=== PATIENT | male | born 1945 | race Caucasian/White ===

== ENCOUNTER 2017-09-09 11:43 | Inpatient (IN) | payer MEDICARE ==
[2017-09-09] VITALS (9 sets, daily range): BP systolic 73–123; BP diastolic 53–88; PULSE 76–152; RESP 19–20; TEMP 97.6–97.9; O2SAT 93–98
[~2017-09-09] VITALS: Ht 185.4 cm; Wt 94.7 kg
[2017-09-09] MEDS ORDERED: WARF-20 PO (12:59)
[2017-09-09] MEDS ORDERED: DULO1CAP PO (12:59)
[2017-09-09] MEDS ORDERED: WARF4TAB51 PO (12:59)
[2017-09-09] MEDS ORDERED: ACETAMINOPHEN/HYDROcodone 325 MG/5 MG TAB PO ONE (13:15)
--- NOTE | 2017-09-09 13:25 | PD ---
HPI Chief Complaint: Pain: Acute or Chronic Time Seen by Provider: 12:53 Travel History International Travel<30 days: Yes Contact w/Intl Traveler<30days: Yes Name of Country Traveled to: [place] Traveled to known affect area: Yes History of Present Illness HPI 72-year-old male presents to the emergency room for evaluation of right knee pain for the past several days. It started about 4-5 days ago when he "tweaked " his knee while changing his tire. He had mild pain since then but but yesterday the pain became so severe, he could no longer ambulate. Pain is also worse with hyperextension. Patient has minimal pain at rest. He has been taking Tylenol, his friend's muscle relaxer, and previously prescribed oxycodone with moderate relief in symptoms. He cannot localize pain. Denies worsening paresthesias, fever. No history of knee problems. History of A. fib for which he takes warfarin. Patient stopped taking warfarin 2 days ago because he noted a small bruise to his buttocks. Denies any trauma or injury to buttocks. He has an appointment with his orthopedic physician in 3 days. Patient states he may have been diagnosed with gout a long time ago. PFSH Past Medical History Hx Anticoagulant Therapy: Yes (COUMADIN) Atrial Fibrillation: Yes Cardiovascular Problems: Yes (AFIB) COPD: Yes Musculoskeletal: Yes (SPINAL STENOSIS) Respiratory: Yes (COPD) Influenza Vaccination: No Past Surgical History Surgical History: No Previous Surgery Social History Alcohol Use: No Tobacco Use: No Substance Use: No Allergies-Medications (Allergen,Severity, Reaction): Coded Allergies: No Known Allergies (Unverified , 09/09/17) Reported Meds & Prescriptions Reported Meds & Active Scripts Active Walker/Adult/Folding (Device) 1 Mis Mis Ea .XX DIRECTED Prednisone 20 Mg Tab 40 Mg PO DAILY Take 40 mg (2 tablets) daily for 5 days Oxycodone (Oxycodone HCl) 5 Mg Cap 5 Mg PO Q6H PRN Reported Warfarin 4 Mg Tab 4 Mg PO EVERY OTHER DAY Warfarin 2 Mg Tab 4.5 Mg PO EVERY OTHER DAY Duloxetine DR (Duloxetine HCl) 20 Mg Capdr 20 Mg PO DAILY Review of Systems Except as stated in HPI: all other systems reviewed are Neg Physical Exam Narrative GENERAL: Well-nourished, well-developed male in no acute distress. Afebrile. SKIN: Focused skin assessment warm/dry. No erythema or ecchymosis of the knee. There is a 2 cm in diameter area of ecchymosis around the coccyx. HEAD: Normocephalic. EYES: No scleral icterus. No injection or drainage. NECK: Supple, trachea midline. No JVD or lymphadenopathy. CARDIOVASCULAR: Regular rate and rhythm without murmurs, gallops, or rubs. RESPIRATORY: Breath sounds equal bilaterally. No accessory muscle use. MSK: Mild edema of the right knee. Negative Homans test. 2+ dorsalis pedis pulses are equal bilaterally. Full range of motion of the right knee but with pain. Tenderness to palpation of lateral and medial aspect of right knee. No obvious effusion. Data Data Last Documented VS Vital Signs Date Time Temp Pulse Resp B/P (MAP) Pulse Ox O2 Delivery O2 Flow Rate FiO2 09/09/17 17:29 108 20 83/53 (63) 95 Room Air 09/09/17 12:22 97.9 Orders Orders Knee, Complete (4vws) (09/09/17 ) Acetamin-Hydrocod 325-5 Mg ([place] 5-325 (09/09/17 13:15) ^ Knee Immobilizer (09/09/17 15:01) Radiology Film Requests (09/09/17 ) Morphine Inj (Morphine Inj) (09/09/17 15:30) Sodium Chlor 0.9% 1000 Ml Inj (Ns 1000 M (09/09/17 16:00) Complete Blood Count With Diff (09/09/17 16:36) Comprehensive Metabolic Panel (09/09/17 16:36) Prothrombin Time / Inr (Pt) (09/09/17 16:36) Act Partial Throm Time (Ptt) (09/09/17 16:36) Sodium Chlor 0.9% 1000 Ml Inj (Ns 1000 M (09/09/17 16:45) Urinalysis - C+S If Indicated (09/09/17 16:39) Hip, Uni(Ap&Lat) W Ap Pelvis (09/09/17 ) Sodium Chlor 0.9% 1000 Ml Inj (Ns 1000 M (09/09/17 17:30) Electrocardiogram (09/09/17 17:30) Blood Culture (09/09/17 17:30) C-Reactive Protein (Crp) (09/09/17 17:30) Hepatic Functional Panel (09/09/17 17:30) Westergren Sedimentation Rate (09/09/17 17:30) Magnesium (Mg) (09/09/17 17:30) Thyroid Stimulating Hormone (09/09/17 17:30) Phosphorus (Po4) (09/09/17 17:30) Chest, Single Ap (09/09/17 17:30) Ecg Monitoring (09/09/17 17:30) Oximetry (09/09/17 17:30) Lactic Acid (09/09/17 17:35) Labs Laboratory Tests Test 09/09/17 16:45 White Blood Count 8.2 TH/MM3 Red Blood Count 4.58 MIL/MM3 Hemoglobin 14.5 GM/DL Hematocrit 42.5 % Mean Corpuscular Volume 92.8 FL Mean Corpuscular Hemoglobin 31.6 PG Mean Corpuscular Hemoglobin Concent 34.1 % Red Cell Distribution Width 14.4 % Platelet Count 179 TH/MM3 Mean Platelet Volume 9.4 FL Neutrophils (%) (Auto) 94.4 % Lymphocytes (%) (Auto) 2.3 % Monocytes (%) (Auto) 3.1 % Eosinophils (%) (Auto) 0.0 % Basophils (%) (Auto) 0.2 % Neutrophils # (Auto) 7.7 TH/MM3 Lymphocytes # (Auto) 0.2 TH/MM3 Monocytes # (Auto) 0.3 TH/MM3 Eosinophils # (Auto) 0.0 TH/MM3 Basophils # (Auto) 0.0 TH/MM3 CBC Comment AUTO DIFF Prothrombin Time 13.4 SEC Prothromb Time International Ratio 1.3 RATIO Activated Partial Thromboplast Time 34.6 SEC Blood Urea Nitrogen 43 MG/DL Creatinine 2.01 MG/DL Random Glucose 89 MG/DL Total Protein 5.7 GM/DL Albumin 2.2 GM/DL Calcium Level 8.8 MG/DL Alkaline Phosphatase 93 U/L Aspartate Amino Transf (AST/SGOT) 12 U/L Alanine Aminotransferase (ALT/SGPT) 15 U/L Total Bilirubin 1.9 MG/DL Sodium Level 134 MEQ/L Potassium Level 4.1 MEQ/L Chloride Level 100 MEQ/L Carbon Dioxide Level 25.0 MEQ/L Anion Gap 9 MEQ/L Estimat Glomerular Filtration Rate 33 ML/MIN MDM Medical Decision Making Medical Screen Exam Complete: Yes Emergency Medical Condition: Yes Medical Record Reviewed: Yes Differential Diagnosis Sprain, strain, contusion, effusion, inflammatory arthritis, blood clot unlikely Narrative Course 72-year-old male presents to the emergency room for evaluation of right knee pain for the past 4 days that worsened yesterday morning. Patient states he may have tweaked his knee while changing a tire several days ago but denies any obvious or specific trauma or injury. Denies any falls. States yesterday morning he can no longer walk because his knee pain was so severe. Minimal pain at rest. Physical exam reveals mild edema of the right knee. No erythema or ecchymosis. Mildly increased warmth. Negative Homans test. 2+ dorsalis pedis pulses are equal bilaterally. Full range of motion of the right knee but with pain. Tenderness to palpation of lateral and medial aspect of right knee. No obvious effusion. No evidence of septic arthritis. Patient also complained of acute on chronic back pain with history of spinal stenosis. He is being worked up as an outpatient by his physicians in [facility]. Patient was given Lortab for pain which moderately improved symptoms. X-ray of the right knee shows multiple acute and chronic findings. X-ray results discussed with patient and he was given copy of report. He has an appointment with his orthopedic physician in 3 days. Upon discharge, he mentioned left hip pain and dark urine for the past few days but initially declined to stay for x- rays and UA. His blood pressure was rechecked and found to be decreasing. Patient was clammy but denied chest pain, shortness of breath, or significant abdominal pain. He is alert and oriented. Answering questions appropriately. IV access established and basic labs obtained. Patient given a liter of fluids. After 1 L of fluids, he was persistently hypotensive. A second liter was ordered and patient remained hypotensive. At this point he was signed out to my attending physician. Please see his note for disposition. Condition: Stable Bridgett Ramirez Sep 09, 2017 13:25
--- NOTE | 2017-09-09 14:41 | RADRPT ---
EXAM DATE/TIME: 09/09/2017 13:49 [facility] COMPARISON: No previous studies available for comparison. INDICATIONS : Right knee pain. MEDICAL HISTORY : None. SURGICAL HISTORY : None. ENCOUNTER: Initial ACUITY: 1 day PAIN SCORE: 9/10 LOCATION: Right knee. FINDINGS: 4 views of the right knee demonstrate no fracture or dislocation. There are tricompartmental osteophy virgilio with medial joint space narrowing. A moderate to large joint effusion is present. There is coarse ossification at the medial supracondylar ridge. No soft tissue abnormality or radiopaque foreign bod y is seen. There is severe calcification of the popliteal artery. There is mineralization within the lateral meniscus. CONCLUSION: 1. Moderate to large joint effusion. No acute osseous abnormality is identified. 2. 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 3. Bridger-Stieda lesion indicating old medial collateral ligament injury. 4. Severe calcification of the popliteal artery. Constantin Lopez MD on September 09, 2017 at 14:37 Board Certified Radiologist. This report was verified electronically.
[2017-09-09] MEDS ORDERED: PRED20 PO (15:02)
[2017-09-09] MEDS ORDERED: OXYC1CAP PO (15:02)
[2017-09-09] MEDS ORDERED: WALKER/ADULT/FO1 MIS (15:03)
[2017-09-09] MEDS ORDERED: MORPHINE SULFATE 2 MG/ML INJ IM ONE (15:30)
[2017-09-09] MEDS ORDERED: SODIUM CHLOR 0.9% 1000 ML INJ 1,000 ML IV ONE ×3 (16:00→17:30)
[2017-09-09 17:03] LABS: AUTOMATED NEUTROPHIL # 7.7 TH/MM3 (1.8-7.7); BASOPHIL % 0.2 % (0.0-2.0); HEMATOCRIT 42.5 % (39.0-51.0); HEMOGLOBIN 14.5 GM/DL (13.0-17.0); LYMPH % 2.3 % (9.0-44.0); LYMPHOCYTE # 0.2 TH/MM3 (1.0-4.8); MEAN CELL VOLUME 92.8 FL (80.0-100.0); MEAN CORPUSCULAR HEMOGLOBIN 31.6 PG (27.0-34.0); MEAN CORPUSCULAR HGB CONC 34.1 % (32.0-36.0); MEAN PLATELET VOLUME 9.4 FL (7.0-11.0); MONO % 3.1 % (0.0-8.0); MONOCYTE # 0.3 TH/MM3 (0-0.9); NEUT % 94.4 % (16.0-70.0); PLATELET COUNT 179 TH/MM3 (150-450); RED BLOOD COUNT 4.58 MIL/MM3 (4.50-5.90); RED CELL DISTRIBUTION WIDTH 14.4 % (11.6-17.2); WHITE BLOOD COUNT 8.2 TH/MM3 (4.0-11.0)
[2017-09-09 17:19] LABS: ALBUMIN 2.2 GM/DL (3.4-5.0); ALT (GPT) 15 U/L (12-78); AST (GOT) 12 U/L (15-37); BLOOD UREA NITROGEN 43 MG/DL (7-18); CALCIUM 8.8 MG/DL (8.5-10.1); CHLORIDE 100 MEQ/L (98-107); CREATININE 2.01 MG/DL (0.60-1.30); GLOMERULAR FILTRATION RATE 33 ML/MIN (>89); GLUCOSE,RANDOM 89 MG/DL (74-106); SODIUM (NA) 134 MEQ/L (136-145)
[2017-09-09 17:20] LABS: INTERNATIONAL NORMALIZED RATIO 1.3 RATIO; PROTHROMBIN TIME - PATIENT 13.4 SEC (9.8-11.6)
[2017-09-09 17:22] LABS: ALKALINE PHOSPHATASE 93 U/L (45-117); TOTAL BILIRUBIN ADULT 1.9 MG/DL (0.2-1.0); TOTAL PROTEIN 5.7 GM/DL (6.4-8.2)
[2017-09-09 17:36] LABS: BANDS 53 % (0-6); LYMPHOCYTES 1 % (9-44); METAMYELOCYTES 1 % (0-1); MONOCYTES 2 % (0-8); POLYS (SEG NEUTROPHILS) 42 % (16-70); PROMYELOCYTES 1 % (0-0)
[2017-09-09 17:39] LABS: DOHLE BODIES PRESENT (NONE SEEN); TOXIC GRANULATION 2+ (NORMAL); TOXIC VACUOLATION PRESENT (NONE SEEN)
--- NOTE | 2017-09-09 17:47 | PD ---
Physical Exam Narrative Patient was seen by my mechanic assistant and signed out to me. Patient complains shaking chills since yesterday. Patient denies any fever. Patient denies any coughing congestion. Patient denies any dysuria or frequency. GENERAL: Well-nourished, well-developed patient. SKIN: Focused skin assessment warm/dry. HEAD: Normocephalic. EYES: No scleral icterus. No injection or drainage. NECK: Supple, trachea midline. No JVD or lymphadenopathy. CARDIOVASCULAR: Irregular irregular rate and rhythm without murmurs, gallops, or rubs. RESPIRATORY: Breath sounds equal bilaterally. No accessory muscle use. GASTROINTESTINAL: Abdomen soft, nondistended. Patient has mild soft tissue swelling tenderness diffuse over the right knee joint. No redness no heat noted. Limited range of motion of the right knee secondary to pain. BACK: Nontender without obvious deformity. No CVA tenderness. Neurologic exam normal. Data Data Last Documented VS Vital Signs Date Time Temp Pulse Resp B/P (MAP) Pulse Ox O2 Delivery O2 Flow Rate FiO2 09/09/17 17:29 108 20 83/53 (63) 95 Room Air 09/09/17 12:22 97.9 Orders Orders Knee, Complete (4vws) (09/09/17 ) Acetamin-Hydrocod 325-5 Mg ([place] 5-325 (09/09/17 13:15) ^ Knee Immobilizer (09/09/17 15:01) Radiology Film Requests (09/09/17 ) Morphine Inj (Morphine Inj) (09/09/17 15:30) Sodium Chlor 0.9% 1000 Ml Inj (Ns 1000 M (09/09/17 16:00) Complete Blood Count With Diff (09/09/17 16:36) Comprehensive Metabolic Panel (09/09/17 16:36) Prothrombin Time / Inr (Pt) (09/09/17 16:36) Act Partial Throm Time (Ptt) (09/09/17 16:36) Sodium Chlor 0.9% 1000 Ml Inj (Ns 1000 M (09/09/17 16:45) Urinalysis - C+S If Indicated (09/09/17 16:39) Hip, Uni(Ap&Lat) W Ap Pelvis (09/09/17 ) Sodium Chlor 0.9% 1000 Ml Inj (Ns 1000 M (09/09/17 17:30) Electrocardiogram (09/09/17 17:30) Blood Culture (09/09/17 17:30) C-Reactive Protein (Crp) (09/09/17 17:30) Hepatic Functional Panel (09/09/17 17:30) Westergren Sedimentation Rate (09/09/17 17:30) Magnesium (Mg) (09/09/17 17:30) Thyroid Stimulating Hormone (09/09/17 17:30) Phosphorus (Po4) (09/09/17 17:30) Chest, Single Ap (09/09/17 17:30) Ecg Monitoring (09/09/17 17:30) Oximetry (09/09/17 17:30) Lactic Acid (09/09/17 17:35) Lactic Acid (09/09/17 17:36) Ct Abd/Pel W/O Iv Contrast (09/09/17 17:38) Vancomycin Inj (Vancomycin Inj) (09/09/17 18:00) Piperacil-Tazo 2.25 Gm Premix (Zosyn 2.2 (09/09/17 18:00) Sodium Chlor 0.9% 1000 Ml Inj (Ns 1000 M (09/09/17 18:15) Marlo Otero (Chhaya Otero) (09/10/17 09:00) Admit Order (Ed Use Only) (09/09/17 18:09) Admit To Inpatient (09/09/17 ) Code Status (09/09/17 18:07) Vital Signs (Adult) LUIZ.Q1H (09/09/17 18:07) Elevate Head Of Bed (09/09/17 18:07) Activity Oob With Assistance (09/09/17 18:07) Intake + Output Q1H (09/09/17 18:07) Diet Regular Basic (09/09/17 Dinner) Sodium Chlor 0.9% 1000 Ml Inj (Ns 1000 M (09/09/17 18:07) Sodium Chloride 0.9% Flush (Ns Flush) (09/09/17 18:15) Sodium Chloride 0.9% Flush (Ns Flush) (09/09/17 21:00) Acetaminophen (Tylenol) (09/09/17 18:15) Famotidine Inj (Pepcid Inj) (09/09/17 21:00) Temazepam (Restoril) (09/09/17 18:15) Albuterol-Ipratropium Neb (Duoneb Neb) (09/09/17 18:15) Complete Blood Count With Diff (09/10/17 04:00) Comprehensive Metabolic Panel (09/10/17 04:00) Act Partial Throm Time (Ptt) (09/10/17 04:00) Prothrombin Time / Inr (Pt) (09/10/17 04:00) Magnesium (Mg) (09/10/17 04:00) Phosphorus (Po4) (09/10/17 04:00) Lactic Acid (09/10/17 04:00) Pt Request For Service (09/09/17 18:07) Rn Women Services / Telemetry LUIZ.Q8H (09/09/17 18:07) Heparin Inj (Heparin Inj) (09/09/17 18:15) Scd Bilateral/Knee High LUIZ.BID (09/09/17 18:07) Jefe Bilateral/Knee High LUIZ.QSHIFT (09/09/17 18:07) ^ Initiate Protocol (09/09/17 18:07) Instruction (09/09/17 18:07) [facility] Nursing Information (09/09/17 18:15) Chlorhexidine 2% Cloth (Chlorhexidine 2% (09/10/17 04:00) Chlorhexidine 2% Cloth (Chlorhexidine 2% (09/09/17 18:15) Mrsa Pcr Surveillance (09/09/17 18:07) Docusate Sodium-Senna (Mar-Colace) (09/09/17 21:00) Magnesium Hydroxide Liq (Milk Of Magnesi (09/09/17 18:15) Sennosides (Senokot) (09/09/17 18:15) Bisacodyl Supp (Dulcolax Supp) (09/09/17 18:15) Lactulose Liq (Lactulose Liq) (09/09/17 18:15) Inpatient Certification (09/09/17 ) Vancomycin Consult Pharmacy (Vancomycin (09/09/17 18:15) Piperacil-Tazo 4.5 Gm Premix (Zosyn 4.5 (09/09/17 18:15) Labs Laboratory Tests Test 09/09/17 16:45 White Blood Count 8.2 TH/MM3 Red Blood Count 4.58 MIL/MM3 Hemoglobin 14.5 GM/DL Hematocrit 42.5 % Mean Corpuscular Volume 92.8 FL Mean Corpuscular Hemoglobin 31.6 PG Mean Corpuscular Hemoglobin Concent 34.1 % Red Cell Distribution Width 14.4 % Platelet Count 179 TH/MM3 Mean Platelet Volume 9.4 FL Neutrophils (%) (Auto) 94.4 % Lymphocytes (%) (Auto) 2.3 % Monocytes (%) (Auto) 3.1 % Eosinophils (%) (Auto) 0.0 % Basophils (%) (Auto) 0.2 % Neutrophils # (Auto) 7.7 TH/MM3 Lymphocytes # (Auto) 0.2 TH/MM3 Monocytes # (Auto) 0.3 TH/MM3 Eosinophils # (Auto) 0.0 TH/MM3 Basophils # (Auto) 0.0 TH/MM3 CBC Comment AUTO DIFF Differential Total Cells Counted 100 Neutrophils % (Manual) 42 % Band Neutrophils % 53 % Lymphocytes % 1 % Monocytes % 2 % Neutrophils # (Manual) 8.0 TH/MM3 Metamyelocytes 1 % Promyelocytes 1 % Differential Comment FINAL DIFF MANUAL Toxic Granulation 2+ Toxic Vacuolation PRESENT Dohle Bodies PRESENT Platelet Estimate NORMAL Platelet Morphology Comment CLUMPED Prothrombin Time 13.4 SEC Prothromb Time International Ratio 1.3 RATIO Activated Partial Thromboplast Time 34.6 SEC Blood Urea Nitrogen 43 MG/DL Creatinine 2.01 MG/DL Random Glucose 89 MG/DL Total Protein 5.7 GM/DL Albumin 2.2 GM/DL Calcium Level 8.8 MG/DL Alkaline Phosphatase 93 U/L Aspartate Amino Transf (AST/SGOT) 12 U/L Alanine Aminotransferase (ALT/SGPT) 15 U/L Total Bilirubin 1.9 MG/DL Sodium Level 134 MEQ/L Potassium Level 4.1 MEQ/L Chloride Level 100 MEQ/L Carbon Dioxide Level 25.0 MEQ/L Anion Gap 9 MEQ/L Estimat Glomerular Filtration Rate 33 ML/MIN [facility] Supervised Visit with ANDREW: Yes Interpretation(s) 1742 PM. X-ray of the right knee shows moderate to large joint effusion. No acute osseous abnormality identified. CBC WBC 8.2. Hemoglobin 14.5 hematocrit 42.5. 42 neutrophil. 53 bands. Sodium 134. BUN 43. Creatinine 2.01. GFR 33. Total bili 1.9. AST 12. INR 1.3. Differential Diagnosis Differential diagnosis including dehydration, sepsis, septic arthritis right knee joint. Narrative Course 72-year-old male with right knee pain and hypotension. Patient is on Coumadin for atrial fibrillation. INR 1.3. CBC with bandemia. BUN and creatinine elevated. No obvious source except possible knee joint infection. Patient stopped taking Coumadin 2 days ago and INR is elevated. I would hold off for knee joint aspiration at this point. Vancomycin 1 g IV. Zosyn 2.25 g IV. Normal saline solution 3 L IV bolus. Normal saline solution 1 25 cc an hour. Levophed drip started to keep MAP above 65. Critical Care Narrative Aggregate critical care time was 90 minutes. Time to perform other separately billable procedures was not included in the critical care time. My time did not include minutes spent treating any other patients simultaneously or on activities that did not directly contribute to the patient's treatment. The services I provided to this patient were to treat and/or prevent clinically significant deterioration that could result in: I provided critical care services requiring my management, as noted below: Chart data review, documentation time, medication orders and management, vital sign assessments/reviewing monitor data, ordering and reviewing lab tests, ordering and interpreting/reviewing x-rays and diagnostic studies, care of the patient and discussion of the patient with the admitting physicians. Procedures Procedure Narrative CENTRAL VENOUS LINE: The site was prepped with Betadine and sterilely draped. It was infiltrated with 1% lidocaine plain. The deep vein was cannulated using normal Seldinger technique. A triple lumen central line was placed in the right femoral vein site and secured with simple interrupted suture. The site was sterilely dressed. The patient tolerated the procedure well. Diagnosis Primary Impression: Severe sepsis with septic shock Additional Impression: Effusion, right knee Admitting Information Admitting Physician Requests: Admit Referrals: Primary Care Physician Jonathan Underwood MD Sep 09, 2017 17:47
[2017-09-09] MEDS ORDERED: VANCOMYCIN INJ 1,000 MG in SODIUM CHLOR 0.9% 250 ML INJ 250 ML IV ONE (18:00)
[2017-09-09] MEDS ORDERED: PIPERACIL-TAZO 2.25 GM PREMIX 50 ML IV ONE (18:00)
[2017-09-09] MEDS ORDERED: SODIUM CHLOR 0.9% 1000 ML INJ 1,000 ML IV SCH ×2 (18:07→18:15)
--- NOTE | 2017-09-09 18:11 | HHI.HP ---
HPI Service Critical Care Medicine Primary Care Physician No Primary Care Physician Admission Diagnosis Hypotension. Right knee effusion. Diagnosis: Travel History International Travel<30 Days: Yes Contact w/Intl Traveler <30 Da: Yes Name of Country Traveled to: [place] Traveled to Known Affected Are: Yes History of Present Illness 72-year-old male presents for evaluation of right knee pain for the past several days. It started about 4-5 days ago when he "tweaked" his knee while changing his tire. He had mild pain since then but but yesterday the pain became so severe, he could no longer ambulate. Pain is also worse with hyperextension. Patient has minimal pain at rest. He has been taking Tylenol, his friend's muscle relaxant, and previously prescribed oxycodone with moderate relief in symptoms. He cannot localize pain. Denies paresthesias, or fever. No history of knee problems. History of A. fib for which he takes warfarin. Patient stopped taking warfarin 2 days ago because he noted a small bruise to his buttocks. Denies any trauma or injury to buttocks. In the emergency department he was found to have bandemia and was hypotensive despite 3 L of normal saline boluses. Review of Systems Constitutional: DENIES: Diaphoretic episodes, Fatigue, Fever, Weight gain, Weight loss, Chills, Dizziness, Change in appetite, Night Sweats Endocrine: DENIES: Heat/cold intolerance, Polydipsia, Polyuria, Polyphagia Eyes: DENIES: Blurred vision, Diplopia, Eye inflammation, Eye pain, Vision loss , Photosensitivity, Double Vision Ears, nose, mouth, throat: DENIES: Tinnitus, Hearing loss, Vertigo, Nasal discharge, Oral lesions, Throat pain, Hoarseness, Ear Pain, Running Nose, Epistaxis, Sinus Pain, Toothache, Odynophagia Respiratory: DENIES: Apneas, Cough, Snoring, Wheezing, Hemoptysis, Sputum production, Shortness of breath Cardiovascular: DENIES: Chest pain, Palpitations, Syncope, Dyspnea on Exertion , PND, Lower Extremity Edema, Orthopnea, Claudication Gastrointestinal: DENIES: Abdominal pain, Black stools, Bloody stools, Constipation, Diarrhea, Nausea, Vomiting, Difficulty Swallowing, Anorexia Genitourinary: DENIES: Sexual dysfunction, Urinary frequency, Urinary incontinence, Urgency, Hematuria, Dysuria, Nocturia, Penile Discharge, Testicular Pain, Testicular Swelling Musculoskeletal: COMPLAINS OF: Joint pain, Stiffness, Joint Swelling, DENIES: Muscle aches, Back pain, Neck pain Integumentary: DENIES: Abnormal pigmentation, Nail changes, Pruritus, Rash Hematologic/lymphatic: DENIES: Bruising, Lymphadenopathy Immunologic/allergic: DENIES: Eczema, Urticaria Neurologic: DENIES: Abnormal gait, Headache, Localized weakness, Paresthesias, Seizures, Speech Problems, Tremor, Poor Balance Psychiatric: DENIES: Anxiety, Confusion, Mood changes, Depression, Hallucinations, Agitation, Suicidal Ideation, Homicidal Ideation, Delusions Past Family Social History Allergies: Coded Allergies: No Known Allergies (Unverified , 09/09/17) Past Medical History Hx Anticoagulant Therapy: Yes (COUMADIN) Atrial Fibrillation: Yes Cardiovascular Problems: Yes (AFIB) COPD: Yes Musculoskeletal: Yes (SPINAL STENOSIS) Respiratory: Yes (COPD) Influenza Vaccination: No Past Surgical History No Previous Surgery Reported Medications Reported Meds & Active Scripts Active Reported Warfarin 4 Mg Tab 4 Mg PO EVERY OTHER DAY Warfarin 2 Mg Tab 4.5 Mg PO EVERY OTHER DAY Duloxetine DR (Duloxetine HCl) 20 Mg Capdr 20 Mg PO DAILY Active Ordered Medications Current Medications Medications (Trade) Dose Ordered Sig/Jet Route PRN Reason Start Time Stop Time Status Last Admin Dose Admin Sodium Chloride 1,000 ml @ 125 mls/hr Q8H IV 09/09/17 18:15 09/09/17 18:26 Duloxetine HCl (Cymbalta Dr) 20 mg DAILY PO 09/10/17 09:00 Sodium Chloride 1,000 ml @ 184 mls/hr Q5H27M IV 09/09/17 18:07 Sodium Chloride (NS Flush) 2 ml UNSCH PRN IV FLUSH FLUSH AFTER USING IV ACCESS 09/09/17 18:15 Sodium Chloride (NS Flush) 2 ml BID IV FLUSH 09/09/17 21:00 Acetaminophen (Tylenol) 650 mg Q6H PRN PO PAIN 1-5 AND/OR FEVER >101F 09/09/17 18:15 Hydromorphone HCl (Dilaudid Pf Inj) 1 mg Q4H PRN IV PUSH PAIN SCALE 6 TO 10 09/09/17 18:15 Famotidine (Pepcid Inj) 20 mg DAILY IV PUSH 09/09/17 21:00 Temazepam (Restoril) 15 mg HS PRN PO INSOMNIA 09/09/17 18:15 Albuterol/ Ipratropium (Duoneb Neb) 1 ampule Q2HR NEB PRN INH WHEEZING 09/09/17 18:15 Heparin Sodium (Porcine) (Heparin Inj) 5,000 units Q8HR SQ 09/09/17 18:15 Miscellaneous Information 1 Q361D XX 09/09/17 18:15 Chlorhexidine Gluconate (Chlorhexidine 2% Cloth) 3 pack Taper DAILY@04 TOP 09/10/17 04:00 09/06/18 03:59 Chlorhexidine Gluconate (Chlorhexidine 2% Cloth) 3 pack UNSCH PRN TOP HYGIENIC CARE 09/09/17 18:15 Senna/Docusate Sodium (Mar-Colace) 1 tab BID PO 09/09/17 21:00 Magnesium Hydroxide (Milk Of Magnesia Liq) 30 ml Q12H PRN PO Mild constipation 09/09/17 18:15 Sennosides (Senokot) 17.2 mg Q12H PRN PO Moderate constipation 09/09/17 18:15 Bisacodyl (Dulcolax Supp) 10 mg DAILY PRN RECTAL SEVERE CONSITIPATION 09/09/17 18:15 Lactulose (Lactulose Liq) 30 ml DAILY PRN PO SEVERE CONSITIPATION 09/09/17 18:15 Pharmacy Profile Note 0 ml @ 0 mls/hr UNSCH OTHER 09/09/17 18:15 Norepinephrine Bitartrate 250 ml @ 7.5 mls/hr TITRATE PRN IV Blood pressure management 09/09/17 19:00 Terbutaline Sulfate (Brethine Inj) 1 mg UNSCH PRN SQ For Extravasation 09/09/17 19:00 Miscellaneous Information SPECIFIC LAB TO BE [facility]... ONCE ONCE .XX 09/10/17 05:00 09/10/17 05:01 Piperacillin Sod/ Tazobactam Sod 50 ml @ 100 mls/hr Q6H IV 09/09/17 08:00 Family History No family history significant for coronary artery disease or malignancy Social History Alcohol Use: No Tobacco Use: No Substance Use: No Physical Exam Vital Signs Vital Signs Date Time Temp Pulse Resp B/P (MAP) Pulse Ox O2 Delivery O2 Flow Rate FiO2 09/09/17 17:29 108 20 83/53 (63) 95 Room Air 09/09/17 16:40 112 19 73/55 (61) 95 09/09/17 15:45 100 19 90/63 (72) 96 09/09/17 12:22 97.9 76 20 123/88 (100) 93 Physical Exam GENERAL: Well-nourished, well-developed patient. SKIN: Warm and dry. HEAD: Normocephalic. EYES: No scleral icterus. No injection or drainage. NECK: Supple, trachea midline. No JVD or lymphadenopathy. CARDIOVASCULAR: Regular rate and rhythm without murmurs, gallops, or rubs. RESPIRATORY: Breath sounds equal bilaterally. No accessory muscle use. GASTROINTESTINAL: Abdomen soft, non-tender, nondistended. MUSCULOSKELETAL: Mild edema of the right knee. Negative Homans test. 2+ dorsalis pedis pulses are equal bilaterally. Full range of motion of the right knee but with pain. Tenderness to palpation of lateral and medial aspect of right knee. No obvious effusion. BACK: Nontender without obvious deformity. NEURO EXAM: GCS: 15 Mental Status: The patient is alert and oriented to person, place, and time with normal speech. Laboratory Laboratory Tests Test 09/09/17 16:45 White Blood Count 8.2 Red Blood Count 4.58 Hemoglobin 14.5 Hematocrit 42.5 Mean Corpuscular Volume 92.8 Mean Corpuscular Hemoglobin 31.6 Mean Corpuscular Hemoglobin Concent 34.1 Red Cell Distribution Width 14.4 Platelet Count 179 Mean Platelet Volume 9.4 Neutrophils (%) (Auto) 94.4 Lymphocytes (%) (Auto) 2.3 Monocytes (%) (Auto) 3.1 Eosinophils (%) (Auto) 0.0 Basophils (%) (Auto) 0.2 Neutrophils # (Auto) 7.7 Lymphocytes # (Auto) 0.2 Monocytes # (Auto) 0.3 Eosinophils # (Auto) 0.0 Basophils # (Auto) 0.0 CBC Comment AUTO DIFF Differential Total Cells Counted 100 Neutrophils % (Manual) 42 Band Neutrophils % 53 Lymphocytes % 1 Monocytes % 2 Neutrophils # (Manual) 8.0 Metamyelocytes 1 Promyelocytes 1 Differential Comment FINAL DIFF MANUAL Toxic Granulation 2+ Toxic Vacuolation PRESENT Dohle Bodies PRESENT Platelet Estimate NORMAL Platelet Morphology Comment CLUMPED Prothrombin Time 13.4 Prothromb Time International Ratio 1.3 Activated Partial Thromboplast Time 34.6 Blood Urea Nitrogen 43 Creatinine 2.01 Random Glucose 89 Total Protein 5.7 Albumin 2.2 Calcium Level 8.8 Alkaline Phosphatase 93 Aspartate Amino Transf (AST/SGOT) 12 Alanine Aminotransferase (ALT/SGPT) 15 Total Bilirubin 1.9 Sodium Level 134 Potassium Level 4.1 Chloride Level 100 Carbon Dioxide Level 25.0 Anion Gap 9 Estimat Glomerular Filtration Rate 33 Result Diagram: 09/09/17 1645 09/09/17 1645 Imaging Last 24 hours Impressions Abdomen/Pelvis CT 09/09/17 1738 Signed Impressions: Service Date/Time: Saturday, September 09, 2017 20:30 - CONCLUSION: 1. Small bilateral pleural effusions, left greater than right with basilar dependent airspace disease in the lungs. Mild anasarca. No bowel obstruction. No free air. Mild constipation. Bruce catheter in bladder. Sal Terrazas MD Chest X-Ray [id number]/09/[id number] Signed Impressions: Service Date/Time: Saturday, September 09, 2017 18:01 - CONCLUSION: 1. Cardiomegaly with possible mild interstitial edema. Mild subsegmental left perihilar airspace disease. Sal Terrazas MD Septic Shock Reassessment Septic shock perfusion: reassessment completed Caprini VTE Risk Assessment Caprini VTE Risk Assessment: Mod/High Risk (score >= 2) Caprini Risk Assessment Model Point Value = 1 Point Value = 2 Point Value = 3 Point Value = 5 Age 41-60 Minor surgery BMI > 25 kg/m2 Swollen legs Varicose veins or History of unexplained or recurrent spontaneous Oral contraceptives or hormone replacement Sepsis (< 1 month) Serious lung disease, including pneumonia (< 1 month) Abnormal pulmonary function Acute myocardial infarction Congestive heart failure (< 1 month) History of inflammatory bowel disease Medical patient at bed rest Age 61-74 Arthroscopic surgery Major open surgery (> 45 min) Laparoscopic surgery (> 45 min) Malignancy Confined to bed (> 72 hours) Immobilizing plaster cast Central venous access Age >= 75 History of VTE Family history of VTE Factor V Leiden Prothrombin [id number] Lupus anticoagulant Anticardiolipin antibodies Elevated serum homocysteine Heparin-induced thrombocytopenia Other congenital or acquired thrombophilia Stroke (< 1 month) Elective arthroplasty Hip, pelvis, or leg fracture Acute spinal cord injury (< 1 month) Prophylaxis Regimen Total Risk Factor Score Risk Level Prophylaxis Regimen 0-1 Low Early ambulation 2 Moderate Order ONE of the following: *Sequential Compression Device (SCD) *Heparin 5000 units SQ BID 3-4 Higher Order ONE of the following medications: *Heparin 5000 units SQ TID *Enoxaparin/Lovenox 40 mg SQ daily (WT < 150 kg, CrCl > 30 mL/min) *Enoxaparin/Lovenox 30 mg SQ daily (WT < 150 kg, CrCl > 10-29 mL/min) *Enoxaparin/Lovenox 30 mg SQ BID (WT < 150 kg, CrCl > 30 mL/min) AND/OR *Sequential Compression Device (SCD) 5 or more Highest Order ONE of the following medications: *Heparin 5000 units SQ TID (Preferred with Epidurals) *Enoxaparin/Lovenox 40 mg SQ daily (WT < 150 kg, CrCl > 30 mL/min) *Enoxaparin/Lovenox 30 mg SQ daily (WT < 150 kg, CrCl > 10-29 mL/min) *Enoxaparin/Lovenox 30 mg SQ BID (WT < 150 kg, CrCl > 30 mL/min) AND *Sequential Compression Device (SCD) Assessment and Plan Assessment and Plan SIRS/sepsis - Likely septic arthritis - Broad-spectrum antibiotic - Orthopedic consultation for arthrocentesis - Follow-up cultures and sensitivity Hypertension - Due to above - Aggressive IV fluid hydration - Raudel-Synephrine when necessary to keep map over 65 Atrial fibrillation - Hold Coumadin for procedure - Amiodarone for rate control - Unable to use beta skylar or calcium channel skylar due to hypotension COPD - No exacerbation - No steroids indicated - DuoNeb's when necessary DVT GI prophylaxis - Teds SCDs - Subcutaneous heparin for now, stop on the Coumadin resumed - Pepcid Critical Care: The total critical care time was 35 minutes. Time to perform other separately billable procedures was not included in the critical care time. Shawn Jacobo MD Sep 09, 2017 6:11 pm
[2017-09-09] MEDS ORDERED: PIPERACIL-TAZO 4.5 GM PREMIX 100 ML IV SCH (18:15)
[2017-09-09] MEDS ORDERED: CHLORHEXIDINE GLUCONATE 2 % 1 PACK (2 CLOTHS) TOP PRN (18:15)
[2017-09-09] MEDS ORDERED: HYDROmorphone HCL PF 2 MG/ML VIAL IV PUSH PRN (18:15)
[2017-09-09] MEDS ORDERED: MISCELLANEOUS NURSING INFORMATION XX SCH (18:15)
[2017-09-09] MEDS ORDERED: SENNOSIDES 8.6 MG TAB PO PRN (18:15)
[2017-09-09] MEDS ORDERED: RESP: ALBUTEROL 2.5 MG/IPRATROPIUM 0.5 MG NEB (PRN) INH (18:15)
[2017-09-09] MEDS ORDERED: Vancomycin Consult Pharmacy 1 EA OTHER SCH (18:15)
--- NOTE | 2017-09-09 18:30 | RADRPT ---
EXAM DATE/TIME: 09/09/2017 18:01 [facility] COMPARISON: No previous studies available for comparison. INDICATIONS : Short of breath. MEDICAL HISTORY : Chronic obstructive pulmonary disease. Afib. SURGICAL HISTORY : None. ENCOUNTER: Initial ACUITY: >1 year PAIN SCORE: 0/10 LOCATION: Bilateral chest FINDINGS: Heart size is enlarged. There is some interstitial prominence, possibly interstitial edema with subse gmental airspace disease in left perihilar region. No significant effusion. No pneumothorax. CONCLUSION: 1. Cardiomegaly with possible mild interstitial edema. Mild subsegmental left perihilar airspace dise ase. Sal Terrazas MD on September 09, 2017 at 18:27 Board Certified Radiologist. This report was verified electronically.
[2017-09-09] MEDS ORDERED: NOREPINEPHRINE 4 MG/4 ML AMP ONE (18:31)
[2017-09-09] MEDS ORDERED: TERBUTALINE INJ 1 MG/ML AMP SQ PRN (19:00)
[2017-09-09] MEDS ORDERED: NOREPINEPHRINE-DEXTROSE DRIP 250 ML IV PRN (19:00)
[2017-09-09 19:26] LABS: TOTAL BILIRUBIN ADULT 1.8 MG/DL (0.2-1.0); TOTAL PROTEIN 5.2 GM/DL (6.4-8.2)
[2017-09-09 19:31] LABS: DIRECT BILIRUBIN ADULT 1.1 MG/DL (0.0-0.2); INDIRECT BILIRUBIN 0.7 MG/DL (0.0-0.8); MAGNESIUM 1.9 MG/DL (1.5-2.5); PHOSPHORUS 3.8 MG/DL (2.5-4.9)
[2017-09-09 19:32] LABS: BACTERIA, URINE OCC /hpf; BILIRUBIN, URINE NEG (NEG); BLOOD, URINE SMALL (NEG); GLUCOSE,URINE NEG (NEG); KETONE, URINE NEG (NEG); NITRITE,URINE NEG (NEG); PH, URINE 5.5 (5.0-8.5); SQUAMOUS EPITHELIAL CELL URINE <1 /hpf (0-5); URINE LEUKOCYTE ESTERASE NEG (NEG)
[2017-09-09 19:33] LABS: URINE COLOR ORANGE (YELLW/STRAW)
[2017-09-09] MEDS ORDERED: VANCOMYCIN INJ 1,250 MG in SODIUM CHLOR 0.9% 250 ML INJ 250 ML IV ONE (20:00)
[2017-09-09] MEDS ORDERED: PIPERACILLIN/TAZ 3.375 GM VIAL 3.375 GM in SODIUM CHLORIDE 0.9% INJ 50 ML IV SCH (20:00)
--- NOTE | 2017-09-09 20:49 | RADRPT ---
EXAM DATE/TIME: 09/09/2017 20:30 [facility] COMPARISON: No previous studies available for comparison. INDICATIONS : Patient complains of abdominal pain. ORAL CONTRAST: No oral contrast ingested. RADIATION DOSE: 15.34 CTDIvol (mGy) MEDICAL HISTORY : Chronic obstructive pulmonary disease. A-fib SURGICAL HISTORY : None. ENCOUNTER: Initial ACUITY: 1 day PAIN SCALE: 4/10 LOCATION: Left lower quadrant TECHNIQUE: Volumetric scanning of the abdomen and pelvis was performed. Using automated exposure control and ad justment of the mA and/or kV according to patient size, radiation dose was kept as low as reasonably achievable to obtain optimal diagnostic quality images. DICOM format image data is available electro nically for review and comparison. FINDINGS: There are small bilateral pleural effusions and basilar and dependent airspace disease in the lungs. Trace pericardial fluid. No acute findings in the liver, spleen, adrenals, kidneys or pancreas. Right renal cyst present measu ring about 3 cm. No calcified gallstones or biliary ductal dilatation. There is mild constipation. Bruce catheter in b ladder. Mild anasarca. CONCLUSION: 1. Small bilateral pleural effusions, left greater than right with basilar dependent airspace disease in the lungs. Mild anasarca. No bowel obstruction. No free air. Mild constipation. Bruce catheter in bladder. Sal Terrazas MD on September 09, 2017 at 20:44 Board Certified Radiologist. This report was verified electronically.
[2017-09-09] MEDS: DOCUSATE SODIUM 50 MG/SENNA 8.6 MG TAB PO SCH (21:00)
[2017-09-09] MEDS ORDERED: FAMOTIDINE 20 MG/2 ML VIAL IV PUSH SCH (21:00)
[2017-09-09] MEDS: SODIUM CHLORIDE 0.9% FLUSH 10 ML FLUSH IV FLUSH SCH (21:00)
[2017-09-10] VITALS (14 sets, daily range): BP systolic 96–112; BP diastolic 54–81; PULSE 87–146; RESP 19–27; TEMP 97.3–97.9; O2SAT 90–97
[2017-09-10] MEDS ORDERED: SODIUM CHLOR 0.9% 1000 ML INJ 1,000 ML IV ONE ×3 (01:00)
[2017-09-10] MEDS ORDERED: PHENYLEPHRINE INJ 40 MG in DEXTROSE 5% IN WATE 500 ML INJ 496 ML IV PRN ×2 (01:00)
[2017-09-10] MEDS ORDERED: TERBUTALINE INJ 1 MG/ML AMP SQ PRN (01:00)
[2017-09-10] MEDS ORDERED: AMIODARONE 150 MG/D5W 97 ML BOLUS 10 MINUTES IV ONE ×2 (01:45)
[2017-09-10] MEDS ORDERED: AMIODARONE INJ 450 MG in D5W (EXCEL BAG) INJ 241 ML IV PRN (01:45)
[2017-09-10] MEDS ORDERED: AMIODARONE INJ 450 MG in SODIUM CHLOR 0.9% (EXCEL) INJ 241 ML IV PRN (02:00)
[2017-09-10] MEDS ORDERED: AMIODARONE HCL 150 MG/3 ML VIAL ONE (02:13)
[2017-09-10] MEDS: CHLORHEXIDINE GLUCONATE 2 % 1 PACK (2 CLOTHS) TOP SCH (04:00)
[2017-09-10] MEDS ORDERED: ONDANSETRON HCL 4 MG/2 ML VIAL IV PUSH PRN (04:15)
[2017-09-10 04:17] LABS: HEMATOCRIT 43.4 % (39.0-51.0); HEMOGLOBIN 14.5 GM/DL (13.0-17.0); MEAN CELL VOLUME 93.4 FL (80.0-100.0); MEAN CORPUSCULAR HEMOGLOBIN 31.2 PG (27.0-34.0); MEAN CORPUSCULAR HGB CONC 33.4 % (32.0-36.0); MEAN PLATELET VOLUME 9.8 FL (7.0-11.0); PLATELET COUNT 181 TH/MM3 (150-450); RED BLOOD COUNT 4.64 MIL/MM3 (4.50-5.90); RED CELL DISTRIBUTION WIDTH 14.3 % (11.6-17.2); WHITE BLOOD COUNT 6.9 TH/MM3 (4.0-11.0)
[2017-09-10 04:22] LABS: INTERNATIONAL NORMALIZED RATIO 1.5 RATIO; PROTHROMBIN TIME - PATIENT 15.4 SEC (9.8-11.6)
[2017-09-10] MEDS ORDERED: LORazepam 2 MG/ML VIAL IV PUSH ONE (04:30)
[2017-09-10] MEDS ORDERED: PHARMACY ORDERED LAB ONE (05:00)
[2017-09-10 05:01] LABS: ALKALINE PHOSPHATASE 80 U/L (45-117); ALT (GPT) 16 U/L (12-78); AST (GOT) 18 U/L (15-37); BICARBONATE 19.6 MEQ/L (21.0-32.0); BLOOD UREA NITROGEN 45 MG/DL (7-18); CHLORIDE 106 MEQ/L (98-107); CREATININE 2.05 MG/DL (0.60-1.30); GLOMERULAR FILTRATION RATE 32 ML/MIN (>89); GLUCOSE,RANDOM 88 MG/DL (74-106); MAGNESIUM 2.1 MG/DL (1.5-2.5); PHOSPHORUS 3.9 MG/DL (2.5-4.9); SODIUM (NA) 137 MEQ/L (136-145); TOTAL PROTEIN 5.5 GM/DL (6.4-8.2); TROPONIN I 0.37 NG/ML (0.02-0.05)
[2017-09-10] MEDS ORDERED: SODIUM BICARBONATE 8.4% INJ 150 MEQ in DEXTROSE 5% IN WATE 1000ML INJ 1,000 ML IV SCH ×2 (05:15)
[2017-09-10] MEDS ORDERED: SODIUM BICARBONATE 8.4% INJ 50 MEQ/50 ML SYR IV PUSH ONE (05:15)
--- NOTE | 2017-09-10 05:19 | RADRPT ---
EXAM DATE/TIME: 09/10/2017 04:22 [facility] COMPARISON: CHEST SINGLE AP, September 09, 2017, 18:01. INDICATIONS : Short of breath. MEDICAL HISTORY : Chronic obstructive pulmonary disease. Afib. SURGICAL HISTORY : None. ENCOUNTER: Subsequent ACUITY: 2 days PAIN SCORE: 0/10 LOCATION: Bilateral chest FINDINGS: Improved airspace disease in the left perihilar lower lung zone. Cardiac silhouette remains enlarged with mild diffuse interstitial prominence. Remainder of the exam is unchanged. CONCLUSION: 1. Improved airspace disease in the left perihilar lower lung zone. 2. Cardiomegaly with mild positive fluid balance. Wellington Sumner MD on September 10, 2017 at 5:16 Board Certified Radiologist. This report was verified electronically.
[2017-09-10] MEDS: HEPARIN SODIUM - SQ 10,000 UNITS/ML VIAL SQ SCH ×2 (06:48→15:17)
[2017-09-10 07:00] LABS: BANDS 40 % (0-6); DOHLE BODIES PRESENT (NONE SEEN); LYMPHOCYTES 2 % (9-44); METAMYELOCYTES 16 % (0-1); MONOCYTES 7 % (0-8); NEUTROPHIL # MANUAL DIFF 6.3 TH/MM3 (1.8-7.7); POLYS (SEG NEUTROPHILS) 35 % (16-70); TOXIC VACUOLATION PRESENT (NONE SEEN)
[2017-09-10] MEDS ORDERED: RESP: ALBUTEROL 2.5 MG/3 ML NEB (PRN) NEB (07:00)
--- NOTE | 2017-09-10 07:51 | HHI.CCPN ---
Subjective Remarks/Hospital Course 72-year-old male presents for evaluation of right knee pain for the past several days. It started about 4-5 days ago when he "tweaked" his knee while changing his tire. He had mild pain since then but but yesterday the pain became so severe, he could no longer ambulate. Pain is also worse with hyperextension. Patient has minimal pain at rest. He has been taking Tylenol, his friend's muscle relaxant, and previously prescribed oxycodone with moderate relief in symptoms. He cannot localize pain. Denies paresthesias, or fever. No history of knee problems. History of A. fib for which he takes warfarin. Patient stopped taking warfarin 2 days ago because he noted a small bruise to his buttocks. Denies any trauma or injury to buttocks. In the emergency department he was found to have bandemia and was hypotensive despite 3 L of normal saline boluses. Subjective 09/10: Remains in A. fib with RVR with heart rates between 120 and 150. Currently on 6 L nasal cannula. Received 6 L normal saline bolus since admission. On low-dose norepinephrine. Lactic acid increased to 3.3. Decreased urine output noted. Patient has chronic prednisone use due to rheumatoid arthritis. Hydrocortisone 100 mg has been ordered for this a.m. now. Denies pain in right knee currently. Objective Vital Signs Date Time Temp Pulse Resp B/P (MAP) Pulse Ox O2 Delivery O2 Flow Rate FiO2 09/10/17 04:00 97.6 143 21 104/70 (81) 94 09/09/17 19:20 Nasal Cannula 2.00 Intake and Output 09/10/17 09/10/17 09/11/17 08:00 16:00 00:00 Intake Total 4664 ml Output Total 200 ml Balance 4464 ml Result Diagram: 09/10/17 0350 09/10/17 0350 Other Results Microbiology Date/Time Source Procedure Growth Status 09/09/17 18:50 Blood Peripheral Aerobic Blood Culture Pending Received 09/09/17 18:50 Blood Peripheral Anaerobic Blood Culture Pending Received Imaging Last Impressions Chest X-Ray 09/10/17 0000 Signed Impressions: Service Date/Time: Sunday, September 10, 2017 04:22 - CONCLUSION: 1. Improved airspace disease in the left perihilar lower lung zone. 2. Cardiomegaly with mild positive fluid balance. Wellington Bozorgmanesh, MD Abdomen/Pelvis CT 09/09/17 1738 Signed Impressions: Service Date/Time: Saturday, September 09, 2017 20:30 - CONCLUSION: 1. Small bilateral pleural effusions, left greater than right with basilar dependent airspace disease in the lungs. Mild anasarca. No bowel obstruction. No free air. Mild constipation. Bruce catheter in bladder. Sal Terrazas MD Knee X-Ray 09/09/17 0000 Signed Impressions: Service Date/Time: Saturday, September 09, 2017 13:49 - CONCLUSION: 1. Moderate to large joint effusion. No acute osseous abnormality is identified. 2. 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 3. Bridger-Stieda lesion indicating old medial collateral ligament injury. 4. Severe calcification of the popliteal artery. Constantin Lopez MD Objective Remarks GENERAL: 72-year-old male currently resting in bed in mild respiratory distress SKIN: Pale and dry. No rash HEAD: Normocephalic. Atraumatic EYES: Peoples around 3 mm bilaterally and reactive. No scleral icterus or injection. NECK: Supple, trachea midline. No JVD or lymphadenopathy. CARDIOVASCULAR: Tachycardic, IR. S1, S2 predose repair without murmur RESPIRATORY: Breath sounds equal bilaterally. No accessory muscle use. GASTROINTESTINAL: Abdomen soft, non-tender, nondistended. MUSCULOSKELETAL: Mild edema of the right knee. Warm to touch. Negative Homans test. 2+ dorsalis pedis pulses are equal bilaterally. Full range of motion of the right knee but with pain. Tenderness to palpation of lateral and medial aspect of right knee. NEURO EXAM: Cranial nerves II through XII grossly intact. Strength appears to be equal and symmetric bilaterally. Normal sensation Urinary Catheter: Yes Assessment to: Continue Bruce insert reason: Prolonged Immobilization Vascular Central Line Catheter: Yes Assessment to: Continue Date of Insertion: Sep 09, 2017 Line: Central Venous Catheter Side: Right Location: Femoral A/P Assessment and Plan Neuro/Psych: Depression Duloxetine 20 mg p.o. daily/home medication will be continued Acetaminophen 650 mg by mouth every 6 hours as needed for fever Hydrocodone/acetaminophen 5/325 one tablet every 4 hours as needed for pain 1 through 5 Hydromorphone 1 mg IV every 4 hours as needed pain 6 through 10 CV: Atrial fibrillation with rapid ventricular response History of chronic atrial fibrillation Elevated troponin Lactic acidosis Switch to diltiazem drip with Raudel-Synephrine for rate control heart rate around 100 with mean atrial pressure greater than 65 goals Cardiology consultation 2D echocardiogram ordered Cycle troponins every 6 hours 2 Serial lactates every 6 hours until cleared Patient is on no medications for blood pressure at home Resp: Acute respiratory insufficiency History of COPD Bilateral small pleural effusions Nasal cannula to maintain saturations greater than or equal to 92%. Currently at 6 L Incentive spirometry while awake Albuterol/ipratropium aerosols every 6 hours with albuterol aerosols every 2 hours as needed Chest x-ray in a.m. 09/11 CT abdomen/pelvis revealed small bilateral pleural effusions GI: Hypoalbuminemia Mild anasarca Patient is currently in a regular diet Famotidine for GI prophylaxis Docusate sodium/senna 1 tablet twice daily for bowel regimen : Bruce catheter has been placed for accurate I's and O's in a critically ill patient Endo: Chronic prednisone use -history of rheumatoid arthritis Sliding scale insulin Novulin R medium regimen with Accu-Cheks maintain euglycemia TSH 2.57 Start on hydrocortisone 100 mg IV every 8 hours Patient does not know his home prednisone dose. Renal: Right renal cyst -3 cm Creatinine currently within normal limits Monitor urine output Accurate I's and O's Currently on D5 water with 3 ampules of sodium bicarbonate 75 cc an hour Heme: Chronic warfarin use Holding warfarin 2 mg as 4 mg alternating days in light of possible arthrocentesis today INR currently 1.5 Received 1 unit FFP currently. CBC within normal limits. Recheck in a.m. ID: Severe sepsis -knee effusion question kalpana Currently in vancomycin and piperacillin/tazobactam daily #2 Infectious disease consultation Microbiology Blood cultures -09/09 -pending UA negative FEN: Hypocalcemia Replace electrolytes as clinically indicated per ICU electrolyte protocol MSK: Right knee effusion X-ray right knee reveal tricompartment osteophytes with medial space joint narrowing. Coarse ossifications of the supracondylar ridge. Popliteal artery calcification. Bridger Stieda lesion revealing possible old MCL injury Large right knee effusion Orthopedics consultation for possible arthrocentesis PT evaluate and treat Access -Right femoral CVL day #2 placed in ED Prophylaxis -GI -famotidine -DVT -SCD/holding pharmacological prophylaxis in light of possible arthrocentesis today Level 2 follow-up Jaspal Kennedy MD Sep 10, 2017 07:51
[2017-09-10] MEDS ORDERED: GLUCAGON 1 MG/ML VIAL OTHER PRN (08:30)
[2017-09-10] MEDS ORDERED: DEXTROSE 50% IN WATER 50 ML VIAL(D50) IV PUSH PRN (08:30)
[2017-09-10] MEDS ORDERED: DILTIAZEM HCL 25 MG/5 ML VIAL IV PUSH ONE (09:00)
--- NOTE | 2017-09-10 09:07 | RADRPT ---
EXAM DATE/TIME: 09/09/2017 17:02 [facility] COMPARISON: No previous studies available for comparison. INDICATIONS : Left hip pain with no known injury. MEDICAL HISTORY : None. SURGICAL HISTORY : None. ENCOUNTER: Initial ACUITY: 2 days PAIN SCORE: 3/10 LOCATION: Left hip. FINDINGS: AP view of the pelvis with 2 views of the left hip joint demonstrate no fracture or dislocation. Mine ralization appears mildly decreased. There is joint space narrowing at the hip joints bilaterally wit h small femoral head and acetabular osteophytes on the left and likely subchondral cystic change in t he femoral head. A pelvic bones demonstrate no acute finding. No acute soft tissue abnormality is see n. CONCLUSION: No acute left hip abnormality is identified. 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 Constantin Lopez MD on September 09, 2017 at 17:28 Board Certified Radiologist. This report was verified electronically.
--- NOTE | 2017-09-10 09:53 | PD.CONS ---
History of Present Illness Service Infectious Disease Consult Requested By Dr Kennedy Reason for Consult Evaluate patient with sepsis, ?septic knee Primary Care Physician No Primary Care Physician Diagnoses: History of Present Illness Patient seen and examined. Records reviewed. Patient is a 72-year-old male, presented to the hospital for evaluation of severe knee pain, and inability to ambulate. He started having some problems about a week ago when he was still in [place]. He was just feeling some malaise and generalized weakness. He had a scheduled medication to come to [place], and arrived [place] 4 days ago. He started noticing some knee pain, and it's usually worse when he puts weight on it and he walked on it. He does not really recall any significant trauma or injury, denies any fall. He started using a cane. He got progressively worse as far as his generalized weakness, and the pain started getting worse so he presented to the hospital for further evaluation and treatment. He denies any significant respiratory complaint. He denies any urinary complaint. There's been no nausea or vomiting. He's had constipation which is unusual for him. Denies any chest pain or any palpitations. On presentation to the emergency room, patient was found to be hypotensive and has required fluid resuscitation. He was in A. fib with RVR. His WBC is normal but he has bandemia. His creatinine is elevated. Lactic is elevated. CT of the abdomen and pelvis did not show any intra- abdominal process, but he has some bilateral pleural effusions. X-ray of the knee showed evidence of moderate effusion. Orthopedics saw the patient, and got very little fluid in the knee because he was very viscous. Patient currently has borderline blood pressure. He is not on pressors. He remains in A. fib with RVR. He has been afebrile since admission. Patient continues to have pain in his right knee, and also complains of pain in the right hip. He also has low back pain. Infectious disease consultation has been requested to evaluate the patient with sepsis. Review of Systems Constitutional: COMPLAINS OF: Fatigue, Change in appetite, DENIES: Fever, Chills, Night Sweats Eyes: DENIES: Eye pain Ears, nose, mouth, throat: DENIES: Nasal discharge, Oral lesions, Throat pain, Hoarseness, Sinus Pain Respiratory: DENIES: Cough, Sputum production, Shortness of breath Cardiovascular: DENIES: Chest pain, Palpitations, Syncope Gastrointestinal: COMPLAINS OF: Abdominal pain, Constipation, DENIES: Diarrhea , Nausea, Vomiting, Difficulty Swallowing Genitourinary: DENIES: Urgency, Hematuria, Dysuria Musculoskeletal: COMPLAINS OF: Joint pain, Joint Swelling, Back pain Integumentary: DENIES: Pruritus, Rash Hematologic/lymphatic: DENIES: Lymphadenopathy Immunologic/allergic: DENIES: Urticaria Neurologic: DENIES: Localized weakness Psychiatric: DENIES: Depression Past Family Social History Allergies: Coded Allergies: No Known Allergies (Unverified , 09/09/17) Past Medical History Atrial fibrillation COPD Spinal stenosis Past Surgical History None Active Ordered Medications Current Medications Medications (Trade) Dose Ordered Sig/Jet Route Start Time Stop Time Status Last Admin (Cymbalta Dr) 20 mg DAILY PO 09/10/17 09:00 (NS Flush) 2 ml UNSCH PRN IV FLUSH 09/09/17 18:15 (NS Flush) 2 ml BID IV FLUSH 09/09/17 21:00 09/09/17 21:00 (Tylenol) 650 mg Q6H PRN PO 09/09/17 18:15 (Dilaudid Pf Inj) 1 mg Q4H PRN IV PUSH 09/09/17 18:15 (Restoril) 15 mg HS PRN PO 09/09/17 18:15 (Heparin Inj) 5,000 units Q8HR SQ 09/09/17 18:15 09/10/17 06:48 Miscellaneous Information 1 [id number] XX 09/09/17 18:15 (Chlorhexidine 2% Cloth) 3 pack Taper DAILY@04 TOP 09/10/17 04:00 09/06/18 03:59 (Chlorhexidine 2% Cloth) 3 pack UNSCH PRN TOP 09/09/17 18:15 (Mar-Colace) 1 tab BID PO 09/09/17 21:00 (Milk Of Magnesia Liq) 30 ml Q12H PRN PO 09/09/17 18:15 (Senokot) 17.2 mg Q12H PRN PO 09/09/17 18:15 (Dulcolax Supp) 10 mg DAILY PRN RECTAL 09/09/17 18:15 (Lactulose Liq) 30 ml DAILY PRN PO 09/09/17 18:15 Pharmacy Profile Note 0 ml @ 0 mls/hr UNSCH OTHER 09/09/17 18:15 Piperacillin Sod/ Tazobactam Sod 50 ml @ 100 mls/hr Q6H IV 09/09/17 08:00 Phenylephrine HCl 40 mg/Dextrose 500 ml @ 30 mls/hr TITRATE PRN IV 09/10/17 01:00 (Brethine Inj) 1 mg UNSCH PRN SQ 09/10/17 01:00 (Zofran Inj) 4 mg Q6H PRN IV PUSH 09/10/17 04:15 Sodium Bicarbonate 150 meq/Dextrose 1,150 ml @ 75 mls/hr [id number] IV 09/10/17 05:15 09/10/17 06:48 (Albuterol Neb) 2.5 mg Q2HR NEB PRN NEB 09/10/17 07:00 (SoluCORTEF INJ) 100 mg Q8HR IV PUSH 09/10/17 08:00 ([place] 5-325 Mg) 1 tab Q4H PRN PO 09/10/17 08:00 Diltiazem HCl 125 mg/Sodium Chloride 125 ml @ 5 mls/hr TITRATE PRN IV 09/10/17 09:00 (Pepcid) 20 mg BID PO 09/10/17 09:00 (Duoneb Neb) 1 ampule Q6HR NEB NEB 09/10/17 10:00 (D50w (Vial) Inj) 50 ml UNSCH PRN IV PUSH 09/10/17 08:30 (Glucagon Inj) 1 mg UNSCH PRN OTHER 09/10/17 08:30 (NovoLIN R SUPPLEMENTAL SCALE) 1 ACHS SLIDING SCALE SQ 09/10/17 12:00 Family History Noncontributory Social History No smoking No alcohol abuse No illicit drugs Physical Exam Vital Signs Vital Signs Date Time Temp Pulse Resp B/P (MAP) Pulse Ox O2 Delivery O2 Flow Rate FiO2 09/10/17 06:00 136 09/10/17 04:00 97.6 143 21 104/70 (81) 94 09/10/17 04:00 136 09/10/17 02:52 147 89/68 09/10/17 02:00 146 09/10/17 02:00 135 102/69 09/10/17 01:45 154 108/69 09/10/17 00:00 146 09/10/17 00:00 97.6 139 27 96/54 (68) 97 09/09/17 22:00 152 09/09/17 22:00 152 09/09/17 20:57 97.6 129 20 111/74 (86) 97 09/09/17 19:20 98 Nasal Cannula 2.00 09/09/17 19:06 112 71/53 09/09/17 19:03 112 19 100/73 (82) 98 Nasal Cannula 2.00 09/09/17 18:56 112 19 100/73 (82) 98 Nasal Cannula 2.00 09/09/17 17:29 108 20 83/53 (63) 95 Room Air 09/09/17 16:40 112 19 73/55 (61) 95 09/09/17 15:45 100 19 90/63 (72) 96 09/09/17 12:22 97.9 76 20 123/88 (100) 93 Physical Exam GENERAL: Patient is a well-nourished, well-developed male, awake and alert, not in respiratory distress. SKIN: Warm and dry. No generalized rash, no ecchymoses and no evidence of embolic lesions. HEAD: Atraumatic. Normocephalic. No temporal wasting, or tenderness. EYES: [place] conjunctiva. No petechia or hemorrhage. Pupils equal, round and reactive to light. Extraocular movements full and intact. No scleral icterus. No injection or drainage. EARS, NOSE AND THROAT: Nose without bleeding or purulent nasal discharge. No sinus tenderness. Dry oral mucosa. NECK: Trachea midline. Supple and not tender, no meningeal signs CARDIOVASCULAR: Tachycardic, irregular rate and rhythm. No murmurs, rubs or gallops heard RESPIRATORY: Clear to auscultation. Breath sounds equal bilaterally. No rales , wheezing or rhonchi ABDOMEN: Soft, nondistended, bowel sounds present and normoactive. He has diffuse abdominal tenderness. No guarding. No rebound. No organomegaly. EXTREMITIES: No clubbing, cyanosis, or edema R knee joint has effusion, has good ROM. No calf tenderness. Feet are cool. In his R hand, all distal aspect of his fingers has bullous like lesions present, thick skinned (present for years) and also present in his L hand on distal thumb and LIF NEUROLOGICAL: Awake and alert. Cranial nerves grossly intact. Motor grossly within normal limits. PSYCHIATRIC: Normal affect, calm and cooperative. LINE: No evidence of infection Laboratory Laboratory Tests Test 09/09/17 16:45 09/09/17 18:50 09/09/17 19:00 09/09/17 20:15 White Blood Count 8.2 Red Blood Count 4.58 Hemoglobin 14.5 Hematocrit 42.5 Mean Corpuscular Volume 92.8 Mean Corpuscular Hemoglobin 31.6 Mean Corpuscular Hemoglobin Concent 34.1 Red Cell Distribution Width 14.4 Platelet Count 179 Mean Platelet Volume 9.4 Neutrophils (%) (Auto) 94.4 Lymphocytes (%) (Auto) 2.3 Monocytes (%) (Auto) 3.1 Eosinophils (%) (Auto) 0.0 Basophils (%) (Auto) 0.2 Neutrophils # (Auto) 7.7 Lymphocytes # (Auto) 0.2 Monocytes # (Auto) 0.3 Eosinophils # (Auto) 0.0 Basophils # (Auto) 0.0 CBC Comment AUTO DIFF Differential Total Cells Counted 100 Neutrophils % (Manual) 42 Band Neutrophils % 53 Lymphocytes % 1 Monocytes % 2 Neutrophils # (Manual) 8.0 Metamyelocytes 1 Promyelocytes 1 Differential Comment FINAL DIFF MANUAL Toxic Granulation 2+ Toxic Vacuolation PRESENT Dohle Bodies PRESENT Platelet Estimate NORMAL Platelet Morphology Comment CLUMPED Erythrocyte Sedimentation Rate 60 Prothrombin Time 13.4 Prothromb Time International Ratio 1.3 Activated Partial Thromboplast Time 34.6 Blood Urea Nitrogen 43 Creatinine 2.01 Random Glucose 89 Total Protein 5.7 5.2 Albumin 2.2 2.0 Calcium Level 8.8 Alkaline Phosphatase 93 85 Aspartate Amino Transf (AST/SGOT) 12 16 Alanine Aminotransferase (ALT/SGPT) 15 14 Total Bilirubin 1.9 1.8 Sodium Level 134 Potassium Level 4.1 Chloride Level 100 Carbon Dioxide Level 25.0 Anion Gap 9 Estimat Glomerular Filtration Rate 33 Phosphorus Level 3.8 Magnesium Level 1.9 Direct Bilirubin 1.1 Indirect Bilirubin 0.7 C-Reactive Protein 33.00 Thyroid Stimulating Hormone 3rd Gen 2.570 Urine Color ORANGE Urine Turbidity HAZY Urine pH 5.5 Urine Specific [place] 1.023 Urine Protein 30 Urine Glucose (UA) NEG Urine Ketones NEG Urine Occult Blood SMALL Urine Nitrite NEG Urine Bilirubin NEG Urine Urobilinogen 2.0 Urine Leukocyte Esterase NEG Urine RBC LESS THAN 1 Urine WBC LESS THAN 1 Urine Squamous Epithelial Cells <1 Urine Bacteria OCC Microscopic Urinalysis Comment CULT NOT INDICATED Lactic Acid Level 3.1 Test 09/09/17 21:15 09/10/17 03:50 09/10/17 04:33 Nasal Screen MRSA (PCR) MRSA NOT DETECTED White Blood Count 6.9 Red Blood Count 4.64 Hemoglobin 14.5 Hematocrit 43.4 Mean Corpuscular Volume 93.4 Mean Corpuscular Hemoglobin 31.2 Mean Corpuscular Hemoglobin Concent 33.4 Red Cell Distribution Width 14.3 Platelet Count 181 Mean Platelet Volume 9.8 CBC Comment AUTO DIFF Differential Total Cells Counted 100 Neutrophils % (Manual) 35 Band Neutrophils % 40 Lymphocytes % 2 Monocytes % 7 Neutrophils # (Manual) 6.3 Metamyelocytes 16 Differential Comment FINAL DIFF MANUAL Toxic Vacuolation PRESENT Dohle Bodies PRESENT Platelet Estimate NORMAL Platelet Morphology Comment NORMAL Prothrombin Time 15.4 Prothromb Time International Ratio 1.5 Activated Partial Thromboplast Time 37.0 Blood Urea Nitrogen 45 Creatinine 2.05 Random Glucose 88 Total Protein 5.5 Albumin 2.0 Calcium Level 8.0 Phosphorus Level 3.9 Magnesium Level 2.1 Alkaline Phosphatase 80 Aspartate Amino Transf (AST/SGOT) 18 Alanine Aminotransferase (ALT/SGPT) 16 Total Bilirubin 2.0 Sodium Level 137 Potassium Level 4.4 Chloride Level 106 Carbon Dioxide Level 19.6 Anion Gap 11 Estimat Glomerular Filtration Rate 32 Lactic Acid Level 3.3 Troponin I 0.37 Vancomycin Level Trough 20.2 Blood Gas Puncture Site RT RADIAL Blood Gas Patient Temperature 98.6 Blood Gas HCO3 15 Blood Gas Base Excess -9.5 Blood Gas Oxygen Saturation 93 Arterial Blood pH 7.33 Arterial Blood Partial Pressure CO2 30 Arterial Blood Partial Pressure O2 87 Arterial Blood Oxygen Content 20.7 Arterial Blood Carboxyhemoglobin 0.7 Arterial Blood Methemoglobin 1.2 Blood Gas Hemoglobin 15.7 Oxygen Delivery Device NASAL CANNULA Blood Gas Liter Flow 5 Date/Time Source Procedure Growth Status 09/09/17 18:50 Blood Peripheral Aerobic Blood Culture Pending Received 09/09/17 18:50 Blood Peripheral Anaerobic Blood Culture Pending Received Result Diagram: 09/10/17 0350 09/10/17 0350 Imaging RADIOLOGY STUDIES/FILMS REVIEWED Chest X-Ray 09/10/17 0000 Signed Impressions: Service Date/Time: Sunday, September 10, 2017 04:22 - CONCLUSION: 1. Improved airspace disease in the left perihilar lower lung zone. 2. Cardiomegaly with mild positive fluid balance. Wellington Sumner MD Abdomen/Pelvis CT 09/09/17 1738 Signed Impressions: Service Date/Time: Saturday, September 09, 2017 20:30 - CONCLUSION: 1. Small bilateral pleural effusions, left greater than right with basilar dependent airspace disease in the lungs. Mild anasarca. No bowel obstruction. No free air. Mild constipation. Bruce catheter in bladder. Sal Terrazas MD Knee X-Ray 09/09/17 0000 Signed Impressions: Service Date/Time: Saturday, September 09, 2017 13:49 - CONCLUSION: 1. Moderate to large joint effusion. No acute osseous abnormality is identified. 2. 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 3. Bridger-Stieda lesion indicating old medial collateral ligament injury. 4. Severe calcification of the popliteal artery. Consatntin Lopez MD Hip and Pelvis X-Ray 09/09/17 0000 Signed Impressions: Service Date/Time: Saturday, September 09, 2017 17:02 - CONCLUSION: No acute left hip abnormality is identified. 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 Constantin Lopez MD Assessment and Plan Assessment and Plan IMPRESSION Shock, etiology? Sepsis source? - has abdominal pain, tender diffusely on exam, CT A/P ok, except for mild constipation - C/O R knee pain, clinically does not look septic joint - has some infiltrates but no PNA symptoms, ?more of effusion and atelectasis - UA ok Renal insufficiency, ?baseline, or due to sepsis, or hypotension RECOMMENDATION Continue Zosyn Got dose of Vanco - check level today and redose Follow C/S Ortho aspirated some fluid in R knee, will follow results Monitor progress I will make further recommendation depending on his course and results of workup I will follow along with you Thank you for this consultation Discussed Condition With D/W RN Spoke with Shiloh Faria MD Sep 10, 2017 09:53
[2017-09-10] MEDS: SODIUM CHLORIDE 0.9% FLUSH 10 ML FLUSH IV FLUSH SCH (09:55)
[2017-09-10] MEDS: DULoxetine HCl DR 20 MG CAP PO SCH (09:55)
[2017-09-10] MEDS: PIPERACIL-TAZO 3.375 GM PREMIX 50 ML IV SCH ×2 (09:55→15:17)
[2017-09-10] MEDS: FAMOTIDINE 20 MG TAB PO SCH (09:56)
[2017-09-10] MEDS: DOCUSATE SODIUM 50 MG/SENNA 8.6 MG TAB PO SCH ×2 (09:56→21:00)
[2017-09-10] MEDS: DILTIAZEM INJ 125 MG in SODIUM CHLORIDE 0.9% INJ 100 ML IV PRN ×2 (09:58→18:12)
--- NOTE | 2017-09-10 10:09 | PD.CONS ---
HPI Service Orthopedic Surgeons Consult Requested By Reason for Consult Right knee pain and swelling Primary Care Physician No Primary Care Physician Admission Diagnosis Hypotension. Right knee effusion. Diagnoses: Chief Complaint: Right knee pain and swelling History of Present Illness Patient is a 72-year-old gentleman who presented to the emergency department yesterday with generalized fatigue and malaise with increasing right knee pain and swelling. Patient states approximate 4-5 days prior to presentation he felt like he "tweaked" his knee when [place] the [place]. He does have baseline arthritis and states occasionally he can have flares. He thought his knee would improve with time, however, his knee has slowly increased in terms of pain and swelling. On the day of presentation patient states he was unable to ambulate due to pain. He denies any pain with range of motion and states his pain is increased with ambulation and weightbearing. He denies any specific fevers but reports occasional chills over the last several days. He denies any other signs of infection. He denies any wounds or injuries to the knee. Review of Systems Constitutional: DENIES: Fever Endocrine: DENIES: Polyuria Eyes: DENIES: Blurred vision Ears, nose, mouth, throat: DENIES: Throat pain Respiratory: DENIES: Cough Cardiovascular: DENIES: Chest pain Gastrointestinal: COMPLAINS OF: Abdominal pain Genitourinary: DENIES: Urinary incontinence Musculoskeletal: COMPLAINS OF: Joint pain, Joint Swelling Integumentary: DENIES: Rash Hematologic/lymphatic: DENIES: Bruising Immunologic/allergic: DENIES: Eczema Neurologic: DENIES: Abnormal gait Psychiatric: DENIES: Anxiety Past Family Social History Past Medical History A. fib with RVR, COPD Past Surgical History Denies Reported Medications On warfarin. See full chart for details Allergies: Coded Allergies: No Known Allergies (Unverified , 09/09/17) Active Ordered Medications Current Medications Medications (Trade) Dose Ordered Sig/Jet Route Start Time Stop Time Status Last Admin (Cymbalta Dr) 20 mg DAILY PO 09/10/17 09:00 09/10/17 09:55 (NS Flush) 2 ml UNSCH PRN IV FLUSH 09/09/17 18:15 (NS Flush) 2 ml BID IV FLUSH 09/09/17 21:00 09/10/17 09:55 (Tylenol) 650 mg Q6H PRN PO 09/09/17 18:15 (Dilaudid Pf Inj) 1 mg Q4H PRN IV PUSH 09/09/17 18:15 (Restoril) 15 mg HS PRN PO 09/09/17 18:15 (Heparin Inj) 5,000 units Q8HR SQ 09/09/17 18:15 09/10/17 06:48 Miscellaneous Information 1 Q361D XX 09/09/17 18:15 (Chlorhexidine 2% Cloth) 3 pack Taper DAILY@04 TOP 09/10/17 04:00 09/06/18 03:59 (Chlorhexidine 2% Cloth) 3 pack UNSCH PRN TOP 09/09/17 18:15 (Mar-Colace) 1 tab BID PO 09/09/17 21:00 09/10/17 09:56 (Milk Of Magnesia Liq) 30 ml Q12H PRN PO 09/09/17 18:15 (Senokot) 17.2 mg Q12H PRN PO 09/09/17 18:15 (Dulcolax Supp) 10 mg DAILY PRN RECTAL 09/09/17 18:15 (Lactulose Liq) 30 ml DAILY PRN PO 09/09/17 18:15 Pharmacy Profile Note 0 ml @ 0 mls/hr UNSCH OTHER 09/09/17 18:15 Piperacillin Sod/ Tazobactam Sod 50 ml @ 100 mls/hr Q6H IV 09/09/17 08:00 09/10/17 09:55 Phenylephrine HCl 40 mg/Dextrose 500 ml @ 30 mls/hr TITRATE PRN IV 09/10/17 01:00 (Brethine Inj) 1 mg UNSCH PRN SQ 09/10/17 01:00 (Zofran Inj) 4 mg Q6H PRN IV PUSH 09/10/17 04:15 Sodium Bicarbonate 150 meq/Dextrose 1,150 ml @ 75 mls/hr [id number] IV 09/10/17 05:15 09/10/17 06:48 (Albuterol Neb) 2.5 mg Q2HR NEB PRN NEB 09/10/17 07:00 (SoluCORTEF INJ) 100 mg Q8HR IV PUSH 09/10/17 08:00 (Nickerson 5-325 Mg) 1 tab Q4H PRN PO 09/10/17 08:00 Diltiazem HCl 125 mg/Sodium Chloride 125 ml @ 5 mls/hr TITRATE PRN IV 09/10/17 09:00 09/10/17 09:58 (Pepcid) 20 mg BID PO 09/10/17 09:00 09/10/17 09:56 (Duoneb Neb) 1 ampule Q6HR NEB NEB 09/10/17 10:00 (D50w (Vial) Inj) 50 ml UNSCH PRN IV PUSH 09/10/17 08:30 (Glucagon Inj) 1 mg UNSCH PRN OTHER 09/10/17 08:30 (NovoLIN R SUPPLEMENTAL SCALE) 1 ACHS SLIDING SCALE SQ 09/10/17 12:00 Reported Meds & Active Scripts Active Reported Warfarin 4 Mg Tab 4 Mg PO EVERY OTHER DAY Warfarin 2 Mg Tab 4.5 Mg PO EVERY OTHER DAY Duloxetine DR (Duloxetine HCl) 20 Mg Capdr 20 Mg PO DAILY Family History Denies significant heart or lung disease Social History Denies tobacco use. Physical Exam Vital Signs Vital Signs Date Time Temp Pulse Resp B/P (MAP) Pulse Ox O2 Delivery O2 Flow Rate FiO2 09/10/17 09:58 138 111/72 09/10/17 06:00 136 09/10/17 04:00 97.6 143 21 104/70 (81) 94 09/10/17 04:00 136 09/10/17 02:52 147 89/68 09/10/17 02:00 146 09/10/17 02:00 135 102/69 09/10/17 01:45 154 108/69 09/10/17 00:00 146 09/10/17 00:00 97.6 139 27 96/54 (68) 97 09/09/17 22:00 152 09/09/17 22:00 152 09/09/17 20:57 97.6 129 20 111/74 (86) 97 09/09/17 19:20 98 Nasal Cannula 2.00 09/09/17 19:06 112 71/53 09/09/17 19:03 112 19 100/73 (82) 98 Nasal Cannula 2.00 09/09/17 18:56 112 19 100/73 (82) 98 Nasal Cannula 2.00 09/09/17 17:29 108 20 83/53 (63) 95 Room Air 09/09/17 16:40 112 19 73/55 (61) 95 09/09/17 15:45 100 19 90/63 (72) 96 09/09/17 12:22 97.9 76 20 123/88 (100) 93 Physical Exam Awake, alert, no acute distress Normocephalic Pupils equal No JVD Moist mucous membranes Nonlabored respirations Regular rate Soft nontender abdomen BUE: No tenderness palpation, no visible deformities. Full active range of motion and strength throughout. Sensation intact. Radial pulses are palpable. RLE: Mild to moderate knee effusion appreciable. Full active range of motion of the knee from 0-130 without significant discomfort. No appreciable erythema. Mild warmth about the knee. No significant tenderness palpation. Positive EHL, FHL, dorsiflexion, plantarflexion. Sensation intact. Brisk cap refill. Left lower extremity: No tenderness palpation, visible deformities or appreciable signs of infection. Full active range of motion and strength throughout. Sensation intact. Brisk cap refill. No rash Normal affect Laboratory Laboratory Tests Test 09/09/17 16:45 09/09/17 18:50 09/09/17 19:00 09/09/17 20:15 White Blood Count 8.2 Red Blood Count 4.58 Hemoglobin 14.5 Hematocrit 42.5 Mean Corpuscular Volume 92.8 Mean Corpuscular Hemoglobin 31.6 Mean Corpuscular Hemoglobin Concent 34.1 Red Cell Distribution Width 14.4 Platelet Count 179 Mean Platelet Volume 9.4 Neutrophils (%) (Auto) 94.4 Lymphocytes (%) (Auto) 2.3 Monocytes (%) (Auto) 3.1 Eosinophils (%) (Auto) 0.0 Basophils (%) (Auto) 0.2 Neutrophils # (Auto) 7.7 Lymphocytes # (Auto) 0.2 Monocytes # (Auto) 0.3 Eosinophils # (Auto) 0.0 Basophils # (Auto) 0.0 CBC Comment AUTO DIFF Differential Total Cells Counted 100 Neutrophils % (Manual) 42 Band Neutrophils % 53 Lymphocytes % 1 Monocytes % 2 Neutrophils # (Manual) 8.0 Metamyelocytes 1 Promyelocytes 1 Differential Comment FINAL DIFF MANUAL Toxic Granulation 2+ Toxic Vacuolation PRESENT Dohle Bodies PRESENT Platelet Estimate NORMAL Platelet Morphology Comment CLUMPED Erythrocyte Sedimentation Rate 60 Prothrombin Time 13.4 Prothromb Time International Ratio 1.3 Activated Partial Thromboplast Time 34.6 Blood Urea Nitrogen 43 Creatinine 2.01 Random Glucose 89 Total Protein 5.7 5.2 Albumin 2.2 2.0 Calcium Level 8.8 Alkaline Phosphatase 93 85 Aspartate Amino Transf (AST/SGOT) 12 16 Alanine Aminotransferase (ALT/SGPT) 15 14 Total Bilirubin 1.9 1.8 Sodium Level 134 Potassium Level 4.1 Chloride Level 100 Carbon Dioxide Level 25.0 Anion Gap 9 Estimat Glomerular Filtration Rate 33 Phosphorus Level 3.8 Magnesium Level 1.9 Direct Bilirubin 1.1 Indirect Bilirubin 0.7 C-Reactive Protein 33.00 Thyroid Stimulating Hormone 3rd Gen 2.570 Urine Color ORANGE Urine Turbidity HAZY Urine pH 5.5 Urine Specific [place] 1.023 Urine Protein 30 Urine Glucose (UA) NEG Urine Ketones NEG Urine Occult Blood SMALL Urine Nitrite NEG Urine Bilirubin NEG Urine Urobilinogen 2.0 Urine Leukocyte Esterase NEG Urine RBC LESS THAN 1 Urine WBC LESS THAN 1 Urine Squamous Epithelial Cells <1 Urine Bacteria OCC Microscopic Urinalysis Comment CULT NOT INDICATED Lactic Acid Level 3.1 Test 09/09/17 21:15 09/10/17 03:50 09/10/17 04:33 Nasal Screen MRSA (PCR) MRSA NOT DETECTED White Blood Count 6.9 Red Blood Count 4.64 Hemoglobin 14.5 Hematocrit 43.4 Mean Corpuscular Volume 93.4 Mean Corpuscular Hemoglobin 31.2 Mean Corpuscular Hemoglobin Concent 33.4 Red Cell Distribution Width 14.3 Platelet Count 181 Mean Platelet Volume 9.8 CBC Comment AUTO DIFF Differential Total Cells Counted 100 Neutrophils % (Manual) 35 Band Neutrophils % 40 Lymphocytes % 2 Monocytes % 7 Neutrophils # (Manual) 6.3 Metamyelocytes 16 Differential Comment FINAL DIFF MANUAL Toxic Vacuolation PRESENT Dohle Bodies PRESENT Platelet Estimate NORMAL Platelet Morphology Comment NORMAL Prothrombin Time 15.4 Prothromb Time International Ratio 1.5 Activated Partial Thromboplast Time 37.0 Blood Urea Nitrogen 45 Creatinine 2.05 Random Glucose 88 Total Protein 5.5 Albumin 2.0 Calcium Level 8.0 Phosphorus Level 3.9 Magnesium Level 2.1 Alkaline Phosphatase 80 Aspartate Amino Transf (AST/SGOT) 18 Alanine Aminotransferase (ALT/SGPT) 16 Total Bilirubin 2.0 Sodium Level 137 Potassium Level 4.4 Chloride Level 106 Carbon Dioxide Level 19.6 Anion Gap 11 Estimat Glomerular Filtration Rate 32 Lactic Acid Level 3.3 Troponin I 0.37 Vancomycin Level Trough 20.2 Blood Gas Puncture Site RT RADIAL Blood Gas Patient Temperature 98.6 Blood Gas HCO3 15 Blood Gas Base Excess -9.5 Blood Gas Oxygen Saturation 93 Arterial Blood pH 7.33 Arterial Blood Partial Pressure CO2 30 Arterial Blood Partial Pressure O2 87 Arterial Blood Oxygen Content 20.7 Arterial Blood Carboxyhemoglobin 0.7 Arterial Blood Methemoglobin 1.2 Blood Gas Hemoglobin 15.7 Oxygen Delivery Device NASAL CANNULA Blood Gas Liter Flow 5 Date/Time Source Procedure Growth Status 09/09/17 18:50 Blood Peripheral Aerobic Blood Culture Pending Received 09/09/17 18:50 Blood Peripheral Anaerobic Blood Culture Pending Received Result Diagram: 09/10/17 0350 09/10/17 0350 Imaging Last 24 hours Impressions Chest X-Ray 09/10/17 0000 Signed Impressions: Service Date/Time: Sunday, September 10, 2017 04:22 - CONCLUSION: 1. Improved airspace disease in the left perihilar lower lung zone. 2. Cardiomegaly with mild positive fluid balance. Wellington Sumner MD Abdomen/Pelvis CT 09/09/178 Signed Impressions: Service Date/Time: Saturday, September 09, 2017 20:30 - CONCLUSION: 1. Small bilateral pleural effusions, left greater than right with basilar dependent airspace disease in the lungs. Mild anasarca. No bowel obstruction. No free air. Mild constipation. Bruce catheter in bladder. Sal Terrazas MD Chest X-Ray [id number]/09/[id number] Signed Impressions: Service Date/Time: Saturday, September 09, 2017 18:01 - CONCLUSION: 1. Cardiomegaly with possible mild interstitial edema. Mild subsegmental left perihilar airspace disease. Sal Terrazas MD Assessment & Plan Assessment and Plan 72-year-old gentleman who presents with increasing right knee pain and swelling with concern for sepsis Options of management were discussed with the patient. His blood pressure remains borderline although he is no longer on pressors. His CRP and ESR are elevated although his white blood cell count is normal. Clinically, his knee is not erythematous and he allows full range of motion which makes my clinical suspicion for septic arthritis much lower. However given his generalized medical issues, I discussed with the patient that I do think an attempt at a right knee aspiration is reasonable to try to rule out his right knee as a source of infection. Risks, benefits, alternatives were discussed with the patient. Risks including but not limited to: Persistent swelling, seeding of infection, neurovascular injury, and other unforeseen complications. Patient did verbally consent to procedure. Under sterile technique, the patient's right knee was aspirated. The fluid that was removed, only approximately 1-2 cc , were highly viscous without any clear evidence of purulence. At this time I discussed with the patient that I would keep him nothing by mouth to allow for a cell count and hopefully Gram stain to return. Should these be concerning or positive, he would likely benefit from an irrigation and debridement of his right knee. Infectious disease has seen and evaluated patient and has placed the patient on empiric antibiotics. Further recommendations based upon synovial results. Coral Quinn MD Sep 10, 2017 10:09
[2017-09-10] MEDS ORDERED: DIGOXIN 0.5 MG/2 ML VIAL IV PUSH ONE (11:00)
[2017-09-10 11:41] LABS: TROPONIN I 0.36 NG/ML (0.02-0.05)
[2017-09-10] MEDS: HYDROCORTISONE SOD SUCCINATE 100 MG VIAL IV PUSH SCH ×2 (11:48→15:16)
[2017-09-10] MEDS ORDERED: LACTATED RINGER'S 1000 ML INJ 1,000 ML IV ONE (12:00)
[2017-09-10] MEDS ORDERED: PHENYLEPH/NS 1000 MCG/10 ML SYR IV ONE (12:00)
[2017-09-10] MEDS ORDERED: LIDOCAINE HCL 1% PF 5 ML SYRINGE OTHER ONE (12:00)
[2017-09-10] MEDS ORDERED: PROPOFOL 200 MG/20 ML AMP IV ONE (12:00)
[2017-09-10] MEDS: INSULIN NovoLIN REGULAR SUPPLEMENTAL SCALE SQ SCH ×3 (12:00→21:00)
--- NOTE | 2017-09-10 12:25 | MB ---
cc: Libra Hanna MD DATE OF CONSULT: HISTORY OF PRESENT ILLNESS: Mr. Burnett is a 72-year-old white male with 10 year history of chronic atrial fibrillation. He presented with right knee pain and was found to have right knee effusion. He stopped taking his warfarin two days prior to admission since he noted skin bruising. He was found to be hypotensive and was given IV fluids. He was transferred to the ICU. He was initially on pressors which are now weaned off. He is in atrial fibrillation with rapid ventricular response in 130s. He denies any chest pain or shortness of breath. He complains of generalized weakness. He has not had any dizziness or peripheral edema. PAST MEDICAL HISTORY: Positive for atrial fibrillation, COPD. No history of hypertension, dyslipidemia, coronary artery disease or CVA. PAST SURGICAL HISTORY: No major surgeries. MEDICATIONS: Warfarin and duloxetine DR. ALLERGIES: NONE. SOCIAL HISTORY: The patient does not smoke. He does not drink alcohol. FAMILY HISTORY: Negative for heart disease. REVIEW OF SYSTEMS: Otherwise negative. PHYSICAL EXAMINATION: VITAL SIGNS: Blood pressure 115/70, pulse 136 and irregular. HEENT: Negative. 2+ carotid upstrokes. No bruit. LUNGS: Clear. HEART: Irregularly, irregular with no murmur, gallop or rub. ABDOMEN: Soft. No bruit. EXTREMITIES: Right knee edema. 2+ distal pulses. NEUROLOGIC: Grossly nonfocal. EKG: Reviewed and showed atrial fibrillation with rapid ventricular response, normal axis, anteroseptal T-waves and nonspecific T-wave changes. LABORATORY DATA: Hemoglobin 14.5, potassium 4.4, creatinine 2.0, AST/ALT normal, troponin 0.37, TSH 2.6. DIAGNOSIS: 1. Atrial fibrillation with rapid ventricular response. 2. Acute respiratory insufficiency. 3. Chronic obstructive pulmonary disease. 4. Right knee effusion. 5. Sepsis. 6. Depression. 7. History of rheumatoid arthritis, on prednisone. DISPOSITION: Mr. Burnett was found to be in atrial fibrillation with rapid ventricular response. He was initially hypotensive but his blood pressure is now normalized. He is treated for sepsis with antibiotics. He will undergo right knee tap today. He will be started on IV digoxin for rate control. We will also start IV diltiazem and titrate for rate control. His troponin is slightly elevated which is likely related to his renal insufficiency. He will be monitored in the ICU. We will obtain as echocardiogram. I will follow him for cardiology during his hospitalization. He is visiting from [place] and will follow up with his physicians in [place] after discharge. MD JOSE Cleveland/TL/margarita , 09:27 AM , 11:17 AM MEME
[2017-09-10] MEDS ORDERED: GENTAMICIN SULFATE 80 MG/2 ML VIAL ONE (13:54)
[2017-09-10] MEDS ORDERED: VANCOMYCIN 1,500 MG/NS 500 ML IV ONE ×2 (14:00)
--- NOTE | 2017-09-10 14:39 | RADRPT ---
EXAM DATE/TIME: 09/10/2017 11:30 [facility] COMPARISON: CT ABDOMEN & PELVIS W/O CONTRAST, September 09, 2017, 20:30. INDICATIONS : Abdominal pain. Abnormal labs. MEDICAL HISTORY : Chronic obstructive pulmonary disease. Atrial fibrillation. Anticoagulant therapy, Coumadin. Spin al stenosis. SURGICAL HISTORY : Eye cyst removed. ENCOUNTER: Initial ACUITY: 1 day PAIN SCORE: 4/10 LOCATION: Right upper quadrant MEASUREMENTS: LIVER: 20.9 cm length COMMON DUCT: 5 mm RIGHT KIDNEY: 12.8 x 5.8 x 6.2 cm FINDINGS: LIVER: Normal echotexture without focal lesion or ductal dilatation. COMMON DUCT: No intraluminal mass or stone visualized. GALLBLADDER: There are multiple mobile shadowing stones within the gallbladder. No wall thickening or pericholecys tic fluid is present. Sonographic Wadsworth sign is negative. PANCREAS: Likely visualized secondary to bowel gas. However, the pancreas demonstrated no abnormality on yester day's noncontrast CT. RIGHT KIDNEY: No evidence of hydronephrosis, stone, or mass. There is a simple cyst at the lower pole measuring 2. 6 cm. The inferior right hemithorax demonstrates a small pleural effusion. CONCLUSION: 1. Cholelithiasis. However, there are no findings to indicate acute cholecystitis. 2. Small right pleural effusion. Constantin Lopez MD on September 10, 2017 at 14:33 Board Certified Radiologist. This report was verified electronically.
[2017-09-10] MEDS ORDERED: KETAMINE HCL 500 MG/5 ML VIAL ONE (15:51)
[2017-09-10] MEDS ORDERED: BUPIVACAINE/EPINEPHRINE 0.25% 50 ML VIAL ONE (16:08)
--- NOTE | 2017-09-10 16:38 | PD.OP ---
cc: Coral Quinn MD Operative Report Right septic knee arthritis Postoperative Diagnosis: Same Procedure: Irrigation and debridement right knee Anesthesia: [facility] [place] Surgeon: Coral Quinn [place] Man(s): Danny Uriostegui Operation and Findings: EBL: 25 cc Complications: None Specimens: Culture sent to microbiology Indications for procedure: Patient is a 72-year-old gentleman who presented to the hospital with increasing right knee pain and swelling along with concern for sepsis. Aspiration of the right knee was performed which demonstrated gram- negative rods on Gram stain. Options of management were discussed with the patient. Given there was bacterial within the knee joint itself, it was recommended to undergo an irrigation and debridement of his right knee. Risks, benefits, alternatives were discussed. Risks of surgery including but not limited to: Persistent infection, neurovascular injury, knee pain and swelling, possible need for further surgery, and other unforeseen complications. At this time the patient consented to procedure. Description of procedure: Patient was brought back to the operating room and placed supine on operating room table with all bony prominences well-padded. MAC anesthesia then ensued. Patient was prepped and draped in standard sterile fashion. Preoperative antibiotics were held as patient is on standing antibiotics and plan for cultures intraoperatively. A small medial incision was made on the medial edge of the patella. Sharp dissection was made through the skin and subcutaneous tissue. A small medial parapatellar arthrotomy was then made and immediately purulence was encountered. This was cultured. The knee was thoroughly irrigated with over 6 L of normal saline laden with gentamicin. Hemostasis was then achieved. A small BASIM drain was then placed. Local anesthetic with quarter percent Marcaine with epinephrine was then used to anesthetize the medial parapatellar arthrotomy and the subcutaneous tissue. The medial parapatellar arthrotomy was then closed with #1 PDS suture. The subcutaneous tissue was then closed with PDS suture and the skin closed with nylon. Sterile dressings were then applied. Patient was awoken from general anesthesia without complications. Disposition: Patient can be weightbearing as tolerated and range of motion of the right knee as tolerated. Plan will be to remove the BASIM drain on postop day 2. Patient will require IV antibiotics given his sepsis and septic knee. Coral Quinn MD Sep 10, 2017 16:38
[2017-09-10] MEDS ORDERED: DO NOT ADM ANY ANTICOAGULANT DRUGS PRN (16:43)
[2017-09-10] MEDS ORDERED: Post-op Orders (for Pharmacy) XX ONE (16:45)
[2017-09-10] MEDS ORDERED: MIDAZOLAM HCL 2 MG/2 ML VIAL ONE (16:53)
[2017-09-10] MEDS: RESP: ALBUTEROL 2.5 MG/IPRATROPIUM 0.5 MG NEB (SCH) NEB (19:45)
--- NOTE | 2017-09-10 22:10 | RADRPT ---
EXAM DATE/TIME: 09/10/2017 21:13 [facility] COMPARISON: CHEST SINGLE AP, September 10, 2017, 4:22. INDICATIONS : Shortness of breath. RADIATION DOSE: 9.59 CTDIvol (mGy) MEDICAL HISTORY : Chronic obstructive pulmonary disease. A-Fib. SURGICAL HISTORY : None. ENCOUNTER: Initial ACUITY: 1 day PAIN SCALE: 0/10 LOCATION: chest TECHNIQUE: Volumetric scanning of the chest was performed. Using automated exposure control and adjustment of t he mA and/or kV according to patient size, radiation dose was kept as low as reasonably achievable to obtain optimal diagnostic quality images. DICOM format image data is available electronically for r eview and comparison. Follow-up recommendations for detected pulmonary nodules are based at a minimum on nodule size and pa tient risk factors according to Fleischner Society Guidelines. FINDINGS: Small to Moderate size bilateral pleural effusions are identified. There is subsegmental atelectasis in the both bases. No pulmonary nodules are identified. Examination of the mediastinum demonstrates no abnormally enlarged lymph nodes by CT criteria. No axi llary or hilar abnormalities are identified. Coronary artery calcifications are not present. The visu alized upper abdomen demonstrates no abnormality. CONCLUSION: 1. Small to moderate bilateral effusions and bibasilar atelectasis. Silverio Stout MD on September 10, 2017 at 22:06 Board Certified Radiologist. This report was verified electronically.
--- NOTE | 2017-09-10 22:33 | EKG ---
Date Performed: 09/09/2017 Time Performed: 20:11:52 PTAGE: 72 years EKG: ATRIAL FIBRILLATION WITH RAPID VENTRICULAR RESPONSE LOW QRS VOLTAGE IN PRECORDIAL LEADS SEP MYRA MYOCARDIAL INFARCTION ABNORMAL ECG NO PREVIOUS TRACING DOCTOR: Libra Hanna Interpretating Date/Time 09/10/2017 22:33:05
[2017-09-11] VITALS (17 sets, daily range): BP systolic 111–138; BP diastolic 62–80; PULSE 68–110; RESP 15–35; TEMP 97.5–98; O2SAT 80–96
[2017-09-11] MEDS: PIPERACIL-TAZO 3.375 GM PREMIX 50 ML IV SCH ×3 (00:54→08:57)
[2017-09-11] MEDS: FAMOTIDINE 20 MG TAB PO SCH ×3 (00:55→20:42)
[2017-09-11] MEDS: SODIUM CHLORIDE 0.9% FLUSH 10 ML FLUSH IV FLUSH SCH ×3 (00:55→20:43)
[2017-09-11] MEDS: HEPARIN SODIUM - SQ 10,000 UNITS/ML VIAL SQ SCH ×3 (00:55→20:42)
[2017-09-11] MEDS: HYDROCORTISONE SOD SUCCINATE 100 MG VIAL IV PUSH SCH ×4 (00:55→20:42)
[2017-09-11] MEDS: RESP: ALBUTEROL 2.5 MG/IPRATROPIUM 0.5 MG NEB (SCH) NEB ×4 (03:32→20:25)
[2017-09-11] MEDS: CHLORHEXIDINE GLUCONATE 2 % 1 PACK (2 CLOTHS) TOP SCH (04:00)
--- NOTE | 2017-09-11 05:39 | RADRPT ---
EXAM DATE/TIME: 09/11/2017 03:50 [facility] COMPARISON: CHEST SINGLE AP, September 10, 2017, 4:22. INDICATIONS : Short of breath. MEDICAL HISTORY : Chronic obstructive pulmonary disease. Afib. SURGICAL HISTORY : None. ENCOUNTER: Subsequent ACUITY: 1 week PAIN SCORE: 0/10 LOCATION: Bilateral chest FINDINGS: Cardiac silhouette is enlarged with indistinct central pulmonary vascularity. Bilateral patchy airspa ce disease in the lower lung zones with hazy opacity consistent with pleural effusions. Remainder of the exam is unchanged. CONCLUSION: 1. Cardiomegaly with mild positive fluid balance. 2. Bilateral pleural effusions with associated mild airspace disease at the lung bases. Wellington Sumner MD on September 11, 2017 at 5:36 Board Certified Radiologist. This report was verified electronically.
[2017-09-11 06:27] LABS: AUTOMATED NEUTROPHIL # 9.5 TH/MM3 (1.8-7.7); BASOPHIL % 0.1 % (0.0-2.0); EOSINOPHIL # 0.2 TH/MM3 (0-0.4); EOSINOPHIL % 1.7 % (0.0-4.0); HEMATOCRIT 39.1 % (39.0-51.0); HEMOGLOBIN 13.2 GM/DL (13.0-17.0); LYMPHOCYTE # 0.3 TH/MM3 (1.0-4.8); MEAN CELL VOLUME 92.9 FL (80.0-100.0); MEAN CORPUSCULAR HEMOGLOBIN 31.4 PG (27.0-34.0); MEAN CORPUSCULAR HGB CONC 33.8 % (32.0-36.0); MEAN PLATELET VOLUME 10.1 FL (7.0-11.0); MONO % 6.1 % (0.0-8.0); MONOCYTE # 0.7 TH/MM3 (0-0.9); NEUT % 89.1 % (16.0-70.0); PLATELET COUNT 191 TH/MM3 (150-450); RED CELL DISTRIBUTION WIDTH 14.6 % (11.6-17.2); WHITE BLOOD COUNT 10.7 TH/MM3 (4.0-11.0)
[2017-09-11] MEDS: DILTIAZEM INJ 125 MG in SODIUM CHLORIDE 0.9% INJ 100 ML IV PRN (06:32)
[2017-09-11 06:47] LABS: ALBUMIN 1.9 GM/DL (3.4-5.0); ALKALINE PHOSPHATASE 62 U/L (45-117); ALT (GPT) 16 U/L (12-78); AST (GOT) 15 U/L (15-37); BICARBONATE 23.2 MEQ/L (21.0-32.0); BLOOD UREA NITROGEN 66 MG/DL (7-18); CALCIUM 8.3 MG/DL (8.5-10.1); CHLORIDE 104 MEQ/L (98-107); CHOLESTEROL 164 MG/DL (120-200); CHOLESTEROL/ HDL RATIO 10.93 RATIO; GLOMERULAR FILTRATION RATE 27 ML/MIN (>89); GLUCOSE,RANDOM 135 MG/DL (74-106); LDL CHOLESTEROL 103 MG/DL (0-99); MAGNESIUM 2.3 MG/DL (1.5-2.5); PHOSPHORUS 3.9 MG/DL (2.5-4.9); RANDOM VANCOMYCIN 23.6 COMMENT; SODIUM (NA) 138 MEQ/L (136-145); TOTAL BILIRUBIN ADULT 1.6 MG/DL (0.2-1.0); TOTAL PROTEIN 5.7 GM/DL (6.4-8.2); TRIGLYCERIDES 232 MG/DL (42-150); TROPONIN I 0.25 NG/ML (0.02-0.05)
[2017-09-11 06:49] LABS: FIBRINOGEN GREATER THAN 860 mg/dL (227-377)
[2017-09-11] MEDS: INSULIN NovoLIN REGULAR SUPPLEMENTAL SCALE SQ SCH ×4 (08:00→21:00)
[2017-09-11 08:28] LABS: BANDS 34 % (0-6); LYMPHOCYTES 4 % (9-44); METAMYELOCYTES 3 % (0-1); MONOCYTES 4 % (0-8); NEUTROPHIL # MANUAL DIFF 9.8 TH/MM3 (1.8-7.7); POLYS (SEG NEUTROPHILS) 55 % (16-70)
[2017-09-11 08:29] LABS: BURR CELLS 1+ (NORMAL)
[2017-09-11] MEDS: DULoxetine HCl DR 20 MG CAP PO SCH (08:55)
--- NOTE | 2017-09-11 08:56 | HHI.IDPN ---
Subjective Subjective Remarks Patient is a 72-year-old male, presented to the hospital for evaluation of severe knee pain, and inability to ambulate. He started having some problems about a week ago when he was still in [place]. He was just feeling some malaise and generalized weakness. He had a scheduled medication to come to [place], and arrived [place] 4 days ago. He started noticing some knee pain, and it's usually worse when he puts weight on it and he walked on it. He does not really recall any significant trauma or injury, denies any fall. He started using a cane. He got progressively worse as far as his generalized weakness, and the pain started getting worse so he presented to the hospital for further evaluation and treatment. He denies any significant respiratory complaint. He denies any urinary complaint. There's been no nausea or vomiting. He's had constipation which is unusual for him. Denies any chest pain or any palpitations. On presentation to the emergency room, patient was found to be hypotensive and has required fluid resuscitation. He was in A. fib with RVR. His WBC is normal but he has bandemia. His creatinine is elevated. Lactic is elevated. CT of the abdomen and pelvis did not show any intra- abdominal process, but he has some bilateral pleural effusions. X-ray of the knee showed evidence of moderate effusion. Orthopedics saw the patient, and got very little fluid in the knee because he was very viscous. Patient currently has borderline blood pressure. He is not on pressors. He remains in A. fib with RVR. He has been afebrile since admission. Patient continues to have pain in his right knee, and also complains of pain in the right hip. He also has low back pain. Infectious disease consultation has been requested to evaluate the patient with sepsis. Notes reviewed Temps ok BP ok In atrial fib C/O SOB C/S constipation G/S of synovial fluid with GNR Went to OR yesterday - debridement of R knee R knee pain is better BC with E coli Creatinine rising WBC normal ESR 60 CRP 33 Antibiotics Current Medications Zosyn Vanco Medications (Trade) Dose Ordered Sig/Jet Route Start Time Stop Time Status Last Admin (Cymbalta Dr) 20 mg DAILY PO 09/10/17 09:00 09/10/17 09:55 (NS Flush) 2 ml UNSCH PRN IV FLUSH 09/09/17 18:15 (NS Flush) 2 ml BID IV FLUSH 09/09/17 21:00 09/11/17 00:55 (Tylenol) 650 mg Q6H PRN PO 09/09/17 18:15 (Dilaudid Pf Inj) 1 mg Q4H PRN IV PUSH 09/09/17 18:15 (Restoril) 15 mg HS PRN PO 09/09/17 18:15 (Heparin Inj) 5,000 units Q8HR SQ 09/09/17 18:15 09/11/17 00:55 Miscellaneous Information 1 Q361D XX 09/09/17 18:15 (Chlorhexidine 2% Cloth) 3 pack Taper DAILY@04 TOP 09/10/17 04:00 09/06/18 03:59 (Chlorhexidine 2% Cloth) 3 pack UNSCH PRN TOP 09/09/17 18:15 (Mar-Colace) 1 tab BID PO 09/09/17 21:00 09/10/17 09:56 (Milk Of Magnesia Liq) 30 ml Q12H PRN PO 09/09/17 18:15 (Senokot) 17.2 mg Q12H PRN PO 09/09/17 18:15 (Dulcolax Supp) 10 mg DAILY PRN RECTAL 09/09/17 18:15 (Lactulose Liq) 30 ml DAILY PRN PO 09/09/17 18:15 Pharmacy Profile Note 0 ml @ 0 mls/hr UNSCH OTHER 09/09/17 18:15 Piperacillin Sod/ Tazobactam Sod 50 ml @ 100 mls/hr Q6H IV 09/09/17 08:00 09/11/17 06:30 Phenylephrine HCl 40 mg/Dextrose 500 ml @ 30 mls/hr TITRATE PRN IV 09/10/17 01:00 (Brethine Inj) 1 mg UNSCH PRN SQ 09/10/17 01:00 (Zofran Inj) 4 mg Q6H PRN IV PUSH 09/10/17 04:15 Sodium Bicarbonate 150 meq/Dextrose 1,150 ml @ 75 mls/hr [id number] IV 09/10/17 05:15 09/10/17 06:48 (Albuterol Neb) 2.5 mg Q2HR NEB PRN NEB 09/10/17 07:00 (SoluCORTEF INJ) 100 mg Q8HR IV PUSH 09/10/17 08:00 09/11/17 00:55 ([place] 5-325 Mg) 1 tab Q4H PRN PO 09/10/17 08:00 Diltiazem HCl 125 mg/Sodium Chloride 125 ml @ 5 mls/hr TITRATE PRN IV 09/10/17 09:00 09/11/17 06:32 (Pepcid) 20 mg BID PO 09/10/17 09:00 09/11/17 00:55 (Duoneb Neb) 1 ampule Q6HR NEB NEB 09/10/17 10:00 09/11/17 03:32 (D50w (Vial) Inj) 50 ml UNSCH PRN IV PUSH 09/10/17 08:30 (Glucagon Inj) 1 mg UNSCH PRN OTHER 09/10/17 08:30 (NovoLIN R SUPPLEMENTAL SCALE) 1 ACHS SLIDING SCALE SQ 09/10/17 12:00 Miscellaneous Information ALL NURSING DEPARTME... UNSCH PRN .XX 09/10/17 16:43 09/11/17 16:42 Lines PIV Past Medical History Atrial fibrillation COPD Spinal stenosis Allergies: Coded Allergies: No Known Allergies (Unverified , 09/09/17) Objective . Vital Signs Date Time Temp Pulse Resp B/P (MAP) Pulse Ox O2 Delivery O2 Flow Rate FiO2 09/11/17 06:32 98 111/72 09/11/17 06:00 93 09/11/17 04:00 97.8 101 22 130/74 (92) 93 09/11/17 04:00 88 09/11/17 04:00 95 09/11/17 02:00 89 09/11/17 00:00 96 09/11/17 00:00 97.8 110 18 138/69 (92) 96 09/11/17 00:00 90 09/10/17 22:00 100 09/10/17 20:00 87 09/10/17 20:00 97.3 98 26 110/64 (79) 90 09/10/17 19:45 96 Nasal Cannula 4.00 09/10/17 18:12 109 107/69 09/10/17 18:00 87 09/10/17 18:00 97.9 87 107/69 (82) 09/10/17 17:20 85 16 95/58 (70) 95 Nasal Cannula 3 09/10/17 17:15 97.8 88 16 93/63 (73) 95 Nasal Cannula 3 09/10/17 17:00 90 16 89/60 (70) 94 Nasal Cannula 3 09/10/17 16:45 93 16 88/59 (69) 98 Nasal Cannula 4 09/10/17 16:40 98.4 96 21 91/57 (68) 95 Nasal Cannula 4 09/10/17 15:00 108 09/10/17 14:00 98 09/10/17 12:00 130 09/10/17 12:00 97.6 130 19 102/72 (82) 94 09/10/17 10:00 140 09/10/17 09:58 138 111/72 09/11/17 09/11/17 09/12/17 14:59 22:59 06:59 Intake Total 707 ml Balance 707 ml FFP 342 ml Blood Product IV Normal Saline Flush 365 ml . Laboratory Tests Test 09/09/17 16:45 09/10/17 03:50 09/11/17 05:50 White Blood Count 8.2 TH/MM3 6.9 TH/MM3 10.7 TH/MM3 Red Blood Count 4.58 MIL/MM3 4.64 MIL/MM3 4.20 MIL/MM3 Hemoglobin 14.5 GM/DL 14.5 GM/DL 13.2 GM/DL Hematocrit 42.5 % 43.4 % 39.1 % Mean Corpuscular Volume 92.8 FL 93.4 FL 92.9 FL Mean Corpuscular Hemoglobin 31.6 PG 31.2 PG 31.4 PG Mean Corpuscular Hemoglobin Concent 34.1 % 33.4 % 33.8 % Red Cell Distribution Width 14.4 % 14.3 % 14.6 % Platelet Count 179 TH/MM3 181 TH/MM3 191 TH/MM3 Mean Platelet Volume 9.4 FL 9.8 FL 10.1 FL Neutrophils (%) (Auto) 94.4 % 89.1 % Lymphocytes (%) (Auto) 2.3 % 3.0 % Monocytes (%) (Auto) 3.1 % 6.1 % Eosinophils (%) (Auto) 0.0 % 1.7 % Basophils (%) (Auto) 0.2 % 0.1 % Neutrophils # (Auto) 7.7 TH/MM3 9.5 TH/MM3 Lymphocytes # (Auto) 0.2 TH/MM3 0.3 TH/MM3 Monocytes # (Auto) 0.3 TH/MM3 0.7 TH/MM3 Eosinophils # (Auto) 0.0 TH/MM3 0.2 TH/MM3 Basophils # (Auto) 0.0 TH/MM3 0.0 TH/MM3 CBC Comment AUTO DIFF AUTO DIFF AUTO DIFF Differential Total Cells Counted 100 100 100 Neutrophils % (Manual) 42 % 35 % 55 % Band Neutrophils % 53 % 40 % 34 % Lymphocytes % 1 % 2 % 4 % Monocytes % 2 % 7 % 4 % Neutrophils # (Manual) 8.0 TH/MM3 6.3 TH/MM3 9.8 TH/MM3 Metamyelocytes 1 % 16 % 3 % Promyelocytes 1 % Differential Comment FINAL DIFF MANUAL FINAL DIFF MANUAL FINAL DIFF MANUAL Toxic Granulation 2+ Toxic Vacuolation PRESENT PRESENT Dohle Bodies PRESENT PRESENT Platelet Estimate NORMAL NORMAL NORMAL Platelet Morphology Comment CLUMPED NORMAL NORMAL Erythrocyte Sedimentation Rate 60 mm/hr [place] Cells 1+ Laboratory Tests Test 09/09/17 16:45 09/09/17 18:50 09/09/17 20:15 09/10/17 03:50 Blood Urea Nitrogen 43 MG/DL 45 MG/DL Creatinine 2.01 MG/DL 2.05 MG/DL Random Glucose 89 MG/DL 88 MG/DL Total Protein 5.7 GM/DL 5.2 GM/DL 5.5 GM/DL Albumin 2.2 GM/DL 2.0 GM/DL 2.0 GM/DL Calcium Level 8.8 MG/DL 8.0 MG/DL Alkaline Phosphatase 93 U/L 85 U/L 80 U/L Aspartate Amino Transf (AST/SGOT) 12 U/L 16 U/L 18 U/L Alanine Aminotransferase (ALT/SGPT) 15 U/L 14 U/L 16 U/L Total Bilirubin 1.9 MG/DL 1.8 MG/DL 2.0 MG/DL Sodium Level 134 MEQ/L 137 MEQ/L Potassium Level 4.1 MEQ/L 4.4 MEQ/L Chloride Level 100 MEQ/L 106 MEQ/L Carbon Dioxide Level 25.0 MEQ/L 19.6 MEQ/L Anion Gap 9 MEQ/L 11 MEQ/L Estimat Glomerular Filtration Rate 33 ML/MIN 32 ML/MIN Phosphorus Level 3.8 MG/DL 3.9 MG/DL Magnesium Level 1.9 MG/DL 2.1 MG/DL Direct Bilirubin 1.1 MG/DL Indirect Bilirubin 0.7 MG/DL C-Reactive Protein 33.00 MG/DL Thyroid Stimulating Hormone 3rd Gen 2.570 uIU/ML Lactic Acid Level 3.1 mmol/L 3.3 mmol/L Troponin I 0.37 NG/ML Test 09/10/17 10:40 09/11/17 05:50 Lactic Acid Level 3.4 mmol/L 2.3 mmol/L Total Creatine Kinase 34 U/L Troponin I 0.36 NG/ML 0.25 NG/ML Blood Urea Nitrogen 66 MG/DL Creatinine 2.40 MG/DL Random Glucose 135 MG/DL Total Protein 5.7 GM/DL Albumin 1.9 GM/DL Calcium Level 8.3 MG/DL Phosphorus Level 3.9 MG/DL Magnesium Level 2.3 MG/DL Alkaline Phosphatase 62 U/L Aspartate Amino Transf (AST/SGOT) 15 U/L Alanine Aminotransferase (ALT/SGPT) 16 U/L Total Bilirubin 1.6 MG/DL Sodium Level 138 MEQ/L Potassium Level 4.1 MEQ/L Chloride Level 104 MEQ/L Carbon Dioxide Level 23.2 MEQ/L Anion Gap 11 MEQ/L Estimat Glomerular Filtration Rate 27 ML/MIN Triglycerides Level 232 MG/DL Cholesterol Level 164 MG/DL LDL Cholesterol 103 MG/DL HDL Cholesterol 15.0 MG/DL Cholesterol/HDL Ratio 10.93 RATIO Lipase 52 U/L Microbiology Date/Time Source Procedure Growth Status 09/11/17 05:38 Blood Peripheral Aerobic Blood Culture Pending Received 09/11/17 05:38 Blood Peripheral Anaerobic Blood Culture Pending Received 09/11/17 01:15 Blood Peripheral Aerobic Blood Culture Pending Received 09/11/17 01:15 Blood Peripheral Anaerobic Blood Culture Pending Received 09/11/17 01:10 Blood Peripheral Aerobic Blood Culture Pending Received 09/11/17 01:10 Blood Peripheral Anaerobic Blood Culture Pending Received 09/09/17 18:50 Blood Peripheral Aerobic Blood Culture - Preliminary Gram Negative Juvencio Resulted 09/09/17 18:50 Anaerobic Blood Culture - Preliminary Gram Negative Juvencio Resulted 09/09/17 18:50 Blood Peripheral Aerobic Blood Culture - Preliminary Escherichia Coli Resulted 09/09/17 18:50 Anaerobic Blood Culture - Preliminary Gram Negative Juvencio Resulted 09/10/17 09:15 Fluid Synovial Fluid Gram Stain - Final Resulted 09/10/17 09:15 Fluid Synovial Fluid Body Fluid Culture Pending Resulted 09/10/17 16:12 Wound Knee Fungal Smear Pending Received 09/10/17 16:12 Wound Knee Fungal Culture Pending Received 09/10/17 16:12 Wound Knee Acid Fast Stain Pending Received 09/10/17 16:12 Wound Knee Mycobacterial Culture Pending Received 09/10/17 16:12 Wound Knee Gram Stain Pending Received 09/10/17 16:12 Wound Knee Wound Culture Pending Received Imaging Last Impressions Chest X-Ray 09/11/17 0600 Signed Impressions: Service Date/Time: Monday, September 11, 2017 03:50 - CONCLUSION: 1. Cardiomegaly with mild positive fluid balance. 2. Bilateral pleural effusions with associated mild airspace disease at the lung bases. Wellington Sumner MD Gall Bladder Ultrasound 09/10/17 0000 Signed Impressions: Service Date/Time: Sunday, September 10, 2017 11:30 - CONCLUSION: 1. Cholelithiasis. However, there are no findings to indicate acute cholecystitis. 2. Small right pleural effusion. Constantin Lopez MD Chest CT 09/10/17 0000 Draft Impressions: Service Date/Time: Sunday, September 10, 2017 21:13 - CONCLUSION: 1. Small to moderate bilateral effusions and bibasilar atelectasis. Silverio Stout MD Abdomen/Pelvis CT 09/09/17 1738 Signed Impressions: Service Date/Time: Saturday, September 09, 2017 20:30 - CONCLUSION: 1. Small bilateral pleural effusions, left greater than right with basilar dependent airspace disease in the lungs. Mild anasarca. No bowel obstruction. No free air. Mild constipation. Bruce catheter in bladder. Sal Terrazas MD Knee X-Ray 09/09/17 0000 Signed Impressions: Service Date/Time: Saturday, September 09, 2017 13:49 - CONCLUSION: 1. Moderate to large joint effusion. No acute osseous abnormality is identified. 2. 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 3. Bridger-Stieda lesion indicating old medial collateral ligament injury. 4. Severe calcification of the popliteal artery. Constantin Lopez MD Hip and Pelvis X-Ray 09/09/17 0000 Signed Impressions: Service Date/Time: Saturday, September 09, 2017 17:02 - CONCLUSION: No acute left hip abnormality is identified. 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 Constantin Lopez MD Physical Exam GENERAL: awake and alert, tachypneic. SKIN: Warm and dry. No generalized rash, no ecchymoses and no evidence of embolic lesions. HEAD: Atraumatic. Normocephalic. No temporal wasting, or tenderness. EYES: Morrison conjunctiva. No petechia or hemorrhage. Pupils equal, round and reactive to light. Extraocular movements full and intact. No scleral icterus. No injection or drainage. EARS, NOSE AND THROAT: Nose without bleeding or purulent nasal discharge. No sinus tenderness. Dry oral mucosa. NECK: Trachea midline. Supple and not tender, no meningeal signs CARDIOVASCULAR: Tachycardic, irregular rate and rhythm. No murmurs, rubs or gallops heard RESPIRATORY: Decreased BS at bases ABDOMEN: Mildly distended, bowel sounds present and normoactive. Has mild diffuse abdominal tenderness. No guarding. No rebound. No organomegaly. EXTREMITIES: No clubbing, cyanosis, or edema. R knee joint has intact dry dressing in place. No calf tenderness. Feet are cool. In his R hand, all distal aspect of his fingers has bullous like lesions present, thick skinned ( present for years) and also present in his L hand on distal thumb and LIF NEUROLOGICAL: Awake and alert. Cranial nerves grossly intact. Motor grossly within normal limits. PSYCHIATRIC: Normal affect, calm and cooperative. LINE: No evidence of infection Assessment & Plan Remarks IMPRESSION Shock, etiology? resolved E coli Sepsis source? likely due to R septic knee Septic R knee S/P debridement Renal insufficiency, ?baseline, or due to sepsis, or hypotension SOB, known COPD, but likely due to fluid Atrial fib RECOMMENDATION Continue Zosyn Will not give any further Vanco Follow C/S and adjust Abx He will need course of IV Abx Monitor progress I will make further recommendation depending on his course and results of workup I will be off 09/12-09/15 Other ID MD covering in my absence Shiloh Adams MD Sep 11, 2017 08:56
[2017-09-11] MEDS: DOCUSATE SODIUM 50 MG/SENNA 8.6 MG TAB PO SCH ×2 (09:00→20:42)
--- NOTE | 2017-09-11 09:23 | PD.ORT.PN ---
Subjective Subjective Remarks Patient resting comfortably this morning. States his right knee pain is somewhat improved. He is concerned about when he will be able to go home as he has a trip out of the country planned soon. Objective Vitals Vital Signs Date Time Temp Pulse Resp B/P (MAP) Pulse Ox O2 Delivery O2 Flow Rate FiO2 09/11/17 09:02 92 Nasal Cannula 5.00 09/11/17 06:32 98 111/72 09/11/17 06:00 93 09/11/17 04:00 97.8 101 22 130/74 (92) 93 09/11/17 04:00 88 09/11/17 04:00 95 09/11/17 02:00 89 09/11/17 00:00 96 09/11/17 00:00 97.8 110 18 138/69 (92) 96 09/11/17 00:00 90 09/10/17 22:00 100 09/10/17 20:00 87 09/10/17 20:00 97.3 98 26 110/64 (79) 90 09/10/17 19:45 96 Nasal Cannula 4.00 09/10/17 18:12 109 107/69 09/10/17 18:00 87 09/10/17 18:00 97.9 87 107/69 (82) 09/10/17 17:20 85 16 95/58 (70) 95 Nasal Cannula 3 09/10/17 17:15 97.8 88 16 93/63 (73) 95 Nasal Cannula 3 09/10/17 17:00 90 16 89/60 (70) 94 Nasal Cannula 3 09/10/17 16:45 93 16 88/59 (69) 98 Nasal Cannula 4 09/10/17 16:40 98.4 96 21 91/57 (68) 95 Nasal Cannula 4 09/10/17 15:00 108 09/10/17 14:00 98 09/10/17 12:00 130 09/10/17 12:00 97.6 130 19 102/72 (82) 94 09/10/17 10:00 140 09/10/17 09:58 138 111/72 I/O 09/10/17 09/10/17 09/10/17 09/11/17 09/11/17 09/11/17 07:00 15:00 23:00 07:00 15:00 23:00 Intake Total 7264 ml 1330 ml 960 ml 707 ml Output Total 200 ml 375 ml 350 ml Balance 7064 ml 955 ml 610 ml 707 ml Intake Oral 200 ml 500 ml 300 ml IV Total 7064 ml 660 ml FFP 342 ml Blood Product IV Normal Saline Flush 30 ml 365 ml Other 800 ml Output Urine Total 200 ml 350 ml 350 ml Estimated Blood Loss 25 ml Result Diagram: 09/11/17 0550 09/11/17 0550 Imaging Last 24 hours Impressions Chest X-Ray 09/11/17 0600 Signed Impressions: Service Date/Time: Monday, September 11, 2017 03:50 - CONCLUSION: 1. Cardiomegaly with mild positive fluid balance. 2. Bilateral pleural effusions with associated mild airspace disease at the lung bases. Wellington Sumner MD Objective Remarks Awake, alert, no acute distress. Nonlabored respirations Right lower extremity: dressings in place along with BASIM drain. No drainage on dressing. Neurovascularly intact distally. Full active range of motion of knee without significant discomfort. Negative Homans Assessment & Plan Assessment and Plan 72-year-old gentleman, POD#1 s/p I&D R knee 1. Weightbearing as tolerated and range of motion as tolerated to right lower extremity 2. Dressing changes to start on postop day 2 and BASIM to be removed on postop day 2. 3. Intraoperative cultures pending. Gram stain from aspiration demonstrated gram-negative rods and appear to be purulent Intra-Op. My suspicion is that this is likely a secondary seated area as a result of his bacteremia and the source may be from somewhere other than his knee. Continue antibiotics per ID and ICU. 4. No plan for further orthopedic surgery at this time. Coral uQinn MD Sep 11, 2017 09:23
--- NOTE | 2017-09-11 09:55 | PD.CARD.PN ---
Subjective Subjective Remarks Mildly confused, no CP or SOB Objective Medications Current Medications Medications (Trade) Dose Ordered Sig/Jet Route Start Time Stop Time Status Last Admin (Cymbalta Dr) 20 mg DAILY PO 09/10/17 09:00 09/11/17 08:55 (NS Flush) 2 ml UNSCH PRN IV FLUSH 09/09/17 18:15 (NS Flush) 2 ml BID IV FLUSH 09/09/17 21:00 09/11/17 00:55 (Tylenol) 650 mg Q6H PRN PO 09/09/17 18:15 (Dilaudid Pf Inj) 1 mg Q4H PRN IV PUSH 09/09/17 18:15 (Restoril) 15 mg HS PRN PO 09/09/17 18:15 (Heparin Inj) 5,000 units Q8HR SQ 09/09/17 18:15 09/11/17 00:55 Miscellaneous Information 1 Q361D XX 09/09/17 18:15 (Chlorhexidine 2% Cloth) 3 pack Taper DAILY@04 TOP 09/10/17 04:00 09/06/18 03:59 (Chlorhexidine 2% Cloth) 3 pack UNSCH PRN TOP 09/09/17 18:15 (Mar-Colace) 1 tab BID PO 09/09/17 21:00 09/10/17 09:56 (Milk Of Magnesia Liq) 30 ml Q12H PRN PO 09/09/17 18:15 (Senokot) 17.2 mg Q12H PRN PO 09/09/17 18:15 (Dulcolax Supp) 10 mg DAILY PRN RECTAL 09/09/17 18:15 (Lactulose Liq) 30 ml DAILY PRN PO 09/09/17 18:15 Piperacillin Sod/ Tazobactam Sod 50 ml @ 100 mls/hr Q6H IV 09/09/17 08:00 09/11/17 08:57 Phenylephrine HCl 40 mg/Dextrose 500 ml @ 30 mls/hr TITRATE PRN IV 09/10/17 01:00 (Brethine Inj) 1 mg UNSCH PRN SQ 09/10/17 01:00 (Zofran Inj) 4 mg Q6H PRN IV PUSH 09/10/17 04:15 Sodium Bicarbonate 150 meq/Dextrose 1,150 ml @ 75 mls/hr [id number] IV 09/10/17 05:15 09/10/17 06:48 (Albuterol Neb) 2.5 mg Q2HR NEB PRN NEB 09/10/17 07:00 (SoluCORTEF INJ) 100 mg Q8HR IV PUSH 09/10/17 08:00 09/11/17 00:55 ([place] 5-325 Mg) 1 tab Q4H PRN PO 09/10/17 08:00 Diltiazem HCl 125 mg/Sodium Chloride 125 ml @ 5 mls/hr TITRATE PRN IV 09/10/17 09:00 09/11/17 06:32 (Pepcid) 20 mg BID PO 09/10/17 09:00 09/11/17 08:56 (Duoneb Neb) 1 ampule Q6HR NEB NEB 09/10/17 10:00 09/11/17 08:59 (D50w (Vial) Inj) 50 ml UNSCH PRN IV PUSH 09/10/17 08:30 (Glucagon Inj) 1 mg UNSCH PRN OTHER 09/10/17 08:30 (NovoLIN R SUPPLEMENTAL SCALE) 1 ACHS SLIDING SCALE SQ 09/10/17 12:00 Miscellaneous Information ALL NURSING DEPARTME... UNSCH PRN .XX 09/10/17 16:43 09/11/17 16:42 Vital Signs / I&O Vital Signs Date Time Temp Pulse Resp B/P (MAP) Pulse Ox O2 Delivery O2 Flow Rate FiO2 09/11/17 09:02 92 Nasal Cannula 5.00 09/11/17 06:32 98 111/72 09/11/17 06:00 93 09/11/17 04:00 97.8 101 22 130/74 (92) 93 09/11/17 04:00 88 09/11/17 04:00 95 09/11/17 02:00 89 09/11/17 00:00 96 09/11/17 00:00 97.8 110 18 138/69 (92) 96 09/11/17 00:00 90 09/10/17 22:00 100 09/10/17 20:00 87 09/10/17 20:00 97.3 98 26 110/64 (79) 90 09/10/17 19:45 96 Nasal Cannula 4.00 09/10/17 18:12 109 107/69 09/10/17 18:00 87 09/10/17 18:00 97.9 87 107/69 (82) 09/10/17 17:20 85 16 95/58 (70) 95 Nasal Cannula 3 09/10/17 17:15 97.8 88 16 93/63 (73) 95 Nasal Cannula 3 09/10/17 17:00 90 16 89/60 (70) 94 Nasal Cannula 3 09/10/17 16:45 93 16 88/59 (69) 98 Nasal Cannula 4 09/10/17 16:40 98.4 96 21 91/57 (68) 95 Nasal Cannula 4 09/10/17 15:00 108 09/10/17 14:00 98 09/10/17 12:00 130 09/10/17 12:00 97.6 130 19 102/72 (82) 94 09/10/17 10:00 140 09/10/17 09:58 138 111/72 I/O 09/10/17 09/10/17 09/10/17 09/11/17 09/11/17 09/11/17 07:00 15:00 23:00 07:00 15:00 23:00 Intake Total 7264 ml 1330 ml 960 ml 707 ml Output Total 200 ml 375 ml 350 ml Balance 7064 ml 955 ml 610 ml 707 ml Intake Oral 200 ml 500 ml 300 ml IV Total 7064 ml 660 ml FFP 342 ml Blood Product IV Normal Saline Flush 30 ml 365 ml Other 800 ml Output Urine Total 200 ml 350 ml 350 ml Estimated Blood Loss 25 ml Physical Exam GENERAL: In mild distress. SKIN: Warm and dry. HEAD: Normocephalic. EYES: No scleral icterus. No injection or drainage. NECK: Supple, trachea midline. No JVD or lymphadenopathy. CARDIOVASCULAR: Irregular rate and rhythm without murmurs, gallops, or rubs. RESPIRATORY: Breath sounds equal bilaterally. No accessory muscle use. GASTROINTESTINAL: Abdomen soft, non-tender, nondistended. MUSCULOSKELETAL: No cyanosis, or edema. R knee dressed, drain in place. Laboratory Laboratory Tests Test 09/10/17 10:40 09/11/17 05:50 Lactic Acid Level 3.4 mmol/L 2.3 mmol/L Total Creatine Kinase 34 U/L Troponin I 0.36 NG/ML 0.25 NG/ML Random Vancomycin Level 16.0 COMMENT 23.6 COMMENT White Blood Count 10.7 TH/MM3 Red Blood Count 4.20 MIL/MM3 Hemoglobin 13.2 GM/DL Hematocrit 39.1 % Mean Corpuscular Volume 92.9 FL Mean Corpuscular Hemoglobin 31.4 PG Mean Corpuscular Hemoglobin Concent 33.8 % Red Cell Distribution Width 14.6 % Platelet Count 191 TH/MM3 Mean Platelet Volume 10.1 FL Neutrophils (%) (Auto) 89.1 % Lymphocytes (%) (Auto) 3.0 % Monocytes (%) (Auto) 6.1 % Eosinophils (%) (Auto) 1.7 % Basophils (%) (Auto) 0.1 % Neutrophils # (Auto) 9.5 TH/MM3 Lymphocytes # (Auto) 0.3 TH/MM3 Monocytes # (Auto) 0.7 TH/MM3 Eosinophils # (Auto) 0.2 TH/MM3 Basophils # (Auto) 0.0 TH/MM3 CBC Comment AUTO DIFF Differential Total Cells Counted 100 Neutrophils % (Manual) 55 % Band Neutrophils % 34 % Lymphocytes % 4 % Monocytes % 4 % Neutrophils # (Manual) 9.8 TH/MM3 Metamyelocytes 3 % Differential Comment FINAL DIFF MANUAL Platelet Estimate NORMAL Platelet Morphology Comment NORMAL Lexie Cells 1+ Activated Partial Thromboplast Time 40.7 SEC Fibrinogen GREATER THAN 860 mg/dL Blood Urea Nitrogen 66 MG/DL Creatinine 2.40 MG/DL Random Glucose 135 MG/DL Total Protein 5.7 GM/DL Albumin 1.9 GM/DL Calcium Level 8.3 MG/DL Phosphorus Level 3.9 MG/DL Magnesium Level 2.3 MG/DL Alkaline Phosphatase 62 U/L Aspartate Amino Transf (AST/SGOT) 15 U/L Alanine Aminotransferase (ALT/SGPT) 16 U/L Total Bilirubin 1.6 MG/DL Sodium Level 138 MEQ/L Potassium Level 4.1 MEQ/L Chloride Level 104 MEQ/L Carbon Dioxide Level 23.2 MEQ/L Anion Gap 11 MEQ/L Estimat Glomerular Filtration Rate 27 ML/MIN Triglycerides Level 232 MG/DL Cholesterol Level 164 MG/DL LDL Cholesterol 103 MG/DL HDL Cholesterol 15.0 MG/DL Cholesterol/HDL Ratio 10.93 RATIO Lipase 52 U/L Imaging Last 24 hours Impressions Chest X-Ray 09/11/17 0600 Signed Impressions: Service Date/Time: Monday, September 11, 2017 03:50 - CONCLUSION: 1. Cardiomegaly with mild positive fluid balance. 2. Bilateral pleural effusions with associated mild airspace disease at the lung bases. Wellington Sumner MD Assessment and Plan Problem List: (1) Atrial fibrillation ICD Codes: I48.91 - Unspecified atrial fibrillation (2) Severe sepsis with septic shock ICD Codes: A41.9 - Sepsis, unspecified organism; R65.21 - Severe sepsis with septic shock Status: Acute (3) Septic arthritis of knee ICD Codes: M00.9 - Pyogenic arthritis, unspecified (4) COPD (chronic obstructive pulmonary disease) ICD Codes: J44.9 - Chronic obstructive pulmonary disease, unspecified (5) Renal insufficiency ICD Codes: N28.9 - Disorder of kidney and ureter, unspecified Assessment and Plan Rate better controlled. Switch diltiazem to PO, continue PO digoxin (BP low nl) . Continue IV abxs for sepsis/septic R knee. He has a safari trip planned on September 25; this is unlikely to happen due to the need of prolonged abx tx. This was discussed with the patient in detail. Libra Hanna MD Sep 11, 2017 09:55
[2017-09-11] MEDS ORDERED: ALTEPLASE RECOMBINANT 2 MG VIAL INTRACATH ONE (10:30)
[2017-09-11] MEDS ORDERED: ALBUMIN 5% INJ 500 ML IV ONE (10:30)
[2017-09-11] MEDS ORDERED: FUROSEMIDE 40 MG/4 ML VIAL IV PUSH ONE (10:30)
--- NOTE | 2017-09-11 10:30 | HHI.CCPN ---
Subjective Remarks/Hospital Course 72-year-old male presents for evaluation of right knee pain for the past several days. It started about 4-5 days ago when he "tweaked" his knee while changing his tire. He had mild pain since then but but yesterday the pain became so severe, he could no longer ambulate. Pain is also worse with hyperextension. Patient has minimal pain at rest. He has been taking Tylenol, his friend's muscle relaxant, and previously prescribed oxycodone with moderate relief in symptoms. He cannot localize pain. Denies paresthesias, or fever. No history of knee problems. History of A. fib for which he takes warfarin. Patient stopped taking warfarin 2 days ago because he noted a small bruise to his buttocks. Denies any trauma or injury to buttocks. In the emergency department he was found to have bandemia and was hypotensive despite 3 L of normal saline boluses. 09/10: Remains in A. fib with RVR with heart rates between 120 and 150. Currently on 6 L nasal cannula. Received 6 L normal saline bolus since admission. On low-dose norepinephrine. Lactic acid increased to 3.3. Decreased urine output noted. Patient has chronic prednisone use due to rheumatoid arthritis. Hydrocortisone 100 mg has been ordered for this a.m. now. Denies pain in right knee currently. Subjective 09/11: Status post I&D right knee yesterday. BASIM with serosanguineous drainage. Currently afebrile. Decreased urine output noted. Creatinine bumped to 2.4. Lactate slowly decreasing. Volume status positive between 8-10 L since admission. Objective Vital Signs Date Time Temp Pulse Resp B/P (MAP) Pulse Ox O2 Delivery O2 Flow Rate FiO2 09/11/17 10:00 106 09/11/17 09:02 92 Nasal Cannula 5.00 09/11/17 08:00 97.9 35 111/80 (90) Intake and Output 09/11/17 09/11/17 09/12/17 08:00 16:00 00:00 Intake Total 1667 ml Output Total 350 ml Balance 1317 ml Result Diagram: 09/11/17 0550 09/11/17 0550 Other Results Microbiology Date/Time Source Procedure Growth Status 09/11/17 05:38 Blood Peripheral Aerobic Blood Culture Pending Received 09/11/17 05:38 Blood Peripheral Anaerobic Blood Culture Pending Received 09/10/17 09:15 Fluid Synovial Fluid Gram Stain - Final Resulted 09/10/17 09:15 Fluid Synovial Fluid Body Fluid Culture Pending Resulted 09/10/17 16:12 Wound Knee Fungal Smear - Final NO FUNGAL ELEMENTS SEEN. Resulted 09/10/17 16:12 Wound Knee Fungal Culture Pending Resulted Imaging Last Impressions Chest X-Ray 09/11/17 0600 Signed Impressions: Service Date/Time: Monday, September 11, 2017 03:50 - CONCLUSION: 1. Cardiomegaly with mild positive fluid balance. 2. Bilateral pleural effusions with associated mild airspace disease at the lung bases. Wellington Sumner MD Gall Bladder Ultrasound 09/10/17 0000 Signed Impressions: Service Date/Time: Sunday, September 10, 2017 11:30 - CONCLUSION: 1. Cholelithiasis. However, there are no findings to indicate acute cholecystitis. 2. Small right pleural effusion. Constantin Lopez MD Chest CT 09/10/17 0000 Signed Impressions: Service Date/Time: Sunday, September 10, 2017 21:13 - CONCLUSION: 1. Small to moderate bilateral effusions and bibasilar atelectasis. Silverio Stout MD Abdomen/Pelvis CT 09/09/17 1738 Signed Impressions: Service Date/Time: Saturday, September 09, 2017 20:30 - CONCLUSION: 1. Small bilateral pleural effusions, left greater than right with basilar dependent airspace disease in the lungs. Mild anasarca. No bowel obstruction. No free air. Mild constipation. Bruce catheter in bladder. Sal Terrazas MD Knee X-Ray 09/09/17 0000 Signed Impressions: Service Date/Time: Saturday, September 09, 2017 13:49 - CONCLUSION: 1. Moderate to large joint effusion. No acute osseous abnormality is identified. 2. 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 3. Bridger-Stieda lesion indicating old medial collateral ligament injury. 4. Severe calcification of the popliteal artery. Constantin Lopez MD Hip and Pelvis X-Ray 09/09/17 0000 Signed Impressions: Service Date/Time: Saturday, September 09, 2017 17:02 - CONCLUSION: No acute left hip abnormality is identified. 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 Constantin Lopez MD Objective Remarks GENERAL: 72-year-old male currently resting in bed in mild respiratory distress SKIN: Pale and dry. No rash HEAD: Normocephalic. Atraumatic EYES: Peoples around 3 mm bilaterally and reactive. No scleral icterus or injection. NECK: Supple, trachea midline. No JVD or lymphadenopathy. CARDIOVASCULAR: Tachycardic, IR. S1, S2 predose repair without murmur RESPIRATORY: Breath sounds equal bilaterally. No accessory muscle use. GASTROINTESTINAL: Abdomen soft, non-tender, nondistended. MUSCULOSKELETAL: Right knee status post I&D currently wrapped with Fredi bandage with laterally placed BASIM with serosanguineous output. Positive edema lower extremity NEURO EXAM: Cranial nerves II through XII grossly intact. Strength appears to be equal and symmetric bilaterally. Normal sensation Urinary Catheter: Yes Assessment to: Continue Bruce insert reason: Prolonged Immobilization Vascular Central Line Catheter: Yes Date of Insertion: Sep 09, 2017 Line: Central Venous Catheter Side: Right Location: Femoral A/P Assessment and Plan Neuro/Psych: Depression Duloxetine 20 mg p.o. daily/home medication will be continued Acetaminophen 650 mg by mouth every 6 hours as needed for fever Hydrocodone/acetaminophen 5/325 one tablet every 4 hours as needed for pain 1 through 5 Hydromorphone 1 mg IV every 4 hours as needed pain 6 through 10 CV: Atrial fibrillation with rapid ventricular response History of chronic atrial fibrillation Elevated troponin Lactic acidosis Switch to diltiazem drip for rate control heart rate around 100 with mean atrial pressure greater than 65 goals Switch diltiazem to oral 30 mg every [address] Hanna -medical management 2D echocardiogram ordered Cycle troponins every 6 hours 2 declining Serial lactates every 6 hours currently 2.9 on declining Patient is on no medications for blood pressure at home Resp: Acute respiratory insufficiency History of COPD Bilateral small pleural effusions Nasal cannula to maintain saturations greater than or equal to 92%. Currently at 6 L Incentive spirometry while awake Albuterol/ipratropium aerosols every 6 hours with albuterol aerosols every 2 hours as needed Chest x-ray in a.m. 09/11 revealed mild to moderate bilateral pulmonary effusions with vascular congestion CT thorax revealed bilateral pleural effusions GI: Hypoalbuminemia Mild anasarca Cholelithiasis without cholecystitis on ultrasound Patient is currently in a regular diet Famotidine for GI prophylaxis Docusate sodium/senna 1 tablet twice daily for bowel regimen : Bruce catheter has been placed for accurate I's and O's in a critically ill patient Endo: Chronic prednisone use -history of rheumatoid arthritis Sliding scale insulin Novulin R medium regimen with Accu-Cheks maintain euglycemia TSH 2.57 Start on hydrocortisone 50 mg IV every 8 hours Patient does not know his home prednisone dose. Renal: Right renal cyst -3 cm Acute on chronic kidney injury - ATN, AIN? Creatinine currently 2.4 Unknown baseline creatinine Consult nephrology. Urine eosinophils and electrolytes pending No hydronephrosis and CT abdomen/pelvis Monitor urine output Accurate I's and O's Discontinue D5 water with 3 ampules of sodium bicarbonate 75 cc an hour with boluses of albumin with furosemide 1. Recheck urine output this afternoon Heme: Chronic warfarin use Elevated PTT Elevated fibrinogen Holding warfarin 2 mg as 4 mg alternating days in light of possible arthrocentesis today INR currently 1.5 Received 1 unit FFP currently. CBC within normal limits. Recheck in a.m. ID: Severe sepsis -knee effusion question kalpana Currently piperacillin/tazobactam daily #3 Vancomycin discontinued Infectious disease consultation Microbiology Blood cultures 3 -09/11 -pending Synovial fluid -09/10 -gram-negative rods Intra-Op cultures -09/10 -pending Blood cultures 2 -09/09 -gram-negative rods UA negative FEN: Hypocalcemia Replace electrolytes as clinically indicated per ICU electrolyte protocol MSK: Right knee effusion postop day #1 I&D X-ray right knee reveal tricompartment osteophytes with medial space joint narrowing. Coarse ossifications of the supracondylar ridge. Popliteal artery calcification. Bridger Stieda lesion revealing possible old MCL injury Large right knee effusion Orthopedics weightbearing as tolerated. Range of motion Change dressings daily #2 postop. PT evaluate and treat Access -Right femoral CVL day #3 placed in ED Prophylaxis -GI -famotidine -DVT -SCD/holding pharmacological prophylaxis. Resume when clinically indicated when okay with orthopedics Level 2 follow-up Jaspal Kennedy MD Sep 11, 2017 10:30
[2017-09-11 10:34] LABS: HEMOGLOBIN A1C 5.5 % (4.3-6.0)
[2017-09-11] MEDS ORDERED: ALTEPLASE RECOMBINANT 2 MG VIAL INTRACATH PRN (13:00)
--- NOTE | 2017-09-11 13:52 | PD.CONS ---
HPI Service Nephrology Consult Requested By Dr. Kennedy Reason for Consult ARF Primary Care Physician No Primary Care Physician History of Present Illness Patient is a 72-year-old white male with history of atrial fibrillation on anticoagulation, he states that. He had renal problems 2 years ago when he was admitted in the [facility] with sepsis and his kidney shutdown and he remained on hemodialysis for about 2 months and then kidney recovered, he was traveling and trying to change a tire he then felt sharp knee pain and could not bear any weight. He came to the emergency and was diagnosed with sepsis again with blood culture growing Escherichia coli, patient has right knee drained and he has a drain in place as well, he denies any pain, his urine output dropped creatinine is 2.4. Review of Systems Constitutional: COMPLAINS OF: Fatigue Endocrine: DENIES: Heat/cold intolerance, Polydipsia, Polyuria, Polyphagia Ears, nose, mouth, throat: DENIES: Tinnitus, Hearing loss, Vertigo, Nasal discharge, Oral lesions, Throat pain, Hoarseness, Ear Pain, Running Nose, Epistaxis, Sinus Pain, Toothache, Odynophagia Respiratory: DENIES: Apneas, Cough, Snoring, Wheezing, Hemoptysis, Sputum production, Shortness of breath Cardiovascular: DENIES: Chest pain, Palpitations, Syncope, Dyspnea on Exertion , PND, Lower Extremity Edema, Orthopnea, Claudication Musculoskeletal: COMPLAINS OF: Joint pain, Muscle aches Hematologic/lymphatic: COMPLAINS OF: Bruising Neurologic: COMPLAINS OF: Abnormal gait Past Family Social History Allergies: Coded Allergies: No Known Allergies (Unverified , 09/09/17) Past Medical History Atrial fibrillation Arthritis spinal stenosis Reported Medications Reported Meds & Active Scripts Active Reported Warfarin 4 Mg Tab 4 Mg PO EVERY OTHER DAY Warfarin 2 Mg Tab 4.5 Mg PO EVERY OTHER DAY Duloxetine DR (Duloxetine HCl) 20 Mg Capdr 20 Mg PO DAILY Active Ordered Medications Current Medications Medications (Trade) Dose Ordered Sig/Jet Route Start Time Stop Time Status Last Admin (Cymbalta Dr) 20 mg DAILY PO 09/10/17 09:00 09/11/17 08:55 (NS Flush) 2 ml UNSCH PRN IV FLUSH 09/09/17 18:15 (NS Flush) 2 ml BID IV FLUSH 09/09/17 21:00 09/11/17 00:55 (Tylenol) 650 mg Q6H PRN PO 09/09/17 18:15 (Dilaudid Pf Inj) 1 mg Q4H PRN IV PUSH 09/09/17 18:15 (Restoril) 15 mg HS PRN PO 09/09/17 18:15 (Heparin Inj) 5,000 units Q8HR SQ 09/09/17 18:15 09/11/17 00:55 Miscellaneous Information 1 Q361D XX 09/09/17 18:15 (Chlorhexidine 2% Cloth) 3 pack Taper DAILY@04 TOP 09/10/17 04:00 09/06/18 03:59 (Chlorhexidine 2% Cloth) 3 pack UNSCH PRN TOP 09/09/17 18:15 (Mar-Colace) 1 tab BID PO 09/09/17 21:00 09/10/17 09:56 (Milk Of Magnesia Liq) 30 ml Q12H PRN PO 09/09/17 18:15 (Senokot) 17.2 mg Q12H PRN PO 09/09/17 18:15 (Dulcolax Supp) 10 mg DAILY PRN RECTAL 09/09/17 18:15 (Lactulose Liq) 30 ml DAILY PRN PO 09/09/17 18:15 Phenylephrine HCl 40 mg/Dextrose 500 ml @ 30 mls/hr TITRATE PRN IV 09/10/17 01:00 (Brethine Inj) 1 mg UNSCH PRN SQ 09/10/17 01:00 (Zofran Inj) 4 mg Q6H PRN IV PUSH 09/10/17 04:15 (Albuterol Neb) 2.5 mg Q2HR NEB PRN NEB 09/10/17 07:00 (Gentry 5-325 Mg) 1 tab Q4H PRN PO 09/10/17 08:00 Diltiazem HCl 125 mg/Sodium Chloride 125 ml @ 5 mls/hr TITRATE PRN IV 09/10/17 09:00 09/11/17 06:32 (Pepcid) 20 mg BID PO 09/10/17 09:00 09/11/17 08:56 (Duoneb Neb) 1 ampule Q6HR NEB NEB 09/10/17 10:00 09/11/17 08:59 (D50w (Vial) Inj) 50 ml UNSCH PRN IV PUSH 09/10/17 08:30 (Glucagon Inj) 1 mg UNSCH PRN OTHER 09/10/17 08:30 (NovoLIN R SUPPLEMENTAL SCALE) 1 ACHS SLIDING SCALE SQ 09/10/17 12:00 Miscellaneous Information ALL NURSING DEPARTME... UNSCH PRN .XX 09/10/17 16:43 09/11/17 16:42 (SoluCORTEF INJ) 50 mg Q8HR IV PUSH 09/11/17 14:00 (Cardizem) 30 mg Q6HR PO 09/11/17 12:00 (Cathflo Activase Inj) 2 mg Q2H PRN INTRACATH 09/11/17 13:00 Piperacillin Sod/ Tazobactam Sod 2.25 gm/Sodium Chloride 50 ml @ 100 mls/hr Q6H IV 09/11/17 15:00 Family History Noncontributory Social History Used to drink heavily in the past but drinks occasionally and denies smoking Physical Exam Vital Signs Vital Signs Date Time Temp Pulse Resp B/P (MAP) Pulse Ox O2 Delivery O2 Flow Rate FiO2 09/11/17 12:00 98.0 93 33 121/66 (84) 80 09/11/17 12:00 93 09/11/17 10:00 106 09/11/17 09:02 92 Nasal Cannula 5.00 09/11/17 08:00 97.9 105 35 111/80 (90) 89 09/11/17 08:00 105 09/11/17 07:00 91 09/11/17 06:32 98 111/72 09/11/17 06:00 93 09/11/17 04:00 97.8 101 22 130/74 (92) 93 09/11/17 04:00 88 09/11/17 04:00 95 09/11/17 02:00 89 09/11/17 00:00 96 09/11/17 00:00 97.8 110 18 138/69 (92) 96 09/11/17 00:00 90 09/10/17 22:00 100 09/10/17 20:00 87 09/10/17 20:00 97.3 98 26 110/64 (79) 90 09/10/17 19:45 96 Nasal Cannula 4.00 09/10/17 18:12 109 107/69 09/10/17 18:00 87 09/10/17 18:00 97.9 87 107/69 (82) 09/10/17 17:20 85 16 95/58 (70) 95 Nasal Cannula 3 09/10/17 17:15 97.8 88 16 93/63 (73) 95 Nasal Cannula 3 09/10/17 17:00 90 16 89/60 (70) 94 Nasal Cannula 3 09/10/17 16:45 93 16 88/59 (69) 98 Nasal Cannula 4 09/10/17 16:40 98.4 96 21 91/57 (68) 95 Nasal Cannula 4 09/10/17 15:00 108 09/10/17 14:00 98 Physical Exam GENERAL: Well-nourished, well-developed patient. SKIN: Warm and dry. HEAD: Normocephalic. EYES: No scleral icterus. No injection or drainage. NECK: Supple, trachea midline. No JVD or lymphadenopathy. CARDIOVASCULAR: Irregularly irregular RESPIRATORY: Breath sounds equal bilaterally. No accessory muscle use. GASTROINTESTINAL: Abdomen soft, non-tender, nondistended. EXTREMITIES: No cyanosis, or edema. NEUROLOGICAL: Awake, alert, and oriented x 3. Non-focal. Laboratory Laboratory Tests Test 09/11/17 05:50 09/11/17 11:36 White Blood Count 10.7 Red Blood Count 4.20 Hemoglobin 13.2 Hematocrit 39.1 Mean Corpuscular Volume 92.9 Mean Corpuscular Hemoglobin 31.4 Mean Corpuscular Hemoglobin Concent 33.8 Red Cell Distribution Width 14.6 Platelet Count 191 Mean Platelet Volume 10.1 Neutrophils (%) (Auto) 89.1 Lymphocytes (%) (Auto) 3.0 Monocytes (%) (Auto) 6.1 Eosinophils (%) (Auto) 1.7 Basophils (%) (Auto) 0.1 Neutrophils # (Auto) 9.5 Lymphocytes # (Auto) 0.3 Monocytes # (Auto) 0.7 Eosinophils # (Auto) 0.2 Basophils # (Auto) 0.0 CBC Comment AUTO DIFF Differential Total Cells Counted 100 Neutrophils % (Manual) 55 Band Neutrophils % 34 Lymphocytes % 4 Monocytes % 4 Neutrophils # (Manual) 9.8 Metamyelocytes 3 Differential Comment FINAL DIFF MANUAL Platelet Estimate NORMAL Platelet Morphology Comment NORMAL [place] Laager Cells 1+ Activated Partial Thromboplast Time 40.7 Fibrinogen GREATER THAN 860 Blood Urea Nitrogen 66 Creatinine 2.40 Random Glucose 135 Total Protein 5.7 Albumin 1.9 Calcium Level 8.3 Phosphorus Level 3.9 Magnesium Level 2.3 Alkaline Phosphatase 62 Aspartate Amino Transf (AST/SGOT) 15 Alanine Aminotransferase (ALT/SGPT) 16 Total Bilirubin 1.6 Sodium Level 138 Potassium Level 4.1 Chloride Level 104 Carbon Dioxide Level 23.2 Anion Gap 11 Estimat Glomerular Filtration Rate 27 Hemoglobin A1c 5.5 Lactic Acid Level 2.3 2.8 Troponin I 0.25 Triglycerides Level 232 Cholesterol Level 164 LDL Cholesterol 103 HDL Cholesterol 15.0 Cholesterol/HDL Ratio 10.93 Lipase 52 Random Vancomycin Level 23.6 Date/Time Source Procedure Growth Status 09/11/17 05:38 Blood Peripheral Aerobic Blood Culture Pending Received 09/11/17 05:38 Blood Peripheral Anaerobic Blood Culture Pending Received 09/10/17 09:15 Fluid Synovial Fluid Gram Stain - Final Resulted 09/10/17 09:15 Fluid Synovial Fluid Body Fluid Culture Pending Resulted 09/10/17 16:12 Wound Knee Fungal Smear - Final NO FUNGAL ELEMENTS SEEN. Resulted 09/10/17 16:12 Wound Knee Fungal Culture Pending Resulted Result Diagram: 09/11/17 0550 09/11/17 0550 Imaging Last Impressions Chest X-Ray 09/11/17 0600 Signed Impressions: Service Date/Time: Monday, September 11, 2017 03:50 - CONCLUSION: 1. Cardiomegaly with mild positive fluid balance. 2. Bilateral pleural effusions with associated mild airspace disease at the lung bases. Wellington Sumner MD Gall Bladder Ultrasound 09/10/17 0000 Signed Impressions: Service Date/Time: Sunday, September 10, 2017 11:30 - CONCLUSION: 1. Cholelithiasis. However, there are no findings to indicate acute cholecystitis. 2. Small right pleural effusion. Constantin Lopez MD Chest CT 09/10/17 0000 Signed Impressions: Service Date/Time: Sunday, September 10, 2017 21:13 - CONCLUSION: 1. Small to moderate bilateral effusions and bibasilar atelectasis. Silverio Stout MD Abdomen/Pelvis CT 09/09/17 1738 Signed Impressions: Service Date/Time: Saturday, September 09, 2017 20:30 - CONCLUSION: 1. Small bilateral pleural effusions, left greater than right with basilar dependent airspace disease in the lungs. Mild anasarca. No bowel obstruction. No free air. Mild constipation. Bruce catheter in bladder. Sal Terrazas MD Knee X-Ray 09/09/17 0000 Signed Impressions: Service Date/Time: Saturday, September 09, 2017 13:49 - CONCLUSION: 1. Moderate to large joint effusion. No acute osseous abnormality is identified. 2. 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 3. Bridger-Stieda lesion indicating old medial collateral ligament injury. 4. Severe calcification of the popliteal artery. Constantin Lopez MD Hip and Pelvis X-Ray 09/09/17 0000 Signed Impressions: Service Date/Time: Saturday, September 09, 2017 17:02 - CONCLUSION: No acute left hip abnormality is identified. 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 Constantin Lopez MD Assessment and Plan Problem List: (1) Acute renal failure ICD Codes: N17.9 - Acute kidney failure, unspecified Plan: This is likely due to septic shock He is given IV fluids and he is positive by 13 L of fluids, received several boluses and now getting albumin as well I agree with the treatment of sepsis with IV fluid Avoid nephrotoxin CT of the abdomen showed the renal cyst there was no hydronephrosis Continue supportive. Follow BMP (2) Septic arthritis of knee ICD Codes: M00.9 - Pyogenic arthritis, unspecified Plan: Follow cultures (3) Severe sepsis with septic shock ICD Codes: A41.9 - Sepsis, unspecified organism; R65.21 - Severe sepsis with septic shock Status: Acute Plan: On IV fluids and IV antibiotics (4) Hypotension ICD Codes: I95.9 - Hypotension, unspecified Status: Acute Plan: Resolving Problem Qualifiers (1) Hypotension: Qualified Codes: I95.9 - Hypotension, unspecified Magy Bryant MD Sep 11, 2017 13:52
[2017-09-11] MEDS: DILTIAZEM HCL 30 MG TAB PO SCH ×2 (16:40→16:46)
--- NOTE | 2017-09-11 16:47 | ECHRPT ---
Indication: HEART FAILURE CONCLUSIONS Normal left ventricular size. EF=35-40% Mild concentric left ventricular hypertrophy. The left atrial size is sjtiavei-[id number] dilated. The right atrial size is uzrg-bu-yhiwdzycth dilated. No atrial level shunt is demonstrated by color flow Doppler interrogation. Mitral annular calcification is present. Moderate mitral valve regurgitation. Aortic valve sclerosis is present. There is trace tricuspid valve regurgitation.. technically limited study BP: 104 / 70 HR: 143 Rhythm: Sinus MEASUREMENTS (Male / Female) Normal Values Technical Quality:Fair 2D ECHO LV Diastolic Diameter PLAX 4.2 cm 4.2 - 5.9 / 3.9 - 5.3 cm LV Systolic Diameter PLAX 3.0 cm IVS Diastolic Thickness 1.2 cm 0.6 - 1.0 / 0.6 - 0.9 cm LVPW Diastolic Thickness 1.2 cm 0.6 - 1.0 / 0.6 - 0.9 cm LV Relative Wall Thickness 0.6 RV Internal Dim ED PLAX 3.7 cm LVOT Diameter 2.2 cm Aortic Root Diameter 3.8 cm LA Systolic Diameter LX 5.0 cm 3.0 - 4.0 / 2.7 - 3.8 cm M-MODE AV Cusp Separation MM 1.6 cm DOPPLER AV Peak Velocity 87.2 cm/s AV Peak Gradient 3.0 mmHg AV Mean Gradient 2.0 mmHg AV Velocity Time Integral 15.9 cm LVOT Peak Velocity 72.9 cm/s LVOT Peak Gradient 2.1 mmHg LVOT Velocity Time Integral 12.7 cm AV Area Cont Eq vti 3.0 cm AV Area Cont Eq pk 3.2 cm LV E' Lateral Velocity 11.8 cm/s FINDINGS LEFT VENTRICLE Normal left ventricular size. Mild concentric left ventricular hypertrophy. The left ventricular systolic function is normal with an estimated ejection fraction in the range of 60-65%. RIGHT VENTRICLE Normal right ventricular size and systolic function. LEFT ATRIUM The left atrial size is oxubjiey-qo-zdfnejqz dilated. RIGHT ATRIUM The right atrial size is cwlf-ge-ewgyqtaxkj dilated. ATRIAL SEPTUM No atrial level shunt is demonstrated by color flow Doppler interrogation. AORTA The aortic root and proximal ascending aorta are not well visualized. MITRAL VALVE Mitral annular calcification is present. Moderate mitral valve regurgitation. AORTIC VALVE Aortic valve sclerosis is present. TRICUSPID VALVE There is trace tricuspid valve regurgitation. . PULMONARY VALVE The pulmonary valve is not well visualized. VESSELS The inferior vena cava was not well visualized. PERICARDIUM No pericardial effusion. Doc Paige MD, FACC, FSCAI (Electronically Signed) Final Date:11 September 2017 16:47
[2017-09-11] MEDS: PIPERACILLIN/TAZ 2.25 GM VIAL 2.25 GM in SODIUM CHLORIDE 0.9% INJ 50 ML IV SCH ×2 (18:08→20:42)
[2017-09-11 18:21] LABS: AMORPHOUS SEDIMENT, URINE RARE; BILIRUBIN, URINE SMALL (NEG); BLOOD, URINE SMALL (NEG); GLUCOSE,URINE NEG (NEG); KETONE, URINE NEG (NEG); NITRITE,URINE NEG (NEG); PH, URINE 5.5 (5.0-8.5); SQUAMOUS EPITHELIAL CELL URINE <1 /hpf (0-5); URINE COLOR YELLOW (YELLW/STRAW); URINE LEUKOCYTE ESTERASE SMALL (NEG)
[2017-09-11 18:24] LABS: CREATININE, RANDOM URINE 121.8 MG/DL
[2017-09-12] VITALS (13 sets, daily range): BP systolic 114–124; BP diastolic 72–87; PULSE 93–120; RESP 14–17; TEMP 96.7–98.4; O2SAT 93–98
[2017-09-12 01:37] LABS: AUTOMATED NEUTROPHIL # 9.8 TH/MM3 (1.8-7.7); BASOPHIL % 0.2 % (0.0-2.0); EOSINOPHIL % 0.1 % (0.0-4.0); HEMATOCRIT 37.7 % (39.0-51.0); HEMOGLOBIN 12.7 GM/DL (13.0-17.0); LYMPH % 3.6 % (9.0-44.0); LYMPHOCYTE # 0.4 TH/MM3 (1.0-4.8); MEAN CORPUSCULAR HEMOGLOBIN 31.1 PG (27.0-34.0); MEAN CORPUSCULAR HGB CONC 33.8 % (32.0-36.0); MEAN PLATELET VOLUME 10.2 FL (7.0-11.0); MONO % 6.5 % (0.0-8.0); MONOCYTE # 0.7 TH/MM3 (0-0.9); NEUT % 89.6 % (16.0-70.0); PLATELET COUNT 173 TH/MM3 (150-450); RED CELL DISTRIBUTION WIDTH 14.4 % (11.6-17.2)
[2017-09-12 01:47] LABS: PROTHROMBIN TIME - PATIENT 20.1 SEC (9.8-11.6)
[2017-09-12 02:14] LABS: ALBUMIN 2.1 GM/DL (3.4-5.0); ALKALINE PHOSPHATASE 61 U/L (45-117); ALT (GPT) 16 U/L (12-78); AST (GOT) 18 U/L (15-37); BICARBONATE 26.4 MEQ/L (21.0-32.0); BLOOD UREA NITROGEN 78 MG/DL (7-18); CALCIUM 8.4 MG/DL (8.5-10.1); CHLORIDE 103 MEQ/L (98-107); CREATININE 2.33 MG/DL (0.60-1.30); GLOMERULAR FILTRATION RATE 28 ML/MIN (>89); GLUCOSE,RANDOM 136 MG/DL (74-106); MAGNESIUM 2.4 MG/DL (1.5-2.5); PHOSPHORUS 3.8 MG/DL (2.5-4.9); SODIUM (NA) 137 MEQ/L (136-145); TOTAL BILIRUBIN ADULT 1.2 MG/DL (0.2-1.0); TOTAL PROTEIN 5.6 GM/DL (6.4-8.2)
[2017-09-12 02:15] LABS: TROPONIN I 2.47 NG/ML (0.02-0.05)
[2017-09-12] MEDS: PIPERACILLIN/TAZ 2.25 GM VIAL 2.25 GM in SODIUM CHLORIDE 0.9% INJ 50 ML IV SCH ×2 (02:21→08:06)
[2017-09-12] MEDS: DILTIAZEM HCL 30 MG TAB PO SCH ×5 (02:21→23:18)
[2017-09-12] MEDS: RESP: ALBUTEROL 2.5 MG/IPRATROPIUM 0.5 MG NEB (SCH) NEB ×4 (03:15→21:22)
[2017-09-12 04:06] LABS: BANDS 20 % (0-6); LYMPHOCYTES 7 % (9-44); METAMYELOCYTES 2 % (0-1); MONOCYTES 6 % (0-8); MYELOCYTES 1 % (0-0); NEUTROPHIL # MANUAL DIFF 9.6 TH/MM3 (1.8-7.7); POLYS (SEG NEUTROPHILS) 63 % (16-70); PROMYELOCYTES 1 % (0-0)
[2017-09-12 04:07] LABS: DOHLE BODIES PRESENT (NONE SEEN)
[2017-09-12 04:10] LABS: BURR CELLS 1+ (NORMAL)
--- NOTE | 2017-09-12 04:41 | RADRPT ---
EXAM DATE/TIME: 09/12/2017 03:08 [place] COMPARISON: CHEST SINGLE AP, September 11, 2017, 3:50. INDICATIONS : Shortness of breath, possible pulmonary disease. MEDICAL HISTORY : Chronic obstructive pulmonary disease. A-Fib SURGICAL HISTORY : None. ENCOUNTER: Subsequent ACUITY: 1 week PAIN SCORE: 0/10 LOCATION: Bilateral chest FINDINGS: Mild diffuse interstitial prominence with bilateral patchy airspace disease in the lower lung zones a nd hazy opacity consistent with pleural effusions. Cardiac silhouette is enlarged. Remainder of the e xam is unchanged. CONCLUSION: 1. Cardiomegaly with positive fluid balance. 2. Stable bilateral pleural effusions with associated airspace disease at the lung bases. 3. No significant interval change. Wellington Sumner MD on September 12, 2017 at 4:39 Board Certified Radiologist. This report was verified electronically.
[2017-09-12] MEDS: HEPARIN SODIUM - SQ 10,000 UNITS/ML VIAL SQ SCH (06:46)
[2017-09-12] MEDS: HYDROCORTISONE SOD SUCCINATE 100 MG VIAL IV PUSH SCH ×3 (06:47→20:41)
[2017-09-12] MEDS ORDERED: POTASSIUM CHLORIDE 20 MEQ CONTROLLED RELEASE TAB PO ONE (07:15)
[2017-09-12] MEDS: INSULIN NovoLIN REGULAR SUPPLEMENTAL SCALE SQ SCH ×4 (08:00→20:42)
[2017-09-12] MEDS: DULoxetine HCl DR 20 MG CAP PO SCH (08:08)
[2017-09-12] MEDS: FAMOTIDINE 20 MG TAB PO SCH ×2 (08:08→20:42)
[2017-09-12] MEDS: DOCUSATE SODIUM 50 MG/SENNA 8.6 MG TAB PO SCH ×2 (08:08→20:40)
[2017-09-12] MEDS: SODIUM CHLORIDE 0.9% FLUSH 10 ML FLUSH IV FLUSH SCH ×2 (08:09→20:41)
--- NOTE | 2017-09-12 09:23 | PD.CARD.PN ---
Subjective Subjective Remarks Mildly confused, no CP or SOB, troponin elevated Objective Medications Current Medications Medications (Trade) Dose Ordered Sig/Jet Route Start Time Stop Time Status Last Admin (Cymbalta Dr) 20 mg DAILY PO 09/10/17 09:00 09/12/17 08:08 (NS Flush) 2 ml UNSCH PRN IV FLUSH 09/09/17 18:15 (NS Flush) 2 ml BID IV FLUSH 09/09/17 21:00 09/12/17 08:09 (Tylenol) 650 mg Q6H PRN PO 09/09/17 18:15 (Dilaudid Pf Inj) 1 mg Q4H PRN IV PUSH 09/09/17 18:15 (Restoril) 15 mg HS PRN PO 09/09/17 18:15 Miscellaneous Information 1 Q361D XX 09/09/17 18:15 (Chlorhexidine 2% Cloth) 3 pack Taper DAILY@04 TOP 09/10/17 04:00 09/06/18 03:59 (Chlorhexidine 2% Cloth) 3 pack UNSCH PRN TOP 09/09/17 18:15 (Mar-Colace) 1 tab BID PO 09/09/17 21:00 09/12/17 08:08 (Milk Of Magnesia Liq) 30 ml Q12H PRN PO 09/09/17 18:15 (Senokot) 17.2 mg Q12H PRN PO 09/09/17 18:15 (Dulcolax Supp) 10 mg DAILY PRN RECTAL 09/09/17 18:15 (Lactulose Liq) 30 ml DAILY PRN PO 09/09/17 18:15 Phenylephrine HCl 40 mg/Dextrose 500 ml @ 30 mls/hr TITRATE PRN IV 09/10/17 01:00 (Brethine Inj) 1 mg UNSCH PRN SQ 09/10/17 01:00 (Zofran Inj) 4 mg Q6H PRN IV PUSH 09/10/17 04:15 (Albuterol Neb) 2.5 mg Q2HR NEB PRN NEB 09/10/17 07:00 ([place] 5-325 Mg) 1 tab Q4H PRN PO 09/10/17 08:00 Diltiazem HCl 125 mg/Sodium Chloride 125 ml @ 5 mls/hr TITRATE PRN IV 09/10/17 09:00 09/11/17 06:32 (Duoneb Neb) 1 ampule Q6HR NEB NEB 09/10/17 10:00 09/12/17 07:42 (D50w (Vial) Inj) 50 ml UNSCH PRN IV PUSH 09/10/17 08:30 (Glucagon Inj) 1 mg UNSCH PRN OTHER 09/10/17 08:30 (NovoLIN R SUPPLEMENTAL SCALE) 1 ACHS SLIDING SCALE SQ 09/10/17 12:00 (SoluCORTEF INJ) 50 mg Q8HR IV PUSH 09/11/17 14:00 09/12/17 06:47 (Cardizem) 30 mg Q6HR PO 09/11/17 12:00 09/12/17 06:47 (Cathflo Activase Inj) 2 mg Q2H PRN INTRACATH 09/11/17 13:00 Piperacillin Sod/ Tazobactam Sod 2.25 gm/Sodium Chloride 50 ml @ 100 mls/hr Q6H IV 09/11/17 15:00 09/12/17 08:06 (Pepcid) 10 mg BID PO 09/11/17 21:00 09/12/17 08:08 Heparin Sodium/ Dextrose 250 ml @ 0 mls/hr TITRATE PRN IV 09/12/17 09:00 UNV Vital Signs / I&O Vital Signs Date Time Temp Pulse Resp B/P (MAP) Pulse Ox O2 Delivery O2 Flow Rate FiO2 09/12/17 07:43 97 Nasal Cannula 5.00 09/12/17 06:00 94 09/12/17 04:00 105 09/12/17 04:00 97.8 105 14 124/72 (89) 96 09/12/17 02:00 96 09/12/17 00:00 97.5 98 14 114/73 (87) 96 09/11/17 23:00 103 09/11/17 22:00 98 09/11/17 20:26 95 Nasal Cannula 5.00 09/11/17 20:00 97.5 92 15 116/68 (84) 94 09/11/17 20:00 92 09/11/17 18:00 95 09/11/17 16:00 68 09/11/17 16:00 97.8 68 16 118/62 (80) 96 09/11/17 15:00 92 09/11/17 14:00 86 09/11/17 12:00 98.0 93 33 121/66 (84) 80 09/11/17 12:00 93 09/11/17 10:00 106 I/O 09/11/17 09/11/17 09/11/17 09/12/17 09/12/17 09/12/17 07:00 15:00 23:00 07:00 15:00 23:00 Intake Total 960 ml 707 ml 1900 ml 110 ml Output Total 350 ml 685 ml 1400 ml Balance 610 ml 707 ml 1215 ml -1290 ml Intake Oral 300 ml 750 ml 60 ml IV Total 660 ml 1150 ml 50 ml FFP 342 ml Blood Product IV Normal Saline Flush 365 ml Output Urine Total 350 ml 650 ml 1400 ml Drainage Total 35 ml Physical Exam GENERAL: In NAD. SKIN: Warm and dry. HEAD: Normocephalic. EYES: No scleral icterus. No injection or drainage. NECK: Supple, trachea midline. No JVD or lymphadenopathy. CARDIOVASCULAR: Irregular rate and rhythm without murmurs, gallops, or rubs. RESPIRATORY: Breath sounds equal bilaterally. No accessory muscle use. GASTROINTESTINAL: Abdomen soft, non-tender, nondistended. MUSCULOSKELETAL: No cyanosis, or edema. R knee dressed, drain in place. Laboratory Laboratory Tests Test 09/11/17 11:00 09/11/17 11:36 09/12/17 01:20 Urine Color YELLOW Urine Turbidity CLOUDY Urine pH 5.5 Urine Specific [place] 1.023 Urine Protein 30 mg/dL Urine Glucose (UA) NEG mg/dL Urine Ketones NEG mg/dL Urine Occult Blood SMALL Urine Nitrite NEG Urine Bilirubin SMALL Urine Urobilinogen 2.0 MG/DL Urine Leukocyte Esterase SMALL Urine RBC 14 /hpf Urine WBC 5 /hpf Urine Squamous Epithelial Cells <1 /hpf Urine Amorphous Sediment RARE Microscopic Urinalysis Comment CATH-CULT NOT IND Urine Eosinophils NONE SEEN /HPF Urine Random Creatinine 121.8 MG/DL Urine Random Sodium 8 MEQ/L Lactic Acid Level 2.8 mmol/L 1.4 mmol/L White Blood Count 11.0 TH/MM3 Red Blood Count 4.10 MIL/MM3 Hemoglobin 12.7 GM/DL Hematocrit 37.7 % Mean Corpuscular Volume 92.0 FL Mean Corpuscular Hemoglobin 31.1 PG Mean Corpuscular Hemoglobin Concent 33.8 % Red Cell Distribution Width 14.4 % Platelet Count 173 TH/MM3 Mean Platelet Volume 10.2 FL Neutrophils (%) (Auto) 89.6 % Lymphocytes (%) (Auto) 3.6 % Monocytes (%) (Auto) 6.5 % Eosinophils (%) (Auto) 0.1 % Basophils (%) (Auto) 0.2 % Neutrophils # (Auto) 9.8 TH/MM3 Lymphocytes # (Auto) 0.4 TH/MM3 Monocytes # (Auto) 0.7 TH/MM3 Eosinophils # (Auto) 0.0 TH/MM3 Basophils # (Auto) 0.0 TH/MM3 CBC Comment AUTO DIFF Differential Total Cells Counted 100 Neutrophils % (Manual) 63 % Band Neutrophils % 20 % Lymphocytes % 7 % Monocytes % 6 % Neutrophils # (Manual) 9.6 TH/MM3 Metamyelocytes 2 % Myelocytes 1 % Promyelocytes 1 % Differential Comment FINAL DIFF MANUAL [place] Bodies PRESENT Platelet Estimate NORMAL Platelet Morphology Comment NORMAL [place] Cells 1+ Prothrombin Time 20.1 SEC Prothromb Time International Ratio 2.0 RATIO Blood Urea Nitrogen 78 MG/DL Creatinine 2.33 MG/DL Random Glucose 136 MG/DL Total Protein 5.6 GM/DL Albumin 2.1 GM/DL Calcium Level 8.4 MG/DL Phosphorus Level 3.8 MG/DL Magnesium Level 2.4 MG/DL Alkaline Phosphatase 61 U/L Aspartate Amino Transf (AST/SGOT) 18 U/L Alanine Aminotransferase (ALT/SGPT) 16 U/L Total Bilirubin 1.2 MG/DL Sodium Level 137 MEQ/L Potassium Level 3.8 MEQ/L Chloride Level 103 MEQ/L Carbon Dioxide Level 26.4 MEQ/L Anion Gap 8 MEQ/L Estimat Glomerular Filtration Rate 28 ML/MIN Troponin I 2.47 NG/ML Imaging Last 24 hours Impressions Chest X-Ray 09/12/17 0600 Signed Impressions: Service Date/Time: September 03:08 - CONCLUSION: 1. Cardiomegaly with positive fluid balance. 2. Stable bilateral pleural effusions with associated airspace disease at the lung bases. 3. No significant interval change. Wellington Sumner MD Assessment and Plan Problem List: (1) Elevated troponin ICD Codes: R74.8 - Abnormal levels of other serum enzymes (2) Severe sepsis with septic shock ICD Codes: A41.9 - Sepsis, unspecified organism; R65.21 - Severe sepsis with septic shock Status: Acute (3) Atrial fibrillation ICD Codes: I48.91 - Unspecified atrial fibrillation (4) Septic arthritis of knee ICD Codes: M00.9 - Pyogenic arthritis, unspecified (5) COPD (chronic obstructive pulmonary disease) ICD Codes: J44.9 - Chronic obstructive pulmonary disease, unspecified (6) Renal insufficiency ICD Codes: N28.9 - Disorder of kidney and ureter, unspecified Assessment and Plan Rate better controlled. Troponin elevated. Echo with moderate LV systolic dysfunction. Will schedule adenosine nuclear stress test to evaluate. Start beta skylar. Continue IV abxs for sepsis/septic R knee. He has a safari trip planned on September 25; this is unlikely to happen due to the need of prolonged abx tx. This was again discussed with the patient in detail. Libra Hanna MD Sep 12, 2017 09:23
[2017-09-12] MEDS: HEPARIN-D5W 25,000 U/250 ML 250 ML IV PRN (09:35)
--- NOTE | 2017-09-12 10:31 | HHI.CCPN ---
Subjective Remarks/Hospital Course 72-year-old male presents for evaluation of right knee pain for the past several days. It started about 4-5 days ago when he "tweaked" his knee while changing his tire. He had mild pain since then but but yesterday the pain became so severe, he could no longer ambulate. Pain is also worse with hyperextension. Patient has minimal pain at rest. He has been taking Tylenol, his friend's muscle relaxant, and previously prescribed oxycodone with moderate relief in symptoms. He cannot localize pain. Denies paresthesias, or fever. No history of knee problems. History of A. fib for which he takes warfarin. Patient stopped taking warfarin 2 days ago because he noted a small bruise to his buttocks. Denies any trauma or injury to buttocks. In the emergency department he was found to have bandemia and was hypotensive despite 3 L of normal saline boluses. 09/10: Remains in A. fib with RVR with heart rates between 120 and 150. Currently on 6 L nasal cannula. Received 6 L normal saline bolus since admission. On low-dose norepinephrine. Lactic acid increased to 3.3. Decreased urine output noted. Patient has chronic prednisone use due to rheumatoid arthritis. Hydrocortisone 100 mg has been ordered for this a.m. now. Denies pain in right knee currently. 09/11: Status post I&D right knee yesterday. BASIM with serosanguineous drainage. Currently afebrile. Decreased urine output noted. Creatinine bumped to 2.4. Lactate slowly decreasing. Volume status positive between 8-10 L since admission. Subjective 09/12: Episode of chest pain this a.m. Troponin elevated greater than 2. Currently chest pain-free. Heart rate currently rate controlled. Heparin drip initiated after being okayed by orthopedics. Plan for adenosine stress test today. Objective Vital Signs Date Time Temp Pulse Resp B/P (MAP) Pulse Ox O2 Delivery O2 Flow Rate FiO2 09/12/17 07:43 97 Nasal Cannula 5.00 09/12/17 06:00 94 09/12/17 04:00 97.8 14 124/72 (89) Intake and Output 09/12/17 09/12/17 09/13/17 08:00 16:00 00:00 Intake Total 110 ml Output Total 1400 ml Balance -1290 ml Result Diagram: 09/12/17 0120 09/12/17 0120 Other Results Microbiology Date/Time Source Procedure Growth Status 09/11/17 05:38 Blood Peripheral Aerobic Blood Culture Pending Received 09/11/17 05:38 Blood Peripheral Anaerobic Blood Culture Pending Received 09/10/17 09:15 Fluid Synovial Fluid Gram Stain - Final Resulted 09/10/17 09:15 Body Fluid Culture - Preliminary Gram Negative Juvencio Resulted 09/11/17 11:00 Urine Clean Catch Legionella Antigen - Final PRESUMPTIVE NEGATIVE FOR LEGIONELLA P... Complete 09/11/17 11:00 Urine Clean Catch Streptococcus pneumoniae Antigen (M - Final PRESUMPTIVE NEGATIVE FOR STREPTOCOCCU... Complete 09/11/17 16:00 Wound Leg Fungal Smear - Final NO FUNGAL ELEMENTS SEEN. Resulted 09/11/17 16:00 Wound Leg Fungal Culture Pending Resulted Imaging Last Impressions Chest X-Ray 09/12/17 0600 Signed Impressions: Service Date/Time: September 03:08 - CONCLUSION: 1. Cardiomegaly with positive fluid balance. 2. Stable bilateral pleural effusions with associated airspace disease at the lung bases. 3. No significant interval change. Wellington Sumner MD Gall Bladder Ultrasound 09/10/17 0000 Signed Impressions: Service Date/Time: Sunday, September 10, 2017 11:30 - CONCLUSION: 1. Cholelithiasis. However, there are no findings to indicate acute cholecystitis. 2. Small right pleural effusion. Constantin Lopez MD Chest CT 09/10/17 0000 Signed Impressions: Service Date/Time: Sunday, September 10, 2017 21:13 - CONCLUSION: 1. Small to moderate bilateral effusions and bibasilar atelectasis. Silverio Stout MD Abdomen/Pelvis CT 09/09/17 1738 Signed Impressions: Service Date/Time: Saturday, September 09, 2017 20:30 - CONCLUSION: 1. Small bilateral pleural effusions, left greater than right with basilar dependent airspace disease in the lungs. Mild anasarca. No bowel obstruction. No free air. Mild constipation. Bruce catheter in bladder. Sal Terrazas MD Knee X-Ray 09/09/17 0000 Signed Impressions: Service Date/Time: Saturday, September 09, 2017 13:49 - CONCLUSION: 1. Moderate to large joint effusion. No acute osseous abnormality is identified. 2. 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 3. Bridger-Stieda lesion indicating old medial collateral ligament injury. 4. Severe calcification of the popliteal artery. Constantin Lopez MD Hip and Pelvis X-Ray 09/09/17 0000 Signed Impressions: Service Date/Time: Saturday, September 09, 2017 17:02 - CONCLUSION: No acute left hip abnormality is identified. 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 Constantin Lopez MD Objective Remarks GENERAL: 72-year-old male currently resting in bed in no acute respiratory distress on 5 L nasal cannula SKIN: Pale and dry. No rash HEAD: Normocephalic. Atraumatic EYES: Peoples around 3 mm bilaterally and reactive. No scleral icterus or injection. NECK: Supple, trachea midline. No JVD or lymphadenopathy. CARDIOVASCULAR: Tachycardic, IR. S1, S2 predose repair without murmur RESPIRATORY: Breath sounds equal bilaterally. No accessory muscle use. GASTROINTESTINAL: Abdomen soft, non-tender, nondistended. MUSCULOSKELETAL: Right knee status post I&D currently wrapped with Fredi bandage with laterally placed BASIM with serosanguineous output. Positive edema lower extremity NEURO EXAM: Cranial nerves II through XII grossly intact. Strength appears to be equal and symmetric bilaterally. Normal sensation Urinary Catheter: Yes Assessment to: Remove Vascular Central Line Catheter: Yes Assessment to: Continue Date of Insertion: Sep 09, 2017 Line: Central Venous Catheter Side: Right Location: Femoral A/P Assessment and Plan Neuro/Psych: Depression Duloxetine 20 mg p.o. daily/home medication will be continued Acetaminophen 650 mg by mouth every 6 hours as needed for fever Hydrocodone/acetaminophen 5/325 one tablet every 4 hours as needed for pain 1 through 5 Hydromorphone 1 mg IV every 4 hours as needed pain 6 through 10 CV: Systolic heart failure unknown if acute or chronic Atrial fibrillation with rapid ventricular response History of chronic atrial fibrillation Elevated troponin Moderate MR Lactic acidosis -resolved Switch to diltiazem drip for rate control heart rate around 100 with mean atrial pressure greater than 65 goals Switch diltiazem to oral 30 mg every 6 hours. Started on metoprolol tartrate 25 mg p.o. twice daily by cardiology Cardiology consultation Dr. Hanna -medical management initially now scheduled for adenosine Cardiolite today 2D echocardiogram revealed EF 35-40%. Bilateral atrial enlargement. Moderate MR. Cycle troponins every 6 hours 2 Patient is on no medications for blood pressure or rate control at home Resp: Acute respiratory insufficiency History of COPD Bilateral small pleural effusions Nasal cannula to maintain saturations greater than or equal to 92%. Currently at 5 L Incentive spirometry while awake Albuterol/ipratropium aerosols every 6 hours with albuterol aerosols every 2 hours as needed Chest x-ray in a.m. 09/11 revealed mild to moderate bilateral pulmonary effusions with vascular congestion CT thorax revealed bilateral pleural effusions GI: Hypoalbuminemia Mild anasarca Cholelithiasis without cholecystitis on ultrasound Patient is currently in a regular diet currently n.p.o. for Cardiolite Famotidine for GI prophylaxis Docusate sodium/senna 1 tablet twice daily for bowel regimen : Bruce catheter has been placed for accurate I's and O's in a critically ill patient Endo: Chronic prednisone use -history of rheumatoid arthritis Sliding scale insulin Novulin R medium regimen with Accu-Cheks maintain euglycemia TSH 2.57 Start on hydrocortisone 50 mg IV every 8 hours Patient does not know his home prednisone dose. Renal: Right renal cyst -3 cm Acute on chronic kidney injury - ATN, AIN? Creatinine currently 2.3 Unknown baseline creatinine Consult nephrology appreciated. Continue to follow Urine eosinophils and electrolytes pending No hydronephrosis and CT abdomen/pelvis Monitor urine output Accurate I's and O's Discontinue D5 water with 3 ampules of sodium bicarbonate 75 cc an hour with boluses of albumin with furosemide 1. Recheck urine output this afternoon Heme: Chronic warfarin use Elevated PTT Elevated fibrinogen Holding warfarin 2 mg as 4 mg alternating days in light of possible arthrocentesis. Okayed for heparin drip Received 1 unit FFP 09/10. CBC within normal limits. Recheck in a.m. ID: Severe sepsis -knee effusion ? Septic joint E. coli bacteremia Currently piperacillin/tazobactam daily #4 Vancomycin discontinued Infectious disease consultation Microbiology Blood cultures -09/11 -pending Synovial fluid -09/10 -P: Intra-Op cultures -09/10 -pending Blood cultures -09/09 -E. coli UA pending FEN: Hypocalcemia Replace electrolytes as clinically indicated per ICU electrolyte protocol MSK: Right knee effusion postop day #2 I&D X-ray right knee reveal tricompartment osteophytes with medial space joint narrowing. Coarse ossifications of the supracondylar ridge. Popliteal artery calcification. Bridger Stieda lesion revealing possible old MCL injury Large right knee effusion Orthopedics weightbearing as tolerated. Range of motion Change dressings daily #2 postop. PT evaluate and treat Access -Right femoral CVL day #4 placed in ED Prophylaxis -GI -famotidine -DVT -SCD/heparin drip Level 2 follow-up Jaspal Kennedy MD Sep 12, 2017 10:30
[2017-09-12 11:00] LABS: HEMATOCRIT 39.7 % (39.0-51.0); HEMOGLOBIN 13.3 GM/DL (13.0-17.0); MEAN CELL VOLUME 92.2 FL (80.0-100.0); MEAN CORPUSCULAR HGB CONC 33.6 % (32.0-36.0); MEAN PLATELET VOLUME 10.3 FL (7.0-11.0); PLATELET COUNT 153 TH/MM3 (150-450); RED CELL DISTRIBUTION WIDTH 14.8 % (11.6-17.2); WHITE BLOOD COUNT 11.5 TH/MM3 (4.0-11.0)
[2017-09-12 11:07] LABS: INTERNATIONAL NORMALIZED RATIO 2.1 RATIO; PROTHROMBIN TIME - PATIENT 21.1 SEC (9.8-11.6)
--- NOTE | 2017-09-12 11:10 | EKG ---
Date Performed: 09/12/2017 Time Performed: 02:49:46 PTAGE: 72 years EKG: Atrial fibrillation Low QRS voltages in limb leads Abnormal ECG Since the prior tracing, th ere has been no significant change PREVIOUS TRACING : 09/09/2017 20.11 DOCTOR: Damián Sanchez Interpretating Date/Time 09/12/2017 11:07:18
--- NOTE | 2017-09-12 11:10 | EKG ---
Date Performed: 09/12/2017 Time Performed: 06:36:20 PTAGE: 72 years EKG: Atrial fibrillation with rapid ventricular response with frequent multifocal PVCs or aberra nt ventricular conduction Low QRS voltages in limb leads Abnormal ECG Since the prior tracing, there has been no significant change PREVIOUS TRACING : 09/12/2017 02.49 DOCTOR: Damián Sanchez Interpretating Date/Time 09/12/2017 11:07:29
--- NOTE | 2017-09-12 11:12 | HHI.PR ---
Addendum to Inpatient Note Addendum Reason: Additional Documentation Additional Information Xcover for . I was here today to see patient in follow up as Xcover for . Informed patient that I am here to see patient on behalf of for Infectious disease. I asked him he was doing to which he replied ok. When I told him I had information to share with him he listened for brief 1 minute and then kept interrupting me. I informed him that he has Bacteremia and knee infection. Cultures prelim with Gram negative organisms in both final ID on both pending. I informed him we have to do further testing to determine the source of infection and if this is a disseminated infection. He was very angry and mean towards me. He said "Give me all the facts I don't like incomplete information". I replied to him that this is all the information I have today and this can change as more information becomes available from further testing. I informed him that since this is a blood infection we will have to investigate further as it could have disseminated further into vital organs. He was not happy with any of my answers. He asked me to the leave the room. I stepped out and spoke to the nurse for patient Ms.Lorraine Cornelius and informed her of the events. RN informs me he was not nice to others. was here earlier and had a similar experience. I also called to notify of the events and to get see this patient. I discussed the case with and she will come see this patient. I will sign off. Ilene Gross MD Sep 12, 2017 11:12
[2017-09-12 13:25] LABS: AMORPHOUS SEDIMENT, URINE RARE; BACTERIA, URINE OCC /hpf; BILIRUBIN, URINE NEG (NEG); BLOOD, URINE SMALL (NEG); GLUCOSE,URINE NEG (NEG); KETONE, URINE NEG (NEG); MUCUS URINE FEW /lpf (OCC); NITRITE,URINE NEG (NEG); SQUAMOUS EPITHELIAL CELL URINE 1 /hpf (0-5); URIC ACID CRYSTALS, URINE MOD /hpf; URINE COLOR YELLOW (YELLW/STRAW); URINE LEUKOCYTE ESTERASE SMALL (NEG)
[2017-09-12 13:37] LABS: TROPONIN I 2.14 NG/ML (0.02-0.05)
[2017-09-12] MEDS ORDERED: REGADENOSON INJ 0.4 MG/5 ML SYR ONE (14:21)
--- NOTE | 2017-09-12 14:40 | PD.ORT.PN ---
Subjective Subjective Remarks Patient off the floor currently for stress test. Objective Vitals Vital Signs Date Time Temp Pulse Resp B/P (MAP) Pulse Ox O2 Delivery O2 Flow Rate FiO2 09/12/17 08:00 97.8 93 120/78 (92) 09/12/17 07:43 97 Nasal Cannula 5.00 09/12/17 06:00 94 09/12/17 04:00 105 09/12/17 04:00 97.8 105 14 124/72 (89) 96 09/12/17 02:00 96 09/12/17 00:00 97.5 98 14 114/73 (87) 96 09/11/17 23:00 103 09/11/17 22:00 98 09/11/17 20:26 95 Nasal Cannula 5.00 09/11/17 20:00 97.5 92 15 116/68 (84) 94 09/11/17 20:00 92 09/11/17 18:00 95 09/11/17 16:00 68 09/11/17 16:00 97.8 68 16 118/62 (80) 96 09/11/17 15:00 92 I/O 09/11/17 09/11/17 09/11/17 09/12/17 09/12/17 09/12/17 07:00 15:00 23:00 07:00 15:00 23:00 Intake Total 960 ml 707 ml 1900 ml 110 ml Output Total 350 ml 685 ml 1400 ml Balance 610 ml 707 ml 1215 ml -1290 ml Intake Oral 300 ml 750 ml 60 ml IV Total 660 ml 1150 ml 50 ml FFP 342 ml Blood Product IV Normal Saline Flush 365 ml Output Urine Total 350 ml 650 ml 1400 ml Drainage Total 35 ml Result Diagram: 09/12/17 1015 09/12/17 0120 Other Results Laboratory Tests Test 09/12/17 01:20 09/12/17 10:38 Prothromb Time International Ratio 2.0 RATIO 2.1 RATIO Prothrombin Time 20.1 SEC (9.8-11.6) 21.1 SEC (9.8-11.6) Imaging Last 24 hours Impressions Chest X-Ray 09/11/17 0600 Signed Impressions: Service Date/Time: Monday, September 11, 2017 03:50 - CONCLUSION: 1. Cardiomegaly with mild positive fluid balance. 2. Bilateral pleural effusions with associated mild airspace disease at the lung bases. Wellington Sumner MD Objective Remarks Unable to evaluate as patient undergoing stress test. Assessment & Plan Assessment and Plan 72-year-old gentleman, POD#2 s/p I&D R knee 1. Weightbearing as tolerated and range of motion as tolerated to right lower extremity 2. Dressing changes to start on postop day 2 and BASIM to be removed on postop day 2. 3. Intraoperative cultures pending. Gram stain from aspiration demonstrated gram-negative rods and appear to be purulent Intra-Op. My suspicion is that this is likely a secondary seated area as a result of his bacteremia and the source may be from somewhere other than his knee. Continue antibiotics per ID and ICU. 4. No plan for further orthopedic surgery at this time. 5. Ok for full therapeutic anticoagulation from ortho standpoint. Coral Quinn MD Sep 12, 2017 14:40
[2017-09-12] MEDS: PIPERACIL-TAZO 2.25 GM PREMIX 50 ML IV SCH ×2 (15:00→20:41)
--- NOTE | 2017-09-12 15:50 | HHI.NPPN ---
Subjective History of Present Illness 72 year old with Rt knee arthritis, septic arthritis E coli Review of Systems General Constitutional: Fatigue Musculoskeletal MS: Pain/Stiffness Objective Data Data Vital Signs Date Time Temp Pulse Resp B/P (MAP) Pulse Ox O2 Delivery O2 Flow Rate FiO2 09/12/17 08:00 97.8 93 120/78 (92) 09/12/17 07:43 97 Nasal Cannula 5.00 09/12/17 06:00 94 09/12/17 04:00 105 09/12/17 04:00 97.8 105 14 124/72 (89) 96 09/12/17 02:00 96 09/12/17 00:00 97.5 98 14 114/73 (87) 96 09/11/17 23:00 103 09/11/17 22:00 98 09/11/17 20:26 95 Nasal Cannula 5.00 09/11/17 20:00 97.5 92 15 116/68 (84) 94 09/11/17 20:00 92 09/11/17 18:00 95 09/11/17 16:00 68 09/11/17 16:00 97.8 68 16 118/62 (80) 96 -: 09/12/17 1015 09/12/17 0120 Microbiology 09/12/17 Urine Culture, Received Pending 09/11/17 Fungal Smear - Final, Resulted NO FUNGAL ELEMENTS SEEN. 09/11/17 Fungal Culture, Resulted Pending 09/11/17 Acid Fast Stain, Received Pending 09/11/17 Mycobacterial Culture, Received Pending 09/11/17 Gram Stain - Final, Resulted 09/11/17 Wound Culture - Preliminary, Resulted NO GROWTH IN 24 HOURS. 09/11/17 Fungal Smear - Final, Resulted NO FUNGAL ELEMENTS SEEN. 09/11/17 Fungal Culture, Resulted Pending 09/11/17 Acid Fast Stain, Received Pending 09/11/17 Mycobacterial Culture, Received Pending 09/11/17 Gram Stain - Final, Resulted 09/11/17 Wound Culture - Preliminary, Resulted NO GROWTH IN 24 HOURS. 09/11/17 Fungal Smear - Final, Resulted NO FUNGAL ELEMENTS SEEN. 09/11/17 Fungal Culture, Resulted Pending 09/11/17 Acid Fast Stain, Received Pending 09/11/17 Mycobacterial Culture, Received Pending 09/11/17 Gram Stain - Final, Resulted 09/11/17 Wound Culture - Preliminary, Resulted NO GROWTH IN 24 HOURS. Physical Exam General Appearance: Well Developed, Well Nourished Neck Neck Exam: Neck Supple Pulmonary Resp Exam: Clear Bilaterally, Breath Sounds Equal Cardiology CV Exam: Regular, Normal Sinus Rhythm Gastrointestinal/Abdomen GI Exam: Soft, Bowel Sounds Present Musculoskeletal MS Exam: Unable to Ambulate MS Remarks rt knee pain Extremeties Extremities Exam: Trace Edema Assessment/Plan Problem List: (1) Acute renal failure ICD Codes: N17.9 - Acute kidney failure, unspecified Plan: This is likely due to septic shock He was given IV fluids UOP improved post albumin/Lasix cr slightly better Avoid nephrotoxin CT of the abdomen showed the renal cyst there was no hydronephrosis Continue supportive. Follow BMP follow cardiac stress test (2) Septic arthritis of knee ICD Codes: M00.9 - Pyogenic arthritis, unspecified Plan: Follow cultures (3) Severe sepsis with septic shock ICD Codes: A41.9 - Sepsis, unspecified organism; R65.21 - Severe sepsis with septic shock Status: Acute Plan: On IV fluids and IV antibiotics (4) Hypotension ICD Codes: I95.9 - Hypotension, unspecified Status: Acute Plan: Resolving Problem Qualifiers (1) Hypotension: Qualified Codes: I95.9 - Hypotension, unspecified Magy Bryant MD Sep 12, 2017 15:50
--- NOTE | 2017-09-12 15:59 | RADRPT ---
EXAM DATE/TIME: 09/12/2017 13:40 [facility] COMPARISON: No previous studies available for comparison. INDICATIONS : Shortness of breath with elevated troponins for one day. Atrial fibrillation. DOSE: 30.2 mCi Tc99m Myoview at stress. 10.2 mCi Tc99m Myoview at rest. 0.4 mg Lexiscan STRESS SYMPTOMS: Head pressure. EJECTION FRACTION: 49% MEDICAL HISTORY : Chronic obstructive pulmonary disease. SURGICAL HISTORY : None. ENCOUNTER: Initial ACUITY: 1 day PAIN SCALE: 0/10 LOCATION: chest TECHNIQUE: The patient underwent pharmacologic stress with infusion of prescribed dose. Continuous ECG tracing was monitored during stress. Gated SPECT imaging was performed after stress and conventional SPECT i maging was performed at rest. The examination was performed on a SPECT/CT scanner, both attenuation and non-corrected datasets were reviewed. FINDINGS: DISTRIBUTION: The maximum perfused segment at stress is in the <mid anterolateral wall. PERFUSION STUDY: The pattern of perfusion at stress is within normal limits. GATED STUDY: There is intact wall motion and thickening without hypokinetic or dyskinetic segments. CONCLUSION: Normal examination. RISK CATEGORY: Low (<1% Annual Mortality Rate) Reagan Yusuf MD on September 12, 2017 at 15:58 Board Certified Radiologist. This report was verified electronically.
[2017-09-12] MEDS: ACETAMINOPHEN/HYDROcodone 325 MG/5 MG TAB PO PRN (17:40)
--- NOTE | 2017-09-12 17:48 | HHI.IDPN ---
Subjective Subjective Remarks ID X cover Suyapa t was reviewed Patient is a 72-year-old male, from [place] presented with knee pain and fever and chest pain He was diagnosed with E'coli sepsis, with high grade E.coli bacteremia, E.coli R knee septic arthrits s/p I+D by Dr Quinn and Miriam CAMPBELL RN pt is afebrile Non hypotensive, not requiring pressors Antibiotics Current Medications Zosyn Vanco: stopped Lines PIV Past Medical History Atrial fibrillation COPD Spinal stenosis Allergies: Coded Allergies: No Known Allergies (Unverified , 09/09/17) Objective . Vital Signs Date Time Temp Pulse Resp B/P (MAP) Pulse Ox O2 Delivery O2 Flow Rate FiO2 09/12/17 16:00 97.5 09/12/17 12:00 96.7 09/12/17 08:00 97.8 93 120/78 (92) 09/12/17 07:43 97 Nasal Cannula 5.00 09/12/17 06:00 94 09/12/17 04:00 105 09/12/17 04:00 97.8 105 14 124/72 (89) 96 09/12/17 02:00 96 09/12/17 00:00 97.5 98 14 114/73 (87) 96 09/11/17 23:00 103 09/11/17 22:00 98 09/11/17 20:26 95 Nasal Cannula 5.00 09/11/17 20:00 97.5 92 15 116/68 (84) 94 09/11/17 20:00 92 09/11/17 18:00 95 . Laboratory Tests Test 09/11/17 05:50 09/12/17 01:20 09/12/17 10:15 White Blood Count 10.7 TH/MM3 11.0 TH/MM3 11.5 TH/MM3 Red Blood Count 4.20 MIL/MM3 4.10 MIL/MM3 4.30 MIL/MM3 Hemoglobin 13.2 GM/DL 12.7 GM/DL 13.3 GM/DL Hematocrit 39.1 % 37.7 % 39.7 % Mean Corpuscular Volume 92.9 FL 92.0 FL 92.2 FL Mean Corpuscular Hemoglobin 31.4 PG 31.1 PG 31.0 PG Mean Corpuscular Hemoglobin Concent 33.8 % 33.8 % 33.6 % Red Cell Distribution Width 14.6 % 14.4 % 14.8 % Platelet Count 191 TH/MM3 173 TH/MM3 153 TH/MM3 Mean Platelet Volume 10.1 FL 10.2 FL 10.3 FL Neutrophils (%) (Auto) 89.1 % 89.6 % Lymphocytes (%) (Auto) 3.0 % 3.6 % Monocytes (%) (Auto) 6.1 % 6.5 % Eosinophils (%) (Auto) 1.7 % 0.1 % Basophils (%) (Auto) 0.1 % 0.2 % Neutrophils # (Auto) 9.5 TH/MM3 9.8 TH/MM3 Lymphocytes # (Auto) 0.3 TH/MM3 0.4 TH/MM3 Monocytes # (Auto) 0.7 TH/MM3 0.7 TH/MM3 Eosinophils # (Auto) 0.2 TH/MM3 0.0 TH/MM3 Basophils # (Auto) 0.0 TH/MM3 0.0 TH/MM3 CBC Comment AUTO DIFF AUTO DIFF Differential Total Cells Counted 100 100 Neutrophils % (Manual) 55 % 63 % Band Neutrophils % 34 % 20 % Lymphocytes % 4 % 7 % Monocytes % 4 % 6 % Neutrophils # (Manual) 9.8 TH/MM3 9.6 TH/MM3 Metamyelocytes 3 % 2 % Differential Comment FINAL DIFF MANUAL FINAL DIFF MANUAL Platelet Estimate NORMAL NORMAL Platelet Morphology Comment NORMAL NORMAL Lexie Cells 1+ 1+ Myelocytes 1 % Promyelocytes 1 % Dohle Bodies PRESENT Laboratory Tests Test 09/11/17 05:50 09/11/17 11:36 09/12/17 01:20 09/12/17 12:30 Blood Urea Nitrogen 66 MG/DL 78 MG/DL Creatinine 2.40 MG/DL 2.33 MG/DL Random Glucose 135 MG/DL 136 MG/DL Total Protein 5.7 GM/DL 5.6 GM/DL Albumin 1.9 GM/DL 2.1 GM/DL Calcium Level 8.3 MG/DL 8.4 MG/DL Phosphorus Level 3.9 MG/DL 3.8 MG/DL Magnesium Level 2.3 MG/DL 2.4 MG/DL Alkaline Phosphatase 62 U/L 61 U/L Aspartate Amino Transf (AST/SGOT) 15 U/L 18 U/L Alanine Aminotransferase (ALT/SGPT) 16 U/L 16 U/L Total Bilirubin 1.6 MG/DL 1.2 MG/DL Sodium Level 138 MEQ/L 137 MEQ/L Potassium Level 4.1 MEQ/L 3.8 MEQ/L Chloride Level 104 MEQ/L 103 MEQ/L Carbon Dioxide Level 23.2 MEQ/L 26.4 MEQ/L Anion Gap 11 MEQ/L 8 MEQ/L Estimat Glomerular Filtration Rate 27 ML/MIN 28 ML/MIN Hemoglobin A1c 5.5 % Lactic Acid Level 2.3 mmol/L 2.8 mmol/L 1.4 mmol/L Troponin I 0.25 NG/ML 2.47 NG/ML 2.14 NG/ML Triglycerides Level 232 MG/DL Cholesterol Level 164 MG/DL LDL Cholesterol 103 MG/DL HDL Cholesterol 15.0 MG/DL Cholesterol/HDL Ratio 10.93 RATIO Lipase 52 U/L Total Creatine Kinase 45 U/L Microbiology Date/Time Source Procedure Growth Status 09/11/17 05:38 Blood Peripheral Aerobic Blood Culture - Preliminary NO GROWTH IN 1 DAY Resulted 09/11/17 05:38 Blood Peripheral Anaerobic Blood Culture - Preliminary NO GROWTH IN 1 DAY Resulted 09/11/17 01:15 Blood Peripheral Aerobic Blood Culture - Preliminary NO GROWTH IN 1 DAY Resulted 09/11/17 01:15 Blood Peripheral Anaerobic Blood Culture - Preliminary NO GROWTH IN 1 DAY Resulted 09/11/17 01:10 Blood Peripheral Aerobic Blood Culture - Preliminary NO GROWTH IN 1 DAY Resulted 09/11/17 01:10 Blood Peripheral Anaerobic Blood Culture - Preliminary NO GROWTH IN 1 DAY Resulted 09/09/17 18:50 Blood Peripheral Aerobic Blood Culture - Final Escherichia Coli Complete 09/09/17 18:50 Anaerobic Blood Culture - Final Escherichia Coli Complete 09/09/17 18:50 Blood Peripheral Aerobic Blood Culture - Final Escherichia Coli Complete 09/09/17 18:50 Anaerobic Blood Culture - Final Escherichia Coli Complete 09/10/17 09:15 Fluid Synovial Fluid Gram Stain - Final Complete 09/10/17 09:15 Body Fluid Culture - Final Escherichia Coli Complete 09/12/17 11:00 Urine Catheterized Urine Urine Culture Pending Received 09/11/17 11:00 Urine Clean Catch Legionella Antigen - Final PRESUMPTIVE NEGATIVE FOR LEGIONELLA P... Complete 09/11/17 11:00 Urine Clean Catch Streptococcus pneumoniae Antigen (M - Final PRESUMPTIVE NEGATIVE FOR STREPTOCOCCU... Complete 09/11/17 16:00 Wound Leg Fungal Smear - Final NO FUNGAL ELEMENTS SEEN. Resulted 09/11/17 16:00 Wound Leg Fungal Culture Pending Resulted 09/11/17 16:00 Wound Leg Acid Fast Stain Pending Received 09/11/17 16:00 Wound Leg Mycobacterial Culture Pending Received 09/11/17 16:00 Wound Leg Gram Stain - Final Resulted 09/11/17 16:00 Wound Leg Wound Culture - Preliminary NO GROWTH IN 24 HOURS. Resulted 09/11/17 16:00 Wound Leg Fungal Smear - Final NO FUNGAL ELEMENTS SEEN. Resulted 09/11/17 16:00 Wound Leg Fungal Culture Pending Resulted 09/11/17 16:00 Wound Leg Acid Fast Stain Pending Received 09/11/17 16:00 Wound Leg Mycobacterial Culture Pending Received 09/11/17 16:00 Wound Leg Gram Stain - Final Resulted 09/11/17 16:00 Wound Leg Wound Culture - Preliminary NO GROWTH IN 24 HOURS. Resulted 09/11/17 16:00 Wound Leg Fungal Smear - Final NO FUNGAL ELEMENTS SEEN. Resulted 09/11/17 16:00 Wound Leg Fungal Culture Pending Resulted 09/11/17 16:00 Wound Leg Acid Fast Stain Pending Received 09/11/17 16:00 Wound Leg Mycobacterial Culture Pending Received 09/11/17 16:00 Wound Leg Gram Stain - Final Resulted 09/11/17 16:00 Wound Leg Wound Culture - Preliminary NO GROWTH IN 24 HOURS. Resulted 09/10/17 16:12 Wound Knee Fungal Smear - Final NO FUNGAL ELEMENTS SEEN. Resulted 09/10/17 16:12 Wound Knee Fungal Culture Pending Resulted 09/10/17 16:12 Wound Knee Acid Fast Stain - Final NO ACID FAST BACILLI SEEN Resulted 09/10/17 16:12 Wound Knee Mycobacterial Culture Pending Resulted 09/10/17 16:12 Wound Knee Gram Stain - Final Complete 09/10/17 16:12 Wound Culture - Final Escherichia Coli Complete Imaging Last Impressions Chest X-Ray 09/12/17 0600 Signed Impressions: Service Date/Time: September 03:08 - CONCLUSION: 1. Cardiomegaly with positive fluid balance. 2. Stable bilateral pleural effusions with associated airspace disease at the lung bases. 3. No significant interval change. Wellington Sumner MD Myocardial Perfusion Scan Nuc Med 09/12/17 0000 Signed Impressions: Service Date/Time: September 13:40 - CONCLUSION: Normal examination. RISK CATEGORY: Low (<1%% Annual Mortality Rate) Reagan Yusuf MD Gall Bladder Ultrasound 09/10/17 0000 Signed Impressions: Service Date/Time: Sunday, September 10, 2017 11:30 - CONCLUSION: 1. Cholelithiasis. However, there are no findings to indicate acute cholecystitis. 2. Small right pleural effusion. Constantin Lopez MD Chest CT 09/10/17 0000 Signed Impressions: Service Date/Time: Sunday, September 10, 2017 21:13 - CONCLUSION: 1. Small to moderate bilateral effusions and bibasilar atelectasis. Silverio Stout MD Abdomen/Pelvis CT 09/09/17 1738 Signed Impressions: Service Date/Time: Saturday, September 09, 2017 20:30 - CONCLUSION: 1. Small bilateral pleural effusions, left greater than right with basilar dependent airspace disease in the lungs. Mild anasarca. No bowel obstruction. No free air. Mild constipation. Bruce catheter in bladder. Sal Terrazas MD Knee X-Ray 09/09/17 0000 Signed Impressions: Service Date/Time: Saturday, September 09, 2017 13:49 - CONCLUSION: 1. Moderate to large joint effusion. No acute osseous abnormality is identified. 2. 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 3. Bridger-Stieda lesion indicating old medial collateral ligament injury. 4. Severe calcification of the popliteal artery. Constantin Lopez MD Hip and Pelvis X-Ray 09/09/17 0000 Signed Impressions: Service Date/Time: Saturday, September 09, 2017 17:02 - CONCLUSION: No acute left hip abnormality is identified. 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 Constantin Lopez MD Physical Exam GENERAL: awake and alert, tachypneic. SKIN: Warm and dry. No generalized rash, no ecchymoses and no evidence of embolic lesions. + mottling noted HEAD: Atraumatic. Normocephalic. No temporal wasting, or tenderness. EYES: Merkel conjunctiva. No petechia or hemorrhage. Pupils equal, round and reactive to light. Extraocular movements full and intact. No scleral icterus. No injection or drainage. EARS, NOSE AND THROAT: . Dry oral mucosa. dentition in fair condition CARDIOVASCULAR: Tachycardic, irregular rate and rhythm. No murmurs, rubs or gallops heard RESPIRATORY: Decreased BS at bases ABDOMEN: Mildly distended, bowel sounds present and normoactive. Has mild diffuse abdominal tenderness. No guarding. No rebound. No organomegaly. EXTREMITIES: No clubbing, + finger tips cyanosis + RLE edema. R knee joint has intact dry dressing in place; drain in place . No calf tenderness. Feet are cool. In his R hand, all distal aspect of his fingers has bullous like lesions present, NEUROLOGICAL: Awake and alert. Cranial nerves grossly intact. Motor grossly within normal limits. PSYCHIATRIC: Normal affect, calm and cooperative. LINE: No evidence of infection Assessment & Plan Remarks IMPRESSION Shock, E.coli sepis E coli Sepsis source? l R septic knee E.coli S/P debridement Renal insufficiency, ?baseline, or due to sepsis, or hypotension SOB, known COPD, but likely due to fluid Atrial fib NSTEMI RECOMMENDATION Change Zosyn to CFTX fu repeat BC Paula Gibson MD Sep 12, 2017 17:48
[2017-09-12] MEDS: METOPROLOL TARTRATE 25 MG TAB PO SCH (20:41)
[2017-09-13] VITALS (14 sets, daily range): BP systolic 133–174; BP diastolic 78–103; PULSE 79–122; RESP 16–41; TEMP 97.6–98.8; O2SAT 92–96
[2017-09-13] MEDS: RESP: ALBUTEROL 2.5 MG/IPRATROPIUM 0.5 MG NEB (SCH) NEB ×5 (03:07→23:15)
[2017-09-13 06:31] LABS: AUTOMATED NEUTROPHIL # 11.1 TH/MM3 (1.8-7.7); BASOPHIL % 0.1 % (0.0-2.0); HEMATOCRIT 40.4 % (39.0-51.0); HEMOGLOBIN 13.5 GM/DL (13.0-17.0); LYMPHOCYTE # 0.8 TH/MM3 (1.0-4.8); MEAN CELL VOLUME 92.5 FL (80.0-100.0); MEAN CORPUSCULAR HEMOGLOBIN 30.8 PG (27.0-34.0); MEAN CORPUSCULAR HGB CONC 33.3 % (32.0-36.0); MEAN PLATELET VOLUME 10.2 FL (7.0-11.0); MONO % 7.2 % (0.0-8.0); MONOCYTE # 0.9 TH/MM3 (0-0.9); NEUT % 86.7 % (16.0-70.0); PLATELET COUNT 182 TH/MM3 (150-450); RED BLOOD COUNT 4.37 MIL/MM3 (4.50-5.90); RED CELL DISTRIBUTION WIDTH 14.8 % (11.6-17.2); WHITE BLOOD COUNT 12.8 TH/MM3 (4.0-11.0)
[2017-09-13 06:44] LABS: ALBUMIN 2.1 GM/DL (3.4-5.0); AST (GOT) 21 U/L (15-37); BICARBONATE 25.8 MEQ/L (21.0-32.0); BLOOD UREA NITROGEN 71 MG/DL (7-18); CALCIUM 8.9 MG/DL (8.5-10.1); CHLORIDE 102 MEQ/L (98-107); CREATININE 2.01 MG/DL (0.60-1.30); GLOMERULAR FILTRATION RATE 33 ML/MIN (>89); GLUCOSE,RANDOM 100 MG/DL (74-106); MAGNESIUM 2.4 MG/DL (1.5-2.5); SODIUM (NA) 138 MEQ/L (136-145)
[2017-09-13 06:45] LABS: ALT (GPT) 17 U/L (12-78); PHOSPHORUS 3.1 MG/DL (2.5-4.9)
[2017-09-13 06:47] LABS: ALKALINE PHOSPHATASE 103 U/L (45-117); TOTAL BILIRUBIN ADULT 1.1 MG/DL (0.2-1.0); TOTAL PROTEIN 5.6 GM/DL (6.4-8.2)
--- NOTE | 2017-09-13 06:51 | RADRPT ---
EXAM DATE/TIME: 09/13/2017 05:11 [facility] COMPARISON: CHEST SINGLE AP, September 12, 2017, 3:08. INDICATIONS : Shortness of breath. MEDICAL HISTORY : Chronic obstructive pulmonary disease. A-Fib. SURGICAL HISTORY : None. ENCOUNTER: Subsequent ACUITY: 4 - 6 days PAIN SCORE: Non-responsive. LOCATION: chest FINDINGS: Increasing airspace opacities in the central lungs bilaterally and increasing consolidation in the me dial left lower lung, now with loss of delineation of the medial left hemidiaphragm. Stable cardiome yandy. CONCLUSION: Increasing bilateral airspace opacities. Chandan Ortez MD on September 13, 2017 at 6:50 Board Certified Radiologist. This report was verified electronically.
[2017-09-13] MEDS: PIPERACIL-TAZO 2.25 GM PREMIX 50 ML IV SCH ×4 (06:52→20:10)
[2017-09-13] MEDS: DILTIAZEM HCL 30 MG TAB PO SCH ×2 (06:53→17:44)
[2017-09-13] MEDS: HYDROCORTISONE SOD SUCCINATE 100 MG VIAL IV PUSH SCH ×3 (06:53→22:40)
[2017-09-13] MEDS: INSULIN NovoLIN REGULAR SUPPLEMENTAL SCALE SQ SCH ×4 (08:00→20:10)
[2017-09-13 08:45] LABS: BANDS 6 % (0-6); LYMPHOCYTES 8 % (9-44); METAMYELOCYTES 3 % (0-1); MONOCYTES 2 % (0-8); MYELOCYTES 2 % (0-0); NEUTROPHIL # MANUAL DIFF 11.5 TH/MM3 (1.8-7.7); POLYS (SEG NEUTROPHILS) 79 % (16-70)
[2017-09-13] MEDS: FAMOTIDINE 20 MG TAB PO SCH ×2 (09:07→20:09)
[2017-09-13] MEDS: METOPROLOL TARTRATE 25 MG TAB PO SCH (09:07)
[2017-09-13] MEDS: DOCUSATE SODIUM 50 MG/SENNA 8.6 MG TAB PO SCH ×2 (09:07→20:09)
[2017-09-13] MEDS: DULoxetine HCl DR 20 MG CAP PO SCH (09:07)
[2017-09-13] MEDS: SODIUM CHLORIDE 0.9% FLUSH 10 ML FLUSH IV FLUSH SCH ×2 (09:08→20:10)
[2017-09-13] MEDS: HEPARIN-D5W 25,000 U/250 ML 250 ML IV PRN (10:57)
--- NOTE | 2017-09-13 15:01 | PD.CARD.PN ---
Subjective Subjective Remarks No CP or SOB, nuc ST with no perfusion defects Objective Medications Current Medications Medications (Trade) Dose Ordered Sig/Jet Route Start Time Stop Time Status Last Admin (Cymbalta Dr) 20 mg DAILY PO 09/10/17 09:00 09/13/17 09:07 (NS Flush) 2 ml UNSCH PRN IV FLUSH 09/09/17 18:15 (NS Flush) 2 ml BID IV FLUSH 09/09/17 21:00 09/13/17 09:08 (Tylenol) 650 mg Q6H PRN PO 09/09/17 18:15 (Dilaudid Pf Inj) 1 mg Q4H PRN IV PUSH 09/09/17 18:15 (Restoril) 15 mg HS PRN PO 09/09/17 18:15 Miscellaneous Information 1 Q361D XX 09/09/17 18:15 (Chlorhexidine 2% Cloth) 3 pack Taper DAILY@04 TOP 09/10/17 04:00 09/06/18 03:59 09/10/17 04:00 (Chlorhexidine 2% Cloth) 3 pack UNSCH PRN TOP 09/09/17 18:15 (Mar-Colace) 1 tab BID PO 09/09/17 21:00 09/13/17 09:07 (Milk Of Magnesia Liq) 30 ml Q12H PRN PO 09/09/17 18:15 (Senokot) 17.2 mg Q12H PRN PO 09/09/17 18:15 (Dulcolax Supp) 10 mg DAILY PRN RECTAL 09/09/17 18:15 (Lactulose Liq) 30 ml DAILY PRN PO 09/09/17 18:15 Phenylephrine HCl 40 mg/Dextrose 500 ml @ 30 mls/hr TITRATE PRN IV 09/10/17 01:00 (Brethine Inj) 1 mg UNSCH PRN SQ 09/10/17 01:00 (Zofran Inj) 4 mg Q6H PRN IV PUSH 09/10/17 04:15 (Albuterol Neb) 2.5 mg Q2HR NEB PRN NEB 09/10/17 07:00 ([place] 5-325 Mg) 1 tab Q4H PRN PO 09/10/17 08:00 09/12/17 17:40 Diltiazem HCl 125 mg/Sodium Chloride 125 ml @ 5 mls/hr TITRATE PRN IV 09/10/17 09:00 09/11/17 06:32 (Duoneb Neb) 1 ampule Q6HR NEB NEB 09/10/17 10:00 09/12/17 21:22 (D50w (Vial) Inj) 50 ml UNSCH PRN IV PUSH 09/10/17 08:30 (Glucagon Inj) 1 mg UNSCH PRN OTHER 09/10/17 08:30 (NovoLIN R SUPPLEMENTAL SCALE) 1 ACHS SLIDING SCALE SQ 09/10/17 12:00 (SoluCORTEF INJ) 50 mg Q8HR IV PUSH 09/11/17 14:00 09/13/17 06:53 (Cardizem) 30 mg Q6HR PO 09/11/17 12:00 09/13/17 06:53 (Cathflo Activase Inj) 2 mg Q2H PRN INTRACATH 09/11/17 13:00 (Pepcid) 10 mg BID PO 09/11/17 21:00 09/13/17 09:07 Heparin Sodium/ Dextrose 250 ml @ 10 mls/hr TITRATE PRN IV 09/12/17 09:00 09/13/17 10:57 (Lopressor) 25 mg Q12HR PO 09/12/17 21:00 09/13/17 09:07 Piperacillin Sod/ Tazobactam Sod 50 ml @ 100 mls/hr Q6H IV 09/12/17 15:00 09/13/17 09:06 Vital Signs / I&O Vital Signs Date Time Temp Pulse Resp B/P (MAP) Pulse Ox O2 Delivery O2 Flow Rate FiO2 09/13/17 14:00 102 09/13/17 12:00 98.5 108 32 146/103 (117) 92 09/13/17 12:00 108 09/13/17 10:00 99 09/13/17 08:00 98.0 100 24 144/97 (113) 93 09/13/17 08:00 100 09/13/17 07:30 94 Nasal Cannula 3.00 09/13/17 06:00 85 09/13/17 04:00 101 09/13/17 04:00 98.2 101 16 137/90 (106) 96 09/13/17 02:00 105 09/13/17 00:00 98.4 110 16 133/88 (103) 94 09/13/17 00:00 110 09/12/17 22:00 106 09/12/17 21:22 98 Nasal Cannula 5.00 09/12/17 20:00 98.4 108 17 120/87 (98) 93 09/12/17 20:00 108 09/12/17 18:00 105 09/12/17 16:00 120 09/12/17 16:00 97.5 I/O 09/12/17 09/12/17 09/12/17 09/13/17 09/13/17 09/13/17 07:00 15:00 23:00 07:00 15:00 23:00 Intake Total 110 ml 900 ml 120 ml Output Total 1400 ml 900 ml 1400 ml Balance -1290 ml 0 ml -1280 ml Intake Oral 60 ml 700 ml 120 ml IV Total 50 ml 200 ml Output Urine Total 1400 ml 900 ml 1400 ml Physical Exam GENERAL: In NAD. SKIN: Warm and dry. HEAD: Normocephalic. EYES: No scleral icterus. No injection or drainage. NECK: Supple, trachea midline. No JVD or lymphadenopathy. CARDIOVASCULAR: Irregular rate and rhythm without murmurs, gallops, or rubs. RESPIRATORY: Breath sounds equal bilaterally. No accessory muscle use. GASTROINTESTINAL: Abdomen soft, non-tender, nondistended. MUSCULOSKELETAL: No cyanosis, or edema. R knee dressed, drain in place. Laboratory Laboratory Tests Test 09/12/17 19:22 09/12/17 19:23 09/13/17 05:11 Activated Partial Thromboplast Time 43.4 SEC 43.5 SEC Troponin I 2.23 NG/ML White Blood Count 12.8 TH/MM3 Red Blood Count 4.37 MIL/MM3 Hemoglobin 13.5 GM/DL Hematocrit 40.4 % Mean Corpuscular Volume 92.5 FL Mean Corpuscular Hemoglobin 30.8 PG Mean Corpuscular Hemoglobin Concent 33.3 % Red Cell Distribution Width 14.8 % Platelet Count 182 TH/MM3 Mean Platelet Volume 10.2 FL Neutrophils (%) (Auto) 86.7 % Lymphocytes (%) (Auto) 6.0 % Monocytes (%) (Auto) 7.2 % Eosinophils (%) (Auto) 0.0 % Basophils (%) (Auto) 0.1 % Neutrophils # (Auto) 11.1 TH/MM3 Lymphocytes # (Auto) 0.8 TH/MM3 Monocytes # (Auto) 0.9 TH/MM3 Eosinophils # (Auto) 0.0 TH/MM3 Basophils # (Auto) 0.0 TH/MM3 CBC Comment AUTO DIFF Differential Total Cells Counted 100 Neutrophils % (Manual) 79 % Band Neutrophils % 6 % Lymphocytes % 8 % Monocytes % 2 % Neutrophils # (Manual) 11.5 TH/MM3 Metamyelocytes 3 % Myelocytes 2 % Differential Comment FINAL DIFF MANUAL Platelet Estimate NORMAL Platelet Morphology Comment ENLARGED Red Cell Morphology Comment NORMAL Blood Urea Nitrogen 71 MG/DL Creatinine 2.01 MG/DL Random Glucose 100 MG/DL Total Protein 5.6 GM/DL Albumin 2.1 GM/DL Calcium Level 8.9 MG/DL Phosphorus Level 3.1 MG/DL Magnesium Level 2.4 MG/DL Alkaline Phosphatase 103 U/L Aspartate Amino Transf (AST/SGOT) 21 U/L Alanine Aminotransferase (ALT/SGPT) 17 U/L Total Bilirubin 1.1 MG/DL Sodium Level 138 MEQ/L Potassium Level 3.8 MEQ/L Chloride Level 102 MEQ/L Carbon Dioxide Level 25.8 MEQ/L Anion Gap 10 MEQ/L Estimat Glomerular Filtration Rate 33 ML/MIN Imaging Last 24 hours Impressions Chest X-Ray 09/13/17 0600 Signed Impressions: Service Date/Time: Wednesday, September 13, 2017 05:11 - CONCLUSION: Increasing bilateral airspace opacities. Chandan Ortez MD Assessment and Plan Problem List: (1) Elevated troponin ICD Codes: R74.8 - Abnormal levels of other serum enzymes (2) Severe sepsis with septic shock ICD Codes: A41.9 - Sepsis, unspecified organism; R65.21 - Severe sepsis with septic shock Status: Acute (3) Atrial fibrillation ICD Codes: I48.91 - Unspecified atrial fibrillation (4) Septic arthritis of knee ICD Codes: M00.9 - Pyogenic arthritis, unspecified (5) COPD (chronic obstructive pulmonary disease) ICD Codes: J44.9 - Chronic obstructive pulmonary disease, unspecified (6) Renal insufficiency ICD Codes: N28.9 - Disorder of kidney and ureter, unspecified Assessment and Plan Rate better controlled. Troponin elevated, likely secondary to renal insufficiency and AF w RVR. Echo with moderate LV systolic dysfunction. Adenosine nuclear stress test with no evidence of ischemia. Continue and titrate beta skylar for LV dysfunction, AF and BP. Continue IV abxs for sepsis/ septic R knee as per ID. He has a safari trip planned on September 25; this is unlikely to happen due to the need of prolonged abx tx. This was again discussed with the patient in detail. Libra Hanna MD Sep 13, 2017 15:01
[2017-09-13] MEDS ORDERED: PILL SPLITTER OTHER PRN (15:15)
--- NOTE | 2017-09-13 15:35 | HHI.CCPN ---
Subjective Remarks/Hospital Course 72-year-old male presents for evaluation of right knee pain for the past several days. It started about 4-5 days ago when he "tweaked" his knee while changing his tire. He had mild pain since then but but yesterday the pain became so severe, he could no longer ambulate. Pain is also worse with hyperextension. Patient has minimal pain at rest. He has been taking Tylenol, his friend's muscle relaxant, and previously prescribed oxycodone with moderate relief in symptoms. He cannot localize pain. Denies paresthesias, or fever. No history of knee problems. History of A. fib for which he takes warfarin. Patient stopped taking warfarin 2 days ago because he noted a small bruise to his buttocks. Denies any trauma or injury to buttocks. In the emergency department he was found to have bandemia and was hypotensive despite 3 L of normal saline boluses. 09/10: Remains in A. fib with RVR with heart rates between 120 and 150. Currently on 6 L nasal cannula. Received 6 L normal saline bolus since admission. On low-dose norepinephrine. Lactic acid increased to 3.3. Decreased urine output noted. Patient has chronic prednisone use due to rheumatoid arthritis. Hydrocortisone 100 mg has been ordered for this a.m. now. Denies pain in right knee currently. 09/11: Status post I&D right knee yesterday. BASIM with serosanguineous drainage. Currently afebrile. Decreased urine output noted. Creatinine bumped to 2.4. Lactate slowly decreasing. Volume status positive between 8-10 L since admission. 09/12: Episode of chest pain this a.m. Troponin elevated greater than 2. Currently chest pain-free. Heart rate currently rate controlled. Heparin drip initiated after being okayed by orthopedics. Plan for adenosine stress test today. Subjective 09/13: Afebrile. Negative adenosine stress test yesterday. Remains on heparin drip. On 3.5 L nasal cannula. Requesting transfer to general medical floor. Objective Vital Signs Date Time Temp Pulse Resp B/P (MAP) Pulse Ox O2 Delivery O2 Flow Rate FiO2 09/13/17 14:00 102 09/13/17 12:00 98.5 32 146/103 (117) 92 09/13/17 07:30 Nasal Cannula 3.00 Intake and Output 09/13/17 09/13/17 09/14/17 08:00 16:00 00:00 Intake Total 120 ml Output Total 1400 ml Balance -1280 ml Result Diagram: 09/13/17 0511 09/13/17 0511 Other Results Microbiology Date/Time Source Procedure Growth Status 09/11/17 05:38 Blood Peripheral Aerobic Blood Culture - Preliminary NO GROWTH IN 2 DAYS Resulted 09/11/17 05:38 Blood Peripheral Anaerobic Blood Culture - Preliminary NO GROWTH IN 2 DAYS Resulted 09/10/17 09:15 Fluid Synovial Fluid Gram Stain - Final Complete 09/10/17 09:15 Body Fluid Culture - Final Escherichia Coli Complete 09/12/17 11:00 Urine Catheterized Urine Urine Culture - Preliminary NO GROWTH IN 24 HOURS. Resulted 09/11/17 16:00 Wound Leg Fungal Smear - Final NO FUNGAL ELEMENTS SEEN. Resulted 09/11/17 16:00 Wound Leg Fungal Culture Pending Resulted Imaging Last Impressions Chest X-Ray 09/13/17 0600 Signed Impressions: Service Date/Time: Wednesday, September 13, 2017 05:11 - CONCLUSION: Increasing bilateral airspace opacities. Chandan Ortez MD Myocardial Perfusion Scan Nuc Med 09/12/17 0000 Signed Impressions: Service Date/Time: September 13:40 - CONCLUSION: Normal examination. RISK CATEGORY: Low (<1%% Annual Mortality Rate) Reagan Yusuf MD Gall Bladder Ultrasound 09/10/17 0000 Signed Impressions: Service Date/Time: Sunday, September 10, 2017 11:30 - CONCLUSION: 1. Cholelithiasis. However, there are no findings to indicate acute cholecystitis. 2. Small right pleural effusion. Constantin Lopez MD Chest CT 09/10/17 0000 Signed Impressions: Service Date/Time: Sunday, September 10, 2017 21:13 - CONCLUSION: 1. Small to moderate bilateral effusions and bibasilar atelectasis. Silverio Stout MD Abdomen/Pelvis CT 09/09/17 1738 Signed Impressions: Service Date/Time: Saturday, September 09, 2017 20:30 - CONCLUSION: 1. Small bilateral pleural effusions, left greater than right with basilar dependent airspace disease in the lungs. Mild anasarca. No bowel obstruction. No free air. Mild constipation. Bruce catheter in bladder. Sal Terrazas MD Knee X-Ray 09/09/17 0000 Signed Impressions: Service Date/Time: Saturday, September 09, 2017 13:49 - CONCLUSION: 1. Moderate to large joint effusion. No acute osseous abnormality is identified. 2. 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 3. Bridger-Stieda lesion indicating old medial collateral ligament injury. 4. Severe calcification of the popliteal artery. Constantin Lopez MD Hip and Pelvis X-Ray 09/09/17 0000 Signed Impressions: Service Date/Time: Saturday, September 09, 2017 17:02 - CONCLUSION: No acute left hip abnormality is identified. 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 Constantin Lopez MD Objective Remarks GENERAL: 72-year-old male currently resting in bed in no acute respiratory distress on 3.5 L nasal cannula SKIN: Pale and dry. No rash HEAD: Normocephalic. Atraumatic EYES: [place] around 3 mm bilaterally and reactive. No scleral icterus or injection. NECK: Supple, trachea midline. No JVD or lymphadenopathy. CARDIOVASCULAR: Tachycardic, IR. S1, S2. No S4. Without murmur RESPIRATORY: Breath sounds equal bilaterally. No accessory muscle use. GASTROINTESTINAL: Abdomen soft, non-tender, nondistended. MUSCULOSKELETAL: Right knee status post I&D. BASIM removed. Sutures are clean dry and intact covered with Xeroform positive edema lower extremity NEURO EXAM: Cranial nerves II through XII grossly intact. Strength appears to be equal and symmetric bilaterally. Normal sensation Vascular Central Line Catheter: Yes Assessment to: Remove Date of Insertion: Sep 09, 2017 Line: Central Venous Catheter Side: Right Location: Femoral A/P Assessment and Plan Neuro/Psych: Depression Duloxetine 20 mg p.o. daily/home medication will be continued Acetaminophen 650 mg by mouth every 6 hours as needed for fever Hydrocodone/acetaminophen 5/325 one tablet every 4 hours as needed for pain 1 through 5 Hydromorphone 1 mg IV every 4 hours as needed pain 6 through 10 CV: Systolic heart failure unknown if acute or chronic Atrial fibrillation with rapid ventricular response History of chronic atrial fibrillation Elevated troponin Moderate MR Lactic acidosis -resolved Severe sepsis secondary to E. coli bacteremia resolved They will discontinue diltiazem drip for rate control heart rate around 100 with mean atrial pressure greater than 65 goals Switch diltiazem to oral 30 mg every 6 hours. 220 mg daily in a.m. Started on metoprolol tartrate 25 mg p.o. twice daily by cardiology Cardiology consultation Dr. Hanna -medical management initially now scheduled for adenosine Cardiolite negative 2D echocardiogram revealed EF 35-40%. Bilateral atrial enlargement. Moderate MR. Cycle troponins currently 2.31 Patient is on no medications for blood pressure or rate control at home Lactate cleared from severe sepsis. Resp: Acute respiratory insufficiency History of COPD Bilateral small pleural effusions Nasal cannula to maintain saturations greater than or equal to 92%. Currently at 3.5 L Incentive spirometry while awake Albuterol/ipratropium aerosols every 6 hours with albuterol aerosols every 2 hours as needed Chest x-ray in a.m. 09/11 revealed mild to moderate bilateral pulmonary effusions with vascular congestion. Recheck in a.m. 09/14 CT thorax revealed bilateral pleural effusions GI: Hypoalbuminemia Mild anasarca Cholelithiasis without cholecystitis on ultrasound Patient is currently in a regular diet Famotidine for GI prophylaxis Docusate sodium/senna 1 tablet twice daily for bowel regimen : Bruce catheter has been placed for accurate I's and O's in a critically ill patient Endo: Chronic prednisone use -history of rheumatoid arthritis Sliding scale insulin Novulin R medium regimen with Accu-Cheks maintain euglycemia TSH 2.57 Start on hydrocortisone 50 mg IV every 8 hours Patient does not know his home prednisone dose. Renal: Right renal cyst -3 cm Acute on chronic kidney injury - ATN, AIN? Creatinine currently 2. 0 Unknown baseline creatinine Consult nephrology appreciated. Continue to follow No hydronephrosis on CT abdomen/pelvis Monitor urine output Accurate I's and O's Heme: Chronic warfarin use Elevated PTT Elevated fibrinogen Resuming warfarin 4.5 mg as 4 mg today. Okayed for heparin drip by orthopedics Received 1 unit FFP 09/10. CBC within normal limits. Recheck in a.m. ID: Severe sepsis -knee effusion ? Septic joint E. coli bacteremia Currently piperacillin/tazobactam daily #5 Vancomycin discontinued Infectious disease consultation Microbiology Blood cultures -09/11 -no growth Synovial fluid -09/10 -E. coli Intra-Op cultures -09/10 -no growth Blood cultures 2 -09/09 -E. coli UA 09/12 pending FEN: Hypocalcemia Replace electrolytes as clinically indicated per ICU electrolyte protocol MSK: Right knee effusion postop day #4 I&D X-ray right knee reveal tricompartment osteophytes with medial space joint narrowing. Coarse ossifications of the supracondylar ridge. Popliteal artery calcification. Bridger Stieda lesion revealing possible old MCL injury Large right knee effusion Orthopedics weightbearing as tolerated. Range of motion Change dressings daily #2 postop. PT evaluate and treat Access -Right femoral CVL day #5 placed in ED. Remove 3/2 Prophylaxis -GI -famotidine -DVT -SCD/heparin drip Level 2 follow-up Patient is stable from a critical care medicine standpoint. Assign care to hospitalist in a.m. 3/3 a.m. Transfer from ICU. Jaspal Kennedy MD Sep 13, 2017 15:35
[2017-09-13] MEDS: SODIUM CHLORIDE 0.9% FLUSH 10 ML FLUSH IV FLUSH PRN (16:24)
--- NOTE | 2017-09-13 16:53 | RADRPT ---
EXAM DATE/TIME: 09/13/2017 16:03 [facility] COMPARISON: CT THORAX W/O CONTRAST, September 10, 2017, 21:13. CHEST SINGLE AP, September 13, 2017, 5:11. INDICATIONS : Evaluate for pneumoina MEDICAL HISTORY : Chronic obstructive pulmonary disease. A-Fib. SURGICAL HISTORY : None. ENCOUNTER: Subsequent ACUITY: 4 - 6 days PAIN SCORE: 0/10 LOCATION: Bilateral chest FINDINGS: Mildly improved bilateral perihilar opacities with persistent airspace consolidation in the left lowe r lung zone. Cardiac silhouette is enlarged with indistinct central pulmonary vascularity. Remainder of the exam is unchanged. CONCLUSION: 1. Cardiomegaly with improved central pulmonary vascular congestion. 2. Persistent left lower lung zone airspace consolidation which may reflect pneumonia in the upper cl inical setting. Wellington Sumner MD on September 13, 2017 at 16:49 Board Certified Radiologist. This report was verified electronically.
--- NOTE | 2017-09-13 18:41 | HHI.NPPN ---
Subjective History of Present Illness 72 year old with Rt knee arthritis, septic arthritis E coli Review of Systems General Constitutional: Fatigue Musculoskeletal MS: Pain/Stiffness Objective Data Data Vital Signs Date Time Temp Pulse Resp B/P (MAP) Pulse Ox O2 Delivery O2 Flow Rate FiO2 09/13/17 16:00 98.8 102 41 174/101 (125) 92 09/13/17 16:00 102 09/13/17 14:00 102 09/13/17 12:00 98.5 108 32 146/103 (117) 92 09/13/17 12:00 108 09/13/17 10:00 99 09/13/17 08:00 98.0 100 24 144/97 (113) 93 09/13/17 08:00 100 09/13/17 07:30 94 Nasal Cannula 3.00 09/13/17 06:00 85 09/13/17 04:00 101 09/13/17 04:00 98.2 101 16 137/90 (106) 96 09/13/17 02:00 105 09/13/17 00:00 98.4 110 16 133/88 (103) 94 09/13/17 00:00 110 09/12/17 22:00 106 09/12/17 21:22 98 Nasal Cannula 5.00 09/12/17 20:00 98.4 108 17 120/87 (98) 93 09/12/17 20:00 108 -: 09/13/17 0511 09/13/17 0511 Physical Exam General Appearance: Well Developed, Well Nourished Neck Neck Exam: Neck Supple Pulmonary Resp Exam: Clear Bilaterally, Breath Sounds Equal Cardiology CV Exam: Regular, Normal Sinus Rhythm Gastrointestinal/Abdomen GI Exam: Soft, Bowel Sounds Present Musculoskeletal MS Exam: Unable to Ambulate MS Remarks rt knee pain Extremeties Extremities Exam: Trace Edema Assessment/Plan Problem List: (1) Acute renal failure ICD Codes: N17.9 - Acute kidney failure, unspecified Plan: This is likely due to septic shock He was given IV fluids UOP improved 2.3 L cr declined 2.[address] of the abdomen showed the renal cyst there was no hydronephrosis Continue supportive. Follow BMP cardiac stress test negative (2) Septic arthritis of knee ICD Codes: M00.9 - Pyogenic arthritis, unspecified Plan: Follow cultures (3) Severe sepsis with septic shock ICD Codes: A41.9 - Sepsis, unspecified organism; R65.21 - Severe sepsis with septic shock Status: Acute Plan: On IV fluids and IV antibiotics (4) Hypotension ICD Codes: I95.9 - Hypotension, unspecified Status: Acute Plan: Resolving Problem Qualifiers (1) Hypotension: Qualified Codes: I95.9 - Hypotension, unspecified Magy Bryant MD Sep 13, 2017 18:41
[2017-09-13] MEDS: METOPROLOL TARTRATE 50 MG TAB PO SCH (20:09)
--- NOTE | 2017-09-13 20:38 | HHI.IDPN ---
Subjective Subjective Remarks ID X cover Pt seen around 1500 today Tomer RN and Dr Cortes Pt is doing well Afebrile Normal BP Antibiotics Current Medications Zosyn Lines PIV Past Medical History Atrial fibrillation COPD Spinal stenosis Allergies: Coded Allergies: No Known Allergies (Unverified , 09/09/17) Objective . Vital Signs Date Time Temp Pulse Resp B/P (MAP) Pulse Ox O2 Delivery O2 Flow Rate FiO2 09/13/17 18:00 94 09/13/17 16:00 98.8 102 41 174/101 (125) 92 09/13/17 16:00 102 09/13/17 14:00 102 09/13/17 12:00 98.5 108 32 146/103 (117) 92 09/13/17 12:00 108 09/13/17 10:00 99 09/13/17 08:00 98.0 100 24 144/97 (113) 93 09/13/17 08:00 100 09/13/17 07:30 94 Nasal Cannula 3.00 09/13/17 06:00 85 09/13/17 04:00 101 09/13/17 04:00 98.2 101 16 137/90 (106) 96 09/13/17 02:00 105 09/13/17 00:00 98.4 110 16 133/88 (103) 94 09/13/17 00:00 110 09/12/17 22:00 106 09/12/17 21:22 98 Nasal Cannula 5.00 09/13/17 09/13/17 09/14/17 15:00 23:00 07:00 Intake Total 292 ml Output Total 1500 ml Balance -1208 ml IV Total 292 ml Output Urine Total 1500 ml # Bowel Movements 0 . Laboratory Tests Test 09/12/17 01:20 09/12/17 10:15 09/13/17 05:11 White Blood Count 11.0 TH/MM3 11.5 TH/MM3 12.8 TH/MM3 Red Blood Count 4.10 MIL/MM3 4.30 MIL/MM3 4.37 MIL/MM3 Hemoglobin 12.7 GM/DL 13.3 GM/DL 13.5 GM/DL Hematocrit 37.7 % 39.7 % 40.4 % Mean Corpuscular Volume 92.0 FL 92.2 FL 92.5 FL Mean Corpuscular Hemoglobin 31.1 PG 31.0 PG 30.8 PG Mean Corpuscular Hemoglobin Concent 33.8 % 33.6 % 33.3 % Red Cell Distribution Width 14.4 % 14.8 % 14.8 % Platelet Count 173 TH/MM3 153 TH/MM3 182 TH/MM3 Mean Platelet Volume 10.2 FL 10.3 FL 10.2 FL Neutrophils (%) (Auto) 89.6 % 86.7 % Lymphocytes (%) (Auto) 3.6 % 6.0 % Monocytes (%) (Auto) 6.5 % 7.2 % Eosinophils (%) (Auto) 0.1 % 0.0 % Basophils (%) (Auto) 0.2 % 0.1 % Neutrophils # (Auto) 9.8 TH/MM3 11.1 TH/MM3 Lymphocytes # (Auto) 0.4 TH/MM3 0.8 TH/MM3 Monocytes # (Auto) 0.7 TH/MM3 0.9 TH/MM3 Eosinophils # (Auto) 0.0 TH/MM3 0.0 TH/MM3 Basophils # (Auto) 0.0 TH/MM3 0.0 TH/MM3 CBC Comment AUTO DIFF AUTO DIFF Differential Total Cells Counted 100 100 Neutrophils % (Manual) 63 % 79 % Band Neutrophils % 20 % 6 % Lymphocytes % 7 % 8 % Monocytes % 6 % 2 % Neutrophils # (Manual) 9.6 TH/MM3 11.5 TH/MM3 Metamyelocytes 2 % 3 % Myelocytes 1 % 2 % Promyelocytes 1 % Differential Comment FINAL DIFF MANUAL FINAL DIFF MANUAL Dohle Bodies PRESENT Platelet Estimate NORMAL NORMAL Platelet Morphology Comment NORMAL ENLARGED [place] Cells 1+ Red Cell Morphology Comment NORMAL Laboratory Tests Test 09/12/17 01:20 09/12/17 12:30 09/12/17 19:23 09/13/17 05:11 Blood Urea Nitrogen 78 MG/DL 71 MG/DL Creatinine 2.33 MG/DL 2.01 MG/DL Random Glucose 136 MG/DL 100 MG/DL Total Protein 5.6 GM/DL 5.6 GM/DL Albumin 2.1 GM/DL 2.1 GM/DL Calcium Level 8.4 MG/DL 8.9 MG/DL Phosphorus Level 3.8 MG/DL 3.1 MG/DL Magnesium Level 2.4 MG/DL 2.4 MG/DL Alkaline Phosphatase 61 U/L 103 U/L Aspartate Amino Transf (AST/SGOT) 18 U/L 21 U/L Alanine Aminotransferase (ALT/SGPT) 16 U/L 17 U/L Total Bilirubin 1.2 MG/DL 1.1 MG/DL Sodium Level 137 MEQ/L 138 MEQ/L Potassium Level 3.8 MEQ/L 3.8 MEQ/L Chloride Level 103 MEQ/L 102 MEQ/L Carbon Dioxide Level 26.4 MEQ/L 25.8 MEQ/L Anion Gap 8 MEQ/L 10 MEQ/L Estimat Glomerular Filtration Rate 28 ML/MIN 33 ML/MIN Lactic Acid Level 1.4 mmol/L Troponin I 2.47 NG/ML 2.14 NG/ML 2.23 NG/ML Total Creatine Kinase 45 U/L Microbiology Date/Time Source Procedure Growth Status 09/11/17 05:38 Blood Peripheral Aerobic Blood Culture - Preliminary NO GROWTH IN 2 DAYS Resulted 09/11/17 05:38 Blood Peripheral Anaerobic Blood Culture - Preliminary NO GROWTH IN 2 DAYS Resulted 09/11/17 01:15 Blood Peripheral Aerobic Blood Culture - Preliminary NO GROWTH IN 2 DAYS Resulted 09/11/17 01:15 Blood Peripheral Anaerobic Blood Culture - Preliminary NO GROWTH IN 2 DAYS Resulted 09/11/17 01:10 Blood Peripheral Aerobic Blood Culture - Preliminary NO GROWTH IN 2 DAYS Resulted 09/11/17 01:10 Blood Peripheral Anaerobic Blood Culture - Preliminary NO GROWTH IN 2 DAYS Resulted 09/12/17 11:00 Urine Catheterized Urine Urine Culture - Preliminary NO GROWTH IN 24 HOURS. Resulted 09/11/17 11:00 Urine Clean Catch Legionella Antigen - Final PRESUMPTIVE NEGATIVE FOR LEGIONELLA P... Complete 09/11/17 11:00 Urine Clean Catch Streptococcus pneumoniae Antigen (M - Final PRESUMPTIVE NEGATIVE FOR STREPTOCOCCU... Complete 09/11/17 16:00 Wound Leg Fungal Smear - Final NO FUNGAL ELEMENTS SEEN. Resulted 09/11/17 16:00 Wound Leg Fungal Culture Pending Resulted 09/11/17 16:00 Wound Leg Acid Fast Stain - Final NO ACID FAST BACILLI SEEN Resulted 09/11/17 16:00 Wound Leg Mycobacterial Culture Pending Resulted 09/11/17 16:00 Wound Leg Gram Stain - Final Resulted 09/11/17 16:00 Wound Leg Wound Culture - Preliminary NO GROWTH IN 48 HOURS. Resulted 09/11/17 16:00 Wound Leg Fungal Smear - Final NO FUNGAL ELEMENTS SEEN. Resulted 09/11/17 16:00 Wound Leg Fungal Culture Pending Resulted 09/11/17 16:00 Wound Leg Acid Fast Stain - Final NO ACID FAST BACILLI SEEN Resulted 09/11/17 16:00 Wound Leg Mycobacterial Culture Pending Resulted 09/11/17 16:00 Wound Leg Gram Stain - Final Resulted 09/11/17 16:00 Wound Leg Wound Culture - Preliminary NO GROWTH IN 48 HOURS. Resulted 09/11/17 16:00 Wound Leg Fungal Smear - Final NO FUNGAL ELEMENTS SEEN. Resulted 09/11/17 16:00 Wound Leg Fungal Culture Pending Resulted 09/11/17 16:00 Wound Leg Acid Fast Stain - Final NO ACID FAST BACILLI SEEN Resulted 09/11/17 16:00 Wound Leg Mycobacterial Culture Pending Resulted 09/11/17 16:00 Wound Leg Gram Stain - Final Resulted 09/11/17 16:00 Wound Leg Wound Culture - Preliminary NO GROWTH IN 48 HOURS. Resulted Imaging Last Impressions Chest X-Ray 09/13/17 0600 Signed Impressions: Service Date/Time: Wednesday, September 13, 2017 05:11 - CONCLUSION: Increasing bilateral airspace opacities. Chandan Ortez MD Myocardial Perfusion Scan Nuc Med 09/12/17 0000 Signed Impressions: Service Date/Time: September 13:40 - CONCLUSION: Normal examination. RISK CATEGORY: Low (<1%% Annual Mortality Rate) Reagan Yusuf MD Gall Bladder Ultrasound 09/10/17 0000 Signed Impressions: Service Date/Time: Sunday, September 10, 2017 11:30 - CONCLUSION: 1. Cholelithiasis. However, there are no findings to indicate acute cholecystitis. 2. Small right pleural effusion. Constantin Lopez MD Chest CT 09/10/17 0000 Signed Impressions: Service Date/Time: Sunday, September 10, 2017 21:13 - CONCLUSION: 1. Small to moderate bilateral effusions and bibasilar atelectasis. Silverio Stout MD Abdomen/Pelvis CT 09/09/17 1738 Signed Impressions: Service Date/Time: Saturday, September 09, 2017 20:30 - CONCLUSION: 1. Small bilateral pleural effusions, left greater than right with basilar dependent airspace disease in the lungs. Mild anasarca. No bowel obstruction. No free air. Mild constipation. Bruce catheter in bladder. Sal Terrazas MD Knee X-Ray 09/09/17 0000 Signed Impressions: Service Date/Time: Saturday, September 09, 2017 13:49 - CONCLUSION: 1. Moderate to large joint effusion. No acute osseous abnormality is identified. 2. 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 3. Bridger-Stieda lesion indicating old medial collateral ligament injury. 4. Severe calcification of the popliteal artery. Constantin Lopez MD Hip and Pelvis X-Ray 09/09/17 0000 Signed Impressions: Service Date/Time: Saturday, September 09, 2017 17:02 - CONCLUSION: No acute left hip abnormality is identified. 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 Constantin Lopez MD Physical Exam GENERAL: awake and alert, tachypneic. SKIN: Warm and dry. No generalized rash, no ecchymoses and no evidence of embolic lesions. + mottling noted HEAD: Atraumatic. Normocephalic. No temporal wasting, or tenderness. EYES: [place] conjunctiva. No petechia or hemorrhage. Pupils equal, round and reactive to light. Extraocular movements full and intact. No scleral icterus. No injection or drainage. EARS, NOSE AND THROAT: moist oral mucosa. dentition in fair condition CARDIOVASCULAR: Tachycardic, irregular rate and rhythm. No murmurs, rubs or gallops heard RESPIRATORY: Decreased BS at bases ABDOMEN: Mildly distended, bowel sounds present and normoactive. Has mild diffuse abdominal tenderness. No guarding. No rebound. No organomegaly. EXTREMITIES: No clubbing, finger tips cyanosis resolved RLE minimal edema. R knee joint dry clean NEUROLOGICAL: Awake and alert. Cranial nerves grossly intact. Motor grossly within normal limits. PSYCHIATRIC: Normal affect, calm and cooperative. LINE: No evidence of infection Assessment & Plan Remarks IMPRESSION Shock, E.coli sepis E coli Sepsis source? - likely R knee R septic knee E.coli S/P debridement: clinically improving Renal insufficiency, ?baseline, or due to sepsis, or hypotension SOB, known COPD, but likely due to fluid Atrial fib NSTEMI RECOMMENDATION will Zosyn to CFTX fu repeat BC Eventually can be switched to PO levaquine to complete tx for [place] septic joint infection, providing pt repeat clx remain negative Paula Gibson MD Sep 13, 2017 20:38
[2017-09-13] MEDS: cefTRIAXone INJ 2,000 MG in SODIUM CHLORIDE 0.9% INJ 100 ML IV SCH (22:41)
[2017-09-14] VITALS (9 sets, daily range): BP systolic 121–140; BP diastolic 80–94; PULSE 70–105; RESP 20; TEMP 97.3–98.8; O2SAT 94–100
[2017-09-14] MEDS: DILTIAZEM HCL 30 MG TAB PO SCH (01:50)
[2017-09-14] MEDS: RESP: ALBUTEROL 2.5 MG/IPRATROPIUM 0.5 MG NEB (SCH) NEB ×4 (04:00→21:04)
[2017-09-14] MEDS: CHLORHEXIDINE GLUCONATE 2 % 1 PACK (2 CLOTHS) TOP SCH (04:00)
[2017-09-14] MEDS: HYDROCORTISONE SOD SUCCINATE 100 MG VIAL IV PUSH SCH ×3 (06:53→21:21)
[2017-09-14] MEDS: INSULIN NovoLIN REGULAR SUPPLEMENTAL SCALE SQ SCH ×4 (08:00→20:23)
[2017-09-14 08:48] LABS: AUTOMATED NEUTROPHIL # 9.9 TH/MM3 (1.8-7.7); BASOPHIL % 0.1 % (0.0-2.0); EOSINOPHIL % 0.1 % (0.0-4.0); HEMATOCRIT 39.4 % (39.0-51.0); LYMPH % 7.9 % (9.0-44.0); MEAN CORPUSCULAR HEMOGLOBIN 30.3 PG (27.0-34.0); MEAN PLATELET VOLUME 9.5 FL (7.0-11.0); MONO % 11.3 % (0.0-8.0); MONOCYTE # 1.4 TH/MM3 (0-0.9); NEUT % 80.6 % (16.0-70.0); PLATELET COUNT 198 TH/MM3 (150-450); RED BLOOD COUNT 4.29 MIL/MM3 (4.50-5.90); RED CELL DISTRIBUTION WIDTH 14.7 % (11.6-17.2); WHITE BLOOD COUNT 12.3 TH/MM3 (4.0-11.0)
[2017-09-14] MEDS: SODIUM CHLORIDE 0.9% FLUSH 10 ML FLUSH IV FLUSH SCH ×2 (09:00→20:23)
[2017-09-14 09:13] LABS: BICARBONATE 29.1 MEQ/L (21.0-32.0); CALCIUM 8.6 MG/DL (8.5-10.1); CREATININE 1.71 MG/DL (0.60-1.30); MAGNESIUM 2.3 MG/DL (1.5-2.5)
[2017-09-14 09:14] LABS: PHOSPHORUS 3.3 MG/DL (2.5-4.9)
[2017-09-14 09:49] LABS: BANDS 7 % (0-6); LYMPHOCYTES 6 % (9-44); METAMYELOCYTES 5 % (0-1); MONOCYTES 3 % (0-8); MYELOCYTES 7 % (0-0); NEUTROPHIL # MANUAL DIFF 11.2 TH/MM3 (1.8-7.7); POLYS (SEG NEUTROPHILS) 71 % (16-70); PROMYELOCYTES 1 % (0-0)
[2017-09-14] MEDS: FAMOTIDINE 20 MG TAB PO SCH ×2 (09:53→20:22)
[2017-09-14] MEDS: METOPROLOL TARTRATE 50 MG TAB PO SCH ×2 (09:53→20:22)
[2017-09-14] MEDS: DOCUSATE SODIUM 50 MG/SENNA 8.6 MG TAB PO SCH ×2 (09:53→20:22)
[2017-09-14] MEDS: DULoxetine HCl DR 20 MG CAP PO SCH (09:53)
[2017-09-14] MEDS: DILTIAZEM-CD 120 MG CAP ER PO SCH (09:53)
[2017-09-14] MEDS: ACETAMINOPHEN/HYDROcodone 325 MG/5 MG TAB PO PRN (10:07)
[2017-09-14] MEDS: HEPARIN-D5W 25,000 U/250 ML 250 ML IV PRN (14:12)
--- NOTE | 2017-09-14 14:30 | HHI.PR ---
Subjective Remarks Feels very tired. No chest pain or sob. No n/vd/c. Adrian fever or chills. no bleeding. Sattign well on 3L NC Objective Vitals Vital Signs Date Time Temp Pulse Resp B/P (MAP) Pulse Ox O2 Delivery O2 Flow Rate FiO2 09/14/17 12:00 97.6 83 20 140/92 (108) 97 09/14/17 08:00 98.0 84 20 134/85 (101) 96 09/14/17 04:00 97.3 70 20 124/86 (99) 97 09/14/17 03:45 76 09/14/17 02:34 95 Nasal Cannula 3.00 09/14/17 00:00 98.8 82 20 121/82 (95) 94 09/13/17 23:51 79 09/13/17 21:00 Nasal Cannula 4.00 09/13/17 20:52 98.8 107 20 151/78 (102) 92 09/13/17 20:00 97.6 122 25 167/103 (124) 92 09/13/17 20:00 122 09/13/17 18:00 94 09/13/17 16:00 98.8 102 41 174/101 (125) 92 09/13/17 16:00 102 I/O 09/13/17 09/13/17 09/13/17 09/14/17 09/14/17 09/14/17 07:00 15:00 23:00 07:00 15:00 23:00 Intake Total 120 ml 392 ml Output Total 1400 ml 1950 ml 1125 ml Balance -1280 ml -1558 ml -1125 ml Intake Oral 120 ml 100 ml IV Total 292 ml Output Urine Total 1400 ml 1950 ml 1125 ml # Bowel Movements 0 Result Diagram: 09/14/17 0810 09/14/17 0810 Imaging Last Impressions Chest X-Ray 09/13/17 0600 Signed Impressions: Service Date/Time: Wednesday, September 13, 2017 05:11 - CONCLUSION: Increasing bilateral airspace opacities. Chandan Ortez MD Myocardial Perfusion Scan Nuc Med 09/12/17 0000 Signed Impressions: Service Date/Time: September 13:40 - CONCLUSION: Normal examination. RISK CATEGORY: Low (<1%% Annual Mortality Rate) Reagan Yusuf MD Gall Bladder Ultrasound 09/10/17 0000 Signed Impressions: Service Date/Time: Sunday, September 10, 2017 11:30 - CONCLUSION: 1. Cholelithiasis. However, there are no findings to indicate acute cholecystitis. 2. Small right pleural effusion. Constantin Lopez MD Chest CT 09/10/17 0000 Signed Impressions: Service Date/Time: Sunday, September 10, 2017 21:13 - CONCLUSION: 1. Small to moderate bilateral effusions and bibasilar atelectasis. Silverio Stout MD Abdomen/Pelvis CT 09/09/17 1738 Signed Impressions: Service Date/Time: Saturday, September 09, 2017 20:30 - CONCLUSION: 1. Small bilateral pleural effusions, left greater than right with basilar dependent airspace disease in the lungs. Mild anasarca. No bowel obstruction. No free air. Mild constipation. Bruce catheter in bladder. Sal Terrazas MD Knee X-Ray 09/09/17 0000 Signed Impressions: Service Date/Time: Saturday, September 09, 2017 13:49 - CONCLUSION: 1. Moderate to large joint effusion. No acute osseous abnormality is identified. 2. 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 3. Bridger-Stieda lesion indicating old medial collateral ligament injury. 4. Severe calcification of the popliteal artery. Constantin Lopez MD Hip and Pelvis X-Ray 09/09/17 0000 Signed Impressions: Service Date/Time: Saturday, September 09, 2017 17:02 - CONCLUSION: No acute left hip abnormality is identified. 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 Constantin Lopez MD Objective Remarks GENERAL: 72-year-old male currently resting in bed in no acute respiratory distress on 3.5 L nasal cannula SKIN: Pale and dry. No rash HEAD: Normocephalic. Atraumatic EYES: Peoples around 3 mm bilaterally and reactive. No scleral icterus or injection. NECK: Supple, trachea midline. No JVD or lymphadenopathy. CARDIOVASCULAR: Tachycardic, IR. S1, S2. No S4. Without murmur RESPIRATORY: Breath sounds equal bilaterally. No accessory muscle use. GASTROINTESTINAL: Abdomen soft, non-tender, nondistended. MUSCULOSKELETAL: Right knee status post I&D. BASIM removed. Sutures are clean dry and intact covered with Xeroform positive edema lower extremity NEURO EXAM: Cranial nerves II through XII grossly intact. Strength appears to be equal and symmetric bilaterally. Normal sensation Date of Insertion: Sep 09, 2017 Line: Central Venous Catheter Side: Right Location: Femoral A/P Assessment and Plan Neuro/Psych: Depression Duloxetine 20 mg p.o. daily/home medication will be continued Acetaminophen 650 mg by mouth every 6 hours as needed for fever Hydrocodone/acetaminophen 5/325 one tablet every 4 hours as needed for pain 1 through 5 Hydromorphone 1 mg IV every 4 hours as needed pain 6 through 10 CV: Systolic heart failure unknown if acute or chronic Atrial fibrillation with rapid ventricular response History of chronic atrial fibrillation Elevated troponin Moderate MR Lactic acidosis -resolved Severe sepsis secondary to E. coli bacteremia resolved They will discontinue diltiazem drip for rate control heart rate around 100 with mean atrial pressure greater than 65 goals Switch diltiazem to oral 30 mg every 6 hours. 220 mg daily in a.m. Started on metoprolol tartrate 25 mg p.o. twice daily by cardiology Cardiology consultation Dr. Hanna -medical management initially now scheduled for adenosine Cardiolite negative 2D echocardiogram revealed EF 35-40%. Bilateral atrial enlargement. Moderate MR. Cycle troponins currently 2.31 Patient is on no medications for blood pressure or rate control at home Lactate cleared from severe sepsis. Resp: Acute respiratory insufficiency History of COPD Bilateral small pleural effusions Nasal cannula to maintain saturations greater than or equal to 92%. Currently at 3 L Incentive spirometry while awake Albuterol/ipratropium aerosols every 6 hours with albuterol aerosols every 2 hours as needed Chest x-ray in a.m. 09/11 revealed mild to moderate bilateral pulmonary effusions with vascular congestion. CT thorax revealed bilateral pleural effusions GI: Hypoalbuminemia Mild anasarca Cholelithiasis without cholecystitis on ultrasound Patient is currently in a regular diet Famotidine for GI prophylaxis Docusate sodium/senna 1 tablet twice daily for bowel regimen : Bruce catheter has been placed for accurate I's and O's in a critically ill patient Endo: Chronic prednisone use -history of rheumatoid arthritis Sliding scale insulin Novulin R medium regimen with Accu-Cheks maintain euglycemia TSH 2.57 Start on hydrocortisone 50 mg IV every 8 hours Patient does not know his home prednisone dose. Renal: Right renal cyst -3 cm Acute on chronic kidney injury - ATN, AIN? Creatinine currently 2. 0 Unknown baseline creatinine Consult nephrology appreciated. Continue to follow No hydronephrosis on CT abdomen/pelvis Monitor urine output Accurate I's and O's Heme: Chronic warfarin use Elevated PTT Elevated fibrinogen Resuming warfarin 4.5 mg as 4 mg. Okayed for heparin drip by orthopedics Received 1 unit FFP 09/10. CBC within normal limits. Recheck in a.m. Consult pharm for coumadin, monitor INR ID: Severe sepsis -knee effusion ? Septic joint E. coli bacteremia Currently piperacillin/tazobactam daily #5 Vancomycin discontinued Infectious disease consultation Microbiology Blood cultures 3 -09/11 -no growth Synovial fluid -09/10 -E. coli Intra-Op cultures -09/10 -no growth Blood cultures -09/09 -E. coli UA 09/12 pending FEN: Hypocalcemia Replace electrolytes as clinically indicated per ICU electrolyte protocol MSK: Right knee effusion postop day #4 I&D X-ray right knee reveal tricompartment osteophytes with medial space joint narrowing. Coarse ossifications of the supracondylar ridge. Popliteal artery calcification. Bridger Stieda lesion revealing possible old MCL injury Large right knee effusion Orthopedics weightbearing as tolerated. Range of motion Change dressings daily #2 postop. PT evaluate and treat Access -Right femoral CVL day #5 placed in ED. Remove 3/2 Prophylaxis -GI -famotidine -DVT -SCD/heparin drip discussed with the patient, nurse Yeimy John MD Sep 14, 2017 14:30
[2017-09-14 15:42] LABS: INTERNATIONAL NORMALIZED RATIO 1.8 RATIO; PROTHROMBIN TIME - PATIENT 18.2 SEC (9.8-11.6)
[2017-09-14] MEDS ORDERED: WARFARIN SOD 4 MG TAB PO SCH (16:00)
[2017-09-14] MEDS ORDERED: METOCLOPRAMIDE HCL 10 MG TAB PO ONE (19:00)
[2017-09-14] MEDS: TEMAZEPAM 15 MG CAP PO PRN (20:22)
[2017-09-14] MEDS: cefTRIAXone INJ 2,000 MG in SODIUM CHLORIDE 0.9% INJ 100 ML IV SCH (20:22)
[2017-09-14] MEDS: METOCLOPRAMIDE HCL 10 MG TAB PO SCH (20:22)
[2017-09-14] MEDS: BISACODYL 10 MG SUPP RECTAL PRN (23:04)
[2017-09-15] VITALS (7 sets, daily range): BP systolic 94–151; BP diastolic 64–93; PULSE 73–108; RESP 18–20; TEMP 97.3–98.4; O2SAT 94–98
[2017-09-15] MEDS ORDERED: SOD PHOSPHATE/SOD BIPHOSPHATE (ADULT) ENEMA 133ML RECTAL ONE (00:45)
[2017-09-15] MEDS: ACETAMINOPHEN/HYDROcodone 325 MG/5 MG TAB PO PRN ×2 (02:29→17:20)
[2017-09-15 02:34] LABS: AUTOMATED NEUTROPHIL # 15.4 TH/MM3 (1.8-7.7); EOSINOPHIL % 0.1 % (0.0-4.0); HEMATOCRIT 41.8 % (39.0-51.0); HEMOGLOBIN 14.1 GM/DL (13.0-17.0); LYMPH % 4.1 % (9.0-44.0); LYMPHOCYTE # 0.7 TH/MM3 (1.0-4.8); MEAN CELL VOLUME 91.5 FL (80.0-100.0); MEAN CORPUSCULAR HEMOGLOBIN 30.9 PG (27.0-34.0); MEAN CORPUSCULAR HGB CONC 33.7 % (32.0-36.0); MEAN PLATELET VOLUME 9.1 FL (7.0-11.0); MONO % 6.6 % (0.0-8.0); MONOCYTE # 1.1 TH/MM3 (0-0.9); NEUT % 89.2 % (16.0-70.0); PLATELET COUNT 226 TH/MM3 (150-450); RED BLOOD COUNT 4.56 MIL/MM3 (4.50-5.90); RED CELL DISTRIBUTION WIDTH 14.5 % (11.6-17.2); WHITE BLOOD COUNT 17.3 TH/MM3 (4.0-11.0)
[2017-09-15 02:39] LABS: PROTHROMBIN TIME - PATIENT 19.9 SEC (9.8-11.6)
[2017-09-15 02:45] LABS: BICARBONATE 30.4 MEQ/L (21.0-32.0); CALCIUM 8.4 MG/DL (8.5-10.1); CREATININE 1.5 MG/DL (0.60-1.30)
[2017-09-15 03:25] LABS: BANDS 4 % (0-6); LYMPHOCYTES 3 % (9-44); METAMYELOCYTES 3 % (0-1); MONOCYTES 9 % (0-8); MYELOCYTES 8 % (0-0); NEUTROPHIL # MANUAL DIFF 15.2 TH/MM3 (1.8-7.7); POLYS (SEG NEUTROPHILS) 73 % (16-70)
[2017-09-15 03:27] LABS: TOXIC GRANULATION 1+ (NORMAL)
[2017-09-15] MEDS: RESP: ALBUTEROL 2.5 MG/IPRATROPIUM 0.5 MG NEB (SCH) NEB ×4 (03:38→20:31)
[2017-09-15] MEDS: CHLORHEXIDINE GLUCONATE 2 % 1 PACK (2 CLOTHS) TOP SCH (04:00)
[2017-09-15] MEDS: HYDROCORTISONE SOD SUCCINATE 100 MG VIAL IV PUSH SCH ×3 (05:58→20:23)
[2017-09-15] MEDS: INSULIN NovoLIN REGULAR SUPPLEMENTAL SCALE SQ SCH ×4 (08:00→20:23)
--- NOTE | 2017-09-15 09:15 | HHI.PR ---
Subjective Remarks The patient is in bed. Says he feels anxious. With hiccups. No n/v/d/c. Denies cp, sob. Objective Vitals Vital Signs Date Time Temp Pulse Resp B/P (MAP) Pulse Ox O2 Delivery O2 Flow Rate FiO2 09/15/17 04:00 Nasal Cannula 3.00 09/15/17 04:00 108 09/15/17 04:00 97.8 96 19 94/64 (74) 97 09/15/17 00:00 Nasal Cannula 3.00 09/15/17 00:00 94 09/15/17 00:00 97.9 82 20 151/93 (112) 96 09/14/17 20:00 98.0 100 20 139/94 (109) 100 09/14/17 20:00 Nasal Cannula 3.00 09/14/17 20:00 105 09/14/17 17:35 95 Nasal Cannula 4.00 09/14/17 16:00 97.6 83 20 122/80 (94) 95 09/14/17 12:00 97.6 83 20 140/92 (108) 97 I/O 09/14/17 09/14/17 09/14/17 09/15/17 09/15/17 09/15/17 07:00 15:00 23:00 07:00 15:00 23:00 Intake Total 580 ml 480 ml Output Total 1125 ml 1000 ml 1100 ml Balance -1125 ml -420 ml -620 ml Intake Oral 480 ml 480 ml IV Total 100 ml Output Urine Total 1125 ml 1000 ml 1100 ml # Voids 2 # Bowel Movements 1 Result Diagram: 09/15/1721209/15/173 Imaging Last Impressions Chest X-Ray 09/13/17 0600 Signed Impressions: Service Date/Time: Wednesday, September 13, 2017 05:11 - CONCLUSION: Increasing bilateral airspace opacities. Chandan Ortez MD Myocardial Perfusion Scan Nuc Med 09/12/17 0000 Signed Impressions: Service Date/Time: September 13:40 - CONCLUSION: Normal examination. RISK CATEGORY: Low (<1%% Annual Mortality Rate) Reagan Yusuf MD Gall Bladder Ultrasound 09/10/17 0000 Signed Impressions: Service Date/Time: Sunday, September 10, 2017 11:30 - CONCLUSION: 1. Cholelithiasis. However, there are no findings to indicate acute cholecystitis. 2. Small right pleural effusion. Constantin Lopez MD Chest CT 09/10/17 0000 Signed Impressions: Service Date/Time: Sunday, September 10, 2017 21:13 - CONCLUSION: 1. Small to moderate bilateral effusions and bibasilar atelectasis. Silverio Stout MD Abdomen/Pelvis CT 09/09/17 1738 Signed Impressions: Service Date/Time: Saturday, September 09, 2017 20:30 - CONCLUSION: 1. Small bilateral pleural effusions, left greater than right with basilar dependent airspace disease in the lungs. Mild anasarca. No bowel obstruction. No free air. Mild constipation. Bruce catheter in bladder. Sal Terrazas MD Knee X-Ray 09/09/17 0000 Signed Impressions: Service Date/Time: Saturday, September 09, 2017 13:49 - CONCLUSION: 1. Moderate to large joint effusion. No acute osseous abnormality is identified. 2. 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 3. Bridger-Stieda lesion indicating old medial collateral ligament injury. 4. Severe calcification of the popliteal artery. Constantin Lopez MD Hip and Pelvis X-Ray 09/09/17 0000 Signed Impressions: Service Date/Time: Saturday, September 09, 2017 17:02 - CONCLUSION: No acute left hip abnormality is identified. 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 Constantin Lopez MD Objective Remarks GENERAL: 72-year-old male currently resting in bed in no acute respiratory distress on 3.5 L nasal cannula SKIN: Pale and dry. No rash HEAD: Normocephalic. Atraumatic EYES: Peoples around 3 mm bilaterally and reactive. No scleral icterus or injection. NECK: Supple, trachea midline. No JVD or lymphadenopathy. CARDIOVASCULAR: Tachycardic, IR. S1, S2. No S4. Without murmur RESPIRATORY: Breath sounds equal bilaterally. No accessory muscle use. GASTROINTESTINAL: Abdomen soft, non-tender, nondistended. MUSCULOSKELETAL: Right knee status post I&D. BASIM removed. Sutures are clean dry and intact covered with Xeroform positive edema lower extremity NEURO EXAM: Cranial nerves II through XII grossly intact. Strength appears to be equal and symmetric bilaterally. Normal sensation Date of Insertion: Sep 09, 2017 Line: Central Venous Catheter Side: Right Location: Femoral A/P Assessment and Plan Neuro/Psych: Depression Duloxetine 20 mg p.o. daily/home medication will be continued. Add xanax as need as patient is more anxious at this time. Acetaminophen 650 mg by mouth every 6 hours as needed for fever CV: Systolic heart failure unknown if acute or chronic Atrial fibrillation with rapid ventricular response History of chronic atrial fibrillation Elevated troponin Moderate MR Lactic acidosis -resolved Severe sepsis secondary to E. coli bacteremia resolved They will discontinue diltiazem drip for rate control heart rate around 100 with mean atrial pressure greater than 65 goals Switch diltiazem to oral 30 mg every 6 hours. 220 mg daily in a.m. Started on metoprolol tartrate 25 mg p.o. twice daily by cardiology Cardiology consultation Dr. Hanna -medical management initially now scheduled for adenosine Cardiolite negative 2D echocardiogram revealed EF 35-40%. Bilateral atrial enlargement. Moderate MR. trend troponins. Stress test low risk, likely 2/2 demand ischemia/poor renal clearance Patient is on no medications for blood pressure or rate control at home Lactate cleared from severe sepsis S/p stress test low risk Resp: Acute respiratory insufficiency, resolving History of COPD Bilateral small pleural effusions Nasal cannula to maintain saturations greater than or equal to 92%. Currently at 3 L Incentive spirometry while awake Albuterol/ipratropium aerosols every 6 hours with albuterol aerosols every 2 hours as needed Chest x-ray in a.m. 09/11 revealed mild to moderate bilateral pulmonary effusions with vascular congestion. CT thorax revealed bilateral pleural effusions GI: Hypoalbuminemia Mild anasarca Cholelithiasis without cholecystitis on ultrasound Patient is currently in a regular diet Famotidine for GI prophylaxis Docusate sodium/senna 1 tablet twice daily for bowel regimen : Bruce catheter has been placed for accurate I's and O's in a critically ill patient Endo: Chronic prednisone use -history of rheumatoid arthritis Sliding scale insulin Novulin R medium regimen with Accu-Cheks maintain euglycemia TSH 2.57 Start on hydrocortisone 50 mg IV every 8 hours Patient does not know his home prednisone dose. Renal: Right renal cyst -3 cm Acute on chronic kidney injury - ATN, AIN? Unknown baseline creatinine Consult nephrology appreciated. Continue to follow No hydronephrosis on CT abdomen/pelvis Monitor urine output Accurate I's and O's Heme: Chronic warfarin use Elevated PTT Elevated fibrinogen Resuming warfarin 4.5 mg as 4 mg. Okayed for heparin drip by orthopedics Received 1 unit FFP 09/10. CBC within normal limits. Recheck in a.m. Consult pharm for coumadin, monitor INR ID: Severe sepsis resolving -knee effusion ? Septic joint E. coli bacteremia Currently piperacillin/tazobactam daily Vancomycin discontinued Infectious disease consultation appreciate recommendations Microbiology Blood cultures 3 -09/11 -no growth Synovial fluid -09/10 -E. coli Intra-Op cultures -09/10 -no growth Blood cultures -09/09 -E. coli UA 09/12 pending FEN: Hypocalcemia Replace electrolytes as clinically indicated per ICU electrolyte protocol MSK: Right knee effusion s/p Irrigation and debridement right knee on 09/10/[address] Kai del cid X-ray right knee reveal tricompartment osteophytes with medial space joint narrowing. Coarse ossifications of the supracondylar ridge. Popliteal artery calcification. Bridger Stieda lesion revealing possible old MCL injury Large right knee effusion Orthopedics weightbearing as tolerated. Range of motion Change dressings daily #2 postop. PT evaluate and treat Access -Right femoral CVL day #5 placed in ED. Remove 3/2 Prophylaxis -GI -famotidine -DVT -SCD/heparin drip discussed with the patient, nurse PT recommends home with home health. DC home with home health when arrangements done and cleared by ID. Poss DC tomorrow when Dr Adams ID back. Patient did fired Dr Sheriff. Awaiting for ID final recommendations Yeimy John MD Sep 15, 2017 09:15
[2017-09-15] MEDS ORDERED: METO-309 PO (09:23)
[2017-09-15] MEDS ORDERED: DILT120C50 PO (09:23)
--- NOTE | 2017-09-15 09:24 | HHI.DS ---
Discharge Summary Admission Date Sep 09, 2017 at 18:11 Admitting Diagnosis Hypotension. Right knee effusion. Brief History - From Admission 72-year-old male presents for evaluation of right knee pain for the past several days. It started about 4-5 days ago when he "tweaked" his knee while changing his tire. He had mild pain since then but but yesterday the pain became so severe, he could no longer ambulate. Pain is also worse with hyperextension. Patient has minimal pain at rest. He has been taking Tylenol, his friend's muscle relaxant, and previously prescribed oxycodone with moderate relief in symptoms. He cannot localize pain. Denies paresthesias, or fever. No history of knee problems. History of A. fib for which he takes warfarin. Patient stopped taking warfarin 2 days ago because he noted a small bruise to his buttocks. Denies any trauma or injury to buttocks. In the emergency department he was found to have bandemia and was hypotensive despite 3 L of normal saline boluses. CBC/BMP: 09/15/17 0213 09/15/17 0213 Significant Findings Laboratory Tests Test 09/12/17 10:15 09/12/17 10:38 09/12/17 11:00 09/12/17 12:30 White Blood Count 11.5 TH/MM3 (4.0-11.0) Red Blood Count 4.30 MIL/MM3 (4.50-5.90) Prothrombin Time 21.1 SEC (9.8-11.6) Activated Partial Thromboplast Time 43.7 SEC (24.3-30.1) Urine Turbidity CLOUDY (CLEAR) Urine Protein 30 mg/dL (NEG-TRACE) Urine Occult Blood SMALL (NEG) Urine Leukocyte Esterase SMALL (NEG) Urine RBC 14 /hpf (0-3) Urine Uric Acid Crystals MOD /hpf (NONE) Urine Bacteria OCC /hpf (NONE) Urine Mucus FEW /lpf (OCC) Troponin I 2.14 NG/ML (0.02-0.05) Test 09/12/17 19:22 09/12/17 19:23 09/13/17 05:11 09/14/17 08:10 Activated Partial Thromboplast Time 43.4 SEC (24.3-30.1) 43.5 SEC (24.3-30.1) 37.5 SEC (24.3-30.1) Troponin I 2.23 NG/ML (0.02-0.05) White Blood Count 12.8 TH/MM3 (4.0-11.0) 12.3 TH/MM3 (4.0-11.0) Red Blood Count 4.37 MIL/MM3 (4.50-5.90) 4.29 MIL/MM3 (4.50-5.90) Neutrophils (%) (Auto) 86.7 % (16.0-70.0) 80.6 % (16.0-70.0) Lymphocytes (%) (Auto) 6.0 % (9.0-44.0) 7.9 % (9.0-44.0) Neutrophils # (Auto) 11.1 TH/MM3 (1.8-7.7) 9.9 TH/MM3 (1.8-7.7) Lymphocytes # (Auto) 0.8 TH/MM3 (1.0-4.8) Neutrophils % (Manual) 79 % (16-70) 71 % (16-70) Lymphocytes % 8 % (9-44) 6 % (9-44) Neutrophils # (Manual) 11.5 TH/MM3 (1.8-7.7) 11.2 TH/MM3 (1.8-7.7) Metamyelocytes 3 % (0-1) 5 % (0-1) Myelocytes 2 % (0-0) 7 % (0-0) Platelet Morphology Comment ENLARGED (NORMAL) Blood Urea Nitrogen 71 MG/DL (7-18) 67 MG/DL (7-18) Creatinine 2.01 MG/DL (0.60-1.30) 1.71 MG/DL (0.60-1.30) Total Protein 5.6 GM/DL (6.4-8.2) Albumin 2.1 GM/DL (3.4-5.0) Total Bilirubin 1.1 MG/DL (0.2-1.0) Estimat Glomerular Filtration Rate 33 ML/MIN (>89) 39 ML/MIN (>89) Monocytes (%) (Auto) 11.3 % (0.0-8.0) Monocytes # (Auto) 1.4 TH/MM3 (0-0.9) Band Neutrophils % 7 % (0-6) Promyelocytes 1 % (0-0) Test 09/14/17 14:40 09/14/17 19:30 09/15/17 02:13 Prothrombin Time 18.2 SEC (9.8-11.6) 19.9 SEC (9.8-11.6) Activated Partial Thromboplast Time 35.7 SEC (24.3-30.1) 37.7 SEC (24.3-30.1) White Blood Count 17.3 TH/MM3 (4.0-11.0) Neutrophils (%) (Auto) 89.2 % (16.0-70.0) Lymphocytes (%) (Auto) 4.1 % (9.0-44.0) Neutrophils # (Auto) 15.4 TH/MM3 (1.8-7.7) Lymphocytes # (Auto) 0.7 TH/MM3 (1.0-4.8) Monocytes # (Auto) 1.1 TH/MM3 (0-0.9) Neutrophils % (Manual) 73 % (16-70) Lymphocytes % 3 % (9-44) Monocytes % 9 % (0-8) Neutrophils # (Manual) 15.2 TH/MM3 (1.8-7.7) Metamyelocytes 3 % (0-1) Myelocytes 8 % (0-0) Toxic Granulation 1+ (NORMAL) Platelet Morphology Comment ENLARGED (NORMAL) Blood Urea Nitrogen 62 MG/DL (7-18) Creatinine 1.50 MG/DL (0.60-1.30) Random Glucose 112 MG/DL (74-106) Calcium Level 8.4 MG/DL (8.5-10.1) Estimat Glomerular Filtration Rate 46 ML/MIN (>89) PE at Discharge GENERAL: 72-year-old male currently resting in bed in no acute respiratory distress on 3.5 L nasal cannula SKIN: Pale and dry. No rash HEAD: Normocephalic. Atraumatic EYES: Peoples around 3 mm bilaterally and reactive. No scleral icterus or injection. NECK: Supple, trachea midline. No JVD or lymphadenopathy. CARDIOVASCULAR: Tachycardic, IR. S1, S2. No S4. Without murmur RESPIRATORY: Breath sounds equal bilaterally. No accessory muscle use. GASTROINTESTINAL: Abdomen soft, non-tender, nondistended. MUSCULOSKELETAL: Right knee status post I&D. BASIM removed. Sutures are clean dry and intact covered with Xeroform positive edema lower extremity NEURO EXAM: Cranial nerves II through XII grossly intact. Strength appears to be equal and symmetric bilaterally. Normal sensation Yeimy John MD Sep 15, 2017 09:24
[2017-09-15] MEDS: DOCUSATE SODIUM 50 MG/SENNA 8.6 MG TAB PO SCH ×2 (09:35→20:23)
[2017-09-15] MEDS: METOCLOPRAMIDE HCL 10 MG TAB PO SCH ×3 (09:35→22:39)
[2017-09-15] MEDS: METOPROLOL TARTRATE 50 MG TAB PO SCH ×2 (09:35→20:23)
[2017-09-15] MEDS: DILTIAZEM-CD 120 MG CAP ER PO SCH (09:35)
[2017-09-15] MEDS: FAMOTIDINE 20 MG TAB PO SCH ×2 (09:35→20:23)
[2017-09-15] MEDS: DULoxetine HCl DR 20 MG CAP PO SCH (09:35)
[2017-09-15] MEDS: MAGNESIUM HYDROXIDE SUSP 30 ML CUP PO PRN (14:03)
[2017-09-15] MEDS: LACTULOSE SYRUP 20 GM/30 ML CUP PO PRN (14:03)
[2017-09-15] MEDS: ALPRAZolam 0.25 MG TAB PO PRN ×2 (14:19→22:39)
[2017-09-15] MEDS ORDERED: WARFARIN SOD 1 MG TAB PO SCH (16:00)
[2017-09-15] MEDS ORDERED: WARFARIN SOD 2 MG TAB PO SCH (16:00)
[2017-09-15] MEDS: SODIUM CHLORIDE 0.9% FLUSH 10 ML FLUSH IV FLUSH SCH (20:24)
[2017-09-15] MEDS: cefTRIAXone INJ 2,000 MG in SODIUM CHLORIDE 0.9% INJ 100 ML IV SCH (20:24)
[2017-09-16] VITALS (12 sets, daily range): BP systolic 101–162; BP diastolic 58–87; PULSE 85–145; RESP 18–21; TEMP 97–98.3; O2SAT 91–98
[2017-09-16] MEDS: TEMAZEPAM 15 MG CAP PO PRN (00:07)
[2017-09-16] MEDS: CHLORHEXIDINE GLUCONATE 2 % 1 PACK (2 CLOTHS) TOP SCH ×2 (02:34→21:06)
[2017-09-16] MEDS: ACETAMINOPHEN/HYDROcodone 325 MG/5 MG TAB PO PRN ×3 (02:34→21:01)
[2017-09-16] MEDS: RESP: ALBUTEROL 2.5 MG/IPRATROPIUM 0.5 MG NEB (SCH) NEB ×4 (03:47→21:47)
[2017-09-16] MEDS: HYDROCORTISONE SOD SUCCINATE 100 MG VIAL IV PUSH SCH ×3 (04:57→21:02)
[2017-09-16] MEDS: METOCLOPRAMIDE HCL 10 MG TAB PO SCH (04:57)
[2017-09-16 06:09] LABS: AUTOMATED NEUTROPHIL # 21.8 TH/MM3 (1.8-7.7); BASOPHIL % 0.1 % (0.0-2.0); EOSINOPHIL # 0.1 TH/MM3 (0-0.4); EOSINOPHIL % 0.5 % (0.0-4.0); HEMATOCRIT 42.9 % (39.0-51.0); HEMOGLOBIN 14.4 GM/DL (13.0-17.0); LYMPH % 5.8 % (9.0-44.0); LYMPHOCYTE # 1.5 TH/MM3 (1.0-4.8); MEAN CORPUSCULAR HEMOGLOBIN 30.5 PG (27.0-34.0); MEAN CORPUSCULAR HGB CONC 33.5 % (32.0-36.0); MEAN PLATELET VOLUME 9.2 FL (7.0-11.0); MONO % 8.3 % (0.0-8.0); MONOCYTE # 2.1 TH/MM3 (0-0.9); NEUT % 85.3 % (16.0-70.0); PLATELET COUNT 297 TH/MM3 (150-450); RED BLOOD COUNT 4.71 MIL/MM3 (4.50-5.90); RED CELL DISTRIBUTION WIDTH 14.7 % (11.6-17.2); WHITE BLOOD COUNT 25.6 TH/MM3 (4.0-11.0)
[2017-09-16 06:19] LABS: INTERNATIONAL NORMALIZED RATIO 3.3 RATIO; PROTHROMBIN TIME - PATIENT 33.3 SEC (9.8-11.6)
[2017-09-16 06:27] LABS: CALCIUM 8.5 MG/DL (8.5-10.1); CREATININE 1.37 MG/DL (0.60-1.30)
[2017-09-16] MEDS: ALPRAZolam 0.25 MG TAB PO PRN ×2 (06:37→15:23)
[2017-09-16 07:19] LABS: BANDS 5 % (0-6); LYMPHOCYTES 10 % (9-44); METAMYELOCYTES 5 % (0-1); MONOCYTES 4 % (0-8); MYELOCYTES 6 % (0-0); POLYS (SEG NEUTROPHILS) 70 % (16-70)
[2017-09-16 07:21] LABS: TOXIC GRANULATION 1+ (NORMAL)
[2017-09-16] MEDS: INSULIN NovoLIN REGULAR SUPPLEMENTAL SCALE SQ SCH ×4 (07:48→21:00)
[2017-09-16] MEDS: DULoxetine HCl DR 20 MG CAP PO SCH (10:22)
[2017-09-16] MEDS: FAMOTIDINE 20 MG TAB PO SCH ×2 (10:22→21:01)
[2017-09-16] MEDS: METOPROLOL TARTRATE 50 MG TAB PO SCH ×2 (10:22→21:01)
[2017-09-16] MEDS: DOCUSATE SODIUM 50 MG/SENNA 8.6 MG TAB PO SCH ×2 (10:22→19:44)
[2017-09-16] MEDS: DILTIAZEM-CD 120 MG CAP ER PO SCH (10:22)
[2017-09-16] MEDS: SODIUM CHLORIDE 0.9% FLUSH 10 ML FLUSH IV FLUSH SCH ×2 (10:28→21:00)
--- NOTE | 2017-09-16 10:55 | HHI.PR ---
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 He complains of feeling anxious. Says speech is also off. No motor deficit. Is also with hiccups. Since he has seen psychiatry in the past 2 or 3 years ago. Denies nausea or vomiting. No diarrhea or constipation. Objective Vitals Vital Signs Date Time Temp Pulse Resp B/P (MAP) Pulse Ox O2 Delivery O2 Flow Rate FiO2 09/16/17 10:30 97.0 94 101/58 (72) 09/16/17 08:26 98 21 09/16/17 08:00 97.6 104 18 140/84 (102) 94 09/16/17 04:04 97.6 85 18 134/87 (103) 94 09/16/17 04:00 98 09/16/17 04:00 93 Room Air 09/16/17 00:05 98.0 87 18 130/87 (101) 94 09/16/17 00:00 95 Room Air 09/16/17 00:00 107 09/15/17 20:32 96 Nasal Cannula 3.00 09/15/17 20:00 98.4 99 18 138/76 (96) 94 09/15/17 20:00 Nasal Cannula 3.00 09/15/17 20:00 105 09/15/17 16:00 97.7 90 20 139/82 (101) 96 09/15/17 12:00 97.9 95 20 124/85 (98) 96 I/O 09/15/17 09/15/17 09/15/17 09/16/17 09/16/17 09/16/17 07:00 15:00 23:00 07:00 15:00 23:00 Intake Total 480 ml 580 ml Output Total 1100 ml 800 ml 300 ml Balance -620 ml -220 ml -300 ml Intake Oral 480 ml 480 ml IV Total 100 ml Output Urine Total 1100 ml 800 ml 300 ml # Voids 2 4 # Bowel Movements 1 2 2 Result Diagram: 09/16/17 0420 09/16/17 0420 Imaging Last Impressions Chest X-Ray 09/13/17 0600 Signed Impressions: Service Date/Time: Wednesday, September 13, 2017 05:11 - CONCLUSION: Increasing bilateral airspace opacities. Chandan Ortez MD Myocardial Perfusion Scan Nuc Med 09/12/17 0000 Signed Impressions: Service Date/Time: September 13:40 - CONCLUSION: Normal examination. RISK CATEGORY: Low (<1%% Annual Mortality Rate) Reagan Yusuf MD Gall Bladder Ultrasound 09/10/17 Signed Impressions: Service Date/Time: Sunday, September 10, 2017 11:30 - CONCLUSION: 1. Cholelithiasis. However, there are no findings to indicate acute cholecystitis. 2. Small right pleural effusion. Constantin Lopez MD Chest CT 09/10/17 Signed Impressions: Service Date/Time: Sunday, September 10, 2017 21:13 - CONCLUSION: 1. Small to moderate bilateral effusions and bibasilar atelectasis. Silverio Stout MD Abdomen/Pelvis CT 09/09/178 Signed Impressions: Service Date/Time: Saturday, September 09, 2017 20:30 - CONCLUSION: 1. Small bilateral pleural effusions, left greater than right with basilar dependent airspace disease in the lungs. Mild anasarca. No bowel obstruction. No free air. Mild constipation. Bruce catheter in bladder. Sal Terrazas MD Knee X-Ray 09/09/17 Signed Impressions: Service Date/Time: Saturday, September 09, 2017 13:49 - CONCLUSION: 1. Moderate to large joint effusion. No acute osseous abnormality is identified. 2. 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 3. Bridger-Stieda lesion indicating old medial collateral ligament injury. 4. Severe calcification of the popliteal artery. Constantin Lopez MD Hip and Pelvis X-Ray 09/09/17 Signed Impressions: Service Date/Time: Saturday, September 09, 2017 17:02 - CONCLUSION: No acute left hip abnormality is identified. 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 Constantin Lopez MD Objective Remarks GENERAL: 72-year-old male currently resting in bed in no acute respiratory distress on 3.5 L nasal cannula SKIN: Pale and dry. No rash HEAD: Normocephalic. Atraumatic EYES: [place]oples around 3 mm bilaterally and reactive. No scleral icterus or injection. NECK: Supple, trachea midline. No JVD or lymphadenopathy. CARDIOVASCULAR: Tachycardic, IR. S1, S2. No S4. Without murmur RESPIRATORY: Breath sounds equal bilaterally. No accessory muscle use. GASTROINTESTINAL: Abdomen soft, non-tender, nondistended. MUSCULOSKELETAL: Right knee status post I&D. BASIM removed. Sutures are clean dry and intact covered with Xeroform positive edema lower extremity NEURO EXAM: Cranial nerves II through XII grossly intact. Strength appears to be equal and symmetric bilaterally. Normal sensation Date of Insertion: Sep 09, 2017 Line: Central Venous Catheter Side: Right Location: Femoral A/P Assessment and Plan Neuro/Psych: Depression Duloxetine 20 mg p.o. daily/home medication will be continued. Add xanax as need as patient is more anxious at this time. Acetaminophen 650 mg by mouth every 6 hours as needed for fever Consult psychiatry Patient complaints of abnormal speech, will do CT head w/o contrast, consult neurology. NO motor deficit CV: Systolic heart failure unknown if acute or chronic Atrial fibrillation with rapid ventricular response History of chronic atrial fibrillation Elevated troponin Moderate MR Lactic acidosis -resolved Severe sepsis secondary to E. coli bacteremia resolved They will discontinue diltiazem drip for rate control heart rate around 100 with mean atrial pressure greater than 65 goals Switch diltiazem to oral 30 mg every 6 hours. 220 mg daily in a.m. Started on metoprolol tartrate 25 mg p.o. twice daily by cardiology Cardiology consultation Dr. Hanna -medical management initially now scheduled for adenosine Cardiolite negative 2D echocardiogram revealed EF 35-40%. Bilateral atrial enlargement. Moderate MR. trend troponins. Stress test low risk, likely 2/2 demand ischemia/poor renal clearance Patient is on no medications for blood pressure or rate control at home Lactate cleared from severe sepsis S/p stress test low risk Now with tachycardia . Check stat EKG. BMP and [facility] Card[facility] ff Resp: Acute respiratory insufficiency, resolving History of COPD Bilateral small pleural effusions Nasal cannula to maintain saturations greater than or equal to 92%. Currently at 3 L Incentive spirometry while awake Albuterol/ipratropium aerosols every 6 hours with albuterol aerosols every 2 hours as needed Chest x-ray in a.m. 09/11 revealed mild to moderate bilateral pulmonary effusions with vascular congestion. CT thorax revealed bilateral pleural effusions Patient with worsening leukocytosis, discussed with Dr Heard ID ff GI: Hypoalbuminemia Mild anasarca Cholelithiasis without cholecystitis on ultrasound Patient is currently in a regular diet Famotidine for GI prophylaxis Docusate sodium/senna 1 tablet twice daily for bowel regimen : Bruce catheter has been placed for accurate I's and O's in a critically ill patient Endo: Chronic prednisone use -history of rheumatoid arthritis Sliding scale insulin Novulin R medium regimen with Accu-Cheks maintain euglycemia TSH 2.57 Start on hydrocortisone 50 mg IV every 8 hours Patient does not know his home prednisone dose. Renal: Right renal cyst -3 cm Acute on chronic kidney injury - ATN, AIN? Unknown baseline creatinine Consult nephrology appreciated. Continue to follow No hydronephrosis on CT abdomen/pelvis Monitor urine output Accurate I's and O's Heme: Chronic warfarin use Elevated PTT Elevated fibrinogen Resuming warfarin 4.5 mg as 4 mg. Okayed for heparin drip by orthopedics Received 1 unit FFP 09/10. CBC within normal limits. Recheck in a.m. Consult pharm for coumadin, monitor INR ID: Severe sepsis resolving -knee effusion ? Septic joint E. coli bacteremia Currently piperacillin/tazobactam daily Vancomycin discontinued Infectious disease consultation appreciate recommendations Microbiology Blood cultures -09/11 -no growth Synovial fluid -09/10 -E. coli Intra-Op cultures -09/10 -no growth Blood cultures 2 -09/09 -E. coli UA 09/12 pending FEN: Hypocalcemia Replace electrolytes as clinically indicated per ICU electrolyte protocol MSK: Right knee effusion s/p Irrigation and debridement right knee on 09/10/[address] Kai del cid X-ray right knee reveal tricompartment osteophytes with medial space joint narrowing. Coarse ossifications of the supracondylar ridge. Popliteal artery calcification. Bridger Stieda lesion revealing possible old MCL injury Large right knee effusion Orthopedics weightbearing as tolerated. Range of motion Change dressings daily #2 postop. PT evaluate and treat Access -Right femoral CVL day #5 placed in ED. Remove 3/2 Prophylaxis -GI -famotidine -DVT -SCD/heparin drip Discussed with the patient, nurse PT recommends home with home health. DC home with home health when arrangements done and cleared by ID. Awaiting for ID final recommendations. 3/5 However WBC are trending up , not cleared by ID discussed with Dr Heard ID, ff Also spurred speech 3/5 work up pending Also tachy in 140s work up pending Cosma,Yeiym MD Sep 16, 2017 10:55
--- NOTE | 2017-09-16 11:34 | RADRPT ---
EXAM DATE/TIME: 09/16/2017 11:18 [facility] COMPARISON: No previous studies available for comparison. INDICATIONS : Altered mental status RADIATION DOSE: 40.88 CTDIvol (mGy) MEDICAL HISTORY : Chronic obstructive pulmonary disease. A-fib SURGICAL HISTORY : None. ENCOUNTER: Initial ACUITY: 1 day PAIN SCALE: 5/10 LOCATION: cranial TECHNIQUE: Multiple contiguous axial images were obtained of the head. Using automated exposure control and adj ustment of the mA and/or kV according to patient size, radiation dose was kept as low as reasonably a chievable to obtain optimal diagnostic quality images. DICOM format image data is available electro nically for review and comparison. FINDINGS: CEREBRUM: The ventricles are normal for age. No evidence of midline shift, mass lesion, hemorrhage or acute in farction. No extra-axial fluid collections are seen. POSTERIOR FOSSA: The cerebellum and brainstem are intact. The 4th ventricle is midline. The cerebellopontine angle i s unremarkable. EXTRACRANIAL: The visualized portion of the orbits is intact. SKULL: The calvaria is intact. No evidence of skull fracture. CONCLUSION: Negative for acute process. Te Frances MD FACR on September 16, 2017 at 11:31 Board Certified Radiologist. This report was verified electronically.
[2017-09-16] MEDS ORDERED: DILTIAZEM HCL 30 MG TAB PO PRN (12:00)
--- NOTE | 2017-09-16 17:04 | MB ---
cc: Silverio Lynch MD DATE OF CONSULT: 09/16/2017 A 72-year-old right-handed man with atrial fibrillation. He does take Coumadin. [place] He usually lives in [facility], but was just down here for a week to vacation. He has a remote history of sarcoid, pulmonary, which he has not been treated for in years. He passed out 3 years ago when he was drinking too heavily, evidently he collapsed he says. I am asked to see him for slurred speech, which he says started yesterday. He has been hiccuping for several days very frequently. He was admitted to the hospital on the 09/09. He has seen cardiology. He was having some right knee pain and found to have a right knee effusion. Evidently he had some sepsis. Generally weak. History of COPD. He was initially hypotensive, some renal insufficiency. At one time, he had acute renal failure years ago, but not recently. He has had some anxiety. He sees psychiatry the last several years. 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 REVIEW OF SYSTEMS: He denies any hypertension, diabetes, hypercholesterolemia, [place], CABG, hepatic disease, thyroid disease, lupus, ulcer, cancer, seizure, strokes. SOCIAL HISTORY: Not a smoker or drinker. Lives by himself. FAMILY HISTORY: Negative for cancer, seizure, stroke. ALLERGIES: NO KNOWN DRUG ALLERGIES. MEDICATIONS ON ADMISSION: 1. He was on prednisone 40 mg a day for 5 days. 2. He was on Coumadin 4 mg every other day and 2 mg every other day. 3. Cymbalta 20 mg. CURRENT MEDICATIONS: 1. He is on Diltiazem. 2. Reglan. 3. Coumadin. 4. Xanax 0.125 p.o. p.r.n. 5. Ceftriaxone. 6. Dilaudid, but he has not had any of that. 7. Restoril he gets at night. PHYSICAL EXAMINATION: VITAL SIGNS: Afebrile, 162/76, 18, 102. He has never had a high fever in the hospital and really has been afebrile. Initially his blood pressure was low 73/55. He initially had some positive blood cultures of E. coli, recent cultures have been negative. NECK: There were no carotid bruits. HEART: Regular rhythm. I did not detect a murmur. HEENT: Pupils were equal. Visual oliva were full. Extraocular movements intact without nystagmus. His face is symmetric with normal sensation. Tongue was midline. There was no drift. NEUROLOGIC: He had normal strength in upper and lower extremities bilaterally. DTRs trace. Toes downgoing bilaterally. Pin prick was intact. He is awake, alert. He knows the month, the year. He knows where he is and where he usually lives. His speech is not aphasic. He shows me his left thumb. He names and repeats normally. He does have frequent hiccups, which effect his speech output and I asked him if that is what he complains about when not being able to talk and he says that very well could be. LABORATORY: White count is 25,000, initially it was 8.2. CBC is otherwise negative. Sed rate was 60 when he came in. AB.33, 30 with a pAO2 of 87 when he first was admitted. Basic metabolic profile: Creatinine has come down to 1.37, BUN is 55, otherwise normal. Calcium is normal. LFTs normal. Troponin was elevated all the way up to 2.4 on 09/12. His CRP was 33 on 09/09. LDL cholesterol 103. TSH was normal. He had an abdominal CT that showed some small effusions. He had a perfusion scan of the heart that was normal. He had a CAT scan of his brain done today that was negative. IMPRESSION: I think his speech problems are probably just the hiccups and he is trying to talk through them and it is very hard to do because they are very frequent. I did review his CAT scan that showed some mild bifrontal atrophy, otherwise negative. It is unclear to me how much he has been drinking recently before he was admitted. Will check an MRI of the brain and a carotid ultrasound. I note his echocardiogram done on the showed an ejection fraction of 35% to 40%, left atrial size moderate to severely dilated measuring 5 cm; and we should, if possible, get him back on anticoagulation as soon as possible. It looks like he was on some IV heparin at one point and his Coumadin had been restarted. INR today 3.3 so the med team is managing that. Overall, I thought he looked well neurologically here. MD JAZLYN Pina/SHANEL , 04:20 PM , 05:03 PM
--- NOTE | 2017-09-16 19:22 | HHI.IDPN ---
Subjective Subjective Remarks ID X cover delayed entry - pt was seen around 1100 he has multiple c/o including hiccups, generalysed weakness, nausea WBC up to 25 K NO diarrhea today, but had 4 BMs yday mild abd pain Antibiotics Current Medications CFTX Lines PIV Past Medical History Atrial fibrillation COPD Spinal stenosis Allergies: Coded Allergies: No Known Allergies (Unverified , 09/09/17) Objective . Vital Signs Date Time Temp Pulse Resp B/P (MAP) Pulse Ox O2 Delivery O2 Flow Rate FiO2 09/16/17 18:29 97.6 99 21 138/87 (104) 96 09/16/17 16:07 98.3 102 18 162/76 (104) 91 09/16/17 12:00 97.7 94 18 119/84 (96) 95 09/16/17 10:30 97.0 94 101/58 (72) 09/16/17 08:26 98 21 09/16/17 08:00 97.6 104 18 140/84 (102) 94 09/16/17 04:04 97.6 85 18 134/87 (103) 94 09/16/17 04:00 98 09/16/17 04:00 93 Room Air 09/16/17 00:05 98.0 87 18 130/87 (101) 94 09/16/17 00:00 95 Room Air 09/16/17 00:00 107 09/15/17 20:32 96 Nasal Cannula 3.00 09/15/17 20:00 98.4 99 18 138/76 (96) 94 09/15/17 20:00 Nasal Cannula 3.00 09/15/17 20:00 105 09/16/17 09/16/17 09/17/17 15:00 23:00 07:00 Intake Total 480 ml Output Total 800 ml Balance -320 ml Intake Oral 480 ml Output Urine Total 800 ml # Voids 2 # Bowel Movements 1 . Laboratory Tests Test 09/15/17 02:13 09/16/17 04:20 White Blood Count 17.3 TH/MM3 25.6 TH/MM3 Red Blood Count 4.56 MIL/MM3 4.71 MIL/MM3 Hemoglobin 14.1 GM/DL 14.4 GM/DL Hematocrit 41.8 % 42.9 % Mean Corpuscular Volume 91.5 FL 91.0 FL Mean Corpuscular Hemoglobin 30.9 PG 30.5 PG Mean Corpuscular Hemoglobin Concent 33.7 % 33.5 % Red Cell Distribution Width 14.5 % 14.7 % Platelet Count 226 TH/MM3 297 TH/MM3 Mean Platelet Volume 9.1 FL 9.2 FL Neutrophils (%) (Auto) 89.2 % 85.3 % Lymphocytes (%) (Auto) 4.1 % 5.8 % Monocytes (%) (Auto) 6.6 % 8.3 % Eosinophils (%) (Auto) 0.1 % 0.5 % Basophils (%) (Auto) 0.0 % 0.1 % Neutrophils # (Auto) 15.4 TH/MM3 21.8 TH/MM3 Lymphocytes # (Auto) 0.7 TH/MM3 1.5 TH/MM3 Monocytes # (Auto) 1.1 TH/MM3 2.1 TH/MM3 Eosinophils # (Auto) 0.0 TH/MM3 0.1 TH/MM3 Basophils # (Auto) 0.0 TH/MM3 0.0 TH/MM3 CBC Comment AUTO DIFF AUTO DIFF Differential Total Cells Counted 100 100 Neutrophils % (Manual) 73 % 70 % Band Neutrophils % 4 % 5 % Lymphocytes % 3 % 10 % Monocytes % 9 % 4 % Neutrophils # (Manual) 15.2 TH/MM3 22.0 TH/MM3 Metamyelocytes 3 % 5 % Myelocytes 8 % 6 % Differential Comment FINAL DIFF MANUAL FINAL DIFF MANUAL Toxic Granulation 1+ 1+ Platelet Estimate NORMAL NORMAL Platelet Morphology Comment ENLARGED NORMAL Laboratory Tests Test 09/15/17 02:13 09/16/17 04:20 Blood Urea Nitrogen 62 MG/DL 55 MG/DL Creatinine 1.50 MG/DL 1.37 MG/DL Random Glucose 112 MG/DL 106 MG/DL Calcium Level 8.4 MG/DL 8.5 MG/DL Sodium Level 137 MEQ/L 137 MEQ/L Potassium Level 4.0 MEQ/L 3.8 MEQ/L Chloride Level 102 MEQ/L 101 MEQ/L Carbon Dioxide Level 30.4 MEQ/L 26.0 MEQ/L Anion Gap 5 MEQ/L 10 MEQ/L Estimat Glomerular Filtration Rate 46 ML/MIN 51 ML/MIN Magnesium Level 2.2 MG/DL Imaging Last Impressions Head CT 09/16/17 1025 Signed Impressions: Service Date/Time: Saturday, September 16, 2017 11:18 - CONCLUSION: Negative for acute process. Te Frances MD FACR Chest X-Ray 09/13/17 0600 Signed Impressions: Service Date/Time: Wednesday, September 13, 2017 05:11 - CONCLUSION: Increasing bilateral airspace opacities. Chandan Ortez MD Myocardial Perfusion Scan [facility] 09/12/17 0000 Signed Impressions: Service Date/Time: September 13:40 - CONCLUSION: Normal examination. RISK CATEGORY: Low (<1%% Annual Mortality Rate) Reagan Yusuf MD Gall Bladder Ultrasound 09/10/17 0000 Signed Impressions: Service Date/Time: Sunday, September 10, 2017 11:30 - CONCLUSION: 1. Cholelithiasis. However, there are no findings to indicate acute cholecystitis. 2. Small right pleural effusion. Constantin Lopez MD Chest CT 09/10/17 0000 Signed Impressions: Service Date/Time: Sunday, September 10, 2017 21:13 - CONCLUSION: 1. Small to moderate bilateral effusions and bibasilar atelectasis. Silverio Stout MD Abdomen/Pelvis CT 09/09/178 Signed Impressions: Service Date/Time: Saturday, September 09, 2017 20:30 - CONCLUSION: 1. Small bilateral pleural effusions, left greater than right with basilar dependent airspace disease in the lungs. Mild anasarca. No bowel obstruction. No free air. Mild constipation. Bruce catheter in bladder. Sal Terrazas MD Knee X-Ray 09/09/17 0000 Signed Impressions: Service Date/Time: Saturday, September 09, 2017 13:49 - CONCLUSION: 1. Moderate to large joint effusion. No acute osseous abnormality is identified. 2. 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 3. Bridger-Stieda lesion indicating old medial collateral ligament injury. 4. Severe calcification of the popliteal artery. Constantin Lopez MD Hip and Pelvis X-Ray 09/09/17 0000 Signed Impressions: Service Date/Time: Saturday, September 09, 2017 17:02 - CONCLUSION: No acute left hip abnormality is identified. 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 Constantin Lopez MD Physical Exam GENERAL: awake and alert, Looks uncomfortable Hiccuping SKIN: Warm and dry. No generalized rash, no ecchymoses and no evidence of embolic lesions. + mottling noted HEAD: Atraumatic. Normocephalic. No temporal wasting, or tenderness. EYES: [place] conjunctiva. No petechia or hemorrhage. Pupils equal, round and reactive to light. Extraocular movements full and intact. No scleral icterus. No injection or drainage. EARS, NOSE AND THROAT: moist oral mucosa. dentition in fair condition CARDIOVASCULAR: Tachycardic, irregular rate and rhythm. No murmurs, rubs or gallops heard RESPIRATORY: Decreased BS at bases ABDOMEN: Mildly distended, bowel sounds present and normoactive. Has mild diffuse abdominal tenderness. No guarding. No rebound. No organomegaly. EXTREMITIES: No clubbing, finger tips cyanosis resolved RLE minimal edema. R knee incision is dry clean no edema or erythema NEUROLOGICAL: Awake and alert. Cranial nerves grossly intact. Motor grossly within normal limits. PSYCHIATRIC: Normal affect, calm and cooperative. LINE: No evidence of infection Assessment & Plan Remarks IMPRESSION Shock, E.coli sepis E coli Sepsis source? - likely R knee R septic knee E.coli S/P debridement: clinically improving Renal insufficiency, ?baseline, or due to sepsis, or hypotension SOB, known COPD, but likely due to fluid Atrial fib NSTEMI Worsneing leukocytosis ? source Suspected stroke - neuro ff CT neg MRI P RECOMMENDATION cont CFTX fu repeat BC Eventually can be switched to PO levaquine to complete tx for barrow septic joint infection, providing pt repeat clx remain negative Paula Gibson MD Sep 16, 2017 19:22
[2017-09-16] MEDS: cefTRIAXone INJ 2,000 MG in SODIUM CHLORIDE 0.9% INJ 100 ML IV SCH (21:01)
[2017-09-17] MEDS: RESP: ALBUTEROL 2.5 MG/IPRATROPIUM 0.5 MG NEB (SCH) NEB ×3 (03:36→15:54)
[2017-09-17 04:26] VITALS: BP 142/81; PULSE 94; RESP 20; TEMP 97.8; O2SAT 96
[2017-09-17] MEDS: ACETAMINOPHEN/HYDROcodone 325 MG/5 MG TAB PO PRN (06:02)
[2017-09-17] MEDS: HYDROCORTISONE SOD SUCCINATE 100 MG VIAL IV PUSH SCH ×3 (06:02→21:42)
--- NOTE | 2017-09-17 07:48 | HHI.PR ---
Objective Vital Signs Date Time Temp Pulse Resp B/P (MAP) Pulse Ox O2 Delivery O2 Flow Rate FiO2 09/17/17 04:26 97.8 94 20 142/81 (101) 96 09/16/17 21:47 21 09/16/17 19:00 Room Air 09/16/17 18:29 97.6 99 21 138/87 (104) 96 09/16/17 16:07 98.3 102 18 162/76 (104) 91 09/16/17 16:00 Room Air 09/16/17 12:00 Room Air 09/16/17 12:00 97.7 94 18 119/84 (96) 95 09/16/17 10:30 97.0 94 101/58 (72) 09/16/17 10:13 142 09/16/17 09:34 145 09/16/17 08:26 98 21 09/16/17 08:00 133 09/16/17 08:00 97.6 104 18 140/84 (102) 94 09/16/17 08:00 Room Air I/O 09/16/17 09/16/17 09/16/17 09/17/17 09/17/17 09/17/17 07:00 15:00 23:00 07:00 15:00 23:00 Intake Total 480 ml Output Total 300 ml 800 ml Balance -300 ml -320 ml Intake Oral 480 ml Output Urine Total 300 ml 800 ml # Voids 4 2 # Bowel Movements 2 1 Result Diagram: 09/16/17 0420 09/16/17 0420 Objective Remarks speech clear still with hiccups awake alert Assessment and Plan Assessment and Plan imp await mri and us overall i think speech changes from hiccups Silverio Lynch MD Sep 17, 2017 07:48
[2017-09-17 08:00] VITALS: BP 137/89; PULSE 89; RESP 20; TEMP 97.8; O2SAT 100
[2017-09-17] MEDS: INSULIN NovoLIN REGULAR SUPPLEMENTAL SCALE SQ SCH ×4 (08:00→21:00)
[2017-09-17] MEDS: FAMOTIDINE 20 MG TAB PO SCH ×2 (09:00→21:41)
[2017-09-17] MEDS: DOCUSATE SODIUM 50 MG/SENNA 8.6 MG TAB PO SCH ×2 (09:00→21:41)
[2017-09-17] MEDS: DILTIAZEM-CD 120 MG CAP ER PO SCH (09:00)
[2017-09-17] MEDS: DULoxetine HCl DR 20 MG CAP PO SCH (09:00)
[2017-09-17] MEDS: METOPROLOL TARTRATE 50 MG TAB PO SCH ×2 (09:00→21:41)
[2017-09-17] MEDS: SODIUM CHLORIDE 0.9% FLUSH 10 ML FLUSH IV FLUSH SCH ×2 (09:00→21:42)
--- NOTE | 2017-09-17 09:50 | RADRPT ---
EXAM DATE/TIME: 09/17/2017 08:53 [facility] COMPARISON: No previous studies available for comparison. INDICATIONS : Cerebrovascular accident. MEDICAL HISTORY : Chronic obstructive pulmonary disease. Atrial fibrillation. Anticoagulant therapy. SURGICAL HISTORY : Eye cyst removed. ENCOUNTER: Initial ACUITY: 2 days PAIN SCORE: 0/10 LOCATION: Bilateral neck PEAK SYSTOLIC VELOCITIES (cm/sec): ICA/CCA RATIO: Right: 0.9 Left: 0.8 ICA: Right: 45 Left: 49 CCA: Right: 51 Left: 60 ECA: Right: 92 Left: 71 VERTEBRAL: Right: 35 antegrade Left: 25 antegrade Elevated flow velocities and ICA/CCA ratios have been found to correlate with increased degrees of vessel stenosis, calculated as percentage of diameter relative to a normal segment of distal ICA/CCA FINDINGS: RIGHT CAROTID: Mild atherosclerotic plaquing at the bifurcation. No significant stenosis is visualized. The wavefor ms are within normal limits. LEFT CAROTID: Mild atherosclerotic plaquing at the bifurcation. No significant stenosis is visualized. The wavefor ms are within normal limits. VERTEBRAL ARTERIES: Antegrade flow is seen in both vertebral arteries. MISCELLANEOUS: None. CONCLUSION: Mild atherosclerotic plaquing at the bifurcation. No focal high grade or hemodynamically significant stenosis. Camden Quintero MD on September 17, 2017 at 9:48 Board Certified Radiologist. This report was verified electronically.
--- NOTE | 2017-09-17 11:48 | PD.PN.STU ---
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 He has a PPHx of CORY, no psychiatric hospitalizations, suicide attempts, or suicidal ideations, a medical history of CHF, A fib, COPD, septic arthritis, rheumatoid arthritis, acute kidney injury, and sarcoidosis. He reports that he has been taking Cymbalta 20mg daily since 2014. He is oriented x 3 and reports that he has felt very anxious since he has been in the hospital with the septic arthritis. He says that he is irritable, restless, fatigued, has a poor appetite, is getting 3-4 hours of sleep, and can' t concentrate. He states that he often worries about the things that are going on in his life. He is very worried about missing an upcoming vacation due to this new infection. He reports that the most stressful thing in his life at this time is his hospitalization. The patient also reports that he has intractable hiccups all day and nothing has helped. He drinks about 1-2 alcoholic drinks a day, has never used tobacco, and denies recreational drug use. He denies any suicidal or homicidal ideations and denies audio or visual hallucinations. He denies any family psychiatric history. During the evaluation no gross cognitive impairment is observed. Objective Vitals Vital Signs Date Time Temp Pulse Resp B/P (MAP) Pulse Ox O2 Delivery O2 Flow Rate FiO2 09/17/17 08:00 97.8 89 20 137/89 (105) 100 09/17/17 04:26 97.8 94 20 142/81 (101) 96 09/16/17 21:47 21 09/16/17 19:00 Room Air 09/16/17 18:29 97.6 99 21 138/87 (104) 96 09/16/17 16:07 98.3 102 18 162/76 (104) 91 09/16/17 16:00 Room Air 09/16/17 12:00 Room Air 09/16/17 12:00 97.7 94 18 119/84 (96) 95 I/O 09/16/17 09/16/17 09/16/17 09/17/17 09/17/17 09/17/17 07:00 15:00 23:00 07:00 15:00 23:00 Intake Total 480 ml Output Total 300 ml 800 ml Balance -300 ml -320 ml Intake Oral 480 ml Output Urine Total 300 ml 800 ml # Voids 4 2 # Bowel Movements 2 1 Result Diagram: 09/16/1741909/16/17419 Objective Remarks Mental Status Exam: Appearance: uncomfortable, poorly groomed, distracted Behavior: Poor eye contact, restless, hiccuping throughout the interview Speech: normal tone, not rapid, interrupted by hiccups Memory: remote and recent recall was intact Thought Process: linear and organized Thought Content: preoccupied by his medical conditions Mood: "good" Affect: irritable, with limited range, not congruent with mood Insight: Poor Judgement: Poor Impulse Control: Poor SI/HI: denies Delusions: denies Medications and IVs Current Medications Medications (Trade) Dose Ordered Sig/Jet Route PRN Reason Start Time Stop Time Status Last Admin Dose Admin Duloxetine HCl (Cymbalta Dr) 20 mg DAILY PO 09/10/17 09:00 09/16/17 10:22 Sodium Chloride (NS Flush) 2 ml UNSCH PRN IV FLUSH FLUSH AFTER USING IV ACCESS 09/09/17 18:15 09/13/17 16:24 Sodium Chloride (NS Flush) 2 ml BID IV FLUSH 09/09/17 21:00 09/16/17 21:00 Acetaminophen (Tylenol) 650 mg Q6H PRN PO fever 09/09/17 18:15 Hydromorphone HCl (Dilaudid Pf Inj) 1 mg Q4H PRN IV PUSH PAIN SCALE 6 TO 10 09/09/17 18:15 Temazepam (Restoril) 15 mg HS PRN PO INSOMNIA 09/09/17 18:15 09/16/17 00:07 Miscellaneous Information 1 Q361D XX 09/09/17 18:15 Chlorhexidine Gluconate (Chlorhexidine 2% Cloth) Taper DAILY@04 TOP 09/10/17 04:00 09/06/18 03:59 09/10/17 04:00 Chlorhexidine Gluconate (Chlorhexidine 2% Cloth) 3 pack UNSCH PRN TOP HYGIENIC CARE 09/09/17 18:15 Senna/Docusate Sodium (Mar-Colace) 1 tab BID PO 09/09/17 21:00 09/16/17 10:22 Magnesium Hydroxide (Milk Of Magnesia Liq) 30 ml Q12H PRN PO Mild constipation 09/09/17 18:15 09/15/17 14:03 Sennosides (Senokot) 17.2 mg Q12H PRN PO Moderate constipation 09/09/17 18:15 Bisacodyl (Dulcolax Supp) 10 mg DAILY PRN RECTAL SEVERE CONSITIPATION 09/09/17 18:15 09/14/17 23:04 Lactulose (Lactulose Liq) 30 ml DAILY PRN PO SEVERE CONSITIPATION 09/09/17 18:15 09/15/17 14:03 Ondansetron HCl (Zofran Inj) 4 mg Q6H PRN IV PUSH nausea 09/10/17 04:15 Albuterol Sulfate (Albuterol Neb) 2.5 mg Q2HR NEB PRN NEB dyspnea 09/10/17 07:00 Acetaminophen/ Hydrocodone Bitart ([place] 5-325 Mg) 1 tab Q4H PRN PO pain 1-5 09/10/17 08:00 09/17/17 06:02 Dextrose (D50w (Vial) Inj) 50 ml UNSCH PRN IV PUSH HYPOGLYCEMIA-SEE COMMENTS 09/10/17 08:30 Glucagon (Glucagon Inj) 1 mg UNSCH PRN OTHER HYPOGLYCEMIA-SEE COMMENTS 09/10/17 08:30 Insulin Human Regular (NovoLIN R SUPPLEMENTAL SCALE) 1 ACHS SLIDING SCALE SQ 09/10/17 12:00 Hydrocortisone Sodium Succinate (SoluCORTEF INJ) 50 mg Q8HR IV PUSH 09/11/17 14:00 09/17/17 06:02 Famotidine (Pepcid) 10 mg BID PO 09/11/17 21:00 09/16/17 21:01 Metoprolol Tartrate (Lopressor) 50 mg Q12HR PO 09/13/17 21:00 09/16/17 21:01 Warfarin Sodium (Coumadin) 4 mg Q48H PO 09/15/17 16:00 Future Hold 09/15/17 16:00 Warfarin Sodium (Coumadin) 4 mg Q48H PO 09/14/17 16:00 Future Hold 09/14/17 17:45 Miscellaneous (Pill Splitter) 1 ea UNSCH PRN OTHER SEE LABEL COMMENTS 09/13/17 15:15 Warfarin Sodium (Coumadin) 0.5 mg Q48H PO 09/15/17 16:00 Future Hold 09/15/17 17:19 Albuterol/ Ipratropium (Duoneb Neb) 1 ampule Q6HR NEB NEB 09/13/17 16:00 09/16/17 08:23 Diltiazem HCl (Cardizem Cd) 120 mg DAILY PO 09/14/17 09:00 09/16/17 10:22 Ceftriaxone Sodium 2000 mg/ Sodium Chloride 100 ml @ 200 mls/hr Q24H IV 09/13/17 21:00 09/16/17 21:01 Pharmacy Profile Note 0 ml @ 0 mls/hr UNSCH OTHER 09/14/17 11:15 Alprazolam (Xanax) 0.125 mg Q8HR PRN PO anxiety 09/15/17 14:15 09/16/17 15:23 Diltiazem HCl (Cardizem) 30 mg Q6HR PRN PO HR sustained > 120 09/16/17 12:00 Metoclopramide HCl (Reglan) 10 mg Q8HR PRN PO hiccups 09/16/17 12:00 A/P Assessment and Plan The patient is a 72 male with a PPHx of CORY, no psychiatric hospitalizations, suicide attempts, or suicidal ideations, a medical history of CHF, A fib, COPD, septic arthritis, rheumatoid arthritis, acute kidney injury, and sarcoidosis. 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 He has become more anxious since his hospitalization began and expresses worry over his medical conditions as well as external stressors. He denies any suicidal or homicidal ideations. He plans to fly back to [place] when he is released from the hospital. He has been on a low dose of Cymbalta (20mg) for 2 years. The patient will benefit from an increased dose so we will begin Cymbalta 60mg PO Daily. We also recommend Thorazine 25mg at bedtime for his hiccups. We will give the patient Hydroxyzine 25mg Q6 hours PRN for breakthrough anxiety. Patient does not meet criteria for involuntary psychiatric admission right now. We will provide supportive psychotherapy, psychoeducation provided. Jackson العراقي M3 Sep 17, 2017 11:48
--- NOTE | 2017-09-17 12:20 | PD.PSY.CON ---
Provisional Diagnosis Admission Date Sep 09, 2017 at 18:11 [place] I. CORY [place] II. Deferred [place] III. COPD, CHF, A. fib, arthritis, rheumatoid arthritis, History of Present Illness Service Psychiatry Consult Requested By Medical team Reason for Consult Anxiety Primary Care Physician No Primary Care Physician HPI Note written by medical student: Jackson العراقي, revised and edited by me. 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 He has a PPHx of CORY, no psychiatric hospitalizations, suicide attempts, or suicidal ideations, a medical history of CHF, A fib, COPD, septic arthritis, rheumatoid arthritis, acute kidney injury, and sarcoidosis. He reports that he has been taking Cymbalta 20mg daily since 2014. He is oriented x 3 and reports that he has felt very anxious since he has been in the hospital with the septic arthritis. He says that he is irritable, restless, fatigued, has a poor appetite, is getting 3-4 hours of sleep, and can' t concentrate. He states that he often worries about the things that are going on in his life. He is very worried about missing an upcoming vacation due to this new infection. He reports that the most stressful thing in his life at this time is his hospitalization. The patient also reports that he has intractable hiccups all day and nothing has helped. He drinks about 1-2 alcoholic drinks a day, has never used tobacco, and denies recreational drug use. He denies any suicidal or homicidal ideations and denies audio or visual hallucinations. He denies any family psychiatric history. During the evaluation no gross cognitive impairment is observed. Review of Systems Constitutional: DENIES: Diaphoretic episodes, Fatigue, Fever, Weight gain, Weight loss, Chills, Dizziness, Change in appetite, Night Sweats Endocrine: DENIES: Heat/cold intolerance, Polydipsia, Polyuria, Polyphagia Eyes: DENIES: Blurred vision, Diplopia, Eye inflammation, Eye pain, Vision loss , Photosensitivity, Double Vision Ears, nose, mouth, throat: DENIES: Tinnitus, Hearing loss, Vertigo, Nasal discharge, Oral lesions, Throat pain, Hoarseness, Ear Pain, Running Nose, Epistaxis, Sinus Pain, Toothache, Odynophagia Respiratory: DENIES: Apneas, Cough, Snoring, Wheezing, Hemoptysis, Sputum production, Shortness of breath Cardiovascular: DENIES: Chest pain, Palpitations, Syncope, Dyspnea on Exertion , PND, Lower Extremity Edema, Orthopnea, Claudication Gastrointestinal: DENIES: Abdominal pain, Black stools, Bloody stools, Constipation, Diarrhea, Nausea, Vomiting, Difficulty Swallowing, Anorexia Genitourinary: DENIES: Sexual dysfunction, Urinary frequency, Urinary incontinence, Urgency, Hematuria, Dysuria, Nocturia, Penile Discharge, Testicular Pain, Testicular Swelling Musculoskeletal: DENIES: Joint pain, Muscle aches, Stiffness, Joint Swelling, Back pain, Neck pain Integumentary: DENIES: Abnormal pigmentation, Nail changes, Pruritus, Rash Hematologic/lymphatic: DENIES: Bruising, Lymphadenopathy Immunologic/allergic: DENIES: Eczema, Urticaria Neurologic: DENIES: Abnormal gait, Headache, Localized weakness, Paresthesias, Seizures, Speech Problems, Tremor, Poor Balance Psychiatric: COMPLAINS OF: Anxiety Other GI: Hiccups Past Family Social History Coded Allergies: No Known Allergies (Unverified , 09/09/17) Active Scripts Diltiazem CD 24 HR (Diltiazem CD 24 HR) 120 Mg Caper, 120 MG PO DAILY for Blood Pressure Management, #30 CAP Prov:Yeimy John MD 09/15/17 Metoprolol Tartrate (Lopressor) 50 Mg Tab, 50 MG PO Q12HR for Blood Pressure Management, #60 TAB Prov:Yeimy John MD 09/15/17 Reported Medications Warfarin (Warfarin) 4 Mg Tab, 4 MG PO EVERY OTHER DAY for Blood Clot Prevention , #30 TAB 0 Refills 09/09/17 Warfarin (Warfarin) 2 Mg Tab, 4.5 MG PO EVERY OTHER DAY for Blood Clot Prevention, #30 TAB 0 Refills 09/09/[address] (Duloxetine DR) 20 Mg Capdr, 20 MG PO DAILY, #30 CAP 0 Refills 09/09/17 Current Medications Medications (Trade) Dose Ordered Sig/Jet Route Start Time Stop Time Status Last Admin (Cymbalta Dr) 20 mg DAILY PO 09/10/17 09:00 09/17/17 09:00 (NS Flush) 2 ml UNSCH PRN IV FLUSH 09/09/17 18:15 09/13/17 16:24 (NS Flush) 2 ml BID IV FLUSH 09/09/17 21:00 09/16/17 21:00 (Tylenol) 650 mg Q6H PRN PO 09/09/17 18:15 (Dilaudid Pf Inj) 1 mg Q4H PRN IV PUSH 09/09/17 18:15 (Restoril) 15 mg HS PRN PO 09/09/17 18:15 09/16/17 00:07 Miscellaneous Information 1 Q361D XX 09/09/17 18:15 (Chlorhexidine 2% Cloth) Taper DAILY@04 TOP 09/10/17 04:00 09/06/18 03:59 09/10/17 04:00 (Chlorhexidine 2% Cloth) 3 pack UNSCH PRN TOP 09/09/17 18:15 (Mar-Colace) 1 tab BID PO 09/09/17 21:00 09/17/17 09:00 (Milk Of Magnesia Liq) 30 ml Q12H PRN PO 09/09/17 18:15 09/15/17 14:03 (Senokot) 17.2 mg Q12H PRN PO 09/09/17 18:15 (Dulcolax Supp) 10 mg DAILY PRN RECTAL 09/09/17 18:15 09/14/17 23:04 (Lactulose Liq) 30 ml DAILY PRN PO 09/09/17 18:15 09/15/17 14:03 (Zofran Inj) 4 mg Q6H PRN IV PUSH 09/10/17 04:15 (Albuterol Neb) 2.5 mg Q2HR NEB PRN NEB 09/10/17 07:00 ([place] 5-325 Mg) 1 tab Q4H PRN PO 09/10/17 08:00 09/17/17 06:02 (D50w (Vial) Inj) 50 ml UNSCH PRN IV PUSH 09/10/17 08:30 (Glucagon Inj) 1 mg UNSCH PRN OTHER 09/10/17 08:30 (NovoLIN R SUPPLEMENTAL SCALE) 1 ACHS SLIDING SCALE SQ 09/10/17 12:00 (SoluCORTEF INJ) 50 mg Q8HR IV PUSH 09/11/17 14:00 09/17/17 06:02 (Pepcid) 10 mg BID PO 09/11/17 21:00 09/17/17 09:00 (Lopressor) 50 mg Q12HR PO 09/13/17 21:00 09/17/17 09:00 (Coumadin) 4 mg Q48H PO 09/15/17 16:00 Future Hold 09/15/17 16:00 (Coumadin) 4 mg Q48H PO 09/14/17 16:00 Future Hold 09/14/17 17:45 (Pill Splitter) 1 ea UNSCH PRN OTHER 09/13/17 15:15 (Coumadin) 0.5 mg Q48H PO 09/15/17 16:00 Future Hold 09/15/17 17:19 (Duoneb Neb) 1 ampule Q6HR NEB NEB 09/13/17 16:00 09/16/17 08:23 (Cardizem Cd) 120 mg DAILY PO 09/14/17 09:00 09/17/17 09:00 Ceftriaxone Sodium 2000 mg/ Sodium Chloride 100 ml @ 200 mls/hr Q24H IV 09/13/17 21:00 09/16/17 21:01 Pharmacy Profile Note 0 ml @ 0 mls/hr UNSCH OTHER 09/14/17 11:15 (Xanax) 0.125 mg Q8HR PRN PO 09/15/17 14:15 09/16/17 15:23 (Cardizem) 30 mg Q6HR PRN PO 09/16/17 12:00 (Reglan) 10 mg Q8HR PRN PO 09/16/17 12:00 Family Psych History No family psychiatric history Social History Patient was born and raised in [place], patient is single, lives alone, no kids , 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 2) High level of education Physical Exam Vital Signs Vital Signs Date Time Temp Pulse Resp B/P (MAP) Pulse Ox O2 Delivery O2 Flow Rate FiO2 09/17/17 08:00 97.8 89 20 137/89 (105) 100 09/16/17 21:47 21 09/16/17 19:00 Room Air 09/15/17 20:32 3.00 Lab Results Date/Time Source Procedure Growth Status 09/11/17 05:38 Blood Peripheral Aerobic Blood Culture - Final NO GROWTH IN 5 DAYS Complete 09/11/17 05:38 Blood Peripheral Anaerobic Blood Culture - Final NO GROWTH IN 5 DAYS Complete 09/10/17 09:15 Fluid Synovial Fluid Gram Stain - Final Complete 09/10/17 09:15 Body Fluid Culture - Final Escherichia Coli Complete 09/12/17 11:00 Urine Catheterized Urine Urine Culture - Final NO GROWTH IN 48 HOURS. Complete 09/11/17 16:00 Wound Leg Fungal Smear - Final NO FUNGAL ELEMENTS SEEN. Resulted 09/11/17 16:00 Wound Leg Fungal Culture Pending Resulted Mental Status Examination Appearance: Appropriate Consciousness: Alert Orientation: x4 Motor Activity: Normal gait Speech: Unremarkable Language: Adequate Fund of Knowledge: Adequate Attention and Concentration: Adequate Memory: Unremarkable Mood: Anxious Affect: Irritable Thought Process & Associations: Intact Thought Content: Appropriate Hallucination Type: None Delusion Type: None Suicidal Ideation: No Suicidal Plan: No Suicidal Intention: No Homicidal Ideation: No Homicidal Plan: No Homicidal Intention: No Insight: Fair Judgment: Impulsive Assessment & Plan Problem List: (1) Generalized anxiety disorder ICD Codes: F41.1 - Generalized anxiety disorder Assessment & Plan: The patient is a 72 male with a PPHx of CORY, no psychiatric hospitalizations, suicide attempts, or suicidal ideations, a medical history of CHF, A fib, COPD, septic arthritis, rheumatoid arthritis, acute kidney injury, and sarcoidosis. 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 He has become more anxious since his hospitalization began and expresses worry over his medical conditions as well as external stressors. He denies any suicidal or homicidal ideations. Patient is future oriented, he plans to fly back to [place] when he is released from the hospital. He has been on a low dose of Cymbalta (20mg) for 2 years. The patient will benefit from an increased dose so we will begin Cymbalta 60mg PO Daily. We also recommend Thorazine 25mg at bedtime for his hiccups. We will give the patient Hydroxyzine 25mg Q6 hours PRN for breakthrough anxiety. Patient does not meet criteria for involuntary psychiatric admission right now. We will provide supportive psychotherapy, psychoeducation provided. Assessment & Plan Estimated LOS: Yves Tang MD Sep 17, 2017 12:20
[2017-09-17] MEDS ORDERED: hydrOXYzine HCL 25 MG TAB PO STA (12:24)
[2017-09-17] MEDS ORDERED: LORazepam 2 MG/ML VIAL IV PUSH ONE (15:00)
--- NOTE | 2017-09-17 15:45 | HHI.PR ---
Subjective Remarks In bed. She is anxious. Still with hiccups. Says speech is more clear today. No motor or sensory deficit. Had ultrasound of carotids says he cannot tolerate MRI because he feels very anxious. No fever or chills no nausea or vomiting no diarrhea or constipation. Objective Vitals Vital Signs Date Time Temp Pulse Resp B/P (MAP) Pulse Ox O2 Delivery O2 Flow Rate FiO2 09/17/17 08:00 97.8 89 20 137/89 (105) 100 09/17/17 04:26 97.8 94 20 142/81 (101) 96 09/16/17 21:47 21 09/16/17 19:00 Room Air 09/16/17 18:29 97.6 99 21 138/87 (104) 96 09/16/17 16:07 98.3 102 18 162/76 (104) 91 09/16/17 16:00 Room Air I/O 09/16/17 09/16/17 09/16/17 09/17/17 09/17/17 09/17/17 07:00 15:00 23:00 07:00 15:00 23:00 Intake Total 480 ml 720 ml Output Total 300 ml 800 ml 400 ml Balance -300 ml -320 ml 320 ml Intake Oral 480 ml 720 ml Output Urine Total 300 ml 800 ml 400 ml # Voids 4 2 # Bowel Movements 2 1 1 Result Diagram: 09/16/17 0420 09/16/17 0420 Imaging Last Impressions Carotid Artery Ultrasound 09/17/17 1621 Signed Impressions: Service Date/Time: Sunday, September 17, 2017 08:53 - CONCLUSION: Mild atherosclerotic plaquing at the bifurcation. No focal high grade or hemodynamically significant stenosis. Camden Quintero MD Head CT 09/16/17 1025 Signed Impressions: Service Date/Time: Saturday, September 16, 2017 11:18 - CONCLUSION: Negative for acute process. Te Frances MD FACR Chest X-Ray 09/13/17 0600 Signed Impressions: Service Date/Time: Wednesday, September 13, 2017 05:11 - CONCLUSION: Increasing bilateral airspace opacities. Chandan Ortez MD Myocardial Perfusion Scan Nuc Med 09/12/17 0000 Signed Impressions: Service Date/Time: September 13:40 - CONCLUSION: Normal examination. RISK CATEGORY: Low (<1%% Annual Mortality Rate) Reagan Yusuf MD Gall Bladder Ultrasound 09/10/17 0000 Signed Impressions: Service Date/Time: Sunday, September 10, 2017 11:30 - CONCLUSION: 1. Cholelithiasis. However, there are no findings to indicate acute cholecystitis. 2. Small right pleural effusion. Constantin Lopez MD Chest CT 09/10/17 0000 Signed Impressions: Service Date/Time: Sunday, September 10, 2017 21:13 - CONCLUSION: 1. Small to moderate bilateral effusions and bibasilar atelectasis. Silverio Stout MD Abdomen/Pelvis CT 09/09/17 1738 Signed Impressions: Service Date/Time: Saturday, September 09, 2017 20:30 - CONCLUSION: 1. Small bilateral pleural effusions, left greater than right with basilar dependent airspace disease in the lungs. Mild anasarca. No bowel obstruction. No free air. Mild constipation. Bruce catheter in bladder. Sal Terrazas MD Knee X-Ray 09/09/17 0000 Signed Impressions: Service Date/Time: Saturday, September 09, 2017 13:49 - CONCLUSION: 1. Moderate to large joint effusion. No acute osseous abnormality is identified. 2. 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 3. Bridger-Stieda lesion indicating old medial collateral ligament injury. 4. Severe calcification of the popliteal artery. Constantin Lopez MD Hip and Pelvis X-Ray 09/09/17 0000 Signed Impressions: Service Date/Time: Saturday, September 09, 2017 17:02 - CONCLUSION: No acute left hip abnormality is identified. 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 Constantin Lopez MD Objective Remarks GENERAL: 72-year-old male currently resting in bed in no acute respiratory distress on 3.5 L nasal cannula SKIN: Pale and dry. No rash HEAD: Normocephalic. Atraumatic EYES: Peoples around 3 mm bilaterally and reactive. No scleral icterus or injection. NECK: Supple, trachea midline. No JVD or lymphadenopathy. CARDIOVASCULAR: Tachycardic, IR. S1, S2. No S4. Without murmur RESPIRATORY: Breath sounds equal bilaterally. No accessory muscle use. GASTROINTESTINAL: Abdomen soft, non-tender, nondistended. MUSCULOSKELETAL: Right knee status post I&D. BASIM removed. Sutures are clean dry and intact covered with Xeroform positive edema lower extremity NEURO EXAM: Cranial nerves II through XII grossly intact. Strength appears to be equal and symmetric bilaterally. Normal sensation Date of Insertion: Sep 09, 2017 Line: Central Venous Catheter Side: Right Location: Femoral A/P Assessment and Plan Neuro/Psych: Depression Duloxetine 20 mg p.o. daily/home medication will be continued. Add xanax as need as patient is more anxious at this time. Consult psyc ff, appreciate recommendations. Acetaminophen 650 mg by mouth every 6 hours as needed for fever Consult psychiatry Slurred speech Patient complaints of abnormal speech r/o CVA Hiccups on reglan, might consider Thorazine CT head w/o contrast no acute findings Consult neurology, ff. NO motor/sensory deficit US carotids reviewed and no significant stenosis Plan for MRI however patient is very anxious will give ativan before going to MRI On IVF keep normotensive, normoglycemic CV: Systolic heart failure unknown if acute or chronic Atrial fibrillation with rapid ventricular response History of chronic atrial fibrillation Elevated troponin Moderate MR Lactic acidosis -resolved Severe sepsis secondary to E. coli bacteremia resolved They will discontinue diltiazem drip for rate control heart rate around 100 with mean atrial pressure greater than 65 goals Switch diltiazem to oral 30 mg every 6 hours. 220 mg daily in a.m. Started on metoprolol tartrate 25 mg p.o. twice daily by cardiology Cardiology consultation Dr. Hanna -medical management initially now scheduled for adenosine Cardiolite negative 2D echocardiogram revealed EF 35-40%. Bilateral atrial enlargement. Moderate MR. trend troponins. Stress test low risk, likely 2/2 demand ischemia/poor renal clearance Patient is on no medications for blood pressure or rate control at home Lactate cleared from severe sepsis S/p stress test low risk Now with tachycardia . Check stat EKG. BMP and [facility] ff Resp: Acute respiratory insufficiency, resolving History of COPD Bilateral small pleural effusions Nasal cannula to maintain saturations greater than or equal to 92%. Currently at 3 L Incentive spirometry while awake Albuterol/ipratropium aerosols every 6 hours with albuterol aerosols every 2 hours as needed Chest x-ray in a.m. 09/11 revealed mild to moderate bilateral pulmonary effusions with vascular congestion. CT thorax revealed bilateral pleural effusions Patient with worsening leukocytosis, discussed with Dr Heard ID ff GI: Hypoalbuminemia Mild anasarca Cholelithiasis without cholecystitis on ultrasound Patient is currently in a regular diet Famotidine for GI prophylaxis Docusate sodium/senna 1 tablet twice daily for bowel regimen : Bruce catheter has been placed for accurate I's and O's in a critically ill patient Endo: Chronic prednisone use -history of rheumatoid arthritis Sliding scale insulin Novulin R medium regimen with Accu-Cheks maintain euglycemia TSH 2.57 Start on hydrocortisone 50 mg IV every 8 hours Patient does not know his home prednisone dose. Renal: Right renal cyst -3 cm Acute on chronic kidney injury - ATN, AIN? Unknown baseline creatinine Consult nephrology appreciated. Continue to follow No hydronephrosis on CT abdomen/pelvis Monitor urine output Accurate I's and O's Heme: Chronic warfarin use Elevated PTT Elevated fibrinogen Resuming warfarin 4.5 mg as 4 mg. Okayed for heparin drip by orthopedics Received 1 unit FFP 09/10. CBC within normal limits. Recheck in a.m. Consult pharm for Coumadin, monitor INR ID: Severe sepsis resolving -knee effusion ? Septic joint E. coli bacteremia Piperacillin/tazobactam DCd. Currently on ceftriaxone, might consider levaquin at DC per Id. However with elevated WBC repeat blood cultures and follow Vancomycin discontinued Infectious disease consultation appreciate recommendations Microbiology Blood cultures -09/11 -no growth Synovial fluid -09/10 -E. coli Intra-Op cultures -09/10 -no growth Blood cultures -09/09 -E. coli UA 09/12 pending FEN: Hypocalcemia Replace electrolytes as clinically indicated per ICU electrolyte protocol MSK: Right knee effusion s/p Irrigation and debridement right knee on 09/10/[address] Kai del cid X-ray right knee reveal tricompartment osteophytes with medial space joint narrowing. Coarse ossifications of the supracondylar ridge. Popliteal artery calcification. Bridger Stieda lesion revealing possible old MCL injury Large right knee effusion Orthopedics weightbearing as tolerated. Range of motion Change dressings daily #2 postop. PT evaluate and treat Access -Right femoral CVL day #5 placed in ED. Remove 3/2 Prophylaxis -GI -famotidine -DVT -SCD/heparin drip Discussed with the patient, nurse PT recommends home with home health. DC home with home health when arrangements done and cleared by ID. Awaiting for ID final recommendations. 3/ However WBC are trending up , not cleared by ID discussed with Dr Heard ID, ff Also slurred speech 3 work up pending PT recommends SNF Yeimy John MD Sep 17, 2017 15:45
[2017-09-17 16:00] VITALS: BP 151/90; PULSE 88; RESP 20; TEMP 97.9; O2SAT 95
[2017-09-17 16:48] VITALS: O2SAT 95
[2017-09-17 20:00] VITALS: BP 135/78; PULSE 107; RESP 19; TEMP 97.8; O2SAT 96
--- NOTE | 2017-09-17 20:12 | RADRPT ---
EXAM DATE/TIME: 09/17/2017 18:17 [place] COMPARISON: CT BRAIN W/O CONTRAST, September 16, 2017, 11:18. INDICATIONS : CVA. Altered mental status, MEDICAL HISTORY : None. SURGICAL HISTORY : None. ENCOUNTER: Initial ACUITY: 1 day PAIN SCORE: 0/10 LOCATION: Head. TECHNIQUE: Multiplanar, multisequence MRI of the brain was performed without contrast. Rapid scanning sequences were used. FINDINGS: CEREBRUM: The ventricles are normal for age. No evidence of midline shift, mass lesion, hemorrhage or acute in farction. No extraaxial fluid collections are seen. The pituitary gland and suprasellar cistern are normal in configuration. WHITE MATTER: No significant signal abnormalities are seen in the white matter. POSTERIOR FOSSA: The cerebellum and brainstem are intact. The 4th ventricle is midline. The cerebellopontine angle is unremarkable. The cerebellar tonsils are normal in position. DIFFUSION IMAGING: No focal areas of restricted diffusion are seen. No evidence of acute infarction. EXTRACRANIAL: The visualized portions of the orbits and paranasal sinuses are unremarkable. 11 mm right posterior parietal scalp cystic lesion. CONCLUSION: Negative noncontrast MRI of the brain. Chandan Ortez MD on September 17, 2017 at 20:08 Board Certified Radiologist. This report was verified electronically.
[2017-09-17] MEDS: hydrOXYzine HCL 25 MG TAB PO SCH (21:42)
[2017-09-17] MEDS: cefTRIAXone INJ 2,000 MG in SODIUM CHLORIDE 0.9% INJ 100 ML IV SCH (21:42)
[2017-09-17 22:37] LABS: AUTOMATED NEUTROPHIL # 21.6 TH/MM3 (1.8-7.7); BASOPHIL # 0.1 TH/MM3 (0-0.2); BASOPHIL % 0.6 % (0.0-2.0); EOSINOPHIL % 0.2 % (0.0-4.0); HEMATOCRIT 41.9 % (39.0-51.0); HEMOGLOBIN 13.8 GM/DL (13.0-17.0); LYMPH % 5.1 % (9.0-44.0); LYMPHOCYTE # 1.2 TH/MM3 (1.0-4.8); MEAN CELL VOLUME 91.9 FL (80.0-100.0); MEAN CORPUSCULAR HEMOGLOBIN 30.3 PG (27.0-34.0); MEAN CORPUSCULAR HGB CONC 32.9 % (32.0-36.0); MEAN PLATELET VOLUME 8.5 FL (7.0-11.0); MONO % 5.8 % (0.0-8.0); MONOCYTE # 1.4 TH/MM3 (0-0.9); NEUT % 88.3 % (16.0-70.0); PLATELET COUNT 401 TH/MM3 (150-450); RED BLOOD COUNT 4.56 MIL/MM3 (4.50-5.90); RED CELL DISTRIBUTION WIDTH 14.2 % (11.6-17.2); WHITE BLOOD COUNT 24.4 TH/MM3 (4.0-11.0)
[2017-09-17 22:50] LABS: BICARBONATE 31.9 MEQ/L (21.0-32.0); CREATININE 1.22 MG/DL (0.60-1.30); INTERNATIONAL NORMALIZED RATIO 2.9 RATIO; PROTHROMBIN TIME - PATIENT 28.8 SEC (9.8-11.6)
[2017-09-17 23:08] VITALS: BP 142/92; PULSE 91; RESP 17; TEMP 98.3; O2SAT 92
[2017-09-17 23:38] LABS: BANDS 9 % (0-6); MONOCYTES 4 % (0-8); MYELOCYTES 1 % (0-0); NEUTROPHIL # MANUAL DIFF 22.4 TH/MM3 (1.8-7.7); POLYS (SEG NEUTROPHILS) 82 % (16-70)
[2017-09-17 23:39] LABS: LYMPHOCYTES 4 % (9-44); TOXIC GRANULATION 1+ (NORMAL)
[2017-09-18] MEDS: TEMAZEPAM 15 MG CAP PO PRN (00:12)
[2017-09-18] MEDS: hydrOXYzine HCL 25 MG TAB PO SCH ×3 (04:00→20:00)
[2017-09-18] MEDS: CHLORHEXIDINE GLUCONATE 2 % 1 PACK (2 CLOTHS) TOP SCH ×2 (04:00→10:47)
[2017-09-18] MEDS: HYDROCORTISONE SOD SUCCINATE 100 MG VIAL IV PUSH SCH ×2 (04:47→20:01)
[2017-09-18 05:27] VITALS: BP 142/84; PULSE 89; RESP 18; TEMP 97.6; O2SAT 96
--- NOTE | 2017-09-18 07:50 | HHI.PR ---
Objective Vital Signs Date Time Temp Pulse Resp B/P (MAP) Pulse Ox O2 Delivery O2 Flow Rate FiO2 09/18/17 05:27 97.6 89 18 142/84 (103) 96 09/18/17 04:06 Room Air 09/18/17 04:00 Room Air 09/18/17 00:00 Room Air 09/17/17 23:11 Nasal Cannula 2.00 09/17/17 23:08 98.3 91 17 142/92 (109) 92 09/17/17 23:00 Room Air 09/17/17 20:00 97.8 107 19 135/78 (97) 96 09/17/17 16:48 95 21 09/17/17 16:00 Room Air 09/17/17 16:00 97.9 88 20 151/90 (110) 95 09/17/17 12:00 Room Air 09/17/17 08:00 97.8 89 20 137/89 (105) 100 I/O 09/17/17 09/17/17 09/17/17 09/18/17 09/18/17 09/18/17 07:00 15:00 23:00 07:00 15:00 23:00 Intake Total 720 ml Output Total 400 ml 700 ml Balance 320 ml -700 ml Intake Oral 720 ml Output Urine Total 400 ml 700 ml # Bowel Movements 1 Result Diagram: 09/17/17220409/17/172204 Objective Remarks speech clear still with hiccups nl repetition vff awake alert Assessment and Plan Assessment and Plan imp mri and us both nl overall i think speech changes from hiccups afib restart coumadin? will sign off Silverio Lynch MD Sep 18, 2017 07:50
[2017-09-18] MEDS: INSULIN NovoLIN REGULAR SUPPLEMENTAL SCALE SQ SCH ×4 (08:00→20:01)
[2017-09-18 08:01] VITALS: BP 162/89; PULSE 97; RESP 20; TEMP 97.7; O2SAT 94
[2017-09-18 09:20] LABS: AUTOMATED NEUTROPHIL # 21.2 TH/MM3 (1.8-7.7); BASOPHIL % 0.1 % (0.0-2.0); EOSINOPHIL # 0.1 TH/MM3 (0-0.4); EOSINOPHIL % 0.2 % (0.0-4.0); HEMATOCRIT 43.6 % (39.0-51.0); LYMPHOCYTE # 0.9 TH/MM3 (1.0-4.8); MEAN CELL VOLUME 92.2 FL (80.0-100.0); MEAN CORPUSCULAR HEMOGLOBIN 29.7 PG (27.0-34.0); MEAN CORPUSCULAR HGB CONC 32.2 % (32.0-36.0); MEAN PLATELET VOLUME 8.5 FL (7.0-11.0); MONO % 4.2 % (0.0-8.0); NEUT % 91.5 % (16.0-70.0); PLATELET COUNT 464 TH/MM3 (150-450); RED BLOOD COUNT 4.73 MIL/MM3 (4.50-5.90); RED CELL DISTRIBUTION WIDTH 14.6 % (11.6-17.2); WHITE BLOOD COUNT 23.2 TH/MM3 (4.0-11.0)
[2017-09-18 09:26] LABS: INTERNATIONAL NORMALIZED RATIO 2.6 RATIO; PROTHROMBIN TIME - PATIENT 26.6 SEC (9.8-11.6)
[2017-09-18 09:38] LABS: CALCIUM 7.9 MG/DL (8.5-10.1); CREATININE 1.23 MG/DL (0.60-1.30)
--- NOTE | 2017-09-18 10:05 | HHI.IDPN ---
Subjective Subjective Remarks Patient is a 72-year-old male, presented to the hospital for evaluation of severe knee pain, and inability to ambulate. He started having some problems about a week ago when he was still in [place]. He was just feeling some malaise and generalized weakness. He had a scheduled medication to come to [place], and arrived [place] 4 days ago. He started noticing some knee pain, and it's usually worse when he puts weight on it and he walked on it. He does not really recall any significant trauma or injury, denies any fall. He started using a cane. He got progressively worse as far as his generalized weakness, and the pain started getting worse so he presented to the hospital for further evaluation and treatment. He denies any significant respiratory complaint. He denies any urinary complaint. There's been no nausea or vomiting. He's had constipation which is unusual for him. Denies any chest pain or any palpitations. On presentation to the emergency room, patient was found to be hypotensive and has required fluid resuscitation. He was in A. fib with RVR. His WBC is normal but he has bandemia. His creatinine is elevated. Lactic is elevated. CT of the abdomen and pelvis did not show any intra- abdominal process, but he has some bilateral pleural effusions. X-ray of the knee showed evidence of moderate effusion. Orthopedics saw the patient, and got very little fluid in the knee because he was very viscous. Patient currently has borderline blood pressure. He is not on pressors. He remains in A. fib with RVR. He has been afebrile since admission. Patient continues to have pain in his right knee, and also complains of pain in the right hip. He also has low back pain. Infectious disease consultation has been requested to evaluate the patient with sepsis. Notes reviewed Had some problem with slurred speech several days ago along with intractable hiccups Still having very frequent hiccups, but slightly less Neuro evaluation negative WBC went up to 27K, down to 23K Had some diarrhea, better, stool soft No complaints No abdominal pain States he gets SOB when he gets the hiccups very close together No rash or itching Works with PT Antibiotics Current Medications Medications (Trade) Dose Ordered Sig/Jet Route Start Time Stop Time Status Last Admin (NS Flush) 2 ml UNSCH PRN IV FLUSH 09/09/17 18:15 09/13/17 16:24 (NS Flush) 2 ml BID IV FLUSH 09/09/17 21:00 09/17/17 21:42 (Tylenol) 650 mg Q6H PRN PO 09/09/17 18:15 (Dilaudid Pf Inj) 1 mg Q4H PRN IV PUSH 09/09/17 18:15 (Restoril) 15 mg HS PRN PO 09/09/17 18:15 09/18/17 00:12 Miscellaneous Information 1 Q361D XX 09/09/17 18:15 (Chlorhexidine 2% Cloth) Taper DAILY@04 TOP 09/10/17 04:00 09/06/18 03:59 09/10/17 04:00 (Chlorhexidine 2% Cloth) 3 pack UNSCH PRN TOP 09/09/17 18:15 (Mar-Colace) 1 tab BID PO 09/09/17 21:00 09/17/17 21:41 (Milk Of Magnesia Liq) 30 ml Q12H PRN PO 09/09/17 18:15 09/15/17 14:03 (Senokot) 17.2 mg Q12H PRN PO 09/09/17 18:15 (Dulcolax Supp) 10 mg DAILY PRN RECTAL 09/09/17 18:15 09/14/17 23:04 (Lactulose Liq) 30 ml DAILY PRN PO 09/09/17 18:15 09/15/17 14:03 (Zofran Inj) 4 mg Q6H PRN IV PUSH 09/10/17 04:15 (Albuterol Neb) 2.5 mg Q2HR NEB PRN NEB 09/10/17 07:00 ([place] 5-325 Mg) 1 tab Q4H PRN PO 09/10/17 08:00 09/17/17 06:02 (D50w (Vial) Inj) 50 ml UNSCH PRN IV PUSH 09/10/17 08:30 (Glucagon Inj) 1 mg UNSCH PRN OTHER 09/10/17 08:30 (NovoLIN R SUPPLEMENTAL SCALE) 1 ACHS SLIDING SCALE SQ 09/10/17 12:00 (SoluCORTEF INJ) 50 mg Q8HR IV PUSH 09/11/17 14:00 09/18/17 04:47 (Lopressor) 50 mg Q12HR PO 09/13/17 21:00 09/17/17 21:41 (Coumadin) 4 mg Q48H PO 09/15/17 16:00 Future Hold 09/15/17 16:00 (Coumadin) 4 mg Q48H PO 09/14/17 16:00 Future Hold 09/14/17 17:45 (Pill Splitter) 1 ea UNSCH PRN OTHER 09/13/17 15:15 (Coumadin) 0.5 mg Q48H PO 09/15/17 16:00 Future Hold 09/15/17 17:19 (Cardizem Cd) 120 mg DAILY PO 09/14/17 09:00 09/17/17 09:00 Ceftriaxone Sodium 2000 mg/ Sodium Chloride 100 ml @ 200 mls/hr Q24H IV 09/13/17 21:00 09/17/17 21:42 Pharmacy Profile Note 0 ml @ 0 mls/hr UNSCH OTHER 09/14/17 11:15 (Cardizem) 30 mg Q6HR PRN PO 09/16/17 12:00 (Reglan) 10 mg Q8HR PRN PO 09/16/17 12:00 (Cymbalta Dr) 60 mg DAILY PO 09/18/17 09:00 (Atarax) 25 mg Q8H PO 09/17/17 20:00 09/18/17 04:00 (Pepcid) 20 mg BID PO 09/18/17 21:00 (Levaquin) 750 mg DAILY PO 09/18/17 09:45 UNV Lines PIV Past Medical History Atrial fibrillation COPD Spinal stenosis Allergies: Coded Allergies: No Known Allergies (Unverified , 09/09/17) Objective . Vital Signs Date Time Temp Pulse Resp B/P (MAP) Pulse Ox O2 Delivery O2 Flow Rate FiO2 09/18/17 08:01 97.7 97 20 162/89 (113) 94 09/18/17 05:27 97.6 89 18 142/84 (103) 96 09/18/17 04:06 Room Air 09/18/17 04:00 Room Air 09/18/17 00:00 Room Air 09/17/17 23:11 Nasal Cannula 2.00 09/17/17 23:08 98.3 91 17 142/92 (109) 92 09/17/17 23:00 Room Air 09/17/17 20:00 97.8 107 19 135/78 (97) 96 09/17/17 16:48 95 21 09/17/17 16:00 Room Air 09/17/17 16:00 97.9 88 20 151/90 (110) 95 09/17/17 12:00 Room Air . Laboratory Tests Test 09/17/17 22:05 09/18/17 07:45 White Blood Count 24.4 TH/MM3 23.2 TH/MM3 Red Blood Count 4.56 MIL/MM3 4.73 MIL/MM3 Hemoglobin 13.8 GM/DL 14.0 GM/DL Hematocrit 41.9 % 43.6 % Mean Corpuscular Volume 91.9 FL 92.2 FL Mean Corpuscular Hemoglobin 30.3 PG 29.7 PG Mean Corpuscular Hemoglobin Concent 32.9 % 32.2 % Red Cell Distribution Width 14.2 % 14.6 % Platelet Count 401 TH/MM3 464 TH/MM3 Mean Platelet Volume 8.5 FL 8.5 FL Neutrophils (%) (Auto) 88.3 % 91.5 % Lymphocytes (%) (Auto) 5.1 % 4.0 % Monocytes (%) (Auto) 5.8 % 4.2 % Eosinophils (%) (Auto) 0.2 % 0.2 % Basophils (%) (Auto) 0.6 % 0.1 % Neutrophils # (Auto) 21.6 TH/MM3 21.2 TH/MM3 Lymphocytes # (Auto) 1.2 TH/MM3 0.9 TH/MM3 Monocytes # (Auto) 1.4 TH/MM3 1.0 TH/MM3 Eosinophils # (Auto) 0.0 TH/MM3 0.1 TH/MM3 Basophils # (Auto) 0.1 TH/MM3 0.0 TH/MM3 CBC Comment AUTO DIFF AUTO DIFF Differential Total Cells Counted 100 Neutrophils % (Manual) 82 % Band Neutrophils % 9 % Lymphocytes % 4 % Monocytes % 4 % Neutrophils # (Manual) 22.4 TH/MM3 Myelocytes 1 % Differential Comment FINAL DIFF MANUAL Atypical Lymphocytes % Toxic Granulation 1+ Platelet Estimate NORMAL Platelet Morphology Comment NORMAL Red Cell Morphology Comment NORMAL Laboratory Tests Test 09/17/17 22:05 09/18/17 07:45 Blood Urea Nitrogen 43 MG/DL 39 MG/DL Creatinine 1.22 MG/DL 1.23 MG/DL Random Glucose 121 MG/DL 104 MG/DL Calcium Level 8.0 MG/DL 7.9 MG/DL Sodium Level 140 MEQ/L 137 MEQ/L Potassium Level 3.9 MEQ/L 4.0 MEQ/L Chloride Level 103 MEQ/L 102 MEQ/L Carbon Dioxide Level 31.9 MEQ/L 29.0 MEQ/L Anion Gap 5 MEQ/L 6 MEQ/L Estimat Glomerular Filtration Rate 58 ML/MIN 58 ML/MIN Imaging Last Impressions Head CT 09/16/17 1025 Signed Impressions: Service Date/Time: Saturday, September 16, 2017 11:18 - CONCLUSION: Negative for acute process. Te Frances MD FACR Chest X-Ray 09/13/17 0600 Signed Impressions: Service Date/Time: Wednesday, September 13, 2017 05:11 - CONCLUSION: Increasing bilateral airspace opacities. Chandan Ortez MD Myocardial Perfusion Scan [facility] 09/12/17 0000 Signed Impressions: Service Date/Time: September 13:40 - CONCLUSION: Normal examination. RISK CATEGORY: Low (<1%% Annual Mortality Rate) Reagan Yusuf MD Gall Bladder Ultrasound 09/10/17 0000 Signed Impressions: Service Date/Time: Sunday, September 10, 2017 11:30 - CONCLUSION: 1. Cholelithiasis. However, there are no findings to indicate acute cholecystitis. 2. Small right pleural effusion. Constantin Lopez MD Chest CT 09/10/17 0000 Signed Impressions: Service Date/Time: Sunday, September 10, 2017 21:13 - CONCLUSION: 1. Small to moderate bilateral effusions and bibasilar atelectasis. Silverio Stout MD Abdomen/Pelvis CT 09/09/17 1738 Signed Impressions: Service Date/Time: Saturday, September 09, 2017 20:30 - CONCLUSION: 1. Small bilateral pleural effusions, left greater than right with basilar dependent airspace disease in the lungs. Mild anasarca. No bowel obstruction. No free air. Mild constipation. Bruce catheter in bladder. Sal Terrazas MD Knee X-Ray 09/09/17 0000 Signed Impressions: Service Date/Time: Saturday, September 09, 2017 13:49 - CONCLUSION: 1. Moderate to large joint effusion. No acute osseous abnormality is identified. 2. 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 3. Bridger-Stieda lesion indicating old medial collateral ligament injury. 4. Severe calcification of the popliteal artery. Constantin Lopez MD Hip and Pelvis X-Ray 09/09/17 0000 Signed Impressions: Service Date/Time: Saturday, September 09, 2017 17:02 - CONCLUSION: No acute left hip abnormality is identified. 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 Constantin Lopez MD Physical Exam GENERAL: awake and alert, Looks uncomfortable and hiccuping SKIN: Warm and dry. No generalized rash, no ecchymoses and no evidence of embolic lesions. HEAD: Atraumatic. Normocephalic. No temporal wasting, or tenderness. EYES: [place] conjunctiva. No petechia or hemorrhage. Pupils equal, round and reactive to light. Extraocular movements full and intact. No scleral icterus. No injection or drainage. EARS, NOSE AND THROAT: moist oral mucosa. dentition in fair condition CARDIOVASCULAR: Rate controlled RESPIRATORY: Decreased BS at bases ABDOMEN: Soft and not distended, bowel sounds present and normoactive. No guarding. No rebound. No organomegaly. EXTREMITIES: No clubbing. RLE minimal edema. R knee incision is dry clean. Good ROM. NEUROLOGICAL: Awake and alert. Cranial nerves grossly intact. Motor grossly within normal limits. PSYCHIATRIC: Normal affect, calm and cooperative. LINE: No evidence of infection Assessment & Plan Remarks IMPRESSION Shock, E.coli sepis, resolved E coli Sepsis source? - due to septic R knee R septic knee E.coli S/P debridement: clinically improving Renal insufficiency, ?baseline, or due to sepsis, or hypotension SOB, known COPD, but likely due to fluid Atrial fib NSTEMI Leukocytosis, better - no new infection found Frequent hiccups RECOMMENDATION Continue CFTX while in the hospital Start Levaquin to see if will tolerate in anticiptaion of D/C Control Hiccups - ?try Thorazine Will give 3 more weeks oral Abx when he gets D/C Arrangements being made for transport for D/C to his home in [facility] Explained plan to the patient D/W Shiloh Ponce MD Sep 18, 2017 10:05
[2017-09-18 10:09] LABS: BANDS 8 % (0-6); LYMPHOCYTES 4 % (9-44); METAMYELOCYTES 3 % (0-1); MONOCYTES 3 % (0-8); MYELOCYTES 5 % (0-0); NEUTROPHIL # MANUAL DIFF 21.6 TH/MM3 (1.8-7.7); POLYS (SEG NEUTROPHILS) 77 % (16-70)
--- NOTE | 2017-09-18 10:29 | HHI.PR ---
Subjective Remarks Feels better today. No hiccups during my examination. Patient says he still has hiccups. Speech is better. No n/v/d/c. Had forming stool. No fever or chills. Says pain in his right nee is controlled by meds. Objective Vitals Vital Signs Date Time Temp Pulse Resp B/P (MAP) Pulse Ox O2 Delivery O2 Flow Rate FiO2 09/18/17 08:01 97.7 97 20 162/89 (113) 94 09/18/17 05:27 97.6 89 18 142/84 (103) 96 09/18/17 04:06 Room Air 09/18/17 04:00 Room Air 09/18/17 00:00 Room Air 09/17/17 23:11 Nasal Cannula 2.00 09/17/17 23:08 98.3 91 17 142/92 (109) 92 09/17/17 23:00 Room Air 09/17/17 20:00 97.8 107 19 135/78 (97) 96 09/17/17 16:48 95 21 09/17/17 16:00 Room Air 09/17/17 16:00 97.9 88 20 151/90 (110) 95 09/17/17 12:00 Room Air I/O 09/17/17 09/17/17 09/17/17 09/18/17 09/18/17 09/18/17 07:00 15:00 23:00 07:00 15:00 23:00 Intake Total 720 ml Output Total 400 ml 700 ml Balance 320 ml -700 ml Intake Oral 720 ml Output Urine Total 400 ml 700 ml # Bowel Movements 1 Result Diagram: 09/18/17 0745 09/18/17 0745 Imaging Last Impressions Carotid Artery Ultrasound 09/17/17 1621 Signed Impressions: Service Date/Time: Sunday, September 17, 2017 08:53 - CONCLUSION: Mild atherosclerotic plaquing at the bifurcation. No focal high grade or hemodynamically significant stenosis. Camden Quintero MD Brain MRI 09/17/17 1621 Signed Impressions: Service Date/Time: Sunday, September 17, 2017 18:17 - CONCLUSION: Negative noncontrast MRI of the brain. Chandan Ortez MD Head CT 09/16/17 1025 Signed Impressions: Service Date/Time: Saturday, September 16, 2017 11:18 - CONCLUSION: Negative for acute process. Te Frances MD FACR Chest X-Ray 09/13/17 0600 Signed Impressions: Service Date/Time: Wednesday, September 13, 2017 05:11 - CONCLUSION: Increasing bilateral airspace opacities. Chandan Ortez MD Myocardial Perfusion Scan Nuc Med 09/12/17 0000 Signed Impressions: Service Date/Time: September 13:40 - CONCLUSION: Normal examination. RISK CATEGORY: Low (<1%% Annual Mortality Rate) Reagan Yusuf MD Gall Bladder Ultrasound 09/10/17 0000 Signed Impressions: Service Date/Time: Sunday, September 10, 2017 11:30 - CONCLUSION: 1. Cholelithiasis. However, there are no findings to indicate acute cholecystitis. 2. Small right pleural effusion. Constantin Lopez MD Chest CT 09/10/17 0000 Signed Impressions: Service Date/Time: Sunday, September 10, 2017 21:13 - CONCLUSION: 1. Small to moderate bilateral effusions and bibasilar atelectasis. Silverio Stout MD Abdomen/Pelvis CT 09/09/17 1738 Signed Impressions: Service Date/Time: Saturday, September 09, 2017 20:30 - CONCLUSION: 1. Small bilateral pleural effusions, left greater than right with basilar dependent airspace disease in the lungs. Mild anasarca. No bowel obstruction. No free air. Mild constipation. Bruce catheter in bladder. Sal Terrazas MD Knee X-Ray 09/09/17 0000 Signed Impressions: Service Date/Time: Saturday, September 09, 2017 13:49 - CONCLUSION: 1. Moderate to large joint effusion. No acute osseous abnormality is identified. 2. 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 3. Bridger-Stieda lesion indicating old medial collateral ligament injury. 4. Severe calcification of the popliteal artery. Constantin Lopez MD Hip and Pelvis X-Ray 09/09/17 0000 Signed Impressions: Service Date/Time: Saturday, September 09, 2017 17:02 - CONCLUSION: No acute left hip abnormality is identified. 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 Constantin Lopez MD Objective Remarks GENERAL: Pleasant 72-year-old male currently resting in bed in no acute respiratory distress on 2 L nasal cannula. SKIN: Pale and dry. No rash HEAD: Normocephalic. Atraumatic EYES: No scleral icterus or injection. NECK: Supple, trachea midline. No JVD or lymphadenopathy. CARDIOVASCULAR: Tachycardic, IR. S1, S2. No S4. Without murmur RESPIRATORY: Breath sounds equal bilaterally. No accessory muscle use. GASTROINTESTINAL: Abdomen soft, non-tender, nondistended. MUSCULOSKELETAL: Right knee status post I&D. BASIM removed. Sutures are clean dry and intact covered with Xeroform positive edema lower extremity NEURO EXAM: Cranial nerves II through XII grossly intact. Strength appears to be equal and symmetric bilaterally. Normal sensation. Speech is clear. Date of Insertion: Sep 09, 2017 Line: Central Venous Catheter Side: Right Location: Femoral A/P Assessment and Plan Neuro/Psych: Depression Duloxetine increased to 60 mg p.o. daily/home medication. ADD thorazine 25 mg o QHS will also help for hiccups . Add xanax as need as patient is more anxious at this time. Consult psyc ff, appreciate recommendations. Acetaminophen 650 mg by mouth every 6 hours as needed for fever Slurred speech, resolved Patient complaints of abnormal speech r/o CVA Hiccups on reglan, Add Thorazine at night CT head w/o contrast no acute findings Consult neurology, ff. NO motor/sensory deficit US carotids reviewed and no significant stenosis MRI reviewed and normal Cleared by neurology for Dc To continue coumadin CV: Systolic heart failure unknown if acute or chronic Atrial fibrillation with rapid ventricular response History of chronic atrial fibrillation Elevated troponin Moderate MR Lactic acidosis -resolved Severe sepsis secondary to E. coli bacteremia resolved They will discontinue diltiazem drip for rate control heart rate around 100 with mean atrial pressure greater than 65 goals Switch diltiazem to oral 30 mg every 6 hours. 220 mg daily in a.m. Started on metoprolol tartrate 25 mg p.o. twice daily by cardiology Cardiology consultation Dr. Hanna -medical management initially now scheduled for adenosine Cardiolite negative 2D echocardiogram revealed EF 35-40%. Bilateral atrial enlargement. Moderate MR. trend Troponins. Stress test low risk, likely 2/2 demand ischemia/poor renal clearance Patient is on no medications for blood pressure or rate control at home Lactate cleared from severe sepsis S/p stress test low risk Cardiology ff Resp: Acute respiratory insufficiency, resolving History of COPD Bilateral small pleural effusions Nasal cannula to maintain saturations greater than or equal to 92%. Currently at 2 L Incentive spirometry while awake Albuterol/ipratropium aerosols every 6 hours with albuterol aerosols every 2 hours as needed Chest x-ray in a.m. 09/11 revealed mild to moderate bilateral pulmonary effusions with vascular congestion. CT thorax revealed bilateral pleural effusions Patient with worsening leukocytosis, discussed with Dr Covington ID ff. Can have Levaquin 750 mg po daily for 3 weeks at discharge Walking O2 test done today. Patient passed O2 walking test and no need for O2 GI: Hypoalbuminemia Mild anasarca Cholelithiasis without cholecystitis on ultrasound Patient is currently in a regular diet Famotidine for GI prophylaxis Laxatives stool softeners as need if constipation : Bruce catheter has been placed for accurate I's and O's in a critically ill patient Endo: Chronic prednisone use -history of rheumatoid arthritis Sliding scale insulin Novulin R medium regimen with Accu-Cheks maintain euglycemia TSH 2.57 Start on hydrocortisone 50 mg IV every 8 hours, taper down Patient does not know his home prednisone dose. Renal: Right renal cyst -3 cm Acute on chronic kidney injury - ATN, AIN? Unknown baseline creatinine Consult nephrology appreciated. Continue to follow No hydronephrosis on CT abdomen/pelvis Monitor urine output Accurate I's and O's Heme: Chronic warfarin use Elevated PTT Elevated fibrinogen Resuming warfarin 4.5 mg . Okayed for heparin drip bridge by orthopedics Received 1 unit FFP 09/10. CBC within normal limits. Recheck in a.m. Consult pharm for Coumadin, monitor INR ID: Severe sepsis resolving -knee effusion ? Septic joint E. coli bacteremia Piperacillin/tazobactam DCd. Currently on ceftriaxone, Levaquin 750 mg po for 3 weeks at [place] per ID. However with elevated WBC repeat blood cultures are NTD , follow Vancomycin discontinued Infectious disease consultation appreciate recommendations Microbiology Blood cultures 3 -09/11 -no growth Synovial fluid -09/10 -E. coli Intra-Op cultures -09/10 -no growth Blood cultures -09/09 -E. coli UA 09/12 normal FEN: Hypocalcemia Replace electrolytes as clinically indicated MSK: Right knee effusion s/p Irrigation and debridement right knee on 09/10/[address] Kai del cid X-ray right knee reveal tricompartment osteophytes with medial space joint narrowing. Coarse ossifications of the supracondylar ridge. Popliteal artery calcification. Bridger Stieda lesion revealing possible old MCL injury Large right knee effusion Orthopedics weightbearing as tolerated. Range of motion Change dressings daily postop. PT evaluate and treat Access -Right femoral CVL placed in ED. Remove 3/2 Prophylaxis -GI -famotidine -DVT -SCD/heparin drip bridged/coumadin Discussed with the patient, nurse, case management, PT recommends SNF however patient wants to go home with home health. Discussed with case management and with [employer]. [facility] [employer] will fly in [facility] and will come in tomorrow to evaluate for discharge and how the patient can reach safety home back in [place]. DC home needs home health or SNF arranged by his PCP in [place], patient to follow up with his PCP and consultants as OP 3/5 However WBC are trending up , discussed with Dr Heard ID, ff repeat blood cultures. Per Dr Vaughn faust DC on Levaquin 750 mg po x 3 weeks at [place] Also slurred speech 3/5 work up negative cleared by neurology Dr Lynch Cleared for DC by ortho , ID, neuro. Taper solucortef. Give one more dose of solucortef tomorrow AM and discontinue ( order placed). Passed O2 walking test no need for O2 at home DC in 1-2 days if VS stable, if improves and if cleared by consultants Yeimy John MD Sep 18, 2017 10:29
[2017-09-18] MEDS: METOPROLOL TARTRATE 50 MG TAB PO SCH ×2 (11:28→20:00)
[2017-09-18] MEDS: DILTIAZEM-CD 120 MG CAP ER PO SCH (11:28)
[2017-09-18] MEDS: DULoxetine HCl DR 60 MG CAP PO SCH (11:29)
[2017-09-18] MEDS: SODIUM CHLORIDE 0.9% FLUSH 10 ML FLUSH IV FLUSH SCH ×2 (11:29→20:01)
[2017-09-18] MEDS: DOCUSATE SODIUM 50 MG/SENNA 8.6 MG TAB PO SCH ×2 (11:29→21:00)
[2017-09-18] MEDS: LEVOFLOXACIN 750 MG TAB PO SCH (11:37)
[2017-09-18 12:01] VITALS: BP 145/90; PULSE 77; RESP 19; TEMP 97.7; O2SAT 94
[2017-09-18] MEDS: ACETAMINOPHEN/HYDROcodone 325 MG/5 MG TAB PO PRN (14:19)
[2017-09-18] MEDS: METOCLOPRAMIDE HCL 10 MG TAB PO PRN (14:20)
[2017-09-18] MEDS ORDERED: WARFARIN SOD 3 MG TAB PO SCH (16:00)
[2017-09-18 20:00] VITALS: BP 108/69; PULSE 84; RESP 20; TEMP 96.6; O2SAT 94
[2017-09-18] MEDS: FAMOTIDINE 20 MG TAB PO SCH (20:00)
[2017-09-18] MEDS: cefTRIAXone INJ 2,000 MG in SODIUM CHLORIDE 0.9% INJ 100 ML IV SCH (20:01)
[2017-09-18] MEDS ORDERED: HYDROCORTISONE SOD SUCCINATE 100 MG VIAL IV PUSH SCH (21:00)
[2017-09-18] MEDS ORDERED: chlorproMAZINE HCL 25 MG TAB PO SCH (21:00)
[2017-09-19] MEDS: hydrOXYzine HCL 25 MG TAB PO SCH ×3 (03:38→22:31)
[2017-09-19 04:12] VITALS: BP 108/62; PULSE 119; RESP 20; TEMP 96; O2SAT 93
[2017-09-19 05:56] LABS: AUTOMATED NEUTROPHIL # 18.4 TH/MM3 (1.8-7.7); BASOPHIL % 0.1 % (0.0-2.0); EOSINOPHIL % 0.2 % (0.0-4.0); HEMATOCRIT 38.4 % (39.0-51.0); HEMOGLOBIN 12.9 GM/DL (13.0-17.0); LYMPH % 4.8 % (9.0-44.0); MEAN CELL VOLUME 90.8 FL (80.0-100.0); MEAN CORPUSCULAR HEMOGLOBIN 30.6 PG (27.0-34.0); MEAN CORPUSCULAR HGB CONC 33.7 % (32.0-36.0); MEAN PLATELET VOLUME 8.5 FL (7.0-11.0); MONO % 5.3 % (0.0-8.0); MONOCYTE # 1.1 TH/MM3 (0-0.9); NEUT % 89.6 % (16.0-70.0); PLATELET COUNT 464 TH/MM3 (150-450); RED BLOOD COUNT 4.22 MIL/MM3 (4.50-5.90); RED CELL DISTRIBUTION WIDTH 14.6 % (11.6-17.2); WHITE BLOOD COUNT 20.6 TH/MM3 (4.0-11.0)
[2017-09-19 06:08] LABS: INTERNATIONAL NORMALIZED RATIO 3.1 RATIO
[2017-09-19 06:12] LABS: BICARBONATE 28.3 MEQ/L (21.0-32.0); CREATININE 1.11 MG/DL (0.60-1.30)
[2017-09-19 08:00] VITALS: BP 135/84; PULSE 114; PULSE 93; RESP 20; TEMP 97.6; O2SAT 90
[2017-09-19] MEDS: INSULIN NovoLIN REGULAR SUPPLEMENTAL SCALE SQ SCH ×4 (08:00→21:00)
[2017-09-19 08:54] LABS: BANDS 1 % (0-6); LYMPHOCYTES 7 % (9-44); MONOCYTES 1 % (0-8); MYELOCYTES 2 % (0-0); POLYS (SEG NEUTROPHILS) 89 % (16-70)
[2017-09-19] MEDS: SODIUM CHLORIDE 0.9% FLUSH 10 ML FLUSH IV FLUSH SCH ×2 (09:00→22:35)
[2017-09-19] MEDS: METOPROLOL TARTRATE 50 MG TAB PO SCH ×2 (10:01→22:33)
[2017-09-19] MEDS: HYDROCORTISONE SOD SUCCINATE 100 MG VIAL IV PUSH SCH (10:01)
[2017-09-19] MEDS: DILTIAZEM-CD 120 MG CAP ER PO SCH (10:02)
[2017-09-19] MEDS: ACETAMINOPHEN/HYDROcodone 325 MG/5 MG TAB PO PRN (10:02)
[2017-09-19] MEDS: DOCUSATE SODIUM 50 MG/SENNA 8.6 MG TAB PO SCH ×2 (10:02→22:31)
[2017-09-19] MEDS: DULoxetine HCl DR 60 MG CAP PO SCH (10:02)
[2017-09-19] MEDS: METOCLOPRAMIDE HCL 10 MG TAB PO PRN (10:02)
[2017-09-19] MEDS: LEVOFLOXACIN 750 MG TAB PO SCH (10:02)
[2017-09-19] MEDS: FAMOTIDINE 20 MG TAB PO SCH ×2 (10:02→22:32)
--- NOTE | 2017-09-19 12:45 | HHI.PR ---
Subjective Remarks Pt complains of intractable hiccups which have progressively worsen. Pt states that he is now experiencing chest pains which no longer go away when the hiccups stop. rates it a 7/10 at times. States that last night he got a dose of a medication starting w a T and it helped. The hiccups are making him somewhat nauseous but no vomiting reported. no worsening SOB Objective Vitals Vital Signs Date Time Temp Pulse Resp B/P (MAP) Pulse Ox O2 Delivery O2 Flow Rate FiO2 09/19/17 08:00 97.6 93 20 135/84 (101) 90 09/19/17 04:12 Room Air 09/19/17 04:12 96.0 119 20 108/62 (77) 93 09/18/17 20:00 96.6 84 20 108/69 (82) 94 09/18/17 20:00 Room Air 09/18/17 16:00 Room Air I/O 09/18/17 09/18/17 09/18/17 09/19/17 09/19/17 09/19/17 07:00 15:00 23:00 07:00 15:00 23:00 Intake Total 600 ml 240 ml Output Total 700 ml 500 ml 500 ml Balance -700 ml 100 ml -260 ml Intake Oral 600 ml 240 ml Output Urine Total 700 ml 500 ml 500 ml # Bowel Movements 2 0 Result Diagram: 09/19/17 0344 09/19/17 0344 Imaging Last Impressions Carotid Artery Ultrasound 09/17/17 1621 Signed Impressions: Service Date/Time: Sunday, September 17, 2017 08:53 - CONCLUSION: Mild atherosclerotic plaquing at the bifurcation. No focal high grade or hemodynamically significant stenosis. Camden Quintero MD Brain MRI 09/17/17 1621 Signed Impressions: Service Date/Time: Sunday, September 17, 2017 18:17 - CONCLUSION: Negative noncontrast MRI of the brain. Chandan Ortez MD Head CT 09/16/17 1025 Signed Impressions: Service Date/Time: Saturday, September 16, 2017 11:18 - CONCLUSION: Negative for acute process. Te Frances MD FACR Chest X-Ray 09/13/17 0600 Signed Impressions: Service Date/Time: Wednesday, September 13, 2017 05:11 - CONCLUSION: Increasing bilateral airspace opacities. Chandan Ortez MD Myocardial Perfusion Scan Nuc Med 09/12/17 0000 Signed Impressions: Service Date/Time: September 13:40 - CONCLUSION: Normal examination. RISK CATEGORY: Low (<1%% Annual Mortality Rate) Reagan Yusuf MD Gall Bladder Ultrasound 09/10/17 0000 Signed Impressions: Service Date/Time: Sunday, September 10, 2017 11:30 - CONCLUSION: 1. Cholelithiasis. However, there are no findings to indicate acute cholecystitis. 2. Small right pleural effusion. Constantin Lopez MD Chest CT 09/10/17 0000 Signed Impressions: Service Date/Time: Sunday, September 10, 2017 21:13 - CONCLUSION: 1. Small to moderate bilateral effusions and bibasilar atelectasis. Silverio Stout MD Abdomen/Pelvis CT 09/09/178 Signed Impressions: Service Date/Time: Saturday, September 09, 2017 20:30 - CONCLUSION: 1. Small bilateral pleural effusions, left greater than right with basilar dependent airspace disease in the lungs. Mild anasarca. No bowel obstruction. No free air. Mild constipation. Bruce catheter in bladder. Sal Terrazas MD Knee X-Ray 09/09/17 Signed Impressions: Service Date/Time: Saturday, September 09, 2017 13:49 - CONCLUSION: 1. Moderate to large joint effusion. No acute osseous abnormality is identified. 2. 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 3. Bridger-Stieda lesion indicating old medial collateral ligament injury. 4. Severe calcification of the popliteal artery. Constantin Lopez MD Hip and Pelvis X-Ray 09/09/17 0000 Signed Impressions: Service Date/Time: Saturday, September 09, 2017 17:02 - CONCLUSION: No acute left hip abnormality is identified. 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 Constantin Lopez MD Objective Remarks GENERAL: laying in bed, no NC noted NECK: Supple, CARDIOVASCULAR: HR in the 100-110 irregular. RESPIRATORY: Breath sounds equal bilaterally. No accessory muscle use. GASTROINTESTINAL: Abdomen soft, non-tender, nondistended. MUSCULOSKELETAL: Right knee status post I&D. Sutures are clean dry and intact covered with Xeroform positive edema lower extremity NEURO EXAM: moves extremities, has multiple hiccups Date of Insertion: Sep 09, 2017 Line: Central Venous Catheter Side: Right Location: Femoral A/P Assessment and Plan Depression Duloxetine increased to 60 mg p.o. daily/home medication. thorazine 25 mg o QHS will also help for hiccups . Consult psyc ff, appreciate recommendations. Acetaminophen 650 mg by mouth every 6 hours as needed for fever Slurred speech, resolved Patient complaints of abnormal speech r/o CVA d/c reglan, and increase dose of Thorazine to q8hr as pt seems to have some response to it last night CT head w/o contrast no acute findings Consult neurology, ff. NO motor/sensory deficit US carotids reviewed and no significant stenosis MRI reviewed and normal Cleared by neurology for Dc To continue coumadin, INR 3.1 today Systolic heart failure unknown if acute or chronic Atrial fibrillation with rapid ventricular response History of chronic atrial fibrillation Elevated troponin Moderate MR Lactic acidosis -resolved Severe sepsis secondary to E. coli bacteremia resolved on cardizem extended release and as needed. s/p cardizem gtt on metoprolol tartrate 50 mg p.o. twice daily by cardiology Cardiology consultation Dr. Hanna -s/p for adenosine Cardiolite negative/low risk. I personally discussed today w Dr. Hanna and he is convinced that pt's chest pains today is not cardiac related and recommends getting GI on board for recs regarding hiccups. GI consult placed. 2D echocardiogram revealed EF 35-40%. Bilateral atrial enlargement. Moderate MR. Acute respiratory insufficiency, resolved History of COPD Bilateral small pleural effusions Incentive spirometry while awake Albuterol/ipratropium aerosols every 6 hours with albuterol aerosols every 2 hours as needed Chest x-ray in a.m. 09/11 revealed mild to moderate bilateral pulmonary effusions with vascular congestion. CT thorax revealed bilateral pleural effusions Patient with worsening leukocytosis, discussed with Dr Covington ID ff. Currently on IV rocephin and can transition to Levaquin 750 mg po daily for 3 weeks at discharge Hypoalbuminemia Mild anasarca Cholelithiasis without cholecystitis on ultrasound regular diet Famotidine for GI prophylaxis Laxatives stool softeners as need if constipation Chronic prednisone use -history of rheumatoid arthritis completed course of steroids Sliding scale insulin Novulin R medium regimen with Accu-Cheks maintain euglycemia TSH 2.57 Patient does not know his home prednisone dose. Per PCP pt does have a hx of polymyalgia rheumatica. continue to taper dose of po prednisone. 50mg po today, then 40mg tomorrow and continue taper. Right renal cyst -3 cm Acute on chronic kidney injury - ATN, AIN? Unknown baseline creatinine nephrology recs appreciated. Continue to follow No hydronephrosis on CT abdomen/pelvis Chronic warfarin use Elevated PTT Elevated fibrinogen Resuming warfarin 4.5 mg . Okayed for heparin drip bridge by orthopedics Received 1 unit FFP 09/10. CBC within normal limits. Recheck in a.m. Consult pharm for Coumadin, monitor INR Severe sepsis resolving -knee effusion ? Septic joint E. coli bacteremia Piperacillin/tazobactam DCd. Currently on ceftriaxone, Levaquin 750 mg po for 3 weeks at [place] per ID. However with elevated WBC repeat blood cultures are NTD , follow Vancomycin discontinued Infectious disease consultation appreciate recommendations Right knee effusion s/p Irrigation and debridement right knee on 09/10/[address] Kai del cid X-ray right knee reveal tricompartment osteophytes with medial space joint narrowing. Coarse ossifications of the supracondylar ridge. Popliteal artery calcification. Bridger Stieda lesion revealing possible old MCL injury Large right knee effusion Orthopedics weightbearing as tolerated. Range of motion Change dressings daily postop. PT evaluate and treat. PT did recommend rehab but pt refused. -DVT -SCD/coumadin Discharge Planning PT recommends SNF however patient wants to go home with home health. Discussed with case management and with [employer]. due to weather in [place] cannot fly pt out today. I personally spoke w Pt's PCP Dr. Enio Roa [phone] and he provided us w info of home health agency: [facility] [phone]. I have provided this information to for arrangements. Face to face completed. Per Dr Mendes can DC on Levaquin 750 mg po x 3 weeks at [place] Cleared for DC by ortho , ID, neuro. Please send pt home on taper po prednisone. GI consulted for intractable hiccups.awaiting final recs anticipate d/c in 1-2 days if arrangements can be made for transport to Queta Magdaleno MD Sep 19, 2017 12:45
--- NOTE | 2017-09-19 13:35 | HHI.FF ---
Face to Face Verification Diagnosis: (1) Effusion of right knee (2) Septic arthritis of knee (3) Acute renal failure (4) Atrial fibrillation Physical Therapy Order: Evaluate and Treat Home Health Nursing Order: Nursing assessment with vital signs I have seen patient Vasile Burnett, II on 09/19/17. My clinical findings support the need for the requested home health care services because: PT evaluated the pt and recommended rehab however pt refused rehab and would like to get home health PT. High risk of falls I certify that my clinical findings support that this patient is homebound because: PT evaluated the pt and recommended rehab however pt refused rehab and would like to get home health PT. Unsteady gait/balance Queta Esteban MD Sep 19, 2017 13:35
--- NOTE | 2017-09-19 16:28 | PD.CONS ---
HPI History of Present Illness This is a 72 year old male with AF on coumadin who origninally presented for knee pain and was found to have infected knee. GI has been consulted for 10 days of hiccups. The hiccups worsened to the point that he was having chest pain. Cardiology is following and it is not felt that his chest pain is not cardiac. Pt had some relief with thorazine, as well as relief after straining to have a BM. No n/v, abd pain, blood in stool or tarry stool. Does not know if he has had an EGD but he had a colonoscopy at [place] 5 y ago that was normal. (Sabrina Beach) PFSH Past Medical History A. fib with RVR, COPD Past Surgical History Denies (Sabrina Beach) Coded Allergies: No Known Allergies (Unverified , 09/09/17) Family History Denies significant heart or lung disease Social History Denies tobacco use. (Sabrina Beach) Review of Systems Constitutional: DENIES: Fever Endocrine: DENIES: Polydipsia Eyes: DENIES: Blurred vision Ears, nose, mouth, throat: DENIES: Hearing loss Respiratory: DENIES: Cough Cardiovascular: DENIES: Chest pain Gastrointestinal: DENIES: Abdominal pain, Black stools, Bloody stools, Nausea, Vomiting Genitourinary: DENIES: Urinary incontinence Musculoskeletal: COMPLAINS OF: Joint pain Integumentary: DENIES: Abnormal pigmentation Hematologic/lymphatic: DENIES: Bruising Immunologic/allergic: DENIES: Eczema Neurologic: DENIES: Abnormal gait Psychiatric: DENIES: Confusion (Sabrina Beach) GI Exam Vitals I&O Vital Signs Date Time Temp Pulse Resp B/P (MAP) Pulse Ox O2 Delivery O2 Flow Rate FiO2 09/19/17 08:00 97.6 93 20 135/84 (101) 90 09/19/17 04:12 Room Air 09/19/17 04:12 96.0 119 20 108/62 (77) 93 09/18/17 20:00 96.6 84 20 108/69 (82) 94 09/18/17 20:00 Room Air I/O 09/18/17 09/18/17 09/18/17 09/19/17 09/19/17 09/19/17 07:00 15:00 23:00 07:00 15:00 23:00 Intake Total 600 ml 240 ml Output Total 700 ml 500 ml 500 ml Balance -700 ml 100 ml -260 ml Intake Oral 600 ml 240 ml Output Urine Total 700 ml 500 ml 500 ml # Bowel Movements 2 0 Imaging Last Impressions Carotid Artery Ultrasound 09/17/17 1621 Signed Impressions: Service Date/Time: Sunday, September 17, 2017 08:53 - CONCLUSION: Mild atherosclerotic plaquing at the bifurcation. No focal high grade or hemodynamically significant stenosis. Camden Quintero MD Brain MRI 09/17/17 1621 Signed Impressions: Service Date/Time: Sunday, September 17, 2017 18:17 - CONCLUSION: Negative noncontrast MRI of the brain. Chandan Ortez MD Head CT 09/16/17 1025 Signed Impressions: Service Date/Time: Saturday, September 16, 2017 11:18 - CONCLUSION: Negative for acute process. Te Frances MD FACR Chest X-Ray 09/13/17 0600 Signed Impressions: Service Date/Time: Wednesday, September 13, 2017 05:11 - CONCLUSION: Increasing bilateral airspace opacities. Chandan Ortez MD Myocardial Perfusion Scan Nuc Med 09/12/17 0000 Signed Impressions: Service Date/Time: September 13:40 - CONCLUSION: Normal examination. RISK CATEGORY: Low (<1%% Annual Mortality Rate) Reagan Yusuf MD Gall Bladder Ultrasound 09/10/17 0000 Signed Impressions: Service Date/Time: Sunday, September 10, 2017 11:30 - CONCLUSION: 1. Cholelithiasis. However, there are no findings to indicate acute cholecystitis. 2. Small right pleural effusion. Constantin oLpez MD Chest CT 09/10/17 0000 Signed Impressions: Service Date/Time: Sunday, September 10, 2017 21:13 - CONCLUSION: 1. Small to moderate bilateral effusions and bibasilar atelectasis. Silverio Stout MD Abdomen/Pelvis CT 09/09/17 1738 Signed Impressions: Service Date/Time: Saturday, September 09, 2017 20:30 - CONCLUSION: 1. Small bilateral pleural effusions, left greater than right with basilar dependent airspace disease in the lungs. Mild anasarca. No bowel obstruction. No free air. Mild constipation. Bruce catheter in bladder. Sal Terrazas MD Knee X-Ray 09/09/17 0000 Signed Impressions: Service Date/Time: Saturday, September 09, 2017 13:49 - CONCLUSION: 1. Moderate to large joint effusion. No acute osseous abnormality is identified. 2. 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 3. Bridger-Stieda lesion indicating old medial collateral ligament injury. 4. Severe calcification of the popliteal artery. Constantin Lopez MD Hip and Pelvis X-Ray 09/09/17 0000 Signed Impressions: Service Date/Time: Saturday, September 09, 2017 17:02 - CONCLUSION: No acute left hip abnormality is identified. 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 Constantin Lopez MD Laboratory Test 09/19/17 03:44 White Blood Count 20.6 TH/MM3 Red Blood Count 4.22 MIL/MM3 Hemoglobin 12.9 GM/DL Hematocrit 38.4 % Mean Corpuscular Volume 90.8 FL Mean Corpuscular Hemoglobin 30.6 PG Mean Corpuscular Hemoglobin Concent 33.7 % Red Cell Distribution Width 14.6 % Platelet Count 464 TH/MM3 Mean Platelet Volume 8.5 FL Neutrophils (%) (Auto) 89.6 % Lymphocytes (%) (Auto) 4.8 % Monocytes (%) (Auto) 5.3 % Eosinophils (%) (Auto) 0.2 % Basophils (%) (Auto) 0.1 % Neutrophils # (Auto) 18.4 TH/MM3 Lymphocytes # (Auto) 1.0 TH/MM3 Monocytes # (Auto) 1.1 TH/MM3 Eosinophils # (Auto) 0.0 TH/MM3 Basophils # (Auto) 0.0 TH/MM3 CBC Comment AUTO DIFF Differential Total Cells Counted 100 Neutrophils % (Manual) 89 % Band Neutrophils % 1 % Lymphocytes % 7 % Monocytes % 1 % Neutrophils # (Manual) 19.0 TH/MM3 Myelocytes 2 % Differential Comment FINAL DIFF MANUAL Platelet Estimate HIGH Platelet Morphology Comment NORMAL Red Cell Morphology Comment NORMAL Prothrombin Time 31.0 SEC Prothromb Time International Ratio 3.1 RATIO Activated Partial Thromboplast Time 38.4 SEC Blood Urea Nitrogen 36 MG/DL Creatinine 1.11 MG/DL Random Glucose 109 MG/DL Calcium Level 8.0 MG/DL Sodium Level 140 MEQ/L Potassium Level 4.0 MEQ/L Chloride Level 104 MEQ/L Carbon Dioxide Level 28.3 MEQ/L Anion Gap 8 MEQ/L Estimat Glomerular Filtration Rate 65 ML/MIN Date/Time Source Procedure Growth Status 09/11/17 05:38 Blood Peripheral Aerobic Blood Culture - Final NO GROWTH IN 5 DAYS Complete 09/11/17 05:38 Blood Peripheral Anaerobic Blood Culture - Final NO GROWTH IN 5 DAYS Complete 09/10/17 09:15 Fluid Synovial Fluid Gram Stain - Final Complete 09/10/17 09:15 Body Fluid Culture - Final Escherichia Coli Complete 09/12/17 11:00 Urine Catheterized Urine Urine Culture - Final NO GROWTH IN 48 HOURS. Complete 09/11/17 16:00 Wound Leg Fungal Smear - Final NO FUNGAL ELEMENTS SEEN. Resulted 09/11/17 16:00 Wound Leg Fungal Culture - Preliminary NO GROWTH IN 1 WEEK Resulted Physical Examination HEENT: PERRL; normocephalic; atraumatic; no jaundice. CHEST: CTA CARDIAC: RRR ABDOMEN: Soft, nondistended, nontender; no hepatosplenomegaly; bowel sounds are present in all four quadrants. hiccuping EXTREMITIES: No clubbing, cyanosis, or edema. SKIN: Normal; no rash; no jaundice. CONFERENCE SERVICES COORDINATOR: No focal deficits; alert and oriented times three. (S[place]rina [place]) Assessment and Plan Plan ASSESSMENT - hiccuping - for 10 days, causing chest discomfort. Cardiology does not feel CPis cardiac and wanted GI opinion. some relief with thorazine, vagal maneuver would need to stop coumadin for PT to have EGD PLAN - recommend EGD but pt is on coumadin with INR 3.1 - thorazine PRN - TRISHA - further recs to follow pt seen by myself and Dr Thomas and this note is on his behalf (Sabrina [place]) Physician Comments Will follow response to treatment prior to endoscopic treatment. Will follow up with you. (Karolina Thomas MD) Sabrina Beach Sep 19, 2017 16:28 Karolina Thomas MD Sep 20, 2017 06:40
[2017-09-19 17:15] VITALS: O2SAT 90
[2017-09-19 20:00] VITALS: PULSE 96
[2017-09-19 22:29] VITALS: BP 111/72; PULSE 75; RESP 18; TEMP 97.4; O2SAT 95
[2017-09-19] MEDS: chlorproMAZINE HCL 25 MG TAB PO SCH (22:33)
[2017-09-19] MEDS: cefTRIAXone INJ 2,000 MG in SODIUM CHLORIDE 0.9% INJ 100 ML IV SCH (22:34)
[2017-09-19 23:20] VITALS: BP 100/60; PULSE 129; RESP 20; TEMP 98; O2SAT 97
[2017-09-20] VITALS (8 sets, daily range): BP systolic 90–119; BP diastolic 52–70; PULSE 75–113; RESP 16–18; TEMP 97.4–98.6; O2SAT 93–96
[2017-09-20] MEDS: CHLORHEXIDINE GLUCONATE 2 % 1 PACK (2 CLOTHS) TOP SCH (03:22)
[2017-09-20] MEDS: hydrOXYzine HCL 25 MG TAB PO SCH ×3 (04:37→21:42)
[2017-09-20] MEDS: chlorproMAZINE HCL 25 MG TAB PO SCH ×3 (04:38→21:42)
[2017-09-20] MEDS: INSULIN NovoLIN REGULAR SUPPLEMENTAL SCALE SQ SCH ×4 (08:00→21:00)
[2017-09-20] MEDS: METOPROLOL TARTRATE 50 MG TAB PO SCH ×2 (09:00→21:00)
[2017-09-20] MEDS: FAMOTIDINE 20 MG TAB PO SCH ×2 (09:31→21:41)
[2017-09-20] MEDS: LEVOFLOXACIN 750 MG TAB PO SCH (09:31)
[2017-09-20] MEDS: DOCUSATE SODIUM 50 MG/SENNA 8.6 MG TAB PO SCH ×2 (09:31→21:41)
[2017-09-20] MEDS: DULoxetine HCl DR 60 MG CAP PO SCH (09:31)
[2017-09-20] MEDS: SODIUM CHLORIDE 0.9% FLUSH 10 ML FLUSH IV FLUSH SCH ×2 (09:31→21:43)
[2017-09-20] MEDS: DILTIAZEM-CD 120 MG CAP ER PO SCH (09:31)
[2017-09-20 10:20] LABS: INTERNATIONAL NORMALIZED RATIO 3.2 RATIO; PROTHROMBIN TIME - PATIENT 32.1 SEC (9.8-11.6)
--- NOTE | 2017-09-20 11:09 | HHI.PR ---
Subjective Remarks RN denies any deterioration since last night. Pt still has persistent hiccups which are quite evident on exam, hard to obtain history from him. Objective Vital Signs Date Time Temp Pulse Resp B/P (MAP) Pulse Ox O2 Delivery O2 Flow Rate FiO2 09/20/17 08:00 09/20/17 04:55 97.4 79 16 93/64 (74) 94 09/20/17 03:55 75 09/20/17 00:00 78 09/19/17 22:29 97.4 75 18 111/72 (85) 95 09/19/17 20:00 96 09/19/17 19:30 Room Air 09/19/17 17:15 90 21 I/O 09/19/17 09/19/17 09/19/17 09/20/17 09/20/17 09/20/17 06:59 14:59 22:59 06:59 14:59 22:59 Intake Total 240 ml 800 ml 240 ml Output Total 500 ml 350 ml Balance -260 ml 450 ml 240 ml Intake Oral 240 ml 800 ml 240 ml Output Urine Total 500 ml 350 ml # Voids 1 # Bowel Movements 0 1 Result Diagram: 09/19/17 0344 09/19/17 0344 Objective Remarks intractable hiccups evident on exam, otherwise NAD lung sounds clear BL A/P Assessment and Plan Depression Duloxetine 60 mg p.o. daily/home medication. Thorazine 25 mg o QHS will also help for hiccups. Intractable hiccups GI planning for EGD once INR is therapeutic; giving one dose of vit K given INR still > 3.0. NPO after midnight Patient complaints of abnormal speech r/o CVA d/c reglan, and increase dose of Thorazine to q8hr as pt seems to have some response to it last night CT head w/o contrast no acute findings Consult neurology, ff. NO motor/sensory deficit US carotids reviewed and no significant stenosis MRI reviewed and normal Cleared by neurology for Dc holding coumadin, starting heparin Systolic heart failure unknown if acute or chronic Atrial fibrillation with rapid ventricular response History of chronic atrial fibrillation Elevated troponin Moderate MR Lactic acidosis -resolved Severe sepsis secondary to E. coli bacteremia resolved on cardizem extended release and as needed. s/p cardizem gtt on metoprolol tartrate 50 mg p.o. twice daily by cardiology Cardiology consultation Dr. Hanna -s/p for adenosine Cardiolite negative/low risk. I personally discussed today w Dr. Hanna and he is convinced that pt's chest pains today is not cardiac related and recommends getting GI on board for recs regarding hiccups. GI anticipates EGD. 2D echocardiogram revealed EF 35-40%. Bilateral atrial enlargement. Moderate MR. Acute respiratory insufficiency, resolved History of COPD Bilateral small pleural effusions Incentive spirometry while awake Albuterol/ipratropium aerosols every 6 hours with albuterol aerosols every 2 hours as needed Chest x-ray in a.m. 09/11 revealed mild to moderate bilateral pulmonary effusions with vascular congestion. CT thorax revealed bilateral pleural effusions Patient with worsening leukocytosis, discussed with Dr Covington ID ff. Currently on IV rocephin and can transition to Levaquin 750 mg po daily for 3 weeks at discharge Hypoalbuminemia Mild anasarca Cholelithiasis without cholecystitis on ultrasound regular diet Famotidine for GI prophylaxis Laxatives stool softeners as need if constipation Chronic prednisone use -history of rheumatoid arthritis completed course of steroids Sliding scale insulin Novulin R medium regimen with Accu-Cheks maintain euglycemia TSH 2.57 Patient does not know his home prednisone dose. Per PCP pt does have a hx of polymyalgia rheumatica. continue to taper dose of po prednisone. 50mg po today, then 40mg tomorrow and continue taper. Right renal cyst -3 cm Acute on chronic kidney injury - ATN, AIN? Unknown baseline creatinine nephrology recs appreciated. Continue to follow No hydronephrosis on CT abdomen/pelvis Chronic warfarin use Elevated PTT Elevated fibrinogen Okayed for heparin drip bridge by orthopedics Received 1 unit FFP 09/10. CBC within normal limits. Recheck in a.m. Consult pharm for Coumadin, monitor INR Holding warfarin in light of possible EGD, heparin for now Severe sepsis resolving -knee effusion ? Septic joint E. coli bacteremia Currently on ceftriaxone, Levaquin 750 mg po for 3 weeks at [place] per ID. Right knee effusion s/p Irrigation and debridement right knee on 09/10/[address] Kai del cid X-ray right knee reveal tricompartment osteophytes with medial space joint narrowing. Coarse ossifications of the supracondylar ridge. Popliteal artery calcification. Bridger Stieda lesion revealing possible old MCL injury Large right knee effusion Orthopedics weightbearing as tolerated. Range of motion Change dressings daily postop. PT evaluate and treat. PT did recommend rehab but pt refused. -DVT -SCD/coumadin Discharge Planning PT recommends SNF however patient wants to go home with home health. Discussed with case management and with [facility] Transfer [facility]. Per Dr Mendes can DC on Levaquin 750 mg po x 3 weeks at DC Cleared for DC by ortho , ID, neuro. Please send pt home on taper po prednisone. GI consulted for intractable hiccups, anticipate EGD derrick anticipate d/c in 1-2 days if arrangements can be made for transport to [place] - discussed with sample distributor transport for possible 09/22 discharge to outside hospital in [place] Mikey Jorgensen MD Sep 20, 2017 11:09
[2017-09-20] MEDS ORDERED: PHYTONADIONE 10 MG/ML VIAL SQ ONE (11:30)
[2017-09-20] MEDS: HEPARIN SODIUM - SQ 10,000 UNITS/ML VIAL SQ SCH ×2 (12:25→21:42)
--- NOTE | 2017-09-20 12:28 | HHI.GIFU ---
Subjective Remarks Resting in the bed Asking questions, about Coumadin and any further testing Continues with hiccups almost continuous Afebrile INR still 2.3, vitamin K given today (Mona Mendez) Objective Vitals I&O Vital Signs Date Time Temp Pulse Resp B/P (MAP) Pulse Ox O2 Delivery O2 Flow Rate FiO2 09/20/17 08:00 09/20/17 04:55 97.4 79 16 93/64 (74) 94 09/20/17 03:55 75 09/20/17 00:00 78 09/19/17 22:29 97.4 75 18 111/72 (85) 95 09/19/17 20:00 96 09/19/17 19:30 Room Air 09/19/17 17:15 90 21 I/O 09/19/17 09/19/17 09/19/17 09/20/17 09/20/17 09/20/17 07:00 15:00 23:00 07:00 15:00 23:00 Intake Total 240 ml 800 ml 240 ml Output Total 500 ml 350 ml Balance -260 ml 450 ml 240 ml Intake Oral 240 ml 800 ml 240 ml Output Urine Total 500 ml 350 ml # Voids 1 # Bowel Movements 0 1 Laboratory Laboratory Tests Test 09/20/17 06:00 Prothrombin Time 32.1 Prothromb Time International Ratio 3.2 Activated Partial Thromboplast Time 41.1 Date/Time Source Procedure Growth Status 09/11/17 05:38 Blood Peripheral Aerobic Blood Culture - Final NO GROWTH IN 5 DAYS Complete 09/11/17 05:38 Blood Peripheral Anaerobic Blood Culture - Final NO GROWTH IN 5 DAYS Complete 09/10/17 09:15 Fluid Synovial Fluid Gram Stain - Final Complete 09/10/17 09:15 Body Fluid Culture - Final Escherichia Coli Complete 09/12/17 11:00 Urine Catheterized Urine Urine Culture - Final NO GROWTH IN 48 HOURS. Complete 09/11/17 16:00 Wound Leg Fungal Smear - Final NO FUNGAL ELEMENTS SEEN. Resulted 09/11/17 16:00 Wound Leg Fungal Culture - Preliminary NO GROWTH IN 1 WEEK Resulted Imaging Last Impressions Carotid Artery Ultrasound 09/17/17 1621 Signed Impressions: Service Date/Time: Sunday, September 17, 2017 08:53 - CONCLUSION: Mild atherosclerotic plaquing at the bifurcation. No focal high grade or hemodynamically significant stenosis. Camden Quintero MD Brain MRI 09/17/17 1621 Signed Impressions: Service Date/Time: Sunday, September 17, 2017 18:17 - CONCLUSION: Negative noncontrast MRI of the brain. Chandan Ortez MD Head CT 09/16/17 1025 Signed Impressions: Service Date/Time: Saturday, September 16, 2017 11:18 - CONCLUSION: Negative for acute process. Te Frances MD FACR Chest X-Ray 09/13/17 0600 Signed Impressions: Service Date/Time: Wednesday, September 13, 2017 05:11 - CONCLUSION: Increasing bilateral airspace opacities. Chandan Ortez MD Myocardial Perfusion Scan Nuc Med 09/12/17 0000 Signed Impressions: Service Date/Time: September 13:40 - CONCLUSION: Normal examination. RISK CATEGORY: Low (<1%% Annual Mortality Rate) Reagan Yusuf MD Gall Bladder Ultrasound 09/10/17 0000 Signed Impressions: Service Date/Time: Sunday, September 10, 2017 11:30 - CONCLUSION: 1. Cholelithiasis. However, there are no findings to indicate acute cholecystitis. 2. Small right pleural effusion. Constantin Lopez MD Chest CT 09/10/17 0000 Signed Impressions: Service Date/Time: Sunday, September 10, 2017 21:13 - CONCLUSION: 1. Small to moderate bilateral effusions and bibasilar atelectasis. Silverio Stout MD Abdomen/Pelvis CT 09/09/17 1738 Signed Impressions: Service Date/Time: Saturday, September 09, 2017 20:30 - CONCLUSION: 1. Small bilateral pleural effusions, left greater than right with basilar dependent airspace disease in the lungs. Mild anasarca. No bowel obstruction. No free air. Mild constipation. Bruce catheter in bladder. Sal Terrazas MD Knee X-Ray 09/09/17 0000 Signed Impressions: Service Date/Time: Saturday, September 09, 2017 13:49 - CONCLUSION: 1. Moderate to large joint effusion. No acute osseous abnormality is identified. 2. 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 3. Bridger-Stieda lesion indicating old medial collateral ligament injury. 4. Severe calcification of the popliteal artery. Constantin Lopez MD Hip and Pelvis X-Ray 09/09/17 0000 Signed Impressions: Service Date/Time: Saturday, September 09, 2017 17:02 - CONCLUSION: No acute left hip abnormality is identified. 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 Constantin Lopez MD Physical Exam HEENT: Pupils round and reactive to light; normocephalic; atraumatic; NECK: Neck is supple CHEST: Chest is clear to auscultation and percussion., No audible rhonchi, hiccups noted CARDIAC: Regular rate and rhythm with no murmur gallop or rubs. ABDOMEN: Round, Soft, nondistended, nontender; no hepatosplenomegaly; bowel sounds are present in all four quadrants. EXTREMITIES: No clubbing, cyanosis, or edema. SKIN: Normal for age no rash; no jaundice. LITHOGRAPHIC ARTIST: No focal deficits; alert and oriented times 2, continues with hiccups (Mona Mendez) Assessment and Plan Plan ASSESSMENT - hiccuping - for 10 days, causing chest discomfort. Cardiology does not feel CPis cardiac and wanted GI opinion. some relief with thorazine, vagal maneuver would need to stop coumadin for PT to have EGD INR 3.2 today, Coumadin being held sine 09/18/17 PLAN - consider EGD in a.m.,Vitamin K given today. Possible tomorrow. Hold am food until INR ready. INR still 3.2 today - Consent to be signed - thorazine PRN - Atarax -Continue Pepcid PO - TRISHA - further recs to follow, once INR down, planned for EGD pt seen by myself and Dr Thomas and this note is on his behalf (Mona Mendez) Physician Comments Plan as above. Will follow up with you. (Karolina Thomas MD) Mona Mendez Sep 20, 2017 12:28 Karolina Thomas MD Sep 20, 2017 15:34
[2017-09-20 18:07] LABS: INTERNATIONAL NORMALIZED RATIO 2.9 RATIO; PROTHROMBIN TIME - PATIENT 29.7 SEC (9.8-11.6)
[2017-09-20] MEDS: ACETAMINOPHEN/HYDROcodone 325 MG/5 MG TAB PO PRN (21:42)
[2017-09-20] MEDS: cefTRIAXone INJ 2,000 MG in SODIUM CHLORIDE 0.9% INJ 100 ML IV SCH (21:43)
[2017-09-21] VITALS (8 sets, daily range): BP systolic 83–126; BP diastolic 54–72; PULSE 75–129; RESP 18–20; TEMP 97.9–98.3; O2SAT 94–96
[2017-09-21] MEDS: CHLORHEXIDINE GLUCONATE 2 % 1 PACK (2 CLOTHS) TOP SCH (00:08)
[2017-09-21] MEDS: chlorproMAZINE HCL 25 MG TAB PO SCH ×3 (03:18→20:01)
[2017-09-21] MEDS: hydrOXYzine HCL 25 MG TAB PO SCH ×3 (03:18→20:01)
[2017-09-21] MEDS: ACETAMINOPHEN/HYDROcodone 325 MG/5 MG TAB PO PRN ×2 (03:18→21:44)
[2017-09-21 06:33] LABS: HEMATOCRIT 35.8 % (39.0-51.0); HEMOGLOBIN 11.9 GM/DL (13.0-17.0); MEAN CELL VOLUME 92.3 FL (80.0-100.0); MEAN CORPUSCULAR HEMOGLOBIN 30.7 PG (27.0-34.0); MEAN CORPUSCULAR HGB CONC 33.3 % (32.0-36.0); MEAN PLATELET VOLUME 8.9 FL (7.0-11.0); PLATELET COUNT 446 TH/MM3 (150-450); RED BLOOD COUNT 3.88 MIL/MM3 (4.50-5.90); RED CELL DISTRIBUTION WIDTH 14.6 % (11.6-17.2); WHITE BLOOD COUNT 13.7 TH/MM3 (4.0-11.0)
[2017-09-21 06:48] LABS: INTERNATIONAL NORMALIZED RATIO 1.8 RATIO; PROTHROMBIN TIME - PATIENT 17.9 SEC (9.8-11.6)
[2017-09-21] MEDS: INSULIN NovoLIN REGULAR SUPPLEMENTAL SCALE SQ SCH ×4 (08:00→20:31)
[2017-09-21] MEDS: METOPROLOL TARTRATE 50 MG TAB PO SCH ×2 (08:28→20:01)
[2017-09-21] MEDS: DILTIAZEM-CD 120 MG CAP ER PO SCH (08:28)
[2017-09-21] MEDS: DOCUSATE SODIUM 50 MG/SENNA 8.6 MG TAB PO SCH ×2 (08:31→20:01)
[2017-09-21] MEDS: SODIUM CHLORIDE 0.9% FLUSH 10 ML FLUSH IV FLUSH SCH ×2 (08:32→20:01)
[2017-09-21] MEDS: DULoxetine HCl DR 60 MG CAP PO SCH (08:32)
[2017-09-21] MEDS: LEVOFLOXACIN 750 MG TAB PO SCH (08:32)
[2017-09-21] MEDS: FAMOTIDINE 20 MG TAB PO SCH ×2 (08:32→20:00)
--- NOTE | 2017-09-21 11:23 | HHI.GIFU ---
Subjective Remarks Pt is resting in bed, states the hiccups went away sometimes this morning, no other complaints (Amawi,Barawaurelio FOOD SERVICE AGENT) Objective Vitals I&O Vital Signs Date Time Temp Pulse Resp B/P (MAP) Pulse Ox O2 Delivery O2 Flow Rate FiO2 09/21/17 08:00 97.9 75 18 83/54 (64) 96 09/21/17 08:00 Room Air 09/21/17 04:00 98.1 86 20 126/72 (90) 96 09/21/17 04:00 126 09/21/17 00:00 97.9 87 20 101/61 (74) 95 09/21/17 00:00 121 09/20/17 21:50 95 21 09/20/17 20:00 Room Air 09/20/17 20:00 98.6 85 16 117/70 (86) 96 09/20/17 20:00 110 09/20/17 16:00 98.1 97 18 90/52 (65) 93 09/20/17 12:00 95 09/20/17 12:00 103 09/20/17 12:00 98.2 97 18 119/65 (83) 95 I/O 09/20/17 09/20/17 09/20/17 09/21/17 09/21/17 09/21/17 07:00 15:00 23:00 07:00 15:00 23:00 Intake Total 240 ml 100 ml 240 ml Output Total 225 ml Balance 240 ml 100 ml 15 ml Intake Oral 240 ml 240 ml IV Total 100 ml Output Urine Total 225 ml # Voids 1 Laboratory Laboratory Tests Test 09/20/17 17:25 09/21/17 05:01 Prothrombin Time 29.7 SEC 17.9 SEC Prothromb Time International Ratio 2.9 RATIO 1.8 RATIO White Blood Count 13.7 TH/MM3 Red Blood Count 3.88 MIL/MM3 Hemoglobin 11.9 GM/DL Hematocrit 35.8 % Mean Corpuscular Volume 92.3 FL Mean Corpuscular Hemoglobin 30.7 PG Mean Corpuscular Hemoglobin Concent 33.3 % Red Cell Distribution Width 14.6 % Platelet Count 446 TH/MM3 Mean Platelet Volume 8.9 FL Activated Partial Thromboplast Time 33.7 SEC Laboratory Tests Test 09/20/17 17:25 09/21/17 05:01 Prothrombin Time 29.7 17.9 Prothromb Time International Ratio 2.9 1.8 White Blood Count 13.7 Red Blood Count 3.88 Hemoglobin 11.9 Hematocrit 35.8 Mean Corpuscular Volume 92.3 Mean Corpuscular Hemoglobin 30.7 Mean Corpuscular Hemoglobin Concent 33.3 Red Cell Distribution Width 14.6 Platelet Count 446 Mean Platelet Volume 8.9 Activated Partial Thromboplast Time 33.7 Date/Time Source Procedure Growth Status 09/11/17 05:38 Blood Peripheral Aerobic Blood Culture - Final NO GROWTH IN 5 DAYS Complete 09/11/17 05:38 Blood Peripheral Anaerobic Blood Culture - Final NO GROWTH IN 5 DAYS Complete 09/10/17 09:15 Fluid Synovial Fluid Gram Stain - Final Complete 09/10/17 09:15 Body Fluid Culture - Final Escherichia Coli Complete 09/12/17 11:00 Urine Catheterized Urine Urine Culture - Final NO GROWTH IN 48 HOURS. Complete 09/11/17 16:00 Wound Leg Fungal Smear - Final NO FUNGAL ELEMENTS SEEN. Resulted 09/11/17 16:00 Wound Leg Fungal Culture - Preliminary NO GROWTH IN 1 WEEK Resulted Imaging Last Impressions Carotid Artery Ultrasound 09/17/17 1621 Signed Impressions: Service Date/Time: Sunday, September 17, 2017 08:53 - CONCLUSION: Mild atherosclerotic plaquing at the bifurcation. No focal high grade or hemodynamically significant stenosis. Camden Quintero MD Brain MRI 09/17/17 1621 Signed Impressions: Service Date/Time: Sunday, September 17, 2017 18:17 - CONCLUSION: Negative noncontrast MRI of the brain. Chandan Ortez MD Head CT 09/16/17 1025 Signed Impressions: Service Date/Time: Saturday, September 16, 2017 11:18 - CONCLUSION: Negative for acute process. Te Frances MD FACR Chest X-Ray 09/13/17 0600 Signed Impressions: Service Date/Time: Wednesday, September 13, 2017 05:11 - CONCLUSION: Increasing bilateral airspace opacities. Chandan Ortez MD Myocardial Perfusion Scan Nuc Med 09/12/17 0000 Signed Impressions: Service Date/Time: September 13:40 - CONCLUSION: Normal examination. RISK CATEGORY: Low (<1%% Annual Mortality Rate) Reagan Yusuf MD Gall Bladder Ultrasound 09/10/17 0000 Signed Impressions: Service Date/Time: Sunday, September 10, 2017 11:30 - CONCLUSION: 1. Cholelithiasis. However, there are no findings to indicate acute cholecystitis. 2. Small right pleural effusion. Constantin Lopez MD Chest CT 09/10/17 0000 Signed Impressions: Service Date/Time: Sunday, September 10, 2017 21:13 - CONCLUSION: 1. Small to moderate bilateral effusions and bibasilar atelectasis. Silverio Stout MD Abdomen/Pelvis CT 09/09/17 1738 Signed Impressions: Service Date/Time: Saturday, September 09, 2017 20:30 - CONCLUSION: 1. Small bilateral pleural effusions, left greater than right with basilar dependent airspace disease in the lungs. Mild anasarca. No bowel obstruction. No free air. Mild constipation. Bruce catheter in bladder. aSl Terrazas MD Knee X-Ray 09/09/17 0000 Signed Impressions: Service Date/Time: Saturday, September 09, 2017 13:49 - CONCLUSION: 1. Moderate to large joint effusion. No acute osseous abnormality is identified. 2. 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 3. Bridger-Stieda lesion indicating old medial collateral ligament injury. 4. Severe calcification of the popliteal artery. Constantin Lopez MD Hip and Pelvis X-Ray 09/09/17 0000 Signed Impressions: Service Date/Time: Saturday, September 09, 2017 17:02 - CONCLUSION: No acute left hip abnormality is identified. 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 Constantin Lopez MD Physical Exam HEENT: Pupils round and reactive to light; normocephalic; atraumatic; NECK: Neck is supple CHEST: Chest is clear to auscultation and percussion., No audible rhonchi, hiccups noted CARDIAC: Regular rate and rhythm with no murmur gallop or rubs. ABDOMEN: Round, Soft, nondistended, nontender; no hepatosplenomegaly; bowel sounds are present in all four quadrants. EXTREMITIES: No clubbing, cyanosis, or edema. SKIN: Normal for age no rash; no jaundice. HOSPITALITY AIDE: No focal deficits; alert and oriented (Amawi,Khawla FOOD SERVICE AGENT) Assessment and Plan Plan ASSESSMENT - hiccuping - for 10 days, causing chest discomfort. Cardiology does not feel CPis cardiac and wanted GI opinion. Thorazine, and vagal maneuver, Hiccups subsided today, Coumadin on hold, INR today 1.8 PLAN - TRISHA - EGD on Saturday - Thorazine PRN - Atrax - Continue Pepcid PO - further recs to follow pt seen by myself and Dr Thomas and this note is on his behalf (Eun Gracia) Physician Comments Agree with above assessment and plan, EGD Saturday if still symptomatic. (Karolina Thomas MD) Eun Gracia Sep 21, 2017 11:23 Karolina Thomas MD Sep 21, 2017 12:40
[2017-09-21] MEDS ORDERED: DILT120C50 PO (13:47)
[2017-09-21] MEDS ORDERED: METO-309 PO (13:47)
[2017-09-21] MEDS ORDERED: LEVA750T9 PO (13:52)
[2017-09-21] MEDS ORDERED: LEVO750T3 PO (13:53)
[2017-09-21] MEDS ORDERED: LISINOPRIL 5 MG TAB PO SCH (14:00)
--- NOTE | 2017-09-21 14:00 | HHI.PR ---
Subjective Remarks RN denies any deterioration since last night. Patient has not had any hiccups since last night. Is able to actually talk without any interruption. Objective Vital Signs Date Time Temp Pulse Resp B/P (MAP) Pulse Ox O2 Delivery O2 Flow Rate FiO2 09/21/17 12:00 98.3 87 18 98/57 (71) 96 09/21/17 08:00 97.9 75 18 83/54 (64) 96 09/21/17 08:00 Room Air 09/21/17 04:00 98.1 86 20 126/72 (90) 96 09/21/17 04:00 126 09/21/17 00:00 97.9 87 20 101/61 (74) 95 09/21/17 00:00 121 09/20/17 21:50 95 21 09/20/17 20:00 Room Air 09/20/17 20:00 98.6 85 16 117/70 (86) 96 09/20/17 20:00 110 09/20/17 16:00 98.1 97 18 90/52 (65) 93 I/O 09/20/17 09/20/17 09/20/17 09/21/17 09/21/17 09/21/17 07:00 15:00 23:00 07:00 15:00 23:00 Intake Total 240 ml 100 ml 240 ml Output Total 225 ml Balance 240 ml 100 ml 15 ml Intake Oral 240 ml 240 ml IV Total 100 ml Output Urine Total 225 ml # Voids 1 Result Diagram: 09/21/17 0501 09/19/17 0344 Objective Remarks No conversant dyspnea, no hiccups Lungs are clear bilaterally, heart sounds regular rate rhythm, no murmurs Right knee in postop dressing with good active range of motion A/P Assessment and Plan Depression -Duloxetine - Thorazine 25 mg o QHS will also help for hiccups. 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 coli bacteremia Currently on Levaquin, supply for 3 weeks at [place] per ID. History of COPD Bilateral small pleural effusions Incentive spirometry while awake Albuterol/ipratropium aerosols every 6 hours with albuterol aerosols every 2 hours as needed Chest x-ray in a.m. 09/11 revealed mild to moderate bilateral pulmonary effusions with vascular congestion. CT thorax revealed bilateral pleural effusions Patient with worsening leukocytosis, discussed with Dr Covington ID [id number]. Currently on IV rocephin and can transition to Levaquin 750 mg po daily for 3 weeks at discharge Hypoalbuminemia Mild anasarca Cholelithiasis without cholecystitis on ultrasound regular diet Famotidine for GI prophylaxis Laxatives stool softeners as need if constipation Chronic prednisone use -history of rheumatoid arthritis completed course of steroids Sliding scale insulin Novulin R medium regimen with Accu-Cheks maintain euglycemia TSH 2.57 Patient does not know his home prednisone dose. Per PCP pt does have a hx of polymyalgia rheumatica. continue to taper dose of po prednisone. 50mg po today, then 40mg tomorrow and continue taper. Right renal cyst -3 cm Acute on chronic kidney injury - ATN, AIN? Unknown baseline creatinine nephrology recs appreciated. Continue to follow No hydronephrosis on CT abdomen/pelvis Chronic warfarin use Elevated PTT Elevated fibrinogen Okayed for heparin drip bridge by orthopedics Received 1 unit FFP 09/10. Holding warfarin in light of possible EGD, heparin for now Right knee effusion s/p Irrigation and debridement right knee on 09/10/[address] Kai del cid X-ray right knee reveal tricompartment osteophytes with medial space joint narrowing. Coarse ossifications of the supracondylar ridge. Popliteal artery calcification. Bridger Stieda lesion revealing possible old MCL injury Orthopedics weightbearing as tolerated. Range of motion Change dressings daily postop. PT evaluate and treat. PT did recommend rehab but pt refused. -DVT -SCD/heparin Addendum: hiccups recurring, will consider EGD for AM. Discharge Planning Outside hospital denied transfer; will look into pt ultimately flying home to [place] w/ [employer] company to [place] SNF. Pt willing to do SNF close to home. Per Dr Mendes can DC on Levaquin 750 mg po x 3 weeks at [place] Please send pt home on taper po prednisone. f/u h/h and stool hemoccult anticipate d/c in 1-2 days if arrangements can be made for transport to [facility]. Cleared for DC by ortho , ID, neuro. Mikey Jorgensen MD Sep 21, 2017 14:00
[2017-09-21] MEDS: HEPARIN SODIUM - SQ 10,000 UNITS/ML VIAL SQ SCH ×2 (15:20→21:44)
[2017-09-21] MEDS: TEMAZEPAM 15 MG CAP PO PRN (20:00)
[2017-09-22] VITALS (16 sets, daily range): BP systolic 62–130; BP diastolic 45–96; PULSE 80–130; RESP 15–34; TEMP 97–98.6; O2SAT 91–99
[2017-09-22] MEDS: chlorproMAZINE HCL 25 MG TAB PO SCH ×3 (03:03→20:19)
[2017-09-22] MEDS: hydrOXYzine HCL 25 MG TAB PO SCH ×3 (03:03→20:00)
[2017-09-22] MEDS: ACETAMINOPHEN/HYDROcodone 325 MG/5 MG TAB PO PRN ×3 (03:04→12:21)
[2017-09-22] MEDS: CHLORHEXIDINE GLUCONATE 2 % 1 PACK (2 CLOTHS) TOP SCH (03:08)
[2017-09-22] MEDS: HEPARIN SODIUM - SQ 10,000 UNITS/ML VIAL SQ SCH ×3 (06:49→20:29)
[2017-09-22] MEDS: INSULIN NovoLIN REGULAR SUPPLEMENTAL SCALE SQ SCH ×4 (08:00→20:29)
[2017-09-22 08:42] LABS: AUTOMATED NEUTROPHIL # 8.4 TH/MM3 (1.8-7.7); BASOPHIL # 0.1 TH/MM3 (0-0.2); BASOPHIL % 0.9 % (0.0-2.0); EOSINOPHIL # 0.2 TH/MM3 (0-0.4); EOSINOPHIL % 1.6 % (0.0-4.0); HEMATOCRIT 33.4 % (39.0-51.0); HEMOGLOBIN 11.1 GM/DL (13.0-17.0); LYMPH % 9.4 % (9.0-44.0); MEAN CELL VOLUME 91.7 FL (80.0-100.0); MEAN CORPUSCULAR HEMOGLOBIN 30.6 PG (27.0-34.0); MEAN CORPUSCULAR HGB CONC 33.4 % (32.0-36.0); MEAN PLATELET VOLUME 8.9 FL (7.0-11.0); MONO % 11.9 % (0.0-8.0); MONOCYTE # 1.3 TH/MM3 (0-0.9); NEUT % 76.2 % (16.0-70.0); PLATELET COUNT 438 TH/MM3 (150-450); RED BLOOD COUNT 3.64 MIL/MM3 (4.50-5.90); RED CELL DISTRIBUTION WIDTH 14.4 % (11.6-17.2)
[2017-09-22 08:48] LABS: INTERNATIONAL NORMALIZED RATIO 1.3 RATIO; PROTHROMBIN TIME - PATIENT 12.7 SEC (9.8-11.6)
--- NOTE | 2017-09-22 09:08 | HHI.GIFU ---
Subjective Remarks Pt is resting in bed eating breakfast, hiccups came back last night, other chi no complaints (Amawi,Khawla MANAGER EMPLOYMENT) Objective Vitals I&O Vital Signs Date Time Temp Pulse Resp B/P (MAP) Pulse Ox O2 Delivery O2 Flow Rate FiO2 09/22/17 08:00 97.0 99 17 85/57 (66) 94 09/22/17 04:00 98.0 90 16 130/72 (91) 94 09/22/17 04:00 Room Air 09/22/17 03:59 102 09/22/17 00:00 Room Air 09/22/17 00:00 98.3 90 16 124/74 (91) 95 09/21/17 23:43 86 09/21/17 20:00 Room Air 09/21/17 20:00 98.1 98 20 126/71 (89) 94 09/21/17 19:55 21 09/21/17 19:43 110 09/21/17 16:00 129 09/21/17 13:52 21 09/21/17 12:00 98.3 87 18 98/57 (71) 96 I/O 09/21/17 09/21/17 09/21/17 09/22/17 09/22/17 09/22/17 07:00 15:00 23:00 07:00 15:00 23:00 Intake Total 240 ml Output Total 225 ml Balance 15 ml Intake Oral 240 ml Output Urine Total 225 ml Laboratory Laboratory Tests Test 09/22/17 07:47 White Blood Count 11.0 Red Blood Count 3.64 Hemoglobin 11.1 Hematocrit 33.4 Mean Corpuscular Volume 91.7 Mean Corpuscular Hemoglobin 30.6 Mean Corpuscular Hemoglobin Concent 33.4 Red Cell Distribution Width 14.4 Platelet Count 438 Mean Platelet Volume 8.9 Neutrophils (%) (Auto) 76.2 Lymphocytes (%) (Auto) 9.4 Monocytes (%) (Auto) 11.9 Eosinophils (%) (Auto) 1.6 Basophils (%) (Auto) 0.9 Neutrophils # (Auto) 8.4 Lymphocytes # (Auto) 1.0 Monocytes # (Auto) 1.3 Eosinophils # (Auto) 0.2 Basophils # (Auto) 0.1 CBC Comment AUTO DIFF Prothrombin Time 12.7 Prothromb Time International Ratio 1.3 Date/Time Source Procedure Growth Status 2/28/18 05:38 Blood Peripheral Aerobic Blood Culture - Final NO GROWTH IN 5 DAYS Complete 09/11/17 05:38 Blood Peripheral Anaerobic Blood Culture - Final NO GROWTH IN 5 DAYS Complete 09/10/17 09:15 Fluid Synovial Fluid Gram Stain - Final Complete 09/10/17 09:15 Body Fluid Culture - Final Escherichia Coli Complete 09/12/17 11:00 Urine Catheterized Urine Urine Culture - Final NO GROWTH IN 48 HOURS. Complete 09/11/17 16:00 Wound Leg Fungal Smear - Final NO FUNGAL ELEMENTS SEEN. Resulted 09/11/17 16:00 Wound Leg Fungal Culture - Preliminary NO GROWTH IN 1 WEEK Resulted Imaging Last Impressions Carotid Artery Ultrasound 09/17/17 1621 Signed Impressions: Service Date/Time: Sunday, September 17, 2017 08:53 - CONCLUSION: Mild atherosclerotic plaquing at the bifurcation. No focal high grade or hemodynamically significant stenosis. Camden Quintero MD Brain MRI 09/17/17 1621 Signed Impressions: Service Date/Time: Sunday, September 17, 2017 18:17 - CONCLUSION: Negative noncontrast MRI of the brain. Chandan Ortez MD Head CT 09/16/17 1025 Signed Impressions: Service Date/Time: Saturday, September 16, 2017 11:18 - CONCLUSION: Negative for acute process. Te Frances MD FACR Chest X-Ray 09/13/17 0600 Signed Impressions: Service Date/Time: Wednesday, September 13, 2017 05:11 - CONCLUSION: Increasing bilateral airspace opacities. Chandan Ortez MD Myocardial Perfusion Scan Nuc Med 09/12/17 0000 Signed Impressions: Service Date/Time: September 13:40 - CONCLUSION: Normal examination. RISK CATEGORY: Low (<1%% Annual Mortality Rate) Reagan Yusuf MD Gall Bladder Ultrasound 09/10/17 0000 Signed Impressions: Service Date/Time: Sunday, September 10, 2017 11:30 - CONCLUSION: 1. Cholelithiasis. However, there are no findings to indicate acute cholecystitis. 2. Small right pleural effusion. Constantin Lopez MD Chest CT 09/10/17 0000 Signed Impressions: Service Date/Time: Sunday, September 10, 2017 21:13 - CONCLUSION: 1. Small to moderate bilateral effusions and bibasilar atelectasis. Silverio Stout MD Abdomen/Pelvis CT 09/09/17 1738 Signed Impressions: Service Date/Time: Saturday, September 09, 2017 20:30 - CONCLUSION: 1. Small bilateral pleural effusions, left greater than right with basilar dependent airspace disease in the lungs. Mild anasarca. No bowel obstruction. No free air. Mild constipation. Bruce catheter in bladder. Sal Terrazas MD Knee X-Ray 09/09/17 0000 Signed Impressions: Service Date/Time: Saturday, September 09, 2017 13:49 - CONCLUSION: 1. Moderate to large joint effusion. No acute osseous abnormality is identified. 2. 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 3. Bridger-Stieda lesion indicating old medial collateral ligament injury. 4. Severe calcification of the popliteal artery. Constantin Lopez MD Hip and Pelvis X-Ray 09/09/17 0000 Signed Impressions: Service Date/Time: Saturday, September 09, 2017 17:02 - CONCLUSION: No acute left hip abnormality is identified. 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 Constantin Lopez MD Physical Exam HEENT: Pupils round and reactive to light; normocephalic; atraumatic; NECK: Neck is supple CHEST: Chest is clear to auscultation and percussion., No audible rhonchi, hiccups noted CARDIAC: Regular rate and rhythm with no murmur gallop or rubs. ABDOMEN: Round, Soft, nondistended, nontender; no hepatosplenomegaly; bowel sounds are present in all four quadrants. EXTREMITIES: No clubbing, cyanosis, or edema. SKIN: Normal for age no rash; no jaundice. C ARCHITECT: No focal deficits; alert and oriented (Eun Gracia) Assessment and Plan Plan ASSESSMENT - hiccuping - for several days, causing chest discomfort, refractory to tx, . Cardiology does not feel CPis cardiac and wanted GI opinion. Thorazine, and vagal maneuver, Hiccups subsided briefly yesterday but returned, Coumadin on hold, INR today 1.3 PLAN - TRISHA - EGD on Saturday - Thorazine PRN - Atrax - Continue Pepcid PO - further recs to follow pt seen by myself and Dr Thomas and this note is on his behalf (Eun Gracia) Physician Comments As above. Recent change in status noted, will hold on endoscopic evaluation for now until more stable. (Karolina Thomas MD) Eun Gracia Sep 22, 2017 09:08 Karolina Thomas MD Sep 22, 2017 23:07
--- NOTE | 2017-09-22 09:31 | HHI.PR ---
Subjective Remarks RN denies any deterioration since last night. Patient states says that the hiccups have been intermittent. Otherwise has no complaints. Objective Vital Signs Date Time Temp Pulse Resp B/P (MAP) Pulse Ox O2 Delivery O2 Flow Rate FiO2 09/22/17 08:00 97.0 99 17 85/57 (66) 94 09/22/17 04:00 98.0 90 16 130/72 (91) 94 09/22/17 04:00 Room Air 09/22/17 03:59 102 09/22/17 00:00 Room Air 09/22/17 00:00 98.3 90 16 124/74 (91) 95 09/21/17 23:43 86 09/21/17 20:00 Room Air 09/21/17 20:00 98.1 98 20 126/71 (89) 94 09/21/17 19:55 21 09/21/17 19:43 110 09/21/17 16:00 129 09/21/17 13:52 21 09/21/17 12:00 98.3 87 18 98/57 (71) 96 I/O 09/21/17 09/21/17 09/21/17 09/22/17 09/22/17 09/22/17 07:00 15:00 23:00 07:00 15:00 23:00 Intake Total 240 ml Output Total 225 ml Balance 15 ml Intake Oral 240 ml Output Urine Total 225 ml Result Diagram: 09/22/17 0747 09/19/17 0344 Objective Remarks No conversant dyspnea, no hiccups Lungs are clear bilaterally, heart sounds regular rate rhythm, no murmurs Abdomen is soft, nondistended A/P Assessment and Plan Depression -Duloxetine -Thorazine 25 mg o QHS will also help for hiccups. 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 coli bacteremia Currently on Levaquin, supply for 3 weeks at DC per ID. History of COPD Bilateral small pleural effusions Incentive spirometry while awake Albuterol/ipratropium aerosols every 6 hours with albuterol aerosols every 2 hours as needed Chest x-ray in a.m. 09/11 revealed mild to moderate bilateral pulmonary effusions with vascular congestion. CT thorax revealed bilateral pleural effusions Can transition to Levaquin 750 mg po daily for 3 weeks at discharge per ID Hypoalbuminemia Mild anasarca Cholelithiasis without cholecystitis on ultrasound regular diet Famotidine for GI prophylaxis Laxatives stool softeners as need if constipation Chronic prednisone use -history of rheumatoid arthritis completed course of steroids Sliding scale insulin Novulin R medium regimen with Accu-Cheks maintain euglycemia TSH 2.57 Patient does not know his home prednisone dose. Per PCP pt does have a hx of polymyalgia rheumatica. continue to taper dose of po prednisone Right renal cyst -3 cm Acute on chronic kidney injury - ATN, AIN? Unknown baseline creatinine nephrology recs appreciated. Continue to follow No hydronephrosis on CT abdomen/pelvis Chronic warfarin use Elevated PTT Elevated fibrinogen Okayed for heparin drip bridge by orthopedics Received 1 unit FFP 09/10. Holding warfarin in light of possible EGD, heparin for now Right knee effusion s/p Irrigation and debridement right knee on 09/10/[address] Kai del cid X-ray right knee reveal tricompartment osteophytes with medial space joint narrowing. Coarse ossifications of the supracondylar ridge. Popliteal artery calcification. Bridger Stieda lesion revealing possible old MCL injury Orthopedics weightbearing as tolerated. Range of motion Change dressings daily postop. PT evaluate and treat. PT did recommend rehab but pt refused. -DVT -SCD/heparin Addendum: hiccups recurring, will consider EGD for AM. Discharge Planning Outside hospital denied transfer; will look into pt ultimately flying home to [place] w/ ortho/prosthetic aide company to [place] SNF. Pt willing to do SNF close to home. Per Dr Mendes can DC on Levaquin 750 mg po x 3 weeks at [place] Please send pt home on taper po prednisone. f/u h/h and stool hemoccult anticipate d/c in 1-2 days if arrangements can be made for transport to [place] SNF. Cleared for DC by ortho , ID, neuro. Mikey Jorgensen MD Sep 22, 2017 09:31
[2017-09-22 09:39] LABS: BANDS 16 % (0-6); LYMPHOCYTES 12 % (9-44); MONOCYTES 8 % (0-8); MYELOCYTES 1 % (0-0); NEUTROPHIL # MANUAL DIFF 8.8 TH/MM3 (1.8-7.7); POLYS (SEG NEUTROPHILS) 63 % (16-70)
[2017-09-22] MEDS: LEVOFLOXACIN 750 MG TAB PO SCH (09:50)
[2017-09-22] MEDS: DULoxetine HCl DR 60 MG CAP PO SCH (09:50)
[2017-09-22] MEDS: DOCUSATE SODIUM 50 MG/SENNA 8.6 MG TAB PO SCH ×2 (09:51→20:18)
[2017-09-22] MEDS: FAMOTIDINE 20 MG TAB PO SCH ×2 (09:51→20:18)
[2017-09-22] MEDS: SODIUM CHLORIDE 0.9% FLUSH 10 ML FLUSH IV FLUSH SCH ×2 (09:51→20:19)
[2017-09-22] MEDS ORDERED: SODIUM CHLOR 0.9% 1000 ML INJ 1,000 ML IV ONE ×3 (10:15→11:00)
[2017-09-22] MEDS: HYDROCORTISONE SOD SUCCINATE 250 MG VIAL IV ONE ×2 (10:30→10:41)
[2017-09-22] MEDS ORDERED: TERBUTALINE INJ 1 MG/ML AMP SQ PRN (10:45)
--- NOTE | 2017-09-22 10:51 | HHI.CCPN ---
Subjective Remarks/Hospital Course 72-year-old male presents for evaluation of right knee pain for the past several days. It started about 4-5 days ago when he "tweaked" his knee while changing his tire. He had mild pain since then but but yesterday the pain became so severe, he could no longer ambulate. Pain is also worse with hyperextension. Patient has minimal pain at rest. He has been taking Tylenol, his friend's muscle relaxant, and previously prescribed oxycodone with moderate relief in symptoms. He cannot localize pain. Denies paresthesias, or fever. No history of knee problems. History of A. fib for which he takes warfarin. Patient stopped taking warfarin 2 days ago because he noted a small bruise to his buttocks. Denies any trauma or injury to buttocks. In the emergency department he was found to have bandemia and was hypotensive despite 3 L of normal saline boluses. 09/10: Remains in A. fib with RVR with heart rates between 120 and 150. Currently on 6 L nasal cannula. Received 6 L normal saline bolus since admission. On low-dose norepinephrine. Lactic acid increased to 3.3. Decreased urine output noted. Patient has chronic prednisone use due to rheumatoid arthritis. Hydrocortisone 100 mg has been ordered for this a.m. now. Denies pain in right knee currently. 09/11: Status post I&D right knee yesterday. BASIM with serosanguineous drainage. Currently afebrile. Decreased urine output noted. Creatinine bumped to 2.4. Lactate slowly decreasing. Volume status positive between 8-10 L since admission. 09/12: Episode of chest pain this a.m. Troponin elevated greater than 2. Currently chest pain-free. Heart rate currently rate controlled. Heparin drip initiated after being okayed by orthopedics. Plan for adenosine stress test today. 09/13: Afebrile. Negative adenosine stress test yesterday. Remains on heparin drip. On 3.5 L nasal cannula. Requesting transfer to general medical floor. Subjective 09/22: Reconsult secondary to hypotension. Patient has been off his prednisone. Chronically on 5 mg daily. Also complaining of pain in his right knee. Appears pale. Conversant. Objective Vital Signs Date Time Temp Pulse Resp B/P (MAP) Pulse Ox O2 Delivery O2 Flow Rate FiO2 09/22/17 10:45 96 2.00 09/22/17 10:45 Nasal Cannula 09/22/17 10:20 90 62/45 (51) 09/22/17 10:08 97.4 20 09/21/17 19:55 21 Result Diagram: 09/22/17 0747 09/19/17 0344 Other Results Microbiology Date/Time Source Procedure Growth Status 09/11/17 05:38 Blood Peripheral Aerobic Blood Culture - Final NO GROWTH IN 5 DAYS Complete 09/11/17 05:38 Blood Peripheral Anaerobic Blood Culture - Final NO GROWTH IN 5 DAYS Complete 09/10/17 09:15 Fluid Synovial Fluid Gram Stain - Final Complete 09/10/17 09:15 Body Fluid Culture - Final Escherichia Coli Complete 09/12/17 11:00 Urine Catheterized Urine Urine Culture - Final NO GROWTH IN 48 HOURS. Complete 09/11/17 16:00 Wound Leg Fungal Smear - Final NO FUNGAL ELEMENTS SEEN. Resulted 09/11/17 16:00 Wound Leg Fungal Culture - Preliminary NO GROWTH IN 1 WEEK Resulted Imaging Last Impressions Chest X-Ray 09/22/17 0000 Signed Impressions: Service Date/Time: Friday, September 22, 2017 12:04 - CONCLUSION: 1. Mild pulmonary edema pattern. No significant effusion. No pneumothorax. Several more focal areas of consolidation also present. Cannot exclude pneumonia. Sal Terrazas MD Carotid Artery Ultrasound 09/17/17 1621 Signed Impressions: Service Date/Time: Sunday, September 17, 2017 08:53 - CONCLUSION: Mild atherosclerotic plaquing at the bifurcation. No focal high grade or hemodynamically significant stenosis. Camden Quintero MD Brain MRI 09/17/17 1621 Signed Impressions: Service Date/Time: Sunday, September 17, 2017 18:17 - CONCLUSION: Negative noncontrast MRI of the brain. Chandan Ortez MD Head CT 09/16/17 1025 Signed Impressions: Service Date/Time: Saturday, September 16, 2017 11:18 - CONCLUSION: Negative for acute process. Te Frances MD FACR Myocardial Perfusion Scan Nuc Med 09/12/17 0000 Signed Impressions: Service Date/Time: September 13:40 - CONCLUSION: Normal examination. RISK CATEGORY: Low (<1%% Annual Mortality Rate) Reagan Yusuf MD Gall Bladder Ultrasound 09/10/17 0000 Signed Impressions: Service Date/Time: Sunday, September 10, 2017 11:30 - CONCLUSION: 1. Cholelithiasis. However, there are no findings to indicate acute cholecystitis. 2. Small right pleural effusion. Constantin Lopez MD Chest CT 09/10/17 0000 Signed Impressions: Service Date/Time: Sunday, September 10, 2017 21:13 - CONCLUSION: 1. Small to moderate bilateral effusions and bibasilar atelectasis. Silverio Stout MD Abdomen/Pelvis CT 09/09/17 1738 Signed Impressions: Service Date/Time: Saturday, September 09, 2017 20:30 - CONCLUSION: 1. Small bilateral pleural effusions, left greater than right with basilar dependent airspace disease in the lungs. Mild anasarca. No bowel obstruction. No free air. Mild constipation. Bruce catheter in bladder. Sal Terrazas MD Knee X-Ray 09/09/17 0000 Signed Impressions: Service Date/Time: Saturday, September 09, 2017 13:49 - CONCLUSION: 1. Moderate to large joint effusion. No acute osseous abnormality is identified. 2. 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 3. Bridger-Stieda lesion indicating old medial collateral ligament injury. 4. Severe calcification of the popliteal artery. Constantin Lopez MD Hip and Pelvis X-Ray 09/09/17 0000 Signed Impressions: Service Date/Time: Saturday, September 09, 2017 17:02 - CONCLUSION: No acute left hip abnormality is identified. 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 Constantin Lopez MD Objective Remarks GENERAL: 72-year-old male currently resting in bed in no acute respiratory distress on 2 L nasal cannula SKIN: Pale and dry. No rash HEAD: Normocephalic. Atraumatic EYES: Peoples around 3 mm bilaterally and reactive. No scleral icterus or injection. NECK: Supple, trachea midline. No JVD or lymphadenopathy. CARDIOVASCULAR: Tachycardic, IR. S1, S2. No S4. Without murmur RESPIRATORY: Breath sounds equal bilaterally. No accessory muscle use. GASTROINTESTINAL: Abdomen soft, non-tender, nondistended. MUSCULOSKELETAL: Right knee status post I&D. Sutures are clean dry and intact covered with Xeroform positive edema lower extremity NEURO EXAM: Cranial nerves II through XII grossly intact. Strength appears to be equal and symmetric bilaterally. Normal sensation Urinary Catheter: No Assessment to: Continue Vascular Central Line Catheter: No Assessment to: Continue Date of Insertion: Sep 09, 2017 Date of Removal: Sep 13, 2017 Line: Central Venous Catheter Side: Right Location: Femoral A/P Assessment and Plan Neuro/Psych: Depression Duloxetine 20 mg p.o. daily/home medication will be continued Acetaminophen 650 mg by mouth every 6 hours as needed for fever Hydrocodone/acetaminophen 5/325 one tablet every 4 hours as needed for pain 1 through 5 Hydromorphone 1 mg IV every 4 hours as needed pain 6 through 10 CV: Systolic heart failure unknown if acute or chronic Atrial fibrillation with rapid ventricular response History of chronic atrial fibrillation Moderate MR Severe sepsis secondary to E. coli bacteremia resolved Chest post 1 L normal saline along with albumin bolus. Currently on norepinephrine drip at 2 mcg/min to maintain mean arterial pressure greater than equal 65 Started on metoprolol tartrate 25 mg p.o. twice daily by cardiology. Currently 50 mg twice daily along with diltiazem 120 daily both of which have been held. Cardiology consultation Dr. Hanna -medical management initially now scheduled for adenosine Cardiolite negative 2D echocardiogram revealed EF 35-40%. Bilateral atrial enlargement. Moderate MR. Cycle troponins currently 0.03 Patient is on no medications for blood pressure or rate control at home Currently on diltiazem 120 daily and metoprolol 50 twice daily. These been held. Discontinue lisinopril 2.5 mg daily with hypotension Resp: Acute respiratory insufficiency History of COPD Bilateral small pleural effusions Nasal cannula to maintain saturations greater than or equal to 92%. Currently at 2 L Incentive spirometry while awake Albuterol/ipratropium aerosols every 6 hours with albuterol aerosols every 2 hours as needed Follow-up on chest x-ray 09/22 CT thorax revealed bilateral pleural effusions GI: Hypoalbuminemia Mild anasarca Cholelithiasis without cholecystitis on ultrasound Patient is currently in a regular diet Famotidine for GI prophylaxis Docusate sodium/senna 1 tablet twice daily for bowel regimen : Bruce catheter has been placed for accurate I's and O's in a critically ill patient Endo: Chronic prednisone use -history of rheumatoid arthritis Sliding scale insulin Novulin R medium regimen with Accu-Cheks maintain euglycemia TSH 2.57 Start on hydrocortisone 100 mg IV every 8 hours Patient does not know his home prednisone dose. Thinks he might be "5 mg". Renal: Right renal cyst -3 cm Acute on chronic kidney injury - ATN, AIN? Creatinine currently within normal limits Unknown baseline creatinine Consult nephrology appreciated. Signed off No hydronephrosis on CT abdomen/pelvis Monitor urine output Accurate I's and O's Heme: Chronic warfarin use Elevated PTT Elevated fibrinogen Currently holding warfarin 4.5 mg alternating with 4 mg daily. Holding anticoagulation secondary to possible GI bleed. Need for endoscopy/EGD for GI Okayed for heparin drip by orthopedics previously during this hospitalization Received 1 unit FFP 09/10. Hemoglobin currently 11.1 ID: Severe sepsis -knee effusion ? Septic joint E. coli bacteremia Currently levofloxacin per infectious disease Vancomycin discontinued Infectious disease consultation Microbiology Blood cultures 3 -09/11 -no growth Synovial fluid -09/10 -E. coli Intra-Op cultures -09/10 -no growth Blood cultures -09/09 -E. coli UA 09/12 no growth FEN: Replace electrolytes as clinically indicated MSK: Right knee effusion postop I&D X-ray right knee reveal tricompartment osteophytes with medial space joint narrowing. Coarse ossifications of the supracondylar ridge. Popliteal artery calcification. Bridger Stieda lesion revealing possible old MCL injury Large right knee effusion Orthopedics weightbearing as tolerated. Range of motion Change dressings daily #2 postop. PT evaluate and treat Access -Utilize peripheral IV. Central and if indicated Prophylaxis -GI -famotidine -DVT -SCD/heparin subcu Level 2 follow-up \\ Jaspal Kennedy MD Sep 22, 2017 10:51
[2017-09-22] MEDS ORDERED: NOREPINEPHRINE INJ 4 MG in SODIUM CHLOR 0.9% 250 ML INJ 246 ML IV PRN (11:00)
[2017-09-22 11:17] LABS: BICARBONATE 28.6 MEQ/L (21.0-32.0); CALCIUM 7.8 MG/DL (8.5-10.1); CREATININE 1.54 MG/DL (0.60-1.30)
--- NOTE | 2017-09-22 11:24 | HHI.PR ---
Addendum to Inpatient Note Addendum Reason: Additional Documentation Additional Information Was paged by nursing regarding low blood pressures in the patient 60s over 30s. Patient was evaluated at bedside, appeared to be in no acute distress, awake, alert. Denies having any chest pain or shortness of breath. Does report endorse some lightheadedness. Pulses in the 90s and O2 sats are in the 90s on room air. Immediate IV hydration (2) L bolus and was started. Troponin EKG BMP and CBC were drawn. Cortisol level and blood cultures have been ordered. IV hydrocortisone 250 mg ordered stat since pt was last given 50 mg @ q12hr regimen that apparently ended on 09/19/17. Discussed case with chopped strand operator, will transfer to the ICU. EKG independently reviewed, showed no significant changes concerning for ischemia or infarction. Aggregate critical care time was 35 minutes spent at bedside or in the hospital [facility]. Time to perform other separately billable procedures was not included in the critical care time. My time did not include minutes spent treating any other patient simultaneously or on activities that did not directly To be due to the patient's treatment. The services are provided to this patient were to treat and/or prevent clinically significant deterioration that could result in organ failure, , disability, or imminent clinical deterioration in the patient's condition. I provided critical care services requiring my management as noted above. Mikey Jorgensen MD Sep 22, 2017 11:24
--- NOTE | 2017-09-22 11:28 | EKG ---
Date Performed: 09/22/2017 Time Performed: 09:29:14 PTAGE: 72 years EKG: Atrial fibrillation PVCs Nonspecific T wave changes No significant change from prior electr ocardiogram. Abnormal ECG PREVIOUS TRACING : 09/12/2017 06.36 DOCTOR: Abdifatah Haque Interpretating Date/Time 09/22/2017 11:28:02
[2017-09-22] MEDS ORDERED: ALBUMIN 25% INJ 50 ML IV ONE (11:30)
[2017-09-22] MEDS ORDERED: VANCOMYCIN INJ 1,000 MG in SODIUM CHLOR 0.9% 250 ML INJ 250 ML IV ONE (11:30)
[2017-09-22] MEDS: ALBUMIN 5% INJ 500 ML IV ONE ×2 (12:19→17:12)
[2017-09-22] MEDS: CEFEPIME INJ 2,000 MG in SODIUM CHLORIDE 0.9% INJ 100 ML IV SCH ×2 (12:41→20:19)
--- NOTE | 2017-09-22 12:41 | RADRPT ---
EXAM DATE/TIME: 09/22/2017 12:04 [facility] COMPARISON: CHEST SINGLE AP, September 13, 2017, 16:03. INDICATIONS : Shortness of breath. MEDICAL HISTORY : Chronic obstructive pulmonary disease. Atrial fibrillation. Sarcoidosis. SURGICAL HISTORY : None. ENCOUNTER: Initial ACUITY: 1 day PAIN SCORE: 0/10 LOCATION: Bilateral chest FINDINGS: A single view of the chest demonstrates bilateral mostly basilar airspace disease. No significant eff usion. No pneumothorax. Heart size enlarged. CONCLUSION: 1. Mild pulmonary edema pattern. No significant effusion. No pneumothorax. Several more focal areas o f consolidation also present. Cannot exclude pneumonia. Sal Terrazas MD on September 22, 2017 at 12:37 Board Certified Radiologist. This report was verified electronically.
[2017-09-22] MEDS ORDERED: HYDROCORTISONE SOD SUCCINATE 100 MG VIAL IV PUSH SCH (14:00)
[2017-09-22] MEDS: HYDROCORTISONE SOD SUCCINATE 100 MG VIAL IV PUSH SCH ×2 (16:56→23:48)
[2017-09-22] MEDS: TEMAZEPAM 15 MG CAP PO PRN (23:48)
[2017-09-23] VITALS (13 sets, daily range): BP systolic 74–119; BP diastolic 54–69; PULSE 89–143; RESP 13–26; TEMP 97.1–98.1; O2SAT 95–99
[2017-09-23] MEDS: hydrOXYzine HCL 25 MG TAB PO SCH ×2 (04:00→11:59)
[2017-09-23] MEDS: CHLORHEXIDINE GLUCONATE 2 % 1 PACK (2 CLOTHS) TOP SCH (04:00)
[2017-09-23] MEDS: chlorproMAZINE HCL 25 MG TAB PO SCH ×2 (04:00→04:45)
[2017-09-23] MEDS: CEFEPIME INJ 2,000 MG in SODIUM CHLORIDE 0.9% INJ 100 ML IV SCH (04:46)
[2017-09-23] MEDS: HEPARIN SODIUM - SQ 10,000 UNITS/ML VIAL SQ SCH ×3 (04:46→22:47)
[2017-09-23 04:50] LABS: AUTOMATED NEUTROPHIL # 8.9 TH/MM3 (1.8-7.7); BASOPHIL % 0.3 % (0.0-2.0); EOSINOPHIL % 0.1 % (0.0-4.0); HEMATOCRIT 32.8 % (39.0-51.0); HEMOGLOBIN 11.2 GM/DL (13.0-17.0); LYMPH % 6.2 % (9.0-44.0); LYMPHOCYTE # 0.6 TH/MM3 (1.0-4.8); MEAN CELL VOLUME 92.1 FL (80.0-100.0); MEAN CORPUSCULAR HEMOGLOBIN 31.4 PG (27.0-34.0); MEAN CORPUSCULAR HGB CONC 34.1 % (32.0-36.0); MEAN PLATELET VOLUME 8.5 FL (7.0-11.0); MONO % 5.6 % (0.0-8.0); MONOCYTE # 0.6 TH/MM3 (0-0.9); NEUT % 87.8 % (16.0-70.0); PLATELET COUNT 443 TH/MM3 (150-450); RED BLOOD COUNT 3.56 MIL/MM3 (4.50-5.90); RED CELL DISTRIBUTION WIDTH 14.7 % (11.6-17.2); WHITE BLOOD COUNT 10.1 TH/MM3 (4.0-11.0)
[2017-09-23 05:12] LABS: INTERNATIONAL NORMALIZED RATIO 1.2 RATIO; PROTHROMBIN TIME - PATIENT 11.9 SEC (9.8-11.6)
[2017-09-23 05:24] LABS: ALT (GPT) 14 U/L (12-78); AST (GOT) 7 U/L (15-37); BICARBONATE 26.3 MEQ/L (21.0-32.0); BLOOD UREA NITROGEN 35 MG/DL (7-18); CALCIUM 7.7 MG/DL (8.5-10.1); CHLORIDE 105 MEQ/L (98-107); CREATININE 1.35 MG/DL (0.60-1.30); GLOMERULAR FILTRATION RATE 52 ML/MIN (>89); GLUCOSE,RANDOM 129 MG/DL (74-106); PHOSPHORUS 2.6 MG/DL (2.5-4.9); SODIUM (NA) 138 MEQ/L (136-145)
[2017-09-23 05:28] LABS: ALKALINE PHOSPHATASE 220 U/L (45-117); TOTAL BILIRUBIN ADULT 0.5 MG/DL (0.2-1.0); TOTAL PROTEIN 4.6 GM/DL (6.4-8.2); TROPONIN I LESS THAN 0.02 NG/ML (0.02-0.05)
[2017-09-23] MEDS: INSULIN NovoLIN REGULAR SUPPLEMENTAL SCALE SQ SCH ×2 (08:00→12:00)
[2017-09-23] MEDS: HYDROCORTISONE SOD SUCCINATE 100 MG VIAL IV PUSH SCH ×3 (08:58→22:47)
[2017-09-23] MEDS: SODIUM CHLORIDE 0.9% FLUSH 10 ML FLUSH IV FLUSH SCH ×3 (08:58→22:49)
[2017-09-23] MEDS: LEVOFLOXACIN 750 MG TAB PO SCH (08:58)
[2017-09-23] MEDS: DULoxetine HCl DR 60 MG CAP PO SCH (08:58)
[2017-09-23] MEDS: FAMOTIDINE 20 MG TAB PO SCH ×2 (08:58→22:46)
[2017-09-23] MEDS: DOCUSATE SODIUM 50 MG/SENNA 8.6 MG TAB PO SCH ×2 (09:00→22:46)
--- NOTE | 2017-09-23 09:26 | HHI.IDPN ---
Subjective Subjective Remarks Patient is a 72-year-old male, presented to the hospital for evaluation of severe knee pain, and inability to ambulate. He started having some problems about a week ago when he was still in [place]. He was just feeling some malaise and generalized weakness. He had a scheduled medication to come to [place], and arrived [place] 4 days ago. He started noticing some knee pain, and it's usually worse when he puts weight on it and he walked on it. He does not really recall any significant trauma or injury, denies any fall. He started using a cane. He got progressively worse as far as his generalized weakness, and the pain started getting worse so he presented to the hospital for further evaluation and treatment. He denies any significant respiratory complaint. He denies any urinary complaint. There's been no nausea or vomiting. He's had constipation which is unusual for him. Denies any chest pain or any palpitations. On presentation to the emergency room, patient was found to be hypotensive and has required fluid resuscitation. He was in A. fib with RVR. His WBC is normal but he has bandemia. His creatinine is elevated. Lactic is elevated. CT of the abdomen and pelvis did not show any intra- abdominal process, but he has some bilateral pleural effusions. X-ray of the knee showed evidence of moderate effusion. Orthopedics saw the patient, and got very little fluid in the knee because he was very viscous. Patient currently has borderline blood pressure. He is not on pressors. He remains in A. fib with RVR. He has been afebrile since admission. Patient continues to have pain in his right knee, and also complains of pain in the right hip. He also has low back pain. Infectious disease consultation has been requested to evaluate the patient with sepsis. Notes reviewed Transferred to ICU yesterday for low BP Required levophed briefly Temps ok Not SOB Not coughing CXR no change WBC normal Antibiotics Current Medications Levaquin Cefepime Vancomycin Medications (Trade) Dose Ordered Sig/Jet Route Start Time Stop Time Status Last Admin (NS Flush) 2 ml UNSCH PRN IV FLUSH 09/09/17 18:15 09/13/17 16:24 (NS Flush) 2 ml BID IV FLUSH 09/09/17 21:00 09/23/17 08:58 (Tylenol) 650 mg Q6H PRN PO 09/09/17 18:15 (Restoril) 15 mg HS PRN PO 09/09/17 18:15 09/22/17 23:48 Miscellaneous Information 1 Q361D XX 09/09/17 18:15 (Chlorhexidine 2% Cloth) Taper DAILY@04 TOP 09/10/17 04:00 09/06/18 03:59 09/23/17 04:00 (Chlorhexidine 2% Cloth) 3 pack UNSCH PRN TOP 09/09/17 18:15 (Mar-Colace) 1 tab BID PO 09/09/17 21:00 09/22/17 20:18 (Milk Of Magnesia Liq) 30 ml Q12H PRN PO 09/09/17 18:15 09/15/17 14:03 (Senokot) 17.2 mg Q12H PRN PO 09/09/17 18:15 (Dulcolax Supp) 10 mg DAILY PRN RECTAL 09/09/17 18:15 09/14/17 23:04 (Lactulose Liq) 30 ml DAILY PRN PO 09/09/17 18:15 09/15/17 14:03 (Zofran Inj) 4 mg Q6H PRN IV PUSH 09/10/17 04:15 (Albuterol Neb) 2.5 mg Q2HR NEB PRN NEB 09/10/17 07:00 ([place]a 5-325 Mg) 1 tab Q4H PRN PO 09/10/17 08:00 09/22/17 12:21 (D50w (Vial) Inj) 50 ml UNSCH PRN IV PUSH 09/10/17 08:30 (Glucagon Inj) 1 mg UNSCH PRN OTHER 09/10/17 08:30 (NovoLIN R SUPPLEMENTAL SCALE) 1 ACHS SLIDING SCALE SQ 09/10/17 12:00 09/22/17 20:29 (Lopressor) 50 mg Q12HR PO 09/13/17 21:00 Future Hold 09/21/17 20:01 (Pill Splitter) 1 ea UNSCH PRN OTHER 09/13/17 15:15 (Cardizem Cd) 120 mg DAILY PO 09/14/17 09:00 Future Hold 09/20/17 09:31 (Cardizem) 30 mg Q6HR PRN PO 09/16/17 12:00 Future Hold (Cymbalta Dr) 60 mg DAILY PO 09/18/17 09:00 09/23/17 08:58 (Atarax) 25 mg Q8H PO 09/17/17 20:00 09/22/17 12:42 (Levaquin) 750 mg DAILY PO 09/18/17 09:45 09/23/17 08:58 (Coumadin) 3 mg DAILY@1600 PO 09/18/17 16:00 Future Hold 09/18/17 17:58 (Thorazine) 50 mg Q8H PO 09/19/17 20:00 09/22/17 20:19 (Heparin Inj) 5,000 units Q8HR SQ 09/20/17 14:00 Future hold 09/23/17 04:46 Norepinephrine Bitartrate 4 mg/ Sodium Chloride 250 ml @ 7.5 mls/hr TITRATE PRN IV 09/22/17 11:00 09/22/17 11:36 (Brethine Inj) 1 mg UNSCH PRN SQ 09/22/17 10:45 (SoluCORTEF INJ) 100 mg Q8H IV PUSH 09/22/17 16:00 09/23/17 08:58 Cefepime HCl 2000 mg/Sodium Chloride 100 ml @ 200 mls/hr Q8H IV 09/22/17 11:30 09/23/17 04:46 (Pepcid) 10 mg BID PO 09/22/17 21:00 09/23/17 08:58 Lines PIV Past Medical History Atrial fibrillation COPD Spinal stenosis Allergies: Coded Allergies: No Known Allergies (Unverified , 09/09/17) Objective . Vital Signs Date Time Temp Pulse Resp B/P (MAP) Pulse Ox O2 Delivery O2 Flow Rate FiO2 09/23/17 08:05 97 Nasal Cannula 2.00 09/23/17 06:00 110 09/23/17 04:00 106 09/23/17 04:00 97.1 106 13 92/59 (70) 98 09/23/17 02:00 121 09/23/17 00:00 98.1 134 26 107/68 (81) 98 09/23/17 00:00 134 09/22/17 22:00 130 09/22/17 21:46 97 Nasal Cannula 2.00 09/22/17 20:00 122 09/22/17 20:00 98.2 122 34 99/54 (69) 99 09/22/17 19:00 95 Nasal Cannula 2.00 09/22/17 18:00 115 09/22/17 16:00 116 09/22/17 16:00 97.7 116 17 97/62 (74) 98 09/22/17 14:00 106 09/22/17 12:00 98 Nasal Cannula 2.00 09/22/17 12:00 98.6 89 15 118/60 (79) 91 09/22/17 12:00 89 09/22/17 11:36 86 70/53 09/22/17 10:45 96 2.00 09/22/17 10:45 96 Nasal Cannula 2.00 09/22/17 10:45 80 115/96 (102) 09/22/17 10:20 90 62/45 (51) 09/22/17 10:08 97.4 86 20 68/47 (54) 09/22/17 10:05 Nasal Cannula 2.00 09/22/17 10:00 80 20 68/51 (57) 09/22/17 09:55 20 70/46 (54) . Laboratory Tests Test 09/22/17 07:47 09/23/17 04:35 White Blood Count 11.0 TH/MM3 10.1 TH/MM3 Red Blood Count 3.64 MIL/MM3 3.56 MIL/MM3 Hemoglobin 11.1 GM/DL 11.2 GM/DL Hematocrit 33.4 % 32.8 % Mean Corpuscular Volume 91.7 FL 92.1 FL Mean Corpuscular Hemoglobin 30.6 PG 31.4 PG Mean Corpuscular Hemoglobin Concent 33.4 % 34.1 % Red Cell Distribution Width 14.4 % 14.7 % Platelet Count 438 TH/MM3 443 TH/MM3 Mean Platelet Volume 8.9 FL 8.5 FL Neutrophils (%) (Auto) 76.2 % 87.8 % Lymphocytes (%) (Auto) 9.4 % 6.2 % Monocytes (%) (Auto) 11.9 % 5.6 % Eosinophils (%) (Auto) 1.6 % 0.1 % Basophils (%) (Auto) 0.9 % 0.3 % Neutrophils # (Auto) 8.4 TH/MM3 8.9 TH/MM3 Lymphocytes # (Auto) 1.0 TH/MM3 0.6 TH/MM3 Monocytes # (Auto) 1.3 TH/MM3 0.6 TH/MM3 Eosinophils # (Auto) 0.2 TH/MM3 0.0 TH/MM3 Basophils # (Auto) 0.1 TH/MM3 0.0 TH/MM3 CBC Comment AUTO DIFF DIFF FINAL Differential Total Cells Counted 100 Neutrophils % (Manual) 63 % Band Neutrophils % 16 % Lymphocytes % 12 % Monocytes % 8 % Neutrophils # (Manual) 8.8 TH/MM3 Myelocytes 1 % Differential Comment FINAL DIFF MANUAL Platelet Estimate NORMAL Platelet Morphology Comment ENLARGED Laboratory Tests Test 09/22/17 10:27 09/22/17 12:57 09/23/17 04:35 Blood Urea Nitrogen 38 MG/DL 35 MG/DL Creatinine 1.54 MG/DL 1.35 MG/DL Random Glucose 93 MG/DL 129 MG/DL Calcium Level 7.8 MG/DL 7.7 MG/DL Sodium Level 138 MEQ/L 138 MEQ/L Potassium Level 3.8 MEQ/L 4.2 MEQ/L Chloride Level 103 MEQ/L 105 MEQ/L Carbon Dioxide Level 28.6 MEQ/L 26.3 MEQ/L Anion Gap 6 MEQ/L 7 MEQ/L Estimat Glomerular Filtration Rate 44 ML/MIN 52 ML/MIN Lactic Acid Level 1.4 mmol/L 1.1 mmol/L Troponin I 0.03 NG/ML LESS THAN 0.02 NG/ML Random Cortisol 171.0 MCG/DL Total Protein 4.6 GM/DL Albumin 2.0 GM/DL Phosphorus Level 2.6 MG/DL Magnesium Level 2.0 MG/DL Alkaline Phosphatase 220 U/L Aspartate Amino Transf (AST/SGOT) 7 U/L Alanine Aminotransferase (ALT/SGPT) 14 U/L Total Bilirubin 0.5 MG/DL Total Creatine Kinase 22 U/L Microbiology Date/Time Source Procedure Growth Status 09/22/17 12:57 Blood Peripheral Aerobic Blood Culture Pending Received 09/22/17 12:57 Blood Peripheral Anaerobic Blood Culture Pending Received 09/22/17 12:50 Blood Peripheral Aerobic Blood Culture Pending Received 09/22/17 12:50 Blood Peripheral Anaerobic Blood Culture Pending Received Imaging Last Impressions Head CT 09/16/17 1025 Signed Impressions: Service Date/Time: Saturday, September 16, 2017 11:18 - CONCLUSION: Negative for acute process. Te Frances MD FACR Chest X-Ray 09/13/17 0600 Signed Impressions: Service Date/Time: Wednesday, September 13, 2017 05:11 - CONCLUSION: Increasing bilateral airspace opacities. Chandan Ortez MD Myocardial Perfusion Scan [facility] 09/12/17 0000 Signed Impressions: Service Date/Time: September 13:40 - CONCLUSION: Normal examination. RISK CATEGORY: Low (<1%% Annual Mortality Rate) Reagan Yusuf MD Gall Bladder Ultrasound 09/10/17 0000 Signed Impressions: Service Date/Time: Sunday, September 10, 2017 11:30 - CONCLUSION: 1. Cholelithiasis. However, there are no findings to indicate acute cholecystitis. 2. Small right pleural effusion. Constantin Lopez MD Chest CT 09/10/17 0000 Signed Impressions: Service Date/Time: Sunday, September 10, 2017 21:13 - CONCLUSION: 1. Small to moderate bilateral effusions and bibasilar atelectasis. Silverio Stout MD Abdomen/Pelvis CT 09/09/178 Signed Impressions: Service Date/Time: Saturday, September 09, 2017 20:30 - CONCLUSION: 1. Small bilateral pleural effusions, left greater than right with basilar dependent airspace disease in the lungs. Mild anasarca. No bowel obstruction. No free air. Mild constipation. Bruce catheter in bladder. Sal Terrazas MD Knee X-Ray 09/09/17 0000 Signed Impressions: Service Date/Time: Saturday, September 09, 2017 13:49 - CONCLUSION: 1. Moderate to large joint effusion. No acute osseous abnormality is identified. 2. 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 3. Bridger-Stieda lesion indicating old medial collateral ligament injury. 4. Severe calcification of the popliteal artery. Constantin Lopez MD Hip and Pelvis X-Ray 09/09/17 0000 Signed Impressions: Service Date/Time: Saturday, September 09, 2017 17:02 - CONCLUSION: No acute left hip abnormality is identified. 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 Constantin Lopez MD Physical Exam GENERAL: awake and alert, NAD SKIN: Warm and dry. No generalized rash, no ecchymoses and no evidence of embolic lesions. HEAD: Atraumatic. Normocephalic. No temporal wasting, or tenderness. EYES: [place] conjunctiva. No petechia or hemorrhage. Pupils equal, round and reactive to light. No scleral icterus. No injection or drainage. EARS, NOSE AND THROAT: moist oral mucosa. dentition in fair condition CARDIOVASCULAR: Rate controlled RESPIRATORY: Decreased BS at bases ABDOMEN: Soft and not distended, bowel sounds present and normoactive. No guarding. No rebound. No organomegaly. EXTREMITIES: No clubbing. RLE minimal edema. R knee incision is dry clean. Good ROM. NEUROLOGICAL: Awake and alert. Cranial nerves grossly intact. Motor grossly within normal limits. PSYCHIATRIC: Normal affect, calm and cooperative. 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 - due to septic R knee R septic knee E.coli S/P debridement: clinically improving Renal insufficiency, ?baseline, or due to sepsis, or hypotension SOB, known COPD, but likely due to fluid Atrial fib NSTEMI Leukocytosis, better - no new infection found Frequent hiccups RECOMMENDATION Continue Levaquin [facility] has started new Abx Folow BC If stabe D/C new Abx Monitor progress GI still evaluatiing patient D/W Shiloh Infante MD Sep 23, 2017 09:26
[2017-09-23] MEDS: METOPROLOL TARTRATE 25 MG TAB PO SCH ×2 (11:59→21:00)
[2017-09-23] MEDS ORDERED: chlorproMAZINE HCL 25 MG TAB PO SCH (12:00)
--- NOTE | 2017-09-23 12:08 | HHI.GIFU ---
Subjective Remarks pt resting in bed in NAD. sleepy, noncontributory. Does not appear to be hiccuping. (S[place]rina [place]) Objective Vitals I&O Vital Signs Date Time Temp Pulse Resp B/P (MAP) Pulse Ox O2 Delivery O2 Flow Rate FiO2 09/23/17 10:00 113 09/23/17 10:00 125 09/23/17 08:05 97 Nasal Cannula 2.00 09/23/17 08:00 125 09/23/17 08:00 97.4 125 22 109/69 (82) 95 09/23/17 07:00 95 Nasal Cannula 2.00 09/23/17 06:00 110 09/23/17 04:00 106 09/23/17 04:00 97.1 106 13 92/59 (70) 98 09/23/17 02:00 121 09/23/17 00:00 98.1 134 26 107/68 (81) 98 09/23/17 00:00 134 09/22/17 22:00 130 09/22/17 21:46 97 Nasal Cannula 2.00 09/22/17 20:00 122 09/22/17 20:00 98.2 122 34 99/54 (69) 99 09/22/17 19:00 95 Nasal Cannula 2.00 09/22/17 18:00 115 09/22/17 16:00 116 09/22/17 16:00 97.7 116 17 97/62 (74) 98 09/22/17 14:00 106 I/O 09/22/17 09/22/17 09/22/17 09/23/17 09/23/17 09/23/17 07:00 15:00 23:00 07:00 15:00 23:00 Intake Total 2150 ml 650 ml 500 ml Output Total 500 ml 480 ml Balance 2150 ml 150 ml 20 ml Intake Oral 450 ml 400 ml IV Total 2150 ml 200 ml 100 ml Output Urine Total 500 ml 480 ml # Bowel Movements 0 Laboratory Laboratory Tests Test 09/22/17 12:57 09/23/17 04:35 Random Cortisol 171.0 White Blood Count 10.1 Red Blood Count 3.56 Hemoglobin 11.2 Hematocrit 32.8 Mean Corpuscular Volume 92.1 Mean Corpuscular Hemoglobin 31.4 Mean Corpuscular Hemoglobin Concent 34.1 Red Cell Distribution Width 14.7 Platelet Count 443 Mean Platelet Volume 8.5 Neutrophils (%) (Auto) 87.8 Lymphocytes (%) (Auto) 6.2 Monocytes (%) (Auto) 5.6 Eosinophils (%) (Auto) 0.1 Basophils (%) (Auto) 0.3 Neutrophils # (Auto) 8.9 Lymphocytes # (Auto) 0.6 Monocytes # (Auto) 0.6 Eosinophils # (Auto) 0.0 Basophils # (Auto) 0.0 CBC Comment DIFF FINAL Differential Comment Prothrombin Time 11.9 Prothromb Time International Ratio 1.2 Activated Partial Thromboplast Time 30.8 Fibrinogen 505 Blood Urea Nitrogen 35 Creatinine 1.35 Random Glucose 129 Total Protein 4.6 Albumin 2.0 Calcium Level 7.7 Phosphorus Level 2.6 Magnesium Level 2.0 Alkaline Phosphatase 220 Aspartate Amino Transf (AST/SGOT) 7 Alanine Aminotransferase (ALT/SGPT) 14 Total Bilirubin 0.5 Sodium Level 138 Potassium Level 4.2 Chloride Level 105 Carbon Dioxide Level 26.3 Anion Gap 7 Estimat Glomerular Filtration Rate 52 Lactic Acid Level 1.1 Total Creatine Kinase 22 Troponin I LESS THAN 0.02 Date/Time Source Procedure Growth Status 09/22/17 12:57 Blood Peripheral Aerobic Blood Culture - Preliminary NO GROWTH IN 1 DAY Resulted 09/22/17 12:57 Blood Peripheral Anaerobic Blood Culture - Preliminary NO GROWTH IN 1 DAY Resulted 09/10/17 09:15 Fluid Synovial Fluid Gram Stain - Final Complete 09/10/17 09:15 Body Fluid Culture - Final Escherichia Coli Complete 09/12/17 11:00 Urine Catheterized Urine Urine Culture - Final NO GROWTH IN 48 HOURS. Complete 09/11/17 16:00 Wound Leg Fungal Smear - Final NO FUNGAL ELEMENTS SEEN. Resulted 09/11/17 16:00 Wound Leg Fungal Culture - Preliminary NO GROWTH IN 1 WEEK Resulted Imaging Last Impressions Chest X-Ray 09/22/17 0000 Signed Impressions: Service Date/Time: Friday, September 22, 2017 12:04 - CONCLUSION: 1. Mild pulmonary edema pattern. No significant effusion. No pneumothorax. Several more focal areas of consolidation also present. Cannot exclude pneumonia. Sal Terrazas MD Carotid Artery Ultrasound 09/17/17 1621 Signed Impressions: Service Date/Time: Sunday, September 17, 2017 08:53 - CONCLUSION: Mild atherosclerotic plaquing at the bifurcation. No focal high grade or hemodynamically significant stenosis. Camden Quintero MD Brain MRI 09/17/17 1621 Signed Impressions: Service Date/Time: Sunday, September 17, 2017 18:17 - CONCLUSION: Negative noncontrast MRI of the brain. Chandan Ortez MD Head CT 09/16/17 1025 Signed Impressions: Service Date/Time: Saturday, September 16, 2017 11:18 - CONCLUSION: Negative for acute process. Te Frances MD FACR Myocardial Perfusion Scan Nuc Med 09/12/17 0000 Signed Impressions: Service Date/Time: September 13:40 - CONCLUSION: Normal examination. RISK CATEGORY: Low (<1%% Annual Mortality Rate) Reagan Yusuf MD Gall Bladder Ultrasound 09/10/17 0000 Signed Impressions: Service Date/Time: Sunday, September 10, 2017 11:30 - CONCLUSION: 1. Cholelithiasis. However, there are no findings to indicate acute cholecystitis. 2. Small right pleural effusion. Constantin Lopez MD Chest CT 09/10/17 0000 Signed Impressions: Service Date/Time: Sunday, September 10, 2017 21:13 - CONCLUSION: 1. Small to moderate bilateral effusions and bibasilar atelectasis. Silverio Stout MD Abdomen/Pelvis CT 09/09/17 1738 Signed Impressions: Service Date/Time: Saturday, September 09, 2017 20:30 - CONCLUSION: 1. Small bilateral pleural effusions, left greater than right with basilar dependent airspace disease in the lungs. Mild anasarca. No bowel obstruction. No free air. Mild constipation. Bruce catheter in bladder. Sal Terrazas MD Knee X-Ray 09/09/17 0000 Signed Impressions: Service Date/Time: Saturday, September 09, 2017 13:49 - CONCLUSION: 1. Moderate to large joint effusion. No acute osseous abnormality is identified. 2. 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 3. Bridger-Stieda lesion indicating old medial collateral ligament injury. 4. Severe calcification of the popliteal artery. Constantin Lopez MD Hip and Pelvis X-Ray 09/09/17 0000 Signed Impressions: Service Date/Time: Saturday, September 09, 2017 17:02 - CONCLUSION: No acute left hip abnormality is identified. 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 Constantin Lopez MD Physical Exam HEENT: normocephalic; atraumatic; CHEST: CTA CARDIAC: tachycardic ABDOMEN: Soft, nondistended, nontender; no hepatosplenomegaly; bowel sounds are present in all four quadrants. EXTREMITIES: No clubbing, cyanosis, mild edema RLE right knee bandage intact SKIN: Normal for age no rash; no jaundice. 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 Cardiology does not feel CPis cardiac and wanted GI opinion. Thorazine, and vagal maneuver, Hiccups subsided briefly yesterday but returned, Coumadin on hold, INR today 1.3 09/23/17 pt transferred to [facility] has been hpotensive. ID following, no new infection. His WBC is trending down. not hiccuping during my eval, per RN no recent hiccuping and he is not receiving any meds for that nor for BP. they are giving him something for tachycardia will try again for EGD tomorrow if vitals stable PLAN - TRISHA - EGD saturday - NPo after midnight - Thorazine PRN - Continue Pepcid PO pt seen by myself and Dr Thomas and this note is on his behalf (S[place]rina [place]) Physician Comments Agree with plan. Currently asymptomatic from GI point of view. Will need EGD if symptoms recur. Will follow up with you. (Karolina Thomas MD) [place]rina [place] Sep 23, 2017 12:08 Karolina Thomas MD Sep 23, 2017 14:54
[2017-09-23] MEDS: DILTIAZEM HCL 30 MG TAB PO SCH ×3 (12:31→22:47)
--- NOTE | 2017-09-23 13:04 | HHI.CCPN ---
Subjective Remarks/Hospital Course 72-year-old male presents for evaluation of right knee pain for the past several days. It started about 4-5 days ago when he "tweaked" his knee while changing his tire. He had mild pain since then but but yesterday the pain became so severe, he could no longer ambulate. Pain is also worse with hyperextension. Patient has minimal pain at rest. He has been taking Tylenol, his friend's muscle relaxant, and previously prescribed oxycodone with moderate relief in symptoms. He cannot localize pain. Denies paresthesias, or fever. No history of knee problems. History of A. fib for which he takes warfarin. Patient stopped taking warfarin 2 days ago because he noted a small bruise to his buttocks. Denies any trauma or injury to buttocks. In the emergency department he was found to have bandemia and was hypotensive despite 3 L of normal saline boluses. 09/10: Remains in A. fib with RVR with heart rates between 120 and 150. Currently on 6 L nasal cannula. Received 6 L normal saline bolus since admission. On low-dose norepinephrine. Lactic acid increased to 3.3. Decreased urine output noted. Patient has chronic prednisone use due to rheumatoid arthritis. Hydrocortisone 100 mg has been ordered for this a.m. now. Denies pain in right knee currently. 09/11: Status post I&D right knee yesterday. BASIM with serosanguineous drainage. Currently afebrile. Decreased urine output noted. Creatinine bumped to 2.4. Lactate slowly decreasing. Volume status positive between 8-10 L since admission. 09/12: Episode of chest pain this a.m. Troponin elevated greater than 2. Currently chest pain-free. Heart rate currently rate controlled. Heparin drip initiated after being okayed by orthopedics. Plan for adenosine stress test today. 09/13: Afebrile. Negative adenosine stress test yesterday. Remains on heparin drip. On 3.5 L nasal cannula. Requesting transfer to general medical floor. 09/22: Reconsult secondary to hypotension. Patient has been off his prednisone. Chronically on 5 mg daily. Also complaining of pain in his right knee. Appears pale. Conversant. Subjective 09/23: Afebrile. Off norepinephrine drip 12 hours. Becoming more tachycardic. Resuming metoprolol tartrate and diltiazem lower previous dosages than prior. We should know when he can transport to [place]. Objective Vital Signs Date Time Temp Pulse Resp B/P (MAP) Pulse Ox O2 Delivery O2 Flow Rate FiO2 09/23/17 10:00 113 09/23/17 08:05 97 Nasal Cannula 2.00 09/23/17 08:00 97.4 22 109/69 (82) 09/21/17 19:55 21 Intake and Output 09/23/17 09/23/17 09/24/17 08:00 16:00 00:00 Intake Total 500 ml Output Total 480 ml Balance 20 ml Result Diagram: 09/23/17 0435 09/23/17 0435 Other Results Microbiology Date/Time Source Procedure Growth Status 09/22/17 12:57 Blood Peripheral Aerobic Blood Culture - Preliminary NO GROWTH IN 1 DAY Resulted 09/22/17 12:57 Blood Peripheral Anaerobic Blood Culture - Preliminary NO GROWTH IN 1 DAY Resulted 09/10/17 09:15 Fluid Synovial Fluid Gram Stain - Final Complete 09/10/17 09:15 Body Fluid Culture - Final Escherichia Coli Complete 09/12/17 11:00 Urine Catheterized Urine Urine Culture - Final NO GROWTH IN 48 HOURS. Complete 09/11/17 16:00 Wound Leg Fungal Smear - Final NO FUNGAL ELEMENTS SEEN. Resulted 09/11/17 16:00 Wound Leg Fungal Culture - Preliminary NO GROWTH IN 1 WEEK Resulted Imaging Last Impressions Chest X-Ray 09/22/17 0000 Signed Impressions: Service Date/Time: Friday, September 22, 2017 12:04 - CONCLUSION: 1. Mild pulmonary edema pattern. No significant effusion. No pneumothorax. Several more focal areas of consolidation also present. Cannot exclude pneumonia. Sal Terrazas MD Carotid Artery Ultrasound 09/17/171 Signed Impressions: Service Date/Time: Sunday, September 17, 2017 08:53 - CONCLUSION: Mild atherosclerotic plaquing at the bifurcation. No focal high grade or hemodynamically significant stenosis. Camden Quintero MD Brain MRI 09/17/17 1621 Signed Impressions: Service Date/Time: Sunday, September 17, 2017 18:17 - CONCLUSION: Negative noncontrast MRI of the brain. Chandan Ortez MD Head CT 09/16/17 1025 Signed Impressions: Service Date/Time: Saturday, September 16, 2017 11:18 - CONCLUSION: Negative for acute process. Te Frances MD FACR Myocardial Perfusion Scan Nuc Med 09/12/17 0000 Signed Impressions: Service Date/Time: September 13:40 - CONCLUSION: Normal examination. RISK CATEGORY: Low (<1%% Annual Mortality Rate) Reagan Yusuf MD Gall Bladder Ultrasound 09/10/17 0000 Signed Impressions: Service Date/Time: Sunday, September 10, 2017 11:30 - CONCLUSION: 1. Cholelithiasis. However, there are no findings to indicate acute cholecystitis. 2. Small right pleural effusion. Constantin Lopez MD Chest CT 09/10/17 0000 Signed Impressions: Service Date/Time: Sunday, September 10, 2017 21:13 - CONCLUSION: 1. Small to moderate bilateral effusions and bibasilar atelectasis. Silverio Stout MD Abdomen/Pelvis CT 09/09/17 1738 Signed Impressions: Service Date/Time: Saturday, September 09, 2017 20:30 - CONCLUSION: 1. Small bilateral pleural effusions, left greater than right with basilar dependent airspace disease in the lungs. Mild anasarca. No bowel obstruction. No free air. Mild constipation. Bruce catheter in bladder. Sal Terrazas MD Knee X-Ray 09/09/17 0000 Signed Impressions: Service Date/Time: Saturday, September 09, 2017 13:49 - CONCLUSION: 1. Moderate to large joint effusion. No acute osseous abnormality is identified. 2. 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 3. Bridger-Stieda lesion indicating old medial collateral ligament injury. 4. Severe calcification of the popliteal artery. Constantin Lopez MD Hip and Pelvis X-Ray 09/09/17 0000 Signed Impressions: Service Date/Time: Saturday, September 09, 2017 17:02 - CONCLUSION: No acute left hip abnormality is identified. 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 Constantin Lopez MD Objective Remarks GENERAL: 72-year-old male currently resting in bed in no acute respiratory distress on 2 L nasal cannula SKIN: Pale and dry. No rash HEAD: Normocephalic. Atraumatic EYES: Peoples around 3 mm bilaterally and reactive. No scleral icterus or injection. NECK: Supple, trachea midline. No JVD or lymphadenopathy. CARDIOVASCULAR: Tachycardic, IR. S1, S2. No S4. Without murmur RESPIRATORY: Breath sounds equal bilaterally. No accessory muscle use. GASTROINTESTINAL: Abdomen soft, non-tender, nondistended. MUSCULOSKELETAL: Right knee status post I&D. Sutures are clean dry and intact covered with Xeroform positive edema lower extremity NEURO EXAM: Cranial nerves II through XII grossly intact. Strength appears to be equal and symmetric bilaterally. Normal sensation Urinary Catheter: No Assessment to: Continue Date of Insertion: Sep 09, 2017 Date of Removal: Sep 13, 2017 Line: Central Venous Catheter Side: Right Location: Femoral A/P Assessment and Plan Neuro/Psych: Depression Duloxetine 20 mg p.o. daily/home medication will be continued Acetaminophen 650 mg by mouth every 6 hours as needed for fever Hydrocodone/acetaminophen 5/325 one tablet every 4 hours as needed for pain 1 through 5 Hydromorphone 1 mg IV every 4 hours as needed pain 6 through 10 CV: Systolic heart failure unknown if acute or chronic Atrial fibrillation with rapid ventricular response History of chronic atrial fibrillation Moderate MR Severe sepsis secondary to E. coli bacteremia resolved Chest post 1 L normal saline along with albumin bolus. Currently on norepinephrine drip at 2 mcg/min to maintain mean arterial pressure greater than equal 65 Started on metoprolol tartrate 25 mg p.o. twice daily by cardiology. Will start metoprolol tartrate 12.5 mg twice daily and diltiazem at 15 mg every [address] Hanna -medical management initially now scheduled for adenosine Cardiolite negative 2D echocardiogram revealed EF 35-40%. Bilateral atrial enlargement. Moderate MR. Cycle troponins currently 0.03 Patient is on no medications for blood pressure or rate control at home Previously on on diltiazem 120 daily and metoprolol 50 twice daily. These been held. Discontinue lisinopril 2.5 mg daily with hypotension Resp: Acute respiratory insufficiency History of COPD Bilateral small pleural effusions Nasal cannula to maintain saturations greater than or equal to 92%. Currently at 2.5 L Incentive spirometry while awake Albuterol/ipratropium aerosols every 6 hours with albuterol aerosols every 2 hours as needed Follow-up on chest x-ray 09/22 revealed patchy infiltrates bilateral lobe/ pulmonary edema? CT thorax revealed bilateral pleural effusions GI: Hypoalbuminemia Mild anasarca Cholelithiasis without cholecystitis on ultrasound Patient is currently in a regular diet Famotidine for GI prophylaxis Docusate sodium/senna 1 tablet twice daily for bowel regimen : Bruce catheter has been placed for accurate I's and O's in a critically ill patient Endo: Chronic prednisone use -history of rheumatoid arthritis Sliding scale insulin Novulin R medium regimen with Accu-Cheks maintain euglycemia TSH 2.57 Start on hydrocortisone 100 mg IV every 8 hours Patient does not know his home prednisone dose. Thinks he might be "5 mg". Renal: Right renal cyst -3 cm Acute on chronic kidney injury - ATN, AIN? Creatinine currently 1.35 and slowly declining Unknown baseline creatinine Consult nephrology appreciated. Signed off No hydronephrosis on CT abdomen/pelvis Monitor urine output Accurate I's and O's Heme: Chronic warfarin use Elevated PTT Elevated fibrinogen Currently holding warfarin 4.5 mg alternating with 4 mg daily. Holding anticoagulation secondary to possible GI bleed. Need for endoscopy/EGD for GI Okayed for heparin drip by orthopedics previously during this hospitalization Received 1 unit FFP 09/10. Hemoglobin currently 11.1 ID: Severe sepsis -knee effusion ? Septic joint E. coli bacteremia Currently levofloxacin per infectious disease Vancomycin discontinued Infectious disease consultation Microbiology Blood cultures 2 -09/22 -pending Blood cultures -09/11 -no growth Synovial fluid -09/10 -E. coli Intra-Op cultures -09/10 -no growth Blood cultures -09/09 -E. coli UA 09/12 no growth FEN: Replace electrolytes as clinically indicated MSK: Right knee effusion postop I&D X-ray right knee reveal tricompartment osteophytes with medial space joint narrowing. Coarse ossifications of the supracondylar ridge. Popliteal artery calcification. Bridger Stieda lesion revealing possible old MCL injury Large right knee effusion Orthopedics weightbearing as tolerated. Range of motion Change dressings daily #2 postop. PT evaluate and treat Access -Utilize peripheral IV. Central and if indicated Prophylaxis -GI -famotidine -DVT -SCD/heparin subcu Level 2 follow-up Patient stable from a critical care medicine standpoint. Assign care to hospitalist in a.m. 09/24. Transfer to out of ICU Addendum 09/[address] central line secondary to persistent hypotension. Will start a norepinephrine drip to maintain mean arterial pressure gradient 65. Current laboratories blood cultures yesterday no growth today. 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 This episode lasted about 1 minute with resolution. Patient received [address] brain currently pending. We will get EEG. Consult neurology for evaluation Discontinue hydroxyzine for possible seizure. Jaspal Kennedy MD Sep 23, 2017 13:04
[2017-09-23] MEDS ORDERED: ALBUMIN 25% INJ 100 ML IV ONE (17:15)
[2017-09-23] MEDS ORDERED: SODIUM CHLORID 0.9% 500 ML INJ 500 ML IV ONE (17:15)
[2017-09-23] MEDS: MAGNESIUM SULFATE 1 GM PREMIX 100 ML IV SCH ×2 (17:26→18:32)
[2017-09-23] MEDS ORDERED: LORazepam 2 MG/ML VIAL ONE (19:59)
[2017-09-23] MEDS ORDERED: CEFEPIME INJ 2,000 MG in SODIUM CHLORIDE 0.9% INJ 100 ML IV SCH (20:00)
[2017-09-23] MEDS ORDERED: chlorproMAZINE HCL 25 MG TAB PO PRN (20:00)
--- NOTE | 2017-09-23 20:05 | PD.PROCEDR ---
Central Line Procedure REASON FOR PROCEDURE Central venous access PROCEDURE PERFORMED Central line placement: Left IJ CVL CONSENT Informed consent for procedure was obtained from patient Vasile Burnett. The risks and benefits of the procedure were discussed to include but limited to bleeding, clot formation, infection, and even . ANESTHESIA Local injection of 1% Lidocaine DESCRIPTION OF THE PROCEDURE The patient was placed in supine, mild Trendelenburg position. The area was exposed and cleansed with ChloraPrep, times two. Large sterile drape was used to cover the patient, with the site exposed, under sterile conditions including cap, face mask, sterile gown, and sterile gloves. On single attempt, the introducer needle was inserted with negative pressure in syringe and venous flash was obtained. The guide wire was then advanced without any restriction and the needle was removed. The dilator was used without any complications. Using Seldinger technique the antibiotic coated triple lumen catheter was advanced over the guide wire to a depth of 20 centimeters. The guide wire was removed. All ports were aspirated with dark venous blood return and flushed easily with sterile saline. All ports were capped. Antibiotic disc was placed around central line at puncture site. The central line was secured to the skin with two interrupted 2.0 silk sutures. The area was bandaged with sterile see- through central line bandage. RADIOLOGICAL DATA Ultrasound guidance was used to locate left internal jugular vein. Doppler/ color flow was used to confirm venous flow. COMPLICATIONS: No apparent complications ESTIMATED BLOOD LOSS: Less than 1 cc. Jaspal Kennedy MD Sep 23, 2017 20:05
[2017-09-23] MEDS ORDERED: SODIUM CHLORIDE 0.9% FLUSH 10 ML FLUSH IV FLUSH PRN (20:15)
[2017-09-23] MEDS ORDERED: LORazepam 2 MG/ML VIAL IV PUSH PRN (20:15)
--- NOTE | 2017-09-23 20:26 | RADRPT ---
EXAM DATE/TIME: 09/23/2017 20:12 [facility] COMPARISON: CHEST SINGLE AP, September 22, 2017, 12:04. INDICATIONS : Central line placement. MEDICAL HISTORY : Chronic obstructive pulmonary disease. Atrial fibrillation. Sarcoidosis. SURGICAL HISTORY : None. ENCOUNTER: Subsequent ACUITY: 2 days PAIN SCORE: 0/10 LOCATION: Bilateral chest FINDINGS: Decreasing air space opacities, now very mild and mostly in the midlung on the right and at the base on the left. A small left pleural effusion is likely. No large effusion demonstrated. No pneumothorax . Patient has a new left internal jugular central venous catheter. The tip is in the superior vena cava . CONCLUSION: 1. New left IJ line with tip in the superior vena cava. No pneumothorax or other acute complication d emonstrated. 2. Decreasing pulmonary opacities as above. Constantin Chavis MD on September 23, 2017 at 20:23 Board Certified Radiologist. This report was verified electronically.
--- NOTE | 2017-09-23 20:28 | EKG ---
Date Performed: 09/22/2017 Time Performed: 14:27:48 PTAGE: 72 years EKG: ATRIAL FIBRILLATION Compared to previous tracing, the frequent PVCs have resolved ABNORMAL RHYTHM ECG PREVIOUS TRACING : 09/22/2017 09.29 DOCTOR: Nette Strong Interpretating Date/Time 09/23/2017 20:26:34
[2017-09-23] MEDS ORDERED: TERBUTALINE INJ 1 MG/ML AMP SQ PRN (20:30)
[2017-09-23] MEDS ORDERED: NOREPINEPHRINE INJ 4 MG in SODIUM CHLOR 0.9% 250 ML INJ 246 ML IV PRN (20:30)
--- NOTE | 2017-09-23 21:25 | RADRPT ---
EXAM DATE/TIME: 09/23/2017 20:58 [facility] COMPARISON: CT BRAIN W/O CONTRAST, September 16, 2017, 11:18. INDICATIONS : Possible seizure today. RADIATION DOSE: 39.13 CTDIvol (mGy) MEDICAL HISTORY : Cardiovascular disease. Chronic obstructive pulmonary disease. SURGICAL HISTORY : None. ENCOUNTER: Initial ACUITY: 1 day PAIN SCALE: Non-responsive LOCATION: Bilateral head TECHNIQUE: Multiple contiguous axial images were obtained of the head. Using automated exposure control and adj ustment of the mA and/or kV according to patient size, radiation dose was kept as low as reasonably a chievable to obtain optimal diagnostic quality images. DICOM format image data is available electro nically for review and comparison. FINDINGS: CEREBRUM: The ventricles are normal for age. No evidence of midline shift, mass lesion, hemorrhage or acute in farction. No extra-axial fluid collections are seen. POSTERIOR FOSSA: The cerebellum and brainstem are intact. The 4th ventricle is midline. The cerebellopontine angle i s unremarkable. EXTRACRANIAL: The visualized portion of the orbits is intact. SKULL: The calvaria is intact. No evidence of skull fracture. CONCLUSION: No evidence of acute intracranial abnormality. Constantin Chavis MD on September 23, 2017 at 21:23 Board Certified Radiologist. This report was verified electronically.
[2017-09-24] VITALS (13 sets, daily range): BP systolic 99–150; BP diastolic 61–104; PULSE 90–128; RESP 14–25; TEMP 98–98.5; O2SAT 92–100
[2017-09-24] MEDS: CHLORHEXIDINE GLUCONATE 2 % 1 PACK (2 CLOTHS) TOP SCH (04:00)
--- NOTE | 2017-09-24 05:06 | RADRPT ---
EXAM DATE/TIME: 09/24/2017 03:30 [facility] COMPARISON: CHEST SINGLE AP, September 23, 2017, 20:12. INDICATIONS : Short of breath. MEDICAL HISTORY : Chronic obstructive pulmonary disease. Atrial fibrillation. Sarcoidosis. SURGICAL HISTORY : None. ENCOUNTER: Subsequent ACUITY: 3 days PAIN SCORE: 0/10 LOCATION: Bilateral chest FINDINGS: 2 portable frontal views of the chest show mild residual parenchymal opacity within left lung base. R ight lung is clear. No effusions. Heart is at the upper limits of normal in terms of size. Left-sided central line. CONCLUSION: Mild residual infiltrate within the left base. Chandan Guardado Jr., MD on September 24, 2017 at 5:04 Board Certified Radiologist. This report was verified electronically.
[2017-09-24] MEDS: DILTIAZEM HCL 30 MG TAB PO SCH ×3 (06:00→18:00)
[2017-09-24] MEDS: HEPARIN SODIUM - SQ 10,000 UNITS/ML VIAL SQ SCH ×3 (06:00→20:51)
[2017-09-24 07:37] LABS: ALBUMIN 2.3 GM/DL (3.4-5.0); BICARBONATE 24.7 MEQ/L (21.0-32.0); CALCIUM 8.5 MG/DL (8.5-10.1); CREATININE 1.37 MG/DL (0.60-1.30); DIRECT BILIRUBIN ADULT 0.3 MG/DL (0.0-0.2); MAGNESIUM 2.1 MG/DL (1.5-2.5); PHOSPHORUS 2.6 MG/DL (2.5-4.9)
[2017-09-24 07:40] LABS: INDIRECT BILIRUBIN 0.2 MG/DL (0.0-0.8); TOTAL BILIRUBIN ADULT 0.5 MG/DL (0.2-1.0); TOTAL PROTEIN 4.8 GM/DL (6.4-8.2)
[2017-09-24 08:57] LABS: HEMATOCRIT 35.2 % (39.0-51.0); HEMOGLOBIN 12.1 GM/DL (13.0-17.0); MEAN CELL VOLUME 92.4 FL (80.0-100.0); MEAN CORPUSCULAR HEMOGLOBIN 31.6 PG (27.0-34.0); MEAN CORPUSCULAR HGB CONC 34.3 % (32.0-36.0); MEAN PLATELET VOLUME 9.2 FL (7.0-11.0); PLATELET COUNT 488 TH/MM3 (150-450); RED BLOOD COUNT 3.81 MIL/MM3 (4.50-5.90); RED CELL DISTRIBUTION WIDTH 14.4 % (11.6-17.2); WHITE BLOOD COUNT 21.4 TH/MM3 (4.0-11.0)
[2017-09-24] MEDS: METOPROLOL TARTRATE 25 MG TAB PO SCH ×2 (09:00→20:50)
[2017-09-24] MEDS: DULoxetine HCl DR 60 MG CAP PO SCH (09:14)
[2017-09-24] MEDS: LEVOFLOXACIN 750 MG TAB PO SCH (09:14)
[2017-09-24] MEDS: FAMOTIDINE 20 MG TAB PO SCH ×2 (09:14→20:51)
[2017-09-24] MEDS: SODIUM CHLORIDE 0.9% FLUSH 10 ML FLUSH IV FLUSH SCH ×3 (09:15→20:50)
[2017-09-24] MEDS: HYDROCORTISONE SOD SUCCINATE 100 MG VIAL IV PUSH SCH ×2 (09:15→16:41)
[2017-09-24] MEDS: DOCUSATE SODIUM 50 MG/SENNA 8.6 MG TAB PO SCH ×2 (09:26→20:51)
--- NOTE | 2017-09-24 10:33 | HHI.IDPN ---
Subjective Subjective Remarks Patient is a 72-year-old male, presented to the hospital for evaluation of severe knee pain, and inability to ambulate. He started having some problems about a week ago when he was still in [place]. He was just feeling some malaise and generalized weakness. He had a scheduled medication to come to [place], and arrived [place] 4 days ago. He started noticing some knee pain, and it's usually worse when he puts weight on it and he walked on it. He does not really recall any significant trauma or injury, denies any fall. He started using a cane. He got progressively worse as far as his generalized weakness, and the pain started getting worse so he presented to the hospital for further evaluation and treatment. He denies any significant respiratory complaint. He denies any urinary complaint. There's been no nausea or vomiting. He's had constipation which is unusual for him. Denies any chest pain or any palpitations. On presentation to the emergency room, patient was found to be hypotensive and has required fluid resuscitation. He was in A. fib with RVR. His WBC is normal but he has bandemia. His creatinine is elevated. Lactic is elevated. CT of the abdomen and pelvis did not show any intra- abdominal process, but he has some bilateral pleural effusions. X-ray of the knee showed evidence of moderate effusion. Orthopedics saw the patient, and got very little fluid in the knee because he was very viscous. Patient currently has borderline blood pressure. He is not on pressors. He remains in A. fib with RVR. He has been afebrile since admission. Patient continues to have pain in his right knee, and also complains of pain in the right hip. He also has low back pain. Infectious disease consultation has been requested to evaluate the patient with sepsis. Notes reviewed D/W RN Started on levophed last night Has new line LIJ Temps ok BP better today - to wean levophed down BC negative NO new complaints CXR better Antibiotics Levaquin Current Medications Medications (Trade) Dose Ordered Sig/Jet Route Start Time Stop Time Status Last Admin (NS Flush) 2 ml UNSCH PRN IV FLUSH 09/09/17 18:15 09/13/17 16:24 (NS Flush) 2 ml BID IV FLUSH 09/09/17 21:00 09/24/17 09:15 (Tylenol) 650 mg Q6H PRN PO 09/09/17 18:15 (Restoril) 15 mg HS PRN PO 09/09/17 18:15 09/22/17 23:48 Miscellaneous Information 1 Q361D XX 09/09/17 18:15 (Chlorhexidine 2% Cloth) Taper DAILY@04 TOP 09/10/17 04:00 09/06/18 03:59 09/24/17 04:00 (Chlorhexidine 2% Cloth) 3 pack UNSCH PRN TOP 09/09/17 18:15 (Mar-Colace) 1 tab BID PO 09/09/17 21:00 09/24/17 09:26 (Milk Of Magnesia Liq) 30 ml Q12H PRN PO 09/09/17 18:15 09/15/17 14:03 (Senokot) 17.2 mg Q12H PRN PO 09/09/17 18:15 (Dulcolax Supp) 10 mg DAILY PRN RECTAL 09/09/17 18:15 09/14/17 23:04 (Lactulose Liq) 30 ml DAILY PRN PO 09/09/17 18:15 09/15/17 14:03 (Zofran Inj) 4 mg Q6H PRN IV PUSH 09/10/17 04:15 (Albuterol Neb) 2.5 mg Q2HR NEB PRN NEB 09/10/17 07:00 ([place] 5-325 Mg) 1 tab Q4H PRN PO 09/10/17 08:00 09/22/17 12:21 (Lopressor) 50 mg Q12HR PO 09/13/17 21:00 Future Hold 09/21/17 20:01 (Pill Splitter) 1 ea UNSCH PRN OTHER 09/13/17 15:15 (Cardizem Cd) 120 mg DAILY PO 09/14/17 09:00 Future Hold 09/20/17 09:31 (Cardizem) 30 mg Q6HR PRN PO 09/16/17 12:00 Future Hold (Cymbalta Dr) 60 mg DAILY PO 09/18/17 09:00 09/24/17 09:14 (Levaquin) 750 mg DAILY PO 09/18/17 09:45 09/24/17 09:14 (Coumadin) 3 mg DAILY@1600 PO 09/18/17 16:00 Future Hold 09/18/17 17:58 (Heparin Inj) 5,000 units Q8HR SQ 09/20/17 14:00 Future hold 09/24/17 06:00 (SoluCORTEF INJ) 100 mg Q8H IV PUSH 09/22/17 16:00 09/24/17 09:15 (Pepcid) 10 mg BID PO 09/22/17 21:00 09/24/17 09:14 (Lopressor) 12.5 mg Q12HR PO 09/23/17 11:00 09/23/17 11:59 (Cardizem) 15 mg Q6HR PO 09/23/17 12:00 09/24/17 06:00 (Thorazine) 25 mg Q8H PRN PO 09/23/17 20:00 (NS Flush) DAILY IV FLUSH 09/23/17 20:15 09/24/17 09:15 (NS Flush) UNSCH PRN IV FLUSH 09/23/17 20:15 (Ativan Inj) 2 mg Q2H PRN IV PUSH 09/23/17 20:15 09/23/17 20:00 Norepinephrine Bitartrate 4 mg/ Sodium Chloride 250 ml @ 7.5 mls/hr TITRATE PRN IV 09/23/17 20:30 09/23/17 21:30 (Brethine Inj) 1 mg UNSCH PRN SQ 09/23/17 20:30 Lines PIV Past Medical History Atrial fibrillation COPD Spinal stenosis Allergies: Coded Allergies: No Known Allergies (Unverified , 09/09/17) Objective . Vital Signs Date Time Temp Pulse Resp B/P (MAP) Pulse Ox O2 Delivery O2 Flow Rate FiO2 09/24/17 10:00 101 09/24/17 08:27 99 Nasal Cannula 2.00 09/24/17 08:00 128 09/24/17 08:00 98.0 128 25 150/104 (119) 99 09/24/17 07:00 95 Nasal Cannula 2.00 09/24/17 06:00 96 09/24/17 04:00 98.0 109 14 140/81 (100) 100 09/24/17 04:00 109 09/24/17 02:00 104 09/24/17 00:00 98.2 116 18 99/63 (75) 92 09/24/17 00:00 116 09/23/17 22:00 92 09/23/17 21:30 108 92/62 09/23/17 20:00 98.0 89 21 85/54 (64) 99 09/23/17 20:00 89 09/23/17 19:00 95 Nasal Cannula 2.00 09/23/17 18:00 105 09/23/17 16:00 97 09/23/17 16:00 97.7 97 22 74/54 (61) 98 09/23/17 14:00 143 09/23/17 14:00 103 09/23/17 12:00 143 09/23/17 12:00 98.0 143 26 119/57 (77) 98 . Laboratory Tests Test 09/23/17 04:35 09/24/17 06:44 White Blood Count 10.1 TH/MM3 21.4 TH/MM3 Red Blood Count 3.56 MIL/MM3 3.81 MIL/MM3 Hemoglobin 11.2 GM/DL 12.1 GM/DL Hematocrit 32.8 % 35.2 % Mean Corpuscular Volume 92.1 FL 92.4 FL Mean Corpuscular Hemoglobin 31.4 PG 31.6 PG Mean Corpuscular Hemoglobin Concent 34.1 % 34.3 % Red Cell Distribution Width 14.7 % 14.4 % Platelet Count 443 TH/MM3 488 TH/MM3 Mean Platelet Volume 8.5 FL 9.2 FL Neutrophils (%) (Auto) 87.8 % Lymphocytes (%) (Auto) 6.2 % Monocytes (%) (Auto) 5.6 % Eosinophils (%) (Auto) 0.1 % Basophils (%) (Auto) 0.3 % Neutrophils # (Auto) 8.9 TH/MM3 Lymphocytes # (Auto) 0.6 TH/MM3 Monocytes # (Auto) 0.6 TH/MM3 Eosinophils # (Auto) 0.0 TH/MM3 Basophils # (Auto) 0.0 TH/MM3 CBC Comment DIFF FINAL Differential Comment Erythrocyte Sedimentation Rate 30 mm/hr Laboratory Tests Test 09/22/17 12:57 09/23/17 04:35 09/24/17 06:44 Random Cortisol 171.0 MCG/DL Blood Urea Nitrogen 35 MG/DL 38 MG/DL Creatinine 1.35 MG/DL 1.37 MG/DL Random Glucose 129 MG/DL 155 MG/DL Total Protein 4.6 GM/DL 4.8 GM/DL Albumin 2.0 GM/DL 2.3 GM/DL Calcium Level 7.7 MG/DL 8.5 MG/DL Phosphorus Level 2.6 MG/DL 2.6 MG/DL Magnesium Level 2.0 MG/DL 2.1 MG/DL Alkaline Phosphatase 220 U/L 203 U/L Aspartate Amino Transf (AST/SGOT) 7 U/L 9 U/L Alanine Aminotransferase (ALT/SGPT) 14 U/L 17 U/L Total Bilirubin 0.5 MG/DL 0.5 MG/DL Sodium Level 138 MEQ/L 138 MEQ/L Potassium Level 4.2 MEQ/L 3.8 MEQ/L Chloride Level 105 MEQ/L 104 MEQ/L Carbon Dioxide Level 26.3 MEQ/L 24.7 MEQ/L Anion Gap 7 MEQ/L 9 MEQ/L Estimat Glomerular Filtration Rate 52 ML/MIN 51 ML/MIN Lactic Acid Level 1.1 mmol/L 1.4 mmol/L Total Creatine Kinase 22 U/L Troponin I LESS THAN 0.02 NG/ML Direct Bilirubin 0.3 MG/DL Indirect Bilirubin 0.2 MG/DL Microbiology Date/Time Source Procedure Growth Status 09/22/17 12:57 Blood Peripheral Aerobic Blood Culture - Preliminary NO GROWTH IN 1 DAY Resulted 09/22/17 12:57 Blood Peripheral Anaerobic Blood Culture - Preliminary NO GROWTH IN 1 DAY Resulted 09/22/17 12:50 Blood Peripheral Aerobic Blood Culture - Preliminary NO GROWTH IN 1 DAY Resulted 09/22/17 12:50 Blood Peripheral Anaerobic Blood Culture - Preliminary NO GROWTH IN 1 DAY Resulted Imaging Last Impressions Head CT 09/16/17 1025 Signed Impressions: Service Date/Time: Saturday, September 16, 2017 11:18 - CONCLUSION: Negative for acute process. Te Frances MD FACR Chest X-Ray 09/13/17 0600 Signed Impressions: Service Date/Time: Wednesday, September 13, 2017 05:11 - CONCLUSION: Increasing bilateral airspace opacities. Chandan Ortez MD Myocardial Perfusion Scan Nuc Med 09/12/17 0000 Signed Impressions: Service Date/Time: September 13:40 - CONCLUSION: Normal examination. RISK CATEGORY: Low (<1%% Annual Mortality Rate) Reagan Yusuf MD Gall Bladder Ultrasound 09/10/17 0000 Signed Impressions: Service Date/Time: Sunday, September 10, 2017 11:30 - CONCLUSION: 1. Cholelithiasis. However, there are no findings to indicate acute cholecystitis. 2. Small right pleural effusion. Constantin oLpez MD Chest CT 09/10/17 0000 Signed Impressions: Service Date/Time: Sunday, September 10, 2017 21:13 - CONCLUSION: 1. Small to moderate bilateral effusions and bibasilar atelectasis. Silverio Stout MD Abdomen/Pelvis CT 09/09/17 1738 Signed Impressions: Service Date/Time: Saturday, September 09, 2017 20:30 - CONCLUSION: 1. Small bilateral pleural effusions, left greater than right with basilar dependent airspace disease in the lungs. Mild anasarca. No bowel obstruction. No free air. Mild constipation. Bruce catheter in bladder. Sal Terrazas MD Knee X-Ray 09/09/17 0000 Signed Impressions: Service Date/Time: Saturday, September 09, 2017 13:49 - CONCLUSION: 1. Moderate to large joint effusion. No acute osseous abnormality is identified. 2. 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 3. Bridger-Stieda lesion indicating old medial collateral ligament injury. 4. Severe calcification of the popliteal artery. Constantin Lopez MD Hip and Pelvis X-Ray 09/09/17 0000 Signed Impressions: Service Date/Time: Saturday, September 09, 2017 17:02 - CONCLUSION: No acute left hip abnormality is identified. 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 Constantin Lopez MD Physical Exam GENERAL: resting, NAD SKIN: Warm and dry. No generalized rash EYES: Shaw conjunctiva. No petechia or hemorrhage. Pupils equal, round and reactive to light. No scleral icterus. No injection or drainage. EARS, NOSE AND THROAT: moist oral mucosa. dentition in fair condition CARDIOVASCULAR: Rate controlled RESPIRATORY: Decreased BS at bases ABDOMEN: Soft and not distended, bowel sounds present and normoactive. No guarding. No rebound. No organomegaly. EXTREMITIES: No clubbing. RLE minimal edema. R knee incision is dry clean. Good ROM. NEUROLOGICAL: Awake and alert. Cranial nerves grossly intact. Motor grossly within normal limits. PSYCHIATRIC: Normal affect, calm and cooperative. 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 - due to septic R knee R septic knee E.coli S/P debridement: clinically improving Renal insufficiency, ?baseline, or due to sepsis, or hypotension SOB, known COPD, but likely due to fluid Atrial fib NSTEMI Leukocytosis, better - no new infection found Frequent hiccups, resolved RECOMMENDATION Continue Levaquin Monitor for S/Sxs of new infection Monitor progress D/W Shiloh Infante MD Sep 24, 2017 10:33
--- NOTE | 2017-09-24 10:52 | HHI.GIFU ---
Subjective Remarks Pt resting in bed in NAD. No Hiccuping today. Overall he feels hiccupping improving. (Sabrina [place]) Objective Vitals I&O Vital Signs Date Time Temp Pulse Resp B/P (MAP) Pulse Ox O2 Delivery O2 Flow Rate FiO2 09/24/17 10:00 101 09/24/17 08:27 99 Nasal Cannula 2.00 09/24/17 08:00 128 09/24/17 08:00 98.0 128 25 150/104 (119) 99 09/24/17 07:00 95 Nasal Cannula 2.00 09/24/17 06:00 96 09/24/17 04:00 98.0 109 14 140/81 (100) 100 09/24/17 04:00 109 09/24/17 02:00 104 09/24/17 00:00 98.2 116 18 99/63 (75) 92 09/24/17 00:00 116 09/23/17 22:00 92 09/23/17 21:30 108 92/62 09/23/17 20:00 98.0 89 21 85/54 (64) 99 09/23/17 20:00 89 09/23/17 19:00 95 Nasal Cannula 2.00 09/23/17 18:00 105 09/23/17 16:00 97 09/23/17 16:00 97.7 97 22 74/54 (61) 98 09/23/17 14:00 143 09/23/17 14:00 103 09/23/17 12:00 143 09/23/17 12:00 98.0 143 26 119/57 (77) 98 I/O 09/23/17 09/23/17 09/23/17 09/24/17 09/24/17 09/24/17 07:00 15:00 23:00 07:00 15:00 23:00 Intake Total 500 ml 820 ml Output Total 480 ml 300 ml 550 ml Balance 20 ml 520 ml -550 ml Intake Oral 400 ml 120 ml IV Total 100 ml 700 ml Output Urine Total 480 ml 300 ml 550 ml # Bowel Movements 0 0 0 Laboratory Laboratory Tests Test 09/24/17 06:44 White Blood Count 21.4 Red Blood Count 3.81 Hemoglobin 12.1 Hematocrit 35.2 Mean Corpuscular Volume 92.4 Mean Corpuscular Hemoglobin 31.6 Mean Corpuscular Hemoglobin Concent 34.3 Red Cell Distribution Width 14.4 Platelet Count 488 Mean Platelet Volume 9.2 Erythrocyte Sedimentation Rate 30 Blood Urea Nitrogen 38 Creatinine 1.37 Random Glucose 155 Total Protein 4.8 Albumin 2.3 Calcium Level 8.5 Phosphorus Level 2.6 Magnesium Level 2.1 Alkaline Phosphatase 203 Aspartate Amino Transf (AST/SGOT) 9 Alanine Aminotransferase (ALT/SGPT) 17 Total Bilirubin 0.5 Direct Bilirubin 0.3 Sodium Level 138 Potassium Level 3.8 Chloride Level 104 Carbon Dioxide Level 24.7 Anion Gap 9 Estimat Glomerular Filtration Rate 51 Lactic Acid Level 1.4 Indirect Bilirubin 0.2 Date/Time Source Procedure Growth Status 09/22/17 12:57 Blood Peripheral Aerobic Blood Culture - Preliminary NO GROWTH IN 1 DAY Resulted 09/22/17 12:57 Blood Peripheral Anaerobic Blood Culture - Preliminary NO GROWTH IN 1 DAY Resulted 09/10/17 09:15 Fluid Synovial Fluid Gram Stain - Final Complete 09/10/17 09:15 Body Fluid Culture - Final Escherichia Coli Complete 09/12/17 11:00 Urine Catheterized Urine Urine Culture - Final NO GROWTH IN 48 HOURS. Complete 09/11/17 16:00 Wound Leg Fungal Smear - Final NO FUNGAL ELEMENTS SEEN. Resulted 09/11/17 16:00 Wound Leg Fungal Culture - Preliminary NO GROWTH IN 1 WEEK Resulted Imaging Last Impressions Chest X-Ray 09/24/17 0600 Signed Impressions: Service Date/Time: Sunday, September 24, 2017 03:30 - CONCLUSION: Mild residual infiltrate within the left base. Chandan Guardado Jr., MD Head CT 09/23/17 0000 Signed Impressions: Service Date/Time: Saturday, September 23, 2017 20:58 - CONCLUSION: No evidence of acute intracranial abnormality. Constantin Chavis MD Carotid Artery Ultrasound 09/17/17 1621 Signed Impressions: Service Date/Time: Sunday, September 17, 2017 08:53 - CONCLUSION: Mild atherosclerotic plaquing at the bifurcation. No focal high grade or hemodynamically significant stenosis. Camden Quintero MD Brain MRI 09/17/17 1621 Signed Impressions: Service Date/Time: Sunday, September 17, 2017 18:17 - CONCLUSION: Negative noncontrast MRI of the brain. Chandan Ortez MD Myocardial Perfusion Scan Nuc Med 3/1/18 0000 Signed Impressions: Service Date/Time: September 13:40 - CONCLUSION: Normal examination. RISK CATEGORY: Low (<1%% Annual Mortality Rate) Reagan Yusuf MD Gall Bladder Ultrasound 09/10/17 Signed Impressions: Service Date/Time: Sunday, September 10, 2017 11:30 - CONCLUSION: 1. Cholelithiasis. However, there are no findings to indicate acute cholecystitis. 2. Small right pleural effusion. Constantin Lopez MD Chest CT 09/10/17 Signed Impressions: Service Date/Time: Sunday, September 10, 2017 21:13 - CONCLUSION: 1. Small to moderate bilateral effusions and bibasilar atelectasis. Silverio Stout MD Abdomen/Pelvis CT 09/09/178 Signed Impressions: Service Date/Time: Saturday, September 09, 2017 20:30 - CONCLUSION: 1. Small bilateral pleural effusions, left greater than right with basilar dependent airspace disease in the lungs. Mild anasarca. No bowel obstruction. No free air. Mild constipation. Bruce catheter in bladder. Sal Terrazas MD Knee X-Ray 09/09/17 Signed Impressions: Service Date/Time: Saturday, September 09, 2017 13:49 - CONCLUSION: 1. Moderate to large joint effusion. No acute osseous abnormality is identified. 2. 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 3. Bridger-Stieda lesion indicating old medial collateral ligament injury. 4. Severe calcification of the popliteal artery. Constantin Lopez MD Hip and Pelvis X-Ray 09/09/17 Signed Impressions: Service Date/Time: Saturday, September 09, 2017 17:02 - CONCLUSION: No acute left hip abnormality is identified. 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 Constantin Lopez MD Physical Exam HEENT: normocephalic; atraumatic; CHEST: CTA CARDIAC: tachycardic ABDOMEN: Soft, nondistended, nontender; no hepatosplenomegaly; bowel sounds are present in all four quadrants. EXTREMITIES: No clubbing, cyanosis, mild edema RLE right knee bandage intact SKIN: Normal for age no rash; no jaundice. FURNITURE REMOVALIST: sleepy (Baylee,Sabrina S SECURITY CHECKER) Assessment and Plan Plan ASSESSMENT - hiccuping - for several days, causing chest discomfort, refractory to tx, . Cardiology does not feel CPis cardiac and wanted GI opinion. Thorazine, and vagal maneuver, Hiccups subsided briefly yesterday but returned, Coumadin on hold, INR today 1.3 09/23/17 pt transferred to [facility] [place] has been hpotensive. ID following, no new infection. His WBC is trending down. not hiccuping during my eval, per RN no recent hiccuping and he is not receiving any meds for that nor for BP. they are giving him something for tachycardia will try again for EGD tomorrow if vitals stable 09/24/17 hiccuping is improving. will hold on EGD. PLAN - Heart healthy diet - Thorazine PRN - Continue Pepcid PO - EGD if more hiccupping - f/u with GI after d/c - GI will sign off for now, please reconsult if needed pt seen by myself and Dr Thomas and this note is on his behalf (Sabrina Beach) Physician Comments As above, please notify us if needed again. (Karolina Thomas MD) Sabrina Beach Sep 24, 2017 10:52 Karolina Thomas MD Sep 24, 2017 11:30
--- NOTE | 2017-09-24 14:27 | HHI.CCPN ---
Subjective Remarks/Hospital Course 72-year-old male presents for evaluation of right knee pain for the past several days. It started about 4-5 days ago when he "tweaked" his knee while changing his tire. He had mild pain since then but but yesterday the pain became so severe, he could no longer ambulate. Pain is also worse with hyperextension. Patient has minimal pain at rest. He has been taking Tylenol, his friend's muscle relaxant, and previously prescribed oxycodone with moderate relief in symptoms. He cannot localize pain. Denies paresthesias, or fever. No history of knee problems. History of A. fib for which he takes warfarin. Patient stopped taking warfarin 2 days ago because he noted a small bruise to his buttocks. Denies any trauma or injury to buttocks. In the emergency department he was found to have bandemia and was hypotensive despite 3 L of normal saline boluses. 09/10: Remains in A. fib with RVR with heart rates between 120 and 150. Currently on 6 L nasal cannula. Received 6 L normal saline bolus since admission. On low-dose norepinephrine. Lactic acid increased to 3.3. Decreased urine output noted. Patient has chronic prednisone use due to rheumatoid arthritis. Hydrocortisone 100 mg has been ordered for this a.m. now. Denies pain in right knee currently. 09/11: Status post I&D right knee yesterday. BASIM with serosanguineous drainage. Currently afebrile. Decreased urine output noted. Creatinine bumped to 2.4. Lactate slowly decreasing. Volume status positive between 8-10 L since admission. 09/12: Episode of chest pain this a.m. Troponin elevated greater than 2. Currently chest pain-free. Heart rate currently rate controlled. Heparin drip initiated after being okayed by orthopedics. Plan for adenosine stress test today. 09/13: Afebrile. Negative adenosine stress test yesterday. Remains on heparin drip. On 3.5 L nasal cannula. Requesting transfer to general medical floor. 09/22: Reconsult secondary to hypotension. Patient has been off his prednisone. Chronically on 5 mg daily. Also complaining of pain in his right knee. Appears pale. Conversant. 09/23: Afebrile. Off norepinephrine drip 12 hours. Becoming more tachycardic. Resuming metoprolol tartrate and diltiazem lower previous dosages than prior. We should know when he can transport to [place]. Subjective 09/24: Afebrile. Central line placed yesterday secondary to persistent hypotension. Currently norepinephrine 1 mcg/min. After central line placement , patient had altered mental status with the peer to be seizure-like activity?. Last approximate 1 minute resolved with [address] brain revealed no acute intracranial findings. No obvious signs of air embolism on NCCT brain. Patient neurologically intact today at baseline. EEG has been performed with results pending. Objective Vital Signs Date Time Temp Pulse Resp B/P (MAP) Pulse Ox O2 Delivery O2 Flow Rate FiO2 09/24/17 12:00 109 09/24/17 08:27 99 Nasal Cannula 2.00 09/24/17 08:00 98.0 25 150/104 (119) 09/21/17 19:55 21 Intake and Output 09/24/17 09/24/17 09/25/17 08:00 16:00 00:00 Output Total 550 ml Balance -550 ml Result Diagram: 09/24/17 0644 09/24/17 0644 Other Results Microbiology Date/Time Source Procedure Growth Status 09/22/17 12:57 Blood Peripheral Aerobic Blood Culture - Preliminary NO GROWTH IN 2 DAYS Resulted 09/22/17 12:57 Blood Peripheral Anaerobic Blood Culture - Preliminary NO GROWTH IN 2 DAYS Resulted 09/10/17 09:15 Fluid Synovial Fluid Gram Stain - Final Complete 09/10/17 09:15 Body Fluid Culture - Final Escherichia Coli Complete 09/12/17 11:00 Urine Catheterized Urine Urine Culture - Final NO GROWTH IN 48 HOURS. Complete 09/11/17 16:00 Wound Leg Fungal Smear - Final NO FUNGAL ELEMENTS SEEN. Resulted 09/11/17 16:00 Wound Leg Fungal Culture - Preliminary NO GROWTH IN 1 WEEK Resulted Imaging Last Impressions Chest X-Ray 09/24/17 0600 Signed Impressions: Service Date/Time: Sunday, September 24, 2017 03:30 - CONCLUSION: Mild residual infiltrate within the left base. Chandan Guardado Jr., MD Head CT 09/23/17 0000 Signed Impressions: Service Date/Time: Saturday, September 23, 2017 20:58 - CONCLUSION: No evidence of acute intracranial abnormality. Constantin Chavis MD Carotid Artery Ultrasound 09/17/17 1621 Signed Impressions: Service Date/Time: Sunday, September 17, 2017 08:53 - CONCLUSION: Mild atherosclerotic plaquing at the bifurcation. No focal high grade or hemodynamically significant stenosis. Camden Quintero MD Brain MRI 09/17/17 1621 Signed Impressions: Service Date/Time: Sunday, September 17, 2017 18:17 - CONCLUSION: Negative noncontrast MRI of the brain. Chandan Ortez MD Myocardial Perfusion Scan [facility] 09/12/17 0000 Signed Impressions: Service Date/Time: September 13:40 - CONCLUSION: Normal examination. RISK CATEGORY: Low (<1%% Annual Mortality Rate) Reagan Yusuf MD Gall Bladder Ultrasound 09/10/17 0000 Signed Impressions: Service Date/Time: Sunday, September 10, 2017 11:30 - CONCLUSION: 1. Cholelithiasis. However, there are no findings to indicate acute cholecystitis. 2. Small right pleural effusion. Constantin Lopez MD Chest CT 09/10/17 0000 Signed Impressions: Service Date/Time: Sunday, September 10, 2017 21:13 - CONCLUSION: 1. Small to moderate bilateral effusions and bibasilar atelectasis. Silverio Stout MD Abdomen/Pelvis CT 09/09/178 Signed Impressions: Service Date/Time: Saturday, September 09, 2017 20:30 - CONCLUSION: 1. Small bilateral pleural effusions, left greater than right with basilar dependent airspace disease in the lungs. Mild anasarca. No bowel obstruction. No free air. Mild constipation. Bruce catheter in bladder. Sal Terrazas MD Knee X-Ray 09/09/17 0000 Signed Impressions: Service Date/Time: Saturday, September 09, 2017 13:49 - CONCLUSION: 1. Moderate to large joint effusion. No acute osseous abnormality is identified. 2. 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 3. Bridger-Stieda lesion indicating old medial collateral ligament injury. 4. Severe calcification of the popliteal artery. Constantin Lopez MD Hip and Pelvis X-Ray 09/09/17 0000 Signed Impressions: Service Date/Time: Saturday, September 09, 2017 17:02 - CONCLUSION: No acute left hip abnormality is identified. 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 Constantin Lopez MD Objective Remarks GENERAL: 72-year-old male currently resting in bed in no acute respiratory distress on 2 L nasal cannula SKIN: Pale and dry. No rash HEAD: Normocephalic. Atraumatic EYES: Peoples around 3 mm bilaterally and reactive. No scleral icterus or injection. NECK: Supple, trachea midline. No JVD or lymphadenopathy. CARDIOVASCULAR: Tachycardic, IR. S1, S2. No S4. Without murmur RESPIRATORY: Breath sounds equal bilaterally. No accessory muscle use. GASTROINTESTINAL: Abdomen soft, non-tender, nondistended. MUSCULOSKELETAL: Right knee status post I&D. Sutures are clean dry and intact covered with Xeroform positive edema lower extremity NEURO EXAM: Cranial nerves II through XII grossly intact. Strength appears to be equal and symmetric bilaterally. Normal sensation Vascular Central Line Catheter: Yes Assessment to: Continue Date of Insertion: Sep 23, 2017 Line: Central Venous Catheter Side: Left Location: Internal, Jugular A/P Assessment and Plan Neuro/Psych: Depression Singultus Duloxetine 60 mg p.o. daily/home medication will be continued Acetaminophen 650 mg by mouth every 6 hours as needed for fever Hydrocodone/acetaminophen 5/325 one tablet every 4 hours as needed for pain 1 through 5 Hydromorphone 1 mg IV every 4 hours as needed pain 6 through 10 Discontinue hydroxyzine secondary to seizures Continue chlorpromazine 25 milligrams 8 hour as needed for hiccups Negative CT brain 09/23 for acute intracranial findings. Negative MRI brain this hospitalization CV: Systolic heart failure unknown if acute or chronic Atrial fibrillation with rapid ventricular response History of chronic atrial fibrillation Moderate MR Severe sepsis secondary to E. coli bacteremia resolved Chest post 1 L normal saline along with albumin bolus. Currently on norepinephrine drip at 2 mcg/min to maintain mean arterial pressure greater than equal 65 Started on metoprolol tartrate 25 mg p.o. twice daily by cardiology. Will start metoprolol tartrate 12.5 mg twice daily and diltiazem at 30 mg every [address] Hanna -medical management initially now scheduled for adenosine Cardiolite negative 2D echocardiogram revealed EF 35-40%. Bilateral atrial enlargement. Moderate MR. Cycle troponins currently 0.03 Patient is on no medications for blood pressure or rate control at home Previously on on diltiazem 120 daily and metoprolol 50 twice daily. These been held. Discontinue lisinopril 2.5 mg daily with hypotension Resp: Acute respiratory insufficiency History of COPD Bilateral small pleural effusions Nasal cannula to maintain saturations greater than or equal to 92%. Currently at 2.5 L Incentive spirometry while awake Albuterol/ipratropium aerosols every 6 hours with albuterol aerosols every 2 hours as needed Follow-up on chest x-ray 09/22 revealed patchy infiltrates bilateral lobe/ pulmonary edema? CT thorax revealed bilateral pleural effusions GI: Hypoalbuminemia Mild anasarca Cholelithiasis without cholecystitis on ultrasound Patient is currently in a regular diet Famotidine for GI prophylaxis Docusate sodium/senna 1 tablet twice daily for bowel regimen : Bruce catheter has been placed for accurate I's and O's in a critically ill patient Endo: Chronic prednisone use -history of rheumatoid arthritis Sliding scale insulin Novulin R medium regimen with Accu-Cheks maintain euglycemia TSH 2.57 Continue on hydrocortisone 100 mg IV every 8 hours Patient does not know his home prednisone dose. Thinks he might be "5 mg". Renal: Right renal cyst -3 cm Acute on chronic kidney injury - ATN, AIN? Creatinine currently stabilized Unknown baseline creatinine Consult nephrology appreciated. Signed off No hydronephrosis on CT abdomen/pelvis Monitor urine output Accurate I's and O's Heme: Chronic warfarin use Leukocytosis Thrombocytosis Currently holding warfarin 4.5 mg alternating with 4 mg daily. Holding anticoagulation secondary to possible GI bleed. Need for endoscopy/EGD for GI further recommendations Okayed for heparin drip by orthopedics previously during this hospitalization Received 1 unit FFP 09/10. Hemoglobin currently stable ID: Severe sepsis -knee effusion ? Septic joint E. coli bacteremia Currently levofloxacin per infectious disease Vancomycin discontinued Infectious disease consultation Microbiology Blood cultures -09/22 -pending Blood cultures -09/11 -no growth Synovial fluid -09/10 -E. coli Intra-Op cultures -09/10 -no growth Blood cultures -09/09 -E. coli UA 09/12 no growth FEN: Replace electrolytes as clinically indicated MSK: Right knee effusion postop I&D X-ray right knee reveal tricompartment osteophytes with medial space joint narrowing. Coarse ossifications of the supracondylar ridge. Popliteal artery calcification. Bridger Stieda lesion revealing possible old MCL injury Large right knee effusion Orthopedics weightbearing as tolerated. Range of motion Change dressings daily #2 postop. PT evaluate and treat Access -Utilize peripheral IV. Central and if indicated Prophylaxis -GI -famotidine -DVT -SCD/heparin subcu Level 2 follow-up Jaspal Kennedy MD Sep 24, 2017 14:27
--- NOTE | 2017-09-24 17:16 | MG ---
cc: Carl Beltran MD EEG RECORD NUMBER: [id number] DATE OF : 1945 INDICATIONS: 72-year-old with history of possible seizure activity, mental status changes. FINDINGS: Posterior rhythm demonstrates 6-8 Hz activity, 20-40 microvolts. Low amplitude beta-theta in the frontal channels, followed by generalized slowing suggestive of drowsy state. Slow eye movements. Transition into Stage I sleep with the appearance of vertex waves. Limited driving with photic stimulation. Single lead EKG showing artifact. INTERPRETATION: Mainly sleep but brief episodes of wakefulness during this EEG. No epileptic activity. Clinical correlation. Carl Beltran MD MG/SB , 05:03 PM , 05:14 PM
[2017-09-25] VITALS (12 sets, daily range): BP systolic 132–147; BP diastolic 75–98; PULSE 86–105; RESP 17–20; TEMP 97.7–98.2; O2SAT 98–100
[2017-09-25] MEDS: CHLORHEXIDINE GLUCONATE 2 % 1 PACK (2 CLOTHS) TOP SCH (00:15)
[2017-09-25] MEDS: DILTIAZEM HCL 30 MG TAB PO SCH ×4 (05:42→17:15)
[2017-09-25] MEDS: HEPARIN SODIUM - SQ 10,000 UNITS/ML VIAL SQ SCH ×3 (05:42→21:14)
--- NOTE | 2017-09-25 07:47 | HHI.PR ---
Subjective Remarks afib Objective Vital Signs Date Time Temp Pulse Resp B/P (MAP) Pulse Ox O2 Delivery O2 Flow Rate FiO2 09/25/17 06:00 96 09/25/17 04:00 91 09/25/17 04:00 98.2 91 20 132/83 (99) 100 09/25/17 02:00 98 09/25/17 00:00 98.0 95 20 138/94 (109) 09/25/17 00:00 95 09/24/17 22:00 90 09/24/17 20:00 98.3 96 18 122/77 (92) 99 09/24/17 20:00 96 09/24/17 19:00 98 Nasal Cannula 2.00 09/24/17 18:00 122 09/24/17 16:00 118 09/24/17 16:00 98.2 118 14 99/61 (74) 100 09/24/17 15:15 117 113/81 09/24/17 14:00 127 106/69 09/24/17 14:00 127 09/24/17 12:15 103 139/97 09/24/17 12:00 98.5 109 17 131/98 (109) 100 09/24/17 12:00 109 09/24/17 11:15 101 147/86 09/24/17 10:00 101 149/93 09/24/17 10:00 101 09/24/17 08:27 99 Nasal Cannula 2.00 09/24/17 08:00 128 09/24/17 08:00 98.0 128 25 150/104 (119) 99 I/O 09/24/17 09/24/17 09/24/17 09/25/17 09/25/17 09/25/17 07:00 15:00 23:00 07:00 15:00 23:00 Intake Total 300 ml Output Total 550 ml 600 ml 650 ml Balance -550 ml -300 ml -650 ml Intake Oral 300 ml Output Urine Total 550 ml 600 ml 650 ml # Bowel Movements 0 0 0 Result Diagram: 09/24/1744 09/24/17643 Objective Remarks speech clear and nl no hiccups vff 5/5 all 4 ext nad Assessment and Plan Assessment and Plan imp mri and us both nl overall i think speech changes from hiccups afib restart coumadin? will sign off 09/25/17 he had episode of brief ? syncope vs sz with central line placement may have gotten a little iv lidocaine? which can cause sz or maybe a brief low bp spell vs vasovagal he evidently for about 2 sec loc and shoulders hunched forward eeg nl us neg recheck mri make sure no small cva shower ow looks fine Silverio Lynch MD Sep 25, 2017 07:47
[2017-09-25] MEDS: DOCUSATE SODIUM 50 MG/SENNA 8.6 MG TAB PO SCH ×2 (08:42→21:13)
[2017-09-25] MEDS: METOPROLOL TARTRATE 25 MG TAB PO SCH ×2 (08:42→21:13)
[2017-09-25] MEDS: HYDROCORTISONE SOD SUCCINATE 100 MG VIAL IV PUSH SCH ×3 (08:42→17:16)
[2017-09-25] MEDS: LEVOFLOXACIN 750 MG TAB PO SCH (08:42)
[2017-09-25] MEDS: SODIUM CHLORIDE 0.9% FLUSH 10 ML FLUSH IV FLUSH SCH ×3 (08:42→21:13)
[2017-09-25] MEDS: DULoxetine HCl DR 60 MG CAP PO SCH (08:42)
[2017-09-25] MEDS: FAMOTIDINE 20 MG TAB PO SCH ×2 (08:42→21:13)
[2017-09-25] MEDS ORDERED: LORazepam 2 MG/ML VIAL IV PUSH ONE (10:00)
[2017-09-25 10:29] LABS: AUTOMATED NEUTROPHIL # 7.3 TH/MM3 (1.8-7.7); BASOPHIL % 0.2 % (0.0-2.0); EOSINOPHIL % 0.5 % (0.0-4.0); HEMATOCRIT 33.6 % (39.0-51.0); HEMOGLOBIN 11.2 GM/DL (13.0-17.0); LYMPH % 12.7 % (9.0-44.0); LYMPHOCYTE # 1.3 TH/MM3 (1.0-4.8); MEAN CELL VOLUME 91.9 FL (80.0-100.0); MEAN CORPUSCULAR HEMOGLOBIN 30.6 PG (27.0-34.0); MEAN CORPUSCULAR HGB CONC 33.3 % (32.0-36.0); MONO % 14.2 % (0.0-8.0); MONOCYTE # 1.4 TH/MM3 (0-0.9); NEUT % 72.4 % (16.0-70.0); PLATELET COUNT 413 TH/MM3 (150-450); RED BLOOD COUNT 3.66 MIL/MM3 (4.50-5.90); RED CELL DISTRIBUTION WIDTH 14.5 % (11.6-17.2)
[2017-09-25 10:52] LABS: BICARBONATE 28.4 MEQ/L (21.0-32.0); CALCIUM 8.2 MG/DL (8.5-10.1); CREATININE 1.21 MG/DL (0.60-1.30)
--- NOTE | 2017-09-25 14:03 | HHI.IDPN ---
Subjective Subjective Remarks Patient is a 72-year-old male, presented to the hospital for evaluation of severe knee pain, and inability to ambulate. He started having some problems about a week ago when he was still in [place]. He was just feeling some malaise and generalized weakness. He had a scheduled medication to come to [place], and arrived [place] 4 days ago. He started noticing some knee pain, and it's usually worse when he puts weight on it and he walked on it. He does not really recall any significant trauma or injury, denies any fall. He started using a cane. He got progressively worse as far as his generalized weakness, and the pain started getting worse so he presented to the hospital for further evaluation and treatment. He denies any significant respiratory complaint. He denies any urinary complaint. There's been no nausea or vomiting. He's had constipation which is unusual for him. Denies any chest pain or any palpitations. On presentation to the emergency room, patient was found to be hypotensive and has required fluid resuscitation. He was in A. fib with RVR. His WBC is normal but he has bandemia. His creatinine is elevated. Lactic is elevated. CT of the abdomen and pelvis did not show any intra- abdominal process, but he has some bilateral pleural effusions. X-ray of the knee showed evidence of moderate effusion. Orthopedics saw the patient, and got very little fluid in the knee because he was very viscous. Patient currently has borderline blood pressure. He is not on pressors. He remains in A. fib with RVR. He has been afebrile since admission. Patient continues to have pain in his right knee, and also complains of pain in the right hip. He also has low back pain. Infectious disease consultation has been requested to evaluate the patient with sepsis. Notes reviewed D/W RN Temps ok Off levophed since yesterday afternoon Feels good Not SOB No new complaints Has new line [facility] Antibiotics Levaquin Current Medications Medications (Trade) Dose Ordered Sig/Jet Route Start Time Stop Time Status Last Admin (NS Flush) 2 ml UNSCH PRN IV FLUSH 09/09/17 18:15 09/13/17 16:24 (NS Flush) 2 ml BID IV FLUSH 09/09/17 21:00 09/25/17 08:42 (Tylenol) 650 mg Q6H PRN PO 09/09/17 18:15 (Restoril) 15 mg HS PRN PO 09/09/17 18:15 09/22/17 23:48 Miscellaneous Information 1 Q361D XX 09/09/17 18:15 (Chlorhexidine 2% Cloth) Taper DAILY@04 TOP 09/10/17 04:00 09/06/18 03:59 09/25/17 00:15 (Chlorhexidine 2% Cloth) 3 pack UNSCH PRN TOP 09/09/17 18:15 (Mar-Colace) 1 tab BID PO 09/09/17 21:00 09/25/17 08:42 (Milk Of Magnesia Liq) 30 ml Q12H PRN PO 09/09/17 18:15 09/15/17 14:03 (Senokot) 17.2 mg Q12H PRN PO 09/09/17 18:15 09/25/17 13:53 (Dulcolax Supp) 10 mg DAILY PRN RECTAL 09/09/17 18:15 09/14/17 23:04 (Lactulose Liq) 30 ml DAILY PRN PO 09/09/17 18:15 09/15/17 14:03 (Zofran Inj) 4 mg Q6H PRN IV PUSH 09/10/17 04:15 (Albuterol Neb) 2.5 mg Q2HR NEB PRN NEB 09/10/17 07:00 ([place] 5-325 Mg) 1 tab Q4H PRN PO 09/10/17 08:00 09/22/17 12:21 (Lopressor) 50 mg Q12HR PO 09/13/17 21:00 Future Hold 09/21/17 20:01 (Pill Splitter) 1 ea UNSCH PRN OTHER 09/13/17 15:15 (Cardizem Cd) 120 mg DAILY PO 09/14/17 09:00 Future Hold 09/20/17 09:31 (Cardizem) 30 mg Q6HR PRN PO 09/16/17 12:00 Future Hold (Cymbalta Dr) 60 mg DAILY PO 09/18/17 09:00 09/25/17 08:42 (Levaquin) 750 mg DAILY PO 09/18/17 09:45 09/25/17 08:42 (Coumadin) 3 mg DAILY@1600 PO 09/18/17 16:00 Future Hold 09/18/17 17:58 (Heparin Inj) 5,000 units Q8HR SQ 09/20/17 14:00 Future hold 09/25/17 13:53 (SoluCORTEF INJ) 100 mg Q8H IV PUSH 09/22/17 16:00 09/25/17 08:42 (Pepcid) 10 mg BID PO 09/22/17 21:00 09/25/17 08:42 (Lopressor) 12.5 mg Q12HR PO 09/23/17 11:00 09/25/17 08:42 (Thorazine) 25 mg Q8H PRN PO 09/23/17 20:00 (NS Flush) DAILY IV FLUSH 09/23/17 20:15 09/25/17 08:42 (NS Flush) UNSCH PRN IV FLUSH 09/23/17 20:15 (Ativan Inj) 2 mg Q2H PRN IV PUSH 09/23/17 20:15 09/23/17 20:00 Norepinephrine Bitartrate 4 mg/ Sodium Chloride 250 ml @ 7.5 mls/hr TITRATE PRN IV 09/23/17 20:30 09/23/17 21:30 (Brethine Inj) 1 mg UNSCH PRN SQ 09/23/17 20:30 (Cardizem) 30 mg Q6HR PO 09/24/17 18:00 09/25/17 12:14 Lines [facility] TLC Past Medical History Atrial fibrillation COPD Spinal stenosis Allergies: Coded Allergies: No Known Allergies (Unverified , 09/09/17) Objective . Vital Signs Date Time Temp Pulse Resp B/P (MAP) Pulse Ox O2 Delivery O2 Flow Rate FiO2 09/25/17 06:00 96 09/25/17 04:00 91 09/25/17 04:00 98.2 91 20 132/83 (99) 100 09/25/17 02:00 98 09/25/17 00:00 98.0 95 20 138/94 (109) 09/25/17 00:00 95 09/24/17 22:00 90 09/24/17 20:00 98.3 96 18 122/77 (92) 99 09/24/17 20:00 96 09/24/17 19:00 98 Nasal Cannula 2.00 09/24/17 18:00 122 09/24/17 16:00 118 09/24/17 16:00 98.2 118 14 99/61 (74) 100 09/24/17 15:15 117 113/81 . Laboratory Tests Test 09/24/17 06:44 09/25/17 06:29 White Blood Count 21.4 TH/MM3 10.0 TH/MM3 Red Blood Count 3.81 MIL/MM3 3.66 MIL/MM3 Hemoglobin 12.1 GM/DL 11.2 GM/DL Hematocrit 35.2 % 33.6 % Mean Corpuscular Volume 92.4 FL 91.9 FL Mean Corpuscular Hemoglobin 31.6 PG 30.6 PG Mean Corpuscular Hemoglobin Concent 34.3 % 33.3 % Red Cell Distribution Width 14.4 % 14.5 % Platelet Count 488 TH/MM3 413 TH/MM3 Mean Platelet Volume 9.2 FL 9.0 FL Erythrocyte Sedimentation Rate 30 mm/hr Neutrophils (%) (Auto) 72.4 % Lymphocytes (%) (Auto) 12.7 % Monocytes (%) (Auto) 14.2 % Eosinophils (%) (Auto) 0.5 % Basophils (%) (Auto) 0.2 % Neutrophils # (Auto) 7.3 TH/MM3 Lymphocytes # (Auto) 1.3 TH/MM3 Monocytes # (Auto) 1.4 TH/MM3 Eosinophils # (Auto) 0.0 TH/MM3 Basophils # (Auto) 0.0 TH/MM3 CBC Comment DIFF FINAL Differential Comment Laboratory Tests Test 09/24/17 06:44 09/25/17 06:29 Blood Urea Nitrogen 38 MG/DL 37 MG/DL Creatinine 1.37 MG/DL 1.21 MG/DL Random Glucose 155 MG/DL 85 MG/DL Total Protein 4.8 GM/DL Albumin 2.3 GM/DL Calcium Level 8.5 MG/DL 8.2 MG/DL Phosphorus Level 2.6 MG/DL Magnesium Level 2.1 MG/DL Alkaline Phosphatase 203 U/L Aspartate Amino Transf (AST/SGOT) 9 U/L Alanine Aminotransferase (ALT/SGPT) 17 U/L Total Bilirubin 0.5 MG/DL Direct Bilirubin 0.3 MG/DL Sodium Level 138 MEQ/L 139 MEQ/L Potassium Level 3.8 MEQ/L 3.9 MEQ/L Chloride Level 104 MEQ/L 104 MEQ/L Carbon Dioxide Level 24.7 MEQ/L 28.4 MEQ/L Anion Gap 9 MEQ/L 7 MEQ/L Estimat Glomerular Filtration Rate 51 ML/MIN 59 ML/MIN Lactic Acid Level 1.4 mmol/L Indirect Bilirubin 0.2 MG/DL Imaging Last Impressions Head CT 09/16/17 1025 Signed Impressions: Service Date/Time: Saturday, September 16, 2017 11:18 - CONCLUSION: Negative for acute process. Te Frances MD FACR Chest X-Ray 09/13/17 0600 Signed Impressions: Service Date/Time: Wednesday, September 13, 2017 05:11 - CONCLUSION: Increasing bilateral airspace opacities. Chandan Ortez MD Myocardial Perfusion Scan Nuc Med 09/12/17 0000 Signed Impressions: Service Date/Time: September 13:40 - CONCLUSION: Normal examination. RISK CATEGORY: Low (<1%% Annual Mortality Rate) Reagan Yusuf MD Gall Bladder Ultrasound 09/10/17 0000 Signed Impressions: Service Date/Time: Sunday, September 10, 2017 11:30 - CONCLUSION: 1. Cholelithiasis. However, there are no findings to indicate acute cholecystitis. 2. Small right pleural effusion. Constantin Lopez MD Chest CT 09/10/17 0000 Signed Impressions: Service Date/Time: Sunday, September 10, 2017 21:13 - CONCLUSION: 1. Small to moderate bilateral effusions and bibasilar atelectasis. Silverio Stout MD Abdomen/Pelvis CT 09/09/17 1738 Signed Impressions: Service Date/Time: Saturday, September 09, 2017 20:30 - CONCLUSION: 1. Small bilateral pleural effusions, left greater than right with basilar dependent airspace disease in the lungs. Mild anasarca. No bowel obstruction. No free air. Mild constipation. Bruce catheter in bladder. Sal Terrazas MD Knee X-Ray 09/09/17 0000 Signed Impressions: Service Date/Time: Saturday, September 09, 2017 13:49 - CONCLUSION: 1. Moderate to large joint effusion. No acute osseous abnormality is identified. 2. 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 3. Bridger-Stieda lesion indicating old medial collateral ligament injury. 4. Severe calcification of the popliteal artery. Constantin Lopez MD Hip and Pelvis X-Ray 09/09/17 0000 Signed Impressions: Service Date/Time: Saturday, September 09, 2017 17:02 - CONCLUSION: No acute left hip abnormality is identified. 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 Constantin Lopez MD Physical Exam GENERAL: awake and alert, NAD SKIN: Warm and dry. No generalized rash EYES: Fulda conjunctiva. No petechia or hemorrhage. Pupils equal, round and reactive to light. No scleral icterus. No injection or drainage. EARS, NOSE AND THROAT: moist oral mucosa. dentition in fair condition CARDIOVASCULAR: Rate controlled RESPIRATORY: Decreased BS at bases ABDOMEN: Soft and not distended, bowel sounds present and normoactive. No guarding. No rebound. No organomegaly. EXTREMITIES: No clubbing. RLE minimal edema. R knee incision is dry clean. No redness. Good ROM. NEUROLOGICAL: Awake and alert. Cranial nerves grossly intact. Motor grossly within normal limits. PSYCHIATRIC: Normal affect, calm and cooperative. LINE: No evidence of infection Assessment & Plan Remarks IMPRESSION Recurrent shock likely due to adrenal - solucortef last dose given 09/19 - off levophed Shock, E.coli sepis, resolved E coli Sepsis source? - due to septic R knee R septic knee E.coli S/P debridement: clinically improving Renal insufficiency, ?baseline, or due to sepsis, or hypotension SOB, known COPD, but likely due to fluid Atrial fib NSTEMI Leukocytosis, better - no new infection found Frequent hiccups, resolved RECOMMENDATION Continue Levaquin - give till 10/08 - end date ordered in [employer] Monitor for S/Sxs of new infection Monitor progress Clinically doing well CM arranging for return to [place] D/W RN Explained plan to the patient Shiloh Adams MD Sep 25, 2017 14:03
--- NOTE | 2017-09-25 15:33 | RADRPT ---
EXAM DATE/TIME: 09/25/2017 14:52 [facility] COMPARISON: MRI BRAIN W/O CONTRAST, September 17, 2017, 18:17. INDICATIONS : CVA. Seizures. MEDICAL HISTORY : None. SURGICAL HISTORY : Right knee surgery. ENCOUNTER: Subsequent ACUITY: 3 weeks PAIN SCORE: 0/10 LOCATION: head. TECHNIQUE: Multiplanar, multisequence MRI of the brain was performed without contrast. FINDINGS: CEREBRUM: The ventricles are normal for age. No evidence of midline shift, mass lesion, hemorrhage or acute in farction. No extraaxial fluid collections are seen. The pituitary gland and suprasellar cistern are normal in configuration. WHITE MATTER: No significant signal abnormalities are seen in the white matter. POSTERIOR FOSSA: The cerebellum and brainstem are intact. The 4th ventricle is midline. The cerebellopontine angle is unremarkable. The cerebellar tonsils are normal in position. DIFFUSION IMAGING: No focal areas of restricted diffusion are seen. No evidence of acute infarction. EXTRACRANIAL: The visualized portions of the orbits and paranasal sinuses are unremarkable. There are moderate dege nerative changes in the atlantodens joint. There is sizable pannus formation. CONCLUSION: 1. Degenerative changes in the atlantodens joint with pannus formation. 2. No findings to indicate acute cortical infarction identified. Chava Frances MD on September 25, 2017 at 15:28 Board Certified Radiologist. This report was verified electronically.
--- NOTE | 2017-09-25 16:08 | HHI.CCPN ---
Subjective Remarks/Hospital Course 72-year-old male presents for evaluation of right knee pain for the past several days. It started about 4-5 days ago when he "tweaked" his knee while changing his tire. He had mild pain since then but but yesterday the pain became so severe, he could no longer ambulate. Pain is also worse with hyperextension. Patient has minimal pain at rest. He has been taking Tylenol, his friend's muscle relaxant, and previously prescribed oxycodone with moderate relief in symptoms. He cannot localize pain. Denies paresthesias, or fever. No history of knee problems. History of A. fib for which he takes warfarin. Patient stopped taking warfarin 2 days ago because he noted a small bruise to his buttocks. Denies any trauma or injury to buttocks. In the emergency department he was found to have bandemia and was hypotensive despite 3 L of normal saline boluses. 09/10: Remains in A. fib with RVR with heart rates between 120 and 150. Currently on 6 L nasal cannula. Received 6 L normal saline bolus since admission. On low-dose norepinephrine. Lactic acid increased to 3.3. Decreased urine output noted. Patient has chronic prednisone use due to rheumatoid arthritis. Hydrocortisone 100 mg has been ordered for this a.m. now. Denies pain in right knee currently. 09/11: Status post I&D right knee yesterday. BASIM with serosanguineous drainage. Currently afebrile. Decreased urine output noted. Creatinine bumped to 2.4. Lactate slowly decreasing. Volume status positive between 8-10 L since admission. 09/12: Episode of chest pain this a.m. Troponin elevated greater than 2. Currently chest pain-free. Heart rate currently rate controlled. Heparin drip initiated after being okayed by orthopedics. Plan for adenosine stress test today. 09/13: Afebrile. Negative adenosine stress test yesterday. Remains on heparin drip. On 3.5 L nasal cannula. Requesting transfer to general medical floor. 09/22: Reconsult secondary to hypotension. Patient has been off his prednisone. Chronically on 5 mg daily. Also complaining of pain in his right knee. Appears pale. Conversant. 09/23: Afebrile. Off norepinephrine drip 12 hours. Becoming more tachycardic. Resuming metoprolol tartrate and diltiazem lower previous dosages than prior. We should know when he can transport to [place]. 09/24: Afebrile. Central line placed yesterday secondary to persistent hypotension. Currently norepinephrine 1 mcg/min. After central line placement , patient had altered mental status with the peer to be seizure-like activity?. Last approximate 1 minute resolved with [address] brain revealed no acute intracranial findings. No obvious signs of air embolism on NCCT brain. Patient neurologically intact today at baseline. EEG has been performed with results pending. Subjective 09/25: No further episodes of altered mental status. MRI brain and EEG unremarkable. Off norepinephrine drip. Patient wants regular diet resume. Objective Vital Signs Date Time Temp Pulse Resp B/P (MAP) Pulse Ox O2 Delivery O2 Flow Rate FiO2 09/25/17 06:00 96 09/25/17 04:00 98.2 20 132/83 (99) 100 09/24/17 19:00 Nasal Cannula 2.00 09/21/17 19:55 21 Intake and Output 09/25/17 09/25/17 09/26/17 08:00 16:00 00:00 Output Total 650 ml Balance -650 ml Result Diagram: 09/25/17 0629 09/25/1729 Other Results Microbiology Date/Time Source Procedure Growth Status 09/22/17 12:57 Blood Peripheral Aerobic Blood Culture - Preliminary NO GROWTH IN 3 DAYS Resulted 09/22/17 12:57 Blood Peripheral Anaerobic Blood Culture - Preliminary NO GROWTH IN 3 DAYS Resulted 09/10/17 09:15 Fluid Synovial Fluid Gram Stain - Final Complete 09/10/17 09:15 Body Fluid Culture - Final Escherichia Coli Complete 09/12/17 11:00 Urine Catheterized Urine Urine Culture - Final NO GROWTH IN 48 HOURS. Complete 09/11/17 16:00 Wound Leg Fungal Smear - Final NO FUNGAL ELEMENTS SEEN. Resulted 09/11/17 16:00 Wound Leg Fungal Culture - Preliminary NO GROWTH IN 2 WEEKS Resulted Imaging Last Impressions Brain MRI 09/25/17 0000 Signed Impressions: Service Date/Time: Monday, September 25, 2017 14:52 - CONCLUSION: 1. Degenerative changes in the atlantodens joint with pannus formation. 2. No findings to indicate acute cortical infarction identified. Chava Frances MD Chest X-Ray 09/24/17 0600 Signed Impressions: Service Date/Time: Sunday, September 24, 2017 03:30 - CONCLUSION: Mild residual infiltrate within the left base. Chandan Guardado Jr., MD Head CT 09/23/17 0000 Signed Impressions: Service Date/Time: Saturday, September 23, 2017 20:58 - CONCLUSION: No evidence of acute intracranial abnormality. Constantin Chavis MD Carotid Artery Ultrasound 09/17/17 1621 Signed Impressions: Service Date/Time: Sunday, September 17, 2017 08:53 - CONCLUSION: Mild atherosclerotic plaquing at the bifurcation. No focal high grade or hemodynamically significant stenosis. Camden Quintero MD Myocardial Perfusion Scan Nuc Med 09/12/17 0000 Signed Impressions: Service Date/Time: September 13:40 - CONCLUSION: Normal examination. RISK CATEGORY: Low (<1%% Annual Mortality Rate) Reagan Yusuf MD Gall Bladder Ultrasound 09/10/17 0000 Signed Impressions: Service Date/Time: Sunday, September 10, 2017 11:30 - CONCLUSION: 1. Cholelithiasis. However, there are no findings to indicate acute cholecystitis. 2. Small right pleural effusion. Constantin Lopez MD Chest CT 09/10/17 0000 Signed Impressions: Service Date/Time: Sunday, September 10, 2017 21:13 - CONCLUSION: 1. Small to moderate bilateral effusions and bibasilar atelectasis. Silverio Stout MD Abdomen/Pelvis CT 09/09/17 1738 Signed Impressions: Service Date/Time: Saturday, September 09, 2017 20:30 - CONCLUSION: 1. Small bilateral pleural effusions, left greater than right with basilar dependent airspace disease in the lungs. Mild anasarca. No bowel obstruction. No free air. Mild constipation. Bruce catheter in bladder. Sal Terrazas MD Knee X-Ray 09/09/17 0000 Signed Impressions: Service Date/Time: Saturday, September 09, 2017 13:49 - CONCLUSION: 1. Moderate to large joint effusion. No acute osseous abnormality is identified. 2. 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 3. Bridger-Stieda lesion indicating old medial collateral ligament injury. 4. Severe calcification of the popliteal artery. Constantin Lopez MD Hip and Pelvis X-Ray 09/09/17 0000 Signed Impressions: Service Date/Time: Saturday, September 09, 2017 17:02 - CONCLUSION: No acute left hip abnormality is identified. 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 Constantin Lopez MD Objective Remarks GENERAL: 72-year-old male currently resting in bed in no acute respiratory distress on 2 L nasal cannula SKIN: Pale and dry. No rash HEAD: Normocephalic. Atraumatic EYES: Peoples around 3 mm bilaterally and reactive. No scleral icterus or injection. NECK: Supple, trachea midline. No JVD or lymphadenopathy. CARDIOVASCULAR: Tachycardic, IR. S1, S2. No S4. Without murmur RESPIRATORY: Breath sounds equal bilaterally. No accessory muscle use. GASTROINTESTINAL: Abdomen soft, non-tender, nondistended. MUSCULOSKELETAL: Right knee status post I&D. Sutures are clean dry and intact covered with Xeroform positive edema lower extremity NEURO EXAM: Cranial nerves II through XII grossly intact. Strength appears to be equal and symmetric bilaterally. Normal sensation Urinary Catheter: No Assessment to: Continue Vascular Central Line Catheter: Yes Assessment to: Continue Date of Insertion: Sep 23, 2017 Line: Central Venous Catheter Side: Left Location: Internal, Jugular A/P Assessment and Plan Neuro/Psych: Depression Singultus Duloxetine 60 mg p.o. daily/home medication will be continued Acetaminophen 650 mg by mouth every 6 hours as needed for fever Hydrocodone/acetaminophen 5/325 one tablet every 4 hours as needed for pain 1 through 5 Hydromorphone 1 mg IV every 4 hours as needed pain 6 through 10 Discontinue hydroxyzine secondary to seizures Continue chlorpromazine 25 milligrams 8 hour as needed for hiccups Negative CT brain 09/23 for acute intracranial findings. Negative MRI brain this hospitalization Repeat MRI 09/25 revealed no acute intracranial finding EEG - Mainly sleep but brief episodes of wakefulness during this EEG. No epileptic activity. CV: Systolic heart failure unknown if acute or chronic Atrial fibrillation with rapid ventricular response History of chronic atrial fibrillation Moderate MR Severe sepsis secondary to E. coli bacteremia resolved Chest post 1 L normal saline along with albumin bolus. Currently on norepinephrine drip at 2 mcg/min to maintain mean arterial pressure greater than equal 65 Started on metoprolol tartrate 25 mg p.o. twice daily by cardiology. Continue metoprolol tartrate 12.5 mg twice daily and diltiazem at 30 mg every [address] Hanna -medical management initially now scheduled for adenosine Cardiolite negative 2D echocardiogram revealed EF 35-40%. Bilateral atrial enlargement. Moderate MR. Cycle troponins currently 0.03 Patient is on no medications for blood pressure or rate control at home Previously on on diltiazem 120 daily and metoprolol 50 twice daily. These been held. Discontinue lisinopril 2.5 mg daily with hypotension Resp: Acute respiratory insufficiency History of COPD Bilateral small pleural effusions Nasal cannula to maintain saturations greater than or equal to 92%. Currently at 2.5 L Incentive spirometry while awake Albuterol/ipratropium aerosols every 6 hours with albuterol aerosols every 2 hours as needed Follow-up on chest x-ray 09/22 revealed patchy infiltrates bilateral lobe/ pulmonary edema? CT thorax revealed bilateral pleural effusions GI: Hypoalbuminemia Mild anasarca Cholelithiasis without cholecystitis on ultrasound Patient is currently in a regular diet Famotidine for GI prophylaxis Docusate sodium/senna 1 tablet twice daily for bowel regimen : Bruce catheter has been placed for accurate I's and O's in a critically ill patient Endo: Chronic prednisone use -history of rheumatoid arthritis Sliding scale insulin Novulin R medium regimen with Accu-Cheks maintain euglycemia TSH 2.57 Continue on hydrocortisone 100 mg IV every 8 hours Patient does not know his home prednisone dose. Thinks he might be "5 mg". Renal: Right renal cyst -3 cm Acute on chronic kidney injury - ATN, AIN? Creatinine currently stabilized Unknown baseline creatinine Consult nephrology appreciated. Signed off No hydronephrosis on CT abdomen/pelvis Monitor urine output Accurate I's and O's Heme: Chronic warfarin use Thrombocytosis Normocytic anemia Currently holding warfarin 4.5 mg alternating with 4 mg daily. Holding anticoagulation secondary to possible GI bleed. Need for endoscopy/EGD for GI further recommendations Okayed for heparin drip by orthopedics previously during this hospitalization Received 1 unit FFP 09/10. Hemoglobin currently stable ID: Severe sepsis -knee effusion ? Septic joint E. coli bacteremia Currently levofloxacin per infectious disease Vancomycin discontinued Infectious disease consultation Microbiology Blood cultures -09/22 -pending Blood cultures -09/11 -no growth Synovial fluid -09/10 -E. coli Intra-Op cultures -09/10 -no growth Blood cultures 2 -09/09 -E. coli UA 09/12 no growth FEN: Replace electrolytes as clinically indicated MSK: Right knee effusion postop I&D X-ray right knee reveal tricompartment osteophytes with medial space joint narrowing. Coarse ossifications of the supracondylar ridge. Popliteal artery calcification. Bridger Stieda lesion revealing possible old MCL injury Large right knee effusion Orthopedics weightbearing as tolerated. Range of motion Change dressings daily #2 postop. PT evaluate and treat Access -Utilize peripheral IV. Central and if indicated Prophylaxis -GI -famotidine -DVT -SCD/heparin subcu Level 2 follow-up Stable from critical care medicine standpoint. Assign care to hospitalist in a.m. 09/26. Jaspal Kennedy MD Sep 25, 2017 16:08
[2017-09-26] VITALS (13 sets, daily range): BP systolic 126–152; BP diastolic 86–99; PULSE 83–113; RESP 12–37; TEMP 97.4–98; O2SAT 90–100
[2017-09-26] MEDS: DILTIAZEM HCL 30 MG TAB PO SCH ×5 (00:45→22:38)
[2017-09-26] MEDS: HYDROCORTISONE SOD SUCCINATE 100 MG VIAL IV PUSH SCH ×4 (00:45→22:38)
[2017-09-26] MEDS: TEMAZEPAM 15 MG CAP PO PRN ×2 (00:49→22:38)
[2017-09-26] MEDS: CHLORHEXIDINE GLUCONATE 2 % 1 PACK (2 CLOTHS) TOP SCH (04:00)
[2017-09-26 04:52] LABS: AUTOMATED NEUTROPHIL # 7.6 TH/MM3 (1.8-7.7); BASOPHIL % 0.1 % (0.0-2.0); EOSINOPHIL % 0.1 % (0.0-4.0); HEMATOCRIT 34.9 % (39.0-51.0); HEMOGLOBIN 11.8 GM/DL (13.0-17.0); LYMPH % 8.6 % (9.0-44.0); LYMPHOCYTE # 0.8 TH/MM3 (1.0-4.8); MEAN CELL VOLUME 90.7 FL (80.0-100.0); MEAN CORPUSCULAR HEMOGLOBIN 30.6 PG (27.0-34.0); MEAN CORPUSCULAR HGB CONC 33.8 % (32.0-36.0); MEAN PLATELET VOLUME 8.4 FL (7.0-11.0); MONO % 8.7 % (0.0-8.0); MONOCYTE # 0.8 TH/MM3 (0-0.9); NEUT % 82.5 % (16.0-70.0); PLATELET COUNT 388 TH/MM3 (150-450); RED BLOOD COUNT 3.85 MIL/MM3 (4.50-5.90); RED CELL DISTRIBUTION WIDTH 14.4 % (11.6-17.2); WHITE BLOOD COUNT 9.2 TH/MM3 (4.0-11.0)
[2017-09-26 05:18] LABS: BICARBONATE 26.7 MEQ/L (21.0-32.0); CALCIUM 8.3 MG/DL (8.5-10.1); CREATININE 1.02 MG/DL (0.60-1.30); MAGNESIUM 2.1 MG/DL (1.5-2.5)
[2017-09-26 05:19] LABS: PHOSPHORUS 2.3 MG/DL (2.5-4.9)
[2017-09-26] MEDS: HEPARIN SODIUM - SQ 10,000 UNITS/ML VIAL SQ SCH (05:54)
--- NOTE | 2017-09-26 07:35 | HHI.PR ---
Subjective Remarks afib Objective Vital Signs Date Time Temp Pulse Resp B/P (MAP) Pulse Ox O2 Delivery O2 Flow Rate FiO2 09/26/17 06:00 97 09/26/17 04:00 97.4 93 12 140/92 (108) 99 09/26/17 04:00 93 09/26/17 02:00 87 09/26/17 00:00 98.0 83 16 149/93 (111) 99 09/26/17 00:00 87 09/25/17 22:00 87 09/25/17 20:00 97.8 93 20 147/98 (114) 98 09/25/17 20:00 93 09/25/17 19:00 94 Nasal Cannula 4.00 09/25/17 18:00 100 09/25/17 16:00 93 09/25/17 16:00 97.7 93 20 100 09/25/17 14:00 95 09/25/17 12:00 97.8 105 18 134/75 (94) 98 09/25/17 12:00 105 09/25/17 10:00 86 09/25/17 08:00 98.0 95 17 134/80 (98) 100 09/25/17 08:00 95 I/O 09/25/17 09/25/17 09/25/17 09/26/17 09/26/17 09/26/17 07:00 15:00 23:00 07:00 15:00 23:00 Intake Total 450 ml 480 ml Output Total 650 ml 625 ml Balance -650 ml -175 ml 480 ml Intake Oral 450 ml 480 ml Output Urine Total 650 ml 625 ml # Voids 8 # Bowel Movements 0 0 Result Diagram: 09/26/17 0430 09/26/17 0430 Objective Remarks speech clear and nl no hiccups vff 5/5 all 4 ext willem rle moving nl ip and ta nad Assessment and Plan Assessment and Plan imp mri and us both nl overall i think speech changes from hiccups afib restart coumadin? will sign off 09/25/17 he had episode of brief ? syncope vs sz with central line placement may have gotten a little iv lidocaine? which can cause sz or maybe a brief low bp spell vs vasovagal he evidently for about 2 sec loc and shoulders hunched forward eeg nl us neg recheck mri make sure no small cva shower ow looks fine //09/26/17 doing well he has afib and ef 35-40% he should be anticoagulated geo which he is not currently will sign off Silverio Lynch MD Sep 26, 2017 07:35
[2017-09-26] MEDS ORDERED: HEPARIN SODIUM - IV 10,000 UNITS/10 ML VIAL IV PUSH PRN ×2 (08:30)
[2017-09-26] MEDS: DOCUSATE SODIUM 50 MG/SENNA 8.6 MG TAB PO SCH ×2 (08:31→20:57)
[2017-09-26] MEDS: METOPROLOL TARTRATE 25 MG TAB PO SCH ×2 (08:31→20:57)
[2017-09-26] MEDS: FAMOTIDINE 20 MG TAB PO SCH ×2 (08:31→20:57)
[2017-09-26] MEDS: LEVOFLOXACIN 750 MG TAB PO SCH (08:31)
[2017-09-26] MEDS: DULoxetine HCl DR 60 MG CAP PO SCH (08:31)
[2017-09-26] MEDS: SODIUM CHLORIDE 0.9% FLUSH 10 ML FLUSH IV FLUSH SCH ×3 (08:32→20:59)
[2017-09-26 09:04] LABS: HEMATOCRIT 36.4 % (39.0-51.0); HEMOGLOBIN 12.2 GM/DL (13.0-17.0); MEAN CELL VOLUME 90.6 FL (80.0-100.0); MEAN CORPUSCULAR HEMOGLOBIN 30.4 PG (27.0-34.0); MEAN CORPUSCULAR HGB CONC 33.6 % (32.0-36.0); MEAN PLATELET VOLUME 8.4 FL (7.0-11.0); PLATELET COUNT 398 TH/MM3 (150-450); RED BLOOD COUNT 4.02 MIL/MM3 (4.50-5.90); RED CELL DISTRIBUTION WIDTH 14.6 % (11.6-17.2); WHITE BLOOD COUNT 8.9 TH/MM3 (4.0-11.0)
[2017-09-26 09:13] LABS: INTERNATIONAL NORMALIZED RATIO 1.1 RATIO
--- NOTE | 2017-09-26 10:12 | HHI.PR ---
Subjective Remarks RN denies any deterioration since last night. Patient himself reports having some water retention in his legs which he says is new. Hiccups have been much improved. Objective Vital Signs Date Time Temp Pulse Resp B/P (MAP) Pulse Ox O2 Delivery O2 Flow Rate FiO2 09/26/17 06:00 97 09/26/17 04:00 97.4 93 12 140/92 (108) 99 09/26/17 04:00 93 09/26/17 02:00 87 09/26/17 00:00 98.0 83 16 149/93 (111) 99 09/26/17 00:00 87 09/25/17 22:00 87 09/25/17 20:00 97.8 93 20 147/98 (114) 98 09/25/17 20:00 93 09/25/17 19:00 94 Nasal Cannula 4.00 09/25/17 18:00 100 09/25/17 16:00 93 09/25/17 16:00 97.7 93 20 100 09/25/17 14:00 95 09/25/17 12:00 97.8 105 18 134/75 (94) 98 09/25/17 12:00 105 I/O 09/25/17 09/25/17 09/25/17 09/26/17 09/26/17 09/26/17 07:00 15:00 23:00 07:00 15:00 23:00 Intake Total 450 ml 480 ml Output Total 650 ml 625 ml Balance -650 ml -175 ml 480 ml Intake Oral 450 ml 480 ml Output Urine Total 650 ml 625 ml # Voids 8 # Bowel Movements 0 0 Result Diagram: 09/26/17 0850 09/26/17 0430 Objective Remarks No conversant dyspnea, no hiccups Lungs are clear bilaterally, heart sounds regular rate rhythm, no murmurs Mild to moderate bilateral lower extremity edema with minimal pitting A/P Assessment and Plan Hypotension -Resolved, was likely secondary to adrenal crisis being off of chronic steroids -Continue IV hydrocortisone, taper gradually, stable blood pressure Altered mental status -Resolved. Neurology signed off, recheck MRI pending, EEG unremarkable for seizure activity.. hiccups -Much improved, GI signed off for the time being anemia -Chronic, H&H holding stable Systolic heart failure chronic w/ MR -We will restart low-dose lisinopril and resume Lopressor -giving 1x IV lasix, bmp in am Atrial fibrillation - continue lopressor and cardizem on heparin, re-starting Coumadin as no EGD is anticipated now at this time knee effusion E. coli bacteremia Currently on Levaquin, per ID for fixed regimen. History of COPD Bilateral small pleural effusions Incentive spirometry while awake Albuterol/ipratropium aerosols every 6 hours with albuterol aerosols every 2 hours as needed Chest x-ray in a.m. 09/11 revealed mild to moderate bilateral pulmonary effusions with vascular congestion. CT thorax revealed bilateral pleural effusions Hypoalbuminemia Mild anasarca Cholelithiasis without cholecystitis on ultrasound regular diet Famotidine for GI prophylaxis Laxatives stool softeners as need if constipation Chronic prednisone use -history of rheumatoid arthritis completed course of steroids Sliding scale insulin Novulin R medium regimen with Accu-Cheks maintain euglycemia TSH 2.57 Patient does not know his home prednisone dose. Per PCP pt does have a hx of polymyalgia rheumatica. Tapering steroids, IV at this time, will eventually transition to p.o. Right renal cyst -3 cm Acute on chronic kidney injury - ATN, AIN? Unknown baseline creatinine nephrology recs appreciated. Continue to follow No hydronephrosis on CT abdomen/pelvis Chronic warfarin use Elevated PTT Elevated fibrinogen Okayed for heparin drip bridge by orthopedics Received 1 unit FFP 09/10. Holding warfarin in light of possible EGD, heparin for now Right knee effusion s/p Irrigation and debridement right knee on 09/10/[address] Kia del cid X-ray right knee reveal tricompartment osteophytes with medial space joint narrowing. Coarse ossifications of the supracondylar ridge. Popliteal artery calcification. Bridger Stieda lesion revealing possible old MCL injury Orthopedics weightbearing as tolerated. Range of motion Change dressings daily postop. PT evaluate and treat. PT did recommend rehab but pt refused. Depression -Duloxetine -Thorazine 25 mg o QHS will also help for hiccups. 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 Pt willing to do SNF close to home. Stabilizing CHF at this time and starting Coumadin back up, hopefully discharge anticipated in the next 48-72 hours if patient is stable. Mikey Jorgensen MD Sep 26, 2017 10:12
[2017-09-26] MEDS ORDERED: FUROSEMIDE 40 MG/4 ML VIAL IV PUSH ONE (10:15)
[2017-09-26] MEDS: HEPARIN 25,000 UNITS-D5W 250 ML - PREMIX IV PRN ×2 (10:25→23:00)
[2017-09-26] MEDS: ACETAMINOPHEN/HYDROcodone 325 MG/5 MG TAB PO PRN (17:33)
[2017-09-26] MEDS: LACTULOSE SYRUP 20 GM/30 ML CUP PO PRN (17:34)
[2017-09-26] MEDS: WARFARIN SOD 4 MG TAB PO SCH (17:34)
[2017-09-26] MEDS: FUROSEMIDE 40 MG/4 ML VIAL IV PUSH SCH (17:35)
[2017-09-27] VITALS (19 sets, daily range): BP systolic 124–135; BP diastolic 75–92; PULSE 74–111; RESP 10–32; TEMP 97.9–98.4; O2SAT 84–100
[2017-09-27] MEDS: CHLORHEXIDINE GLUCONATE 2 % 1 PACK (2 CLOTHS) TOP SCH (04:00)
[2017-09-27 04:35] LABS: INTERNATIONAL NORMALIZED RATIO 1.2 RATIO; PROTHROMBIN TIME - PATIENT 11.7 SEC (9.8-11.6)
[2017-09-27] MEDS: DILTIAZEM HCL 30 MG TAB PO SCH ×4 (06:00→23:34)
[2017-09-27] MEDS: LACTULOSE SYRUP 20 GM/30 ML CUP PO PRN (08:12)
[2017-09-27] MEDS: DOCUSATE SODIUM 50 MG/SENNA 8.6 MG TAB PO SCH ×2 (08:12→21:29)
[2017-09-27] MEDS: LEVOFLOXACIN 750 MG TAB PO SCH (08:12)
[2017-09-27] MEDS: DULoxetine HCl DR 60 MG CAP PO SCH (08:12)
[2017-09-27] MEDS: FUROSEMIDE 40 MG/4 ML VIAL IV PUSH SCH (08:13)
[2017-09-27] MEDS: SODIUM CHLORIDE 0.9% FLUSH 10 ML FLUSH IV FLUSH PRN (08:14)
[2017-09-27] MEDS: FAMOTIDINE 20 MG TAB PO SCH ×2 (08:14→21:29)
[2017-09-27] MEDS: METOPROLOL TARTRATE 25 MG TAB PO SCH ×2 (08:14→21:29)
[2017-09-27] MEDS: HYDROCORTISONE SOD SUCCINATE 100 MG VIAL IV PUSH SCH ×3 (08:14→21:30)
[2017-09-27] MEDS: SODIUM CHLORIDE 0.9% FLUSH 10 ML FLUSH IV FLUSH SCH ×3 (08:14→21:30)
--- NOTE | 2017-09-27 09:50 | HHI.IDPN ---
Subjective Subjective Remarks Patient is a 72-year-old male, presented to the hospital for evaluation of severe knee pain, and inability to ambulate. He started having some problems about a week ago when he was still in [place]. He was just feeling some malaise and generalized weakness. He had a scheduled medication to come to [place], and arrived [place] 4 days ago. He started noticing some knee pain, and it's usually worse when he puts weight on it and he walked on it. He does not really recall any significant trauma or injury, denies any fall. He started using a cane. He got progressively worse as far as his generalized weakness, and the pain started getting worse so he presented to the hospital for further evaluation and treatment. He denies any significant respiratory complaint. He denies any urinary complaint. There's been no nausea or vomiting. He's had constipation which is unusual for him. Denies any chest pain or any palpitations. On presentation to the emergency room, patient was found to be hypotensive and has required fluid resuscitation. He was in A. fib with RVR. His WBC is normal but he has bandemia. His creatinine is elevated. Lactic is elevated. CT of the abdomen and pelvis did not show any intra- abdominal process, but he has some bilateral pleural effusions. X-ray of the knee showed evidence of moderate effusion. Orthopedics saw the patient, and got very little fluid in the knee because he was very viscous. Patient currently has borderline blood pressure. He is not on pressors. He remains in A. fib with RVR. He has been afebrile since admission. Patient continues to have pain in his right knee, and also complains of pain in the right hip. He also has low back pain. Infectious disease consultation has been requested to evaluate the patient with sepsis. Notes reviewed Temps ok Feels good Not SOB No new complaints Plans for patient to go to rehab in [place] upon D/C CM working on this Antibiotics Cr Current Medications Medications (Trade) Dose Ordered Sig/Jet Route Start Time Stop Time Status Last Admin (NS Flush) 2 ml UNSCH PRN IV FLUSH 09/09/17 18:15 09/27/17 08:14 (NS Flush) 2 ml BID IV FLUSH 09/09/17 21:00 09/27/17 08:14 (Tylenol) 650 mg Q6H PRN PO 09/09/17 18:15 (Restoril) 15 mg HS PRN PO 09/09/17 18:15 09/26/17 22:38 Miscellaneous Information 1 Q361D XX 09/09/17 18:15 (Chlorhexidine 2% Cloth) Taper DAILY@04 TOP 09/10/17 04:00 09/06/18 03:59 09/25/17 00:15 (Chlorhexidine 2% Cloth) 3 pack UNSCH PRN TOP 09/09/17 18:15 (Mar-Colace) 1 tab BID PO 09/09/17 21:00 09/27/17 08:12 (Milk Of Magnesia Liq) 30 ml Q12H PRN PO 09/09/17 18:15 09/15/17 14:03 (Senokot) 17.2 mg Q12H PRN PO 09/09/17 18:15 09/25/17 13:53 (Dulcolax Supp) 10 mg DAILY PRN RECTAL 09/09/17 18:15 09/14/17 23:04 (Lactulose Liq) 30 ml DAILY PRN PO 09/09/17 18:15 09/27/17 08:12 (Zofran Inj) 4 mg Q6H PRN IV PUSH 09/10/17 04:15 (Albuterol Neb) 2.5 mg Q2HR NEB PRN NEB 09/10/17 07:00 ([place] 5-325 Mg) 1 tab Q4H PRN PO 09/10/17 08:00 09/26/17 17:33 (Lopressor) 50 mg Q12HR PO 09/13/17 21:00 Future Hold 09/21/17 20:01 (Pill Splitter) 1 ea UNSCH PRN OTHER 09/13/17 15:15 (Cardizem Cd) 120 mg DAILY PO 09/14/17 09:00 Future Hold 09/20/17 09:31 (Cardizem) 30 mg Q6HR PRN PO 09/16/17 12:00 Future Hold (Cymbalta Dr) 60 mg DAILY PO 09/18/17 09:00 09/27/17 08:12 (Levaquin) 750 mg DAILY PO 09/18/17 09:45 10/08/17 23:00 09/27/17 08:12 (Coumadin) 3 mg DAILY@1600 PO 09/18/17 16:00 Future Hold 09/18/17 17:58 (SoluCORTEF INJ) 100 mg Q8H IV PUSH 09/22/17 16:00 09/27/17 08:14 (Pepcid) 10 mg BID PO 09/22/17 21:00 09/27/17 08:14 (Lopressor) 12.5 mg Q12HR PO 09/23/17 11:00 09/27/17 08:14 (Thorazine) 25 mg Q8H PRN PO 09/23/17 20:00 (NS Flush) DAILY IV FLUSH 09/23/17 20:15 09/27/17 08:14 (NS Flush) UNSCH PRN IV FLUSH 09/23/17 20:15 09/27/17 08:14 (Ativan Inj) 2 mg Q2H PRN IV PUSH 09/23/17 20:15 09/23/17 20:00 Norepinephrine Bitartrate 4 mg/ Sodium Chloride 250 ml @ 7.5 mls/hr TITRATE PRN IV 09/23/17 20:30 09/23/17 21:30 (Brethine Inj) 1 mg UNSCH PRN SQ 09/23/17 20:30 (Cardizem) 30 mg Q6HR PO 09/24/17 18:00 09/27/17 06:00 Heparin Sodium/ Dextrose 250 ml @ 18 mls/hr TITRATE PRN IV 09/26/17 08:15 09/26/17 23:00 (Heparin Inj) 5,000 units UNSCH PRN IV PUSH 09/26/17 08:30 (Heparin Inj) 2,500 units UNSCH PRN IV PUSH 09/26/17 08:30 (Coumadin) 4 mg DAILY@16 PO 09/26/17 16:00 09/26/17 17:34 (Lasix Inj) 40 mg BID@09,18 IV PUSH 09/26/17 18:00 09/27/17 08:13 Lines NAYLAJ TLC Past Medical History Atrial fibrillation COPD Spinal stenosis Allergies: Coded Allergies: No Known Allergies (Unverified , 09/09/17) Objective . Vital Signs Date Time Temp Pulse Resp B/P (MAP) Pulse Ox O2 Delivery O2 Flow Rate FiO2 09/27/17 07:00 95 Nasal Cannula 2.00 09/27/17 06:00 94 09/27/17 04:00 77 09/27/17 04:00 97.9 77 131/77 (95) 99 09/27/17 02:00 74 09/27/17 00:00 98.2 87 13 128/88 (101) 100 09/27/17 00:00 87 09/26/17 22:00 109 09/26/17 20:00 99 09/26/17 20:00 98.0 99 15 141/99 (113) 95 09/26/17 19:06 98 2.00 09/26/17 19:00 100 Nasal Cannula 2.00 09/26/17 18:00 113 09/26/17 16:00 97.4 89 17 126/86 (99) 100 09/26/17 16:00 89 09/26/17 14:00 111 09/26/17 12:00 107 09/26/17 12:00 97.9 107 17 152/93 (112) 94 09/26/17 10:00 85 . Laboratory Tests Test 09/26/17 04:30 09/26/17 08:50 White Blood Count 9.2 TH/MM3 8.9 TH/MM3 Red Blood Count 3.85 MIL/MM3 4.02 MIL/MM3 Hemoglobin 11.8 GM/DL 12.2 GM/DL Hematocrit 34.9 % 36.4 % Mean Corpuscular Volume 90.7 FL 90.6 FL Mean Corpuscular Hemoglobin 30.6 PG 30.4 PG Mean Corpuscular Hemoglobin Concent 33.8 % 33.6 % Red Cell Distribution Width 14.4 % 14.6 % Platelet Count 388 TH/MM3 398 TH/MM3 Mean Platelet Volume 8.4 FL 8.4 FL Neutrophils (%) (Auto) 82.5 % Lymphocytes (%) (Auto) 8.6 % Monocytes (%) (Auto) 8.7 % Eosinophils (%) (Auto) 0.1 % Basophils (%) (Auto) 0.1 % Neutrophils # (Auto) 7.6 TH/MM3 Lymphocytes # (Auto) 0.8 TH/MM3 Monocytes # (Auto) 0.8 TH/MM3 Eosinophils # (Auto) 0.0 TH/MM3 Basophils # (Auto) 0.0 TH/MM3 CBC Comment DIFF FINAL Differential Comment Laboratory Tests Test 09/26/17 04:30 Blood Urea Nitrogen 34 MG/DL Creatinine 1.02 MG/DL Random Glucose 113 MG/DL Calcium Level 8.3 MG/DL Phosphorus Level 2.3 MG/DL Magnesium Level 2.1 MG/DL Sodium Level 141 MEQ/L Potassium Level 4.0 MEQ/L Chloride Level 106 MEQ/L Carbon Dioxide Level 26.7 MEQ/L Anion Gap 8 MEQ/L Estimat Glomerular Filtration Rate 71 ML/MIN Imaging Last Impressions Head CT 09/16/17 1025 Signed Impressions: Service Date/Time: Saturday, September 16, 2017 11:18 - CONCLUSION: Negative for acute process. Te Frances MD FACR Chest X-Ray 09/13/17 0600 Signed Impressions: Service Date/Time: Wednesday, September 13, 2017 05:11 - CONCLUSION: Increasing bilateral airspace opacities. Chandan Ortez MD Myocardial Perfusion Scan Nuc Med 09/12/17 0000 Signed Impressions: Service Date/Time: September 13:40 - CONCLUSION: Normal examination. RISK CATEGORY: Low (<1%% Annual Mortality Rate) Reagan Yusuf MD Gall Bladder Ultrasound 09/10/17 0000 Signed Impressions: Service Date/Time: Sunday, September 10, 2017 11:30 - CONCLUSION: 1. Cholelithiasis. However, there are no findings to indicate acute cholecystitis. 2. Small right pleural effusion. Constantin Lopez MD Chest CT 09/10/17 0000 Signed Impressions: Service Date/Time: Sunday, September 10, 2017 21:13 - CONCLUSION: 1. Small to moderate bilateral effusions and bibasilar atelectasis. Silverio Stout MD Abdomen/Pelvis CT 09/09/17 1738 Signed Impressions: Service Date/Time: Saturday, September 09, 2017 20:30 - CONCLUSION: 1. Small bilateral pleural effusions, left greater than right with basilar dependent airspace disease in the lungs. Mild anasarca. No bowel obstruction. No free air. Mild constipation. Bruce catheter in bladder. Sal Terrazas MD Knee X-Ray 09/09/17 0000 Signed Impressions: Service Date/Time: Saturday, September 09, 2017 13:49 - CONCLUSION: 1. Moderate to large joint effusion. No acute osseous abnormality is identified. 2. 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 3. Bridger-Stieda lesion indicating old medial collateral ligament injury. 4. Severe calcification of the popliteal artery. Constantin Lopez MD Hip and Pelvis X-Ray 09/09/17 0000 Signed Impressions: Service Date/Time: Saturday, September 09, 2017 17:02 - CONCLUSION: No acute left hip abnormality is identified. 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 Constantin Lopez MD Physical Exam GENERAL: awake and alert, NAD SKIN: Warm and dry. No generalized rash EYES: [place] conjunctiva. No petechia or hemorrhage. No scleral icterus. No injection or drainage. EARS, NOSE AND THROAT: moist oral mucosa. dentition in fair condition CARDIOVASCULAR: Rate controlled RESPIRATORY: Decreased BS at bases ABDOMEN: Soft and not distended, bowel sounds present and normoactive. No guarding. No rebound. No organomegaly. EXTREMITIES: No clubbing. RLE minimal edema. R knee incision is dry clean. No redness. Good ROM. NEUROLOGICAL: Awake and alert. Cranial nerves grossly intact. Motor grossly within normal limits. PSYCHIATRIC: Normal affect, calm and cooperative. LINE: No evidence of infection Assessment & Plan Remarks IMPRESSION Recurrent shock likely due to adrenal, resolved - solucortef last dose given 09/19 - off levophed Shock, E.coli sepis, resolved E coli Sepsis source? - due to septic R knee R septic knee E.coli S/P debridement: clinically improving Renal insufficiency, ?baseline, or due to sepsis, or hypotension SOB, known COPD, but likely due to fluid Atrial fib NSTEMI Leukocytosis, better - no new infection found Frequent hiccups, resolved RECOMMENDATION Continue Levaquin - give till 10/08 - end date ordered in [facility] Clinically doing well from ID standpoint CM arranging for return to [place] I will be available prn Please reconsult if with any new ID issue or question Spoke with Shiloh Espinoza MD Sep 27, 2017 09:50
[2017-09-27] MEDS: MAGNESIUM HYDROXIDE SUSP 30 ML CUP PO PRN (11:19)
[2017-09-27 12:31] LABS: BICARBONATE 30.8 MEQ/L (21.0-32.0); CALCIUM 8.4 MG/DL (8.5-10.1); CREATININE 1.14 MG/DL (0.60-1.30)
--- NOTE | 2017-09-27 13:21 | HHI.PR ---
Subjective Remarks RN denies any deterioration since last night. Patient says his lower extremity edema is much improved. No hiccups. Objective Vital Signs Date Time Temp Pulse Resp B/P (MAP) Pulse Ox O2 Delivery O2 Flow Rate FiO2 09/27/17 12:00 99 09/27/17 12:00 98.1 99 22 126/75 (92) 95 09/27/17 11:00 78 09/27/17 11:00 78 13 99 09/27/17 10:00 93 09/27/17 10:00 93 26 84 09/27/17 09:00 104 16 94 09/27/17 09:00 104 09/27/17 08:00 111 09/27/17 08:00 98.2 111 32 135/81 (99) 93 09/27/17 07:00 94 09/27/17 07:00 94 10 100 09/27/17 07:00 95 Room Air 09/27/17 06:00 94 09/27/17 04:00 77 09/27/17 04:00 97.9 77 131/77 (95) 99 09/27/17 02:00 74 09/27/17 00:00 98.2 87 13 128/88 (101) 100 09/27/17 00:00 87 09/26/17 22:00 109 09/26/17 20:00 99 09/26/17 20:00 98.0 99 15 141/99 (113) 95 09/26/17 19:06 98 2.00 09/26/17 19:00 100 Nasal Cannula 2.00 09/26/17 18:00 113 09/26/17 16:00 97.4 89 17 126/86 (99) 100 09/26/17 16:00 89 09/26/17 14:00 111 I/O 09/26/17 09/26/17 09/26/17 09/27/17 09/27/17 09/27/17 07:00 15:00 23:00 07:00 15:00 23:00 Intake Total 480 ml 875 ml 600 ml Output Total 2200 ml 1400 ml Balance 480 ml -1325 ml -800 ml Intake Oral 480 ml 625 ml 600 ml IV Total 250 ml Output Urine Total 2200 ml 1400 ml # Voids 8 # Bowel Movements 0 Result Diagram: 09/26/17 0850 09/27/17 1020 Objective Remarks No conversant dyspnea, no hiccups Lungs are clear bilaterally, heart sounds regular rate rhythm, no murmurs No lower extremity edema seen today A/P Assessment and Plan Hypotension - Resolved, was likely secondary to adrenal crisis being off of chronic steroids - lowering IV hydrocortisone down to 50mg today, transition to 25 mg q8 Saturday with prednisone 40 mg daily starting Saturday and discharge on Saturday if stable with prednisone taper. Altered mental status -Resolved. Neurology signed off, recheck MRI pending, EEG unremarkable for seizure activity. hiccups -resolved anemia -Chronic, H&H holding stable Systolic heart failure chronic w/ MR -low-dose lisinopril and Lopressor -bmp stable Atrial fibrillation - continue lopressor and cardizem on heparin, Coumadin constipation - barium enema ordered knee effusion E. coli bacteremia Currently on Levaquin, per ID for fixed regimen. History of COPD Bilateral small pleural effusions Incentive spirometry while awake Albuterol/ipratropium aerosols every 6 hours with albuterol aerosols every 2 hours as needed Chest x-ray in a.m. 09/11 revealed mild to moderate bilateral pulmonary effusions with vascular congestion. CT thorax revealed bilateral pleural effusions Hypoalbuminemia Mild anasarca Cholelithiasis without cholecystitis on ultrasound regular diet Famotidine for GI prophylaxis Laxatives stool softeners as need if constipation Chronic prednisone use -history of rheumatoid arthritis completed course of steroids Sliding scale insulin Novulin R medium regimen with Accu-Cheks maintain euglycemia TSH 2.57 Patient does not know his home prednisone dose. Per PCP pt does have a hx of polymyalgia rheumatica. Tapering steroids, IV at this time, will eventually transition to p.o. Right renal cyst -3 cm Acute on chronic kidney injury - ATN, AIN? Unknown baseline creatinine nephrology recs appreciated. Continue to follow No hydronephrosis on CT abdomen/pelvis Chronic warfarin use Elevated PTT Elevated fibrinogen Okayed for heparin drip bridge by orthopedics Received 1 unit FFP 09/10. Holding warfarin in light of possible EGD, heparin for now Right knee effusion s/p Irrigation and debridement right knee on 09/10/[address] Kai del cid X-ray right knee reveal tricompartment osteophytes with medial space joint narrowing. Coarse ossifications of the supracondylar ridge. Popliteal artery calcification. Bridger Stieda lesion revealing possible old MCL injury Orthopedics weightbearing as tolerated. Range of motion Change dressings daily postop. PT evaluate and treat. PT did recommend rehab but pt refused. Depression -Duloxetine -Thorazine 25 mg o QHS will also help for hiccups. -DVT -SCD/heparin Discharge Planning Outside hospital denied transfer; will look into pt ultimately flying home to [place] w/ bank examiner company to [place] SNF. Pt willing to do SNF close to home. Stabilizing CHF at this time and starting Coumadin back up, hopefully discharge anticipated in the next 48-72 hours if patient is stable. Discharge Planning stool impaction found - pending gastrograffin enema. Lowering IV hydrocortisone down to 50mg today, transition to 25 mg q8 Saturday with prednisone 40 mg daily starting Saturday and discharge on Saturday if stable with prednisone taper. Mikey Jorgensen MD Sep 27, 2017 13:21
[2017-09-27] MEDS: ACETAMINOPHEN 325 MG TAB PO PRN ×2 (13:50→21:56)
[2017-09-27] MEDS: BISACODYL 10 MG SUPP RECTAL PRN (13:50)
[2017-09-27] MEDS: HEPARIN 25,000 UNITS-D5W 250 ML - PREMIX IV PRN (14:24)
[2017-09-27] MEDS ORDERED: DIATRIZOATE MEGLUM/DIATRIZOATE SOD 120 ML BTL (for RAD DIAG) RECTAL ONE (14:45)
--- NOTE | 2017-09-27 18:03 | RADRPT ---
EXAM DATE/TIME: 09/27/2017 16:00 [facility] COMPARISON: No previous studies available for comparison. INDICATIONS : Constipated since Saturday. FLUORO TIME: 2.2 minutes IMAGE COUNT: 3 CONTRAST: 1. [facility] MEDICAL HISTORY : Chronic obstructive pulmonary disease. Atrial fibrillation. Sarcoidosis. SURGICAL HISTORY : Right knee surgery. ENCOUNTER: Subsequent ACUITY: 4 - 6 days PAIN SCORE: 2/10 LOCATION: Rectum. FINDINGS: Preliminary film is unremarkable. Under fluoroscopic guidance a Gastrografin enema was performed. The rectum is impacted with stool. Quinton burdick became incontinent after Gastrografin reached the upper left colon and exam was terminated. CONCLUSION: 1. Stool impaction in the rectum and sigmoid. Incontinence as above. Sal Terrazas MD on September 27, 2017 at 17:57 Board Certified Radiologist. This report was verified electronically.
[2017-09-27] MEDS: WARFARIN SOD 4 MG TAB PO SCH (18:35)
[2017-09-28] VITALS (12 sets, daily range): BP systolic 105–127; BP diastolic 73–85; PULSE 66–97; RESP 13–19; TEMP 97.2–98.5; O2SAT 94–100
[2017-09-28] MEDS: CHLORHEXIDINE GLUCONATE 2 % 1 PACK (2 CLOTHS) TOP SCH (04:00)
[2017-09-28] MEDS: HYDROCORTISONE SOD SUCCINATE 100 MG VIAL IV PUSH SCH ×3 (05:54→20:28)
[2017-09-28] MEDS: DILTIAZEM HCL 30 MG TAB PO SCH ×4 (05:54→23:10)
[2017-09-28] MEDS: HEPARIN 25,000 UNITS-D5W 250 ML - PREMIX IV PRN ×2 (07:13→23:13)
[2017-09-28] MEDS: SODIUM CHLORIDE 0.9% FLUSH 10 ML FLUSH IV FLUSH SCH ×3 (09:00→20:27)
[2017-09-28] MEDS: FAMOTIDINE 20 MG TAB PO SCH ×2 (09:42→20:28)
[2017-09-28] MEDS: DULoxetine HCl DR 60 MG CAP PO SCH (09:42)
[2017-09-28] MEDS: LEVOFLOXACIN 750 MG TAB PO SCH (09:42)
[2017-09-28] MEDS: DOCUSATE SODIUM 50 MG/SENNA 8.6 MG TAB PO SCH ×2 (09:42→20:28)
[2017-09-28] MEDS: METOPROLOL TARTRATE 25 MG TAB PO SCH ×2 (09:43→20:27)
[2017-09-28 10:59] LABS: BICARBONATE 31.4 MEQ/L (21.0-32.0); CALCIUM 8.4 MG/DL (8.5-10.1); CREATININE 1.13 MG/DL (0.60-1.30)
[2017-09-28] MEDS: ACETAMINOPHEN 325 MG TAB PO PRN ×2 (14:07→20:29)
[2017-09-28] MEDS: WARFARIN SOD 4 MG TAB PO SCH (16:36)
--- NOTE | 2017-09-28 19:37 | HHI.PR ---
Subjective Remarks Patient c/o mild diffuse abdominal pain Also states that he is unable to have a bowel movement. Denies nausea or vomiting Objective Vitals Vital Signs Date Time Temp Pulse Resp B/P (MAP) Pulse Ox O2 Delivery O2 Flow Rate FiO2 09/28/17 16:09 97.2 83 19 116/80 (92) 99 09/28/17 15:07 18 09/28/17 14:00 97 09/28/17 12:00 86 09/28/17 12:00 98.1 85 16 127/85 (99) 100 09/28/17 11:00 98 Nasal Cannula 2.00 09/28/17 10:00 84 09/28/17 08:00 90 09/28/17 08:00 97.9 90 16 127/85 (99) 100 09/28/17 06:00 89 09/28/17 04:00 98.5 81 13 113/78 (90) 98 09/28/17 04:00 81 09/28/17 02:00 75 09/28/17 00:00 98.5 96 14 115/84 (94) 94 09/28/17 00:00 96 09/27/17 22:00 103 09/27/17 20:00 98.3 99 19 130/92 (105) 92 09/27/17 20:00 99 I/O 09/27/17 09/27/17 09/27/17 09/28/17 09/28/17 09/28/17 06:59 14:59 22:59 06:59 14:59 22:59 Intake Total 600 ml 480 ml 960 ml Output Total 1400 ml 575 ml 525 ml Balance -800 ml -95 ml 435 ml Intake Oral 600 ml 480 ml 960 ml Output Urine Total 1400 ml 575 ml 525 ml # Voids 2 3 # Bowel Movements 1 0 Result Diagram: 09/26/17 0850 09/28/17 1000 Imaging Last Impressions Enema w/Water Soluble 09/27/17 0000 Signed Impressions: Service Date/Time: Wednesday, September 27, 2017 16:00 - CONCLUSION: 1. Stool impaction in the rectum and sigmoid. Incontinence as above. Sal Terrazas MD Brain MRI 09/25/17 0000 Signed Impressions: Service Date/Time: Monday, September 25, 2017 14:52 - CONCLUSION: 1. Degenerative changes in the atlantodens joint with pannus formation. 2. No findings to indicate acute cortical infarction identified. Chava Frances MD Chest X-Ray 09/24/17 0600 Signed Impressions: Service Date/Time: Sunday, September 24, 2017 03:30 - CONCLUSION: Mild residual infiltrate within the left base. Chandan Guardado Jr., MD Head CT 09/23/17 0000 Signed Impressions: Service Date/Time: Saturday, September 23, 2017 20:58 - CONCLUSION: No evidence of acute intracranial abnormality. Constantin Chavis MD Carotid Artery Ultrasound 09/17/17 1621 Signed Impressions: Service Date/Time: Sunday, September 17, 2017 08:53 - CONCLUSION: Mild atherosclerotic plaquing at the bifurcation. No focal high grade or hemodynamically significant stenosis. Camden Quintero MD Myocardial Perfusion Scan Nuc Med 09/12/17 0000 Signed Impressions: Service Date/Time: September 13:40 - CONCLUSION: Normal examination. RISK CATEGORY: Low (<1%% Annual Mortality Rate) Reagan Yusuf MD Gall Bladder Ultrasound 09/10/17 0000 Signed Impressions: Service Date/Time: Sunday, September 10, 2017 11:30 - CONCLUSION: 1. Cholelithiasis. However, there are no findings to indicate acute cholecystitis. 2. Small right pleural effusion. Constantin Lopez MD Chest CT 09/10/17 0000 Signed Impressions: Service Date/Time: Sunday, September 10, 2017 21:13 - CONCLUSION: 1. Small to moderate bilateral effusions and bibasilar atelectasis. Silverio Stout MD Abdomen/Pelvis CT 09/09/17 1738 Signed Impressions: Service Date/Time: Saturday, September 09, 2017 20:30 - CONCLUSION: 1. Small bilateral pleural effusions, left greater than right with basilar dependent airspace disease in the lungs. Mild anasarca. No bowel obstruction. No free air. Mild constipation. Bruce catheter in bladder. Sal Terrazas MD Knee X-Ray 09/09/17 0000 Signed Impressions: Service Date/Time: Saturday, September 09, 2017 13:49 - CONCLUSION: 1. Moderate to large joint effusion. No acute osseous abnormality is identified. 2. 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 3. Bridger-Stieda lesion indicating old medial collateral ligament injury. 4. Severe calcification of the popliteal artery. Constantin Lopez MD Hip and Pelvis X-Ray 09/09/17 0000 Signed Impressions: Service Date/Time: Saturday, September 09, 2017 17:02 - CONCLUSION: No acute left hip abnormality is identified. 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 Constantin Lopez MD Objective Remarks AAox3 nad S1S2 RRR, no MRG clear lungs abdomen soft, mildly distended, mild tenderness to palpation no edema in lower extremities Medications and IVs Current Medications Medications (Trade) Dose Ordered Sig/Jet Route Start Time Stop Time Status Last Admin (NS Flush) 2 ml UNSCH PRN IV FLUSH 09/09/17 18:15 09/27/17 08:14 (NS Flush) 2 ml BID IV FLUSH 09/09/17 21:00 09/28/17 09:42 (Tylenol) 650 mg Q6H PRN PO 09/09/17 18:15 09/28/17 14:07 (Restoril) 15 mg HS PRN PO 09/09/17 18:15 09/26/17 22:38 Miscellaneous Information 1 Q361D XX 09/09/17 18:15 (Chlorhexidine 2% Cloth) Taper DAILY@04 TOP 09/10/17 04:00 09/06/18 03:59 09/28/17 04:00 (Chlorhexidine 2% Cloth) 3 pack UNSCH PRN TOP 09/09/17 18:15 (Mar-Colace) 1 tab BID PO 09/09/17 21:00 09/28/17 09:42 (Milk Of Magnesia Liq) 30 ml Q12H PRN PO 09/09/17 18:15 09/27/17 11:19 (Senokot) 17.2 mg Q12H PRN PO 09/09/17 18:15 09/25/17 13:53 (Dulcolax Supp) 10 mg DAILY PRN RECTAL 09/09/17 18:15 09/27/17 13:50 (Lactulose Liq) 30 ml DAILY PRN PO 09/09/17 18:15 09/27/17 08:12 (Zofran Inj) 4 mg Q6H PRN IV PUSH 09/10/17 04:15 (Albuterol Neb) 2.5 mg Q2HR NEB PRN NEB 09/10/17 07:00 ([place] 5-325 Mg) 1 tab Q4H PRN PO 09/10/17 08:00 09/26/17 17:33 (Lopressor) 50 mg Q12HR PO 09/13/17 21:00 Future Hold 09/21/17 20:01 (Pill Splitter) 1 ea UNSCH PRN OTHER 09/13/17 15:15 (Cardizem Cd) 120 mg DAILY PO 09/14/17 09:00 Future Hold 09/20/17 09:31 (Cardizem) 30 mg Q6HR PRN PO 09/16/17 12:00 Future Hold (Cymbalta Dr) 60 mg DAILY PO 09/18/17 09:00 09/28/17 09:42 (Levaquin) 750 mg DAILY PO 09/18/17 09:45 10/08/17 23:00 09/28/17 09:42 (Coumadin) 3 mg DAILY@1600 PO 09/18/17 16:00 Future Hold 09/18/17 17:58 (Lopressor) 12.5 mg Q12HR PO 09/23/17 11:00 09/28/17 09:43 (Thorazine) 25 mg Q8H PRN PO 09/23/17 20:00 (NS Flush) DAILY IV FLUSH 09/23/17 20:15 09/27/17 08:14 (NS Flush) UNSCH PRN IV FLUSH 09/23/17 20:15 09/27/17 08:14 (Ativan Inj) 2 mg Q2H PRN IV PUSH 09/23/17 20:15 09/23/17 20:00 Norepinephrine Bitartrate 4 mg/ Sodium Chloride 250 ml @ 7.5 mls/hr TITRATE PRN IV 09/23/17 20:30 09/23/17 21:30 (Brethine Inj) 1 mg UNSCH PRN SQ 09/23/17 20:30 (Cardizem) 30 mg Q6HR PO 09/24/17 18:00 09/28/17 18:15 Heparin Sodium/ Dextrose 250 ml @ 18 mls/hr TITRATE PRN IV 09/26/17 08:15 09/28/17 07:13 (Heparin Inj) 5,000 units UNSCH PRN IV PUSH 09/26/17 08:30 (Heparin Inj) 2,500 units UNSCH PRN IV PUSH 09/26/17 08:30 (Coumadin) 4 mg DAILY@16 PO 09/26/17 16:00 09/28/17 16:36 (SoluCORTEF INJ) 50 mg Q8HR IV PUSH 09/27/17 14:00 09/28/17 13:53 (Pepcid) 20 mg BID PO 09/27/17 21:00 09/28/17 09:42 Date of Insertion: Sep 23, 2017 Line: Central Venous Catheter Side: Left Location: Internal, Jugular A/P Assessment and Plan Hypotension - Resolved, was likely secondary to adrenal crisis being off of chronic steroids - lowering IV hydrocortisone down to 50mg today, transition to 25 mg q8 Saturday with prednisone 40 mg daily starting Saturday and discharge on Saturday if stable with prednisone taper. Altered mental status -Resolved. Neurology signed off, recheck MRI pending, EEG unremarkable for seizure activity. hiccups -resolved anemia -Chronic, H&H holding stable Systolic heart failure chronic w/ MR -low-dose lisinopril and Lopressor -bmp stable Atrial fibrillation - continue lopressor and cardizem on heparin, Coumadin knee effusion E. coli bacteremia Currently on Levaquin, per ID for fixed regimen. History of COPD Bilateral small pleural effusions Incentive spirometry while awake Albuterol/ipratropium aerosols every 6 hours with albuterol aerosols every 2 hours as needed Chest x-ray in a.m. 09/11 revealed mild to moderate bilateral pulmonary effusions with vascular congestion. CT thorax revealed bilateral pleural effusions Hypoalbuminemia Mild anasarca Cholelithiasis without cholecystitis on ultrasound regular diet Famotidine for GI prophylaxis Laxatives stool softeners as need if constipation Chronic prednisone use -history of rheumatoid arthritis completed course of steroids Sliding scale insulin Novulin R medium regimen with Accu-Cheks maintain euglycemia TSH 2.57 Patient does not know his home prednisone dose. Per PCP pt does have a hx of polymyalgia rheumatica. Tapering steroids, IV at this time, will eventually transition to p.o. Right renal cyst -3 cm Acute on chronic kidney injury - ATN, AIN? Unknown baseline creatinine nephrology recs appreciated. Continue to follow No hydronephrosis on CT abdomen/pelvis Chronic warfarin use Elevated PTT Elevated fibrinogen Okayed for heparin drip bridge by orthopedics Received 1 unit FFP 09/10. Holding warfarin in light of possible EGD, heparin for now Right knee effusion s/p Irrigation and debridement right knee on 09/10/[address] Kai del cid X-ray right knee reveal tricompartment osteophytes with medial space joint narrowing. Coarse ossifications of the supracondylar ridge. Popliteal artery calcification. Bridger Stieda lesion revealing possible old MCL injury Orthopedics weightbearing as tolerated. Range of motion Change dressings daily postop. PT evaluate and treat. PT did recommend rehab but pt refused. Depression -Duloxetine -Thorazine 25 mg o QHS will also help for hiccups. Constipation/Stool impaction Patient status post a water soluble enema which shows stool impaction. I will order abdominal x-ray. Consult GI. Continue Miralax daily - Will Rx mineral oil enema. check KUB abdomen. -DVT -SCD/heparin Discharge Planning Pending GI consult. Patient with constipation. Dennis Bedolla MD Sep 28, 2017 19:37
[2017-09-28] MEDS ORDERED: MINERAL OIL ENEMA 118 ML BTL RECTAL ONE (20:00)
[2017-09-28] MEDS ORDERED: POLYETHYLENE GLYCOL 17 GM PKG PO ONE (20:00)
[2017-09-28] MEDS: LACTULOSE SYRUP 20 GM/30 ML CUP PO PRN (20:29)
[2017-09-28] MEDS: TEMAZEPAM 15 MG CAP PO PRN (20:29)
--- NOTE | 2017-09-28 22:15 | RADRPT ---
EXAM DATE/TIME: 09/28/2017 21:13 [facility] COMPARISON: No previous studies available for comparison. INDICATIONS : Obstruction. MEDICAL HISTORY : Chronic obstructive pulmonary disease. Atrial fibrillation. Sarcoidosis. SURGICAL HISTORY : Right knee surgery. ENCOUNTER: Subsequent ACUITY: 1 week PAIN SCORE: 6/10 LOCATION: Abdomen. FINDINGS: Supine view of the abdomen was performed. Stool scattered throughout the colon with a rounded, hetero geneous density over the central pelvis most characteristic of fecal impaction. No obvious obstructio n otherwise. No pneumoperitoneum. Levoscoliosis of the lumbar spine with associated multilevel degene rative changes. Atelectasis or scarring above the left hemidiaphragm CONCLUSION: 1. Findings of fecal impaction with constipation. 2. Atelectasis/scarring above the left hemidiaphragm Cyrus Shepherd MD on September 28, 2017 at 22:09 Board Certified Radiologist. This report was verified electronically.
[2017-09-29] VITALS (10 sets, daily range): BP systolic 112–144; BP diastolic 65–91; PULSE 75–112; RESP 19–20; TEMP 97.4–98.7; O2SAT 95–100
[2017-09-29] MEDS: CHLORHEXIDINE GLUCONATE 2 % 1 PACK (2 CLOTHS) TOP SCH (02:33)
[2017-09-29] MEDS: DILTIAZEM HCL 30 MG TAB PO SCH ×4 (05:15→23:15)
[2017-09-29] MEDS: HYDROCORTISONE SOD SUCCINATE 100 MG VIAL IV PUSH SCH ×3 (05:16→20:40)
[2017-09-29] MEDS: SODIUM CHLORIDE 0.9% FLUSH 10 ML FLUSH IV FLUSH SCH ×3 (09:00→20:37)
[2017-09-29] MEDS: METOPROLOL TARTRATE 25 MG TAB PO SCH ×2 (09:36→20:37)
[2017-09-29] MEDS: LEVOFLOXACIN 750 MG TAB PO SCH (09:36)
[2017-09-29] MEDS: DULoxetine HCl DR 60 MG CAP PO SCH (09:36)
[2017-09-29] MEDS: FAMOTIDINE 20 MG TAB PO SCH ×2 (09:36→20:37)
[2017-09-29] MEDS: POLYETHYLENE GLYCOL 17 GM PKG PO SCH (09:36)
[2017-09-29] MEDS: DOCUSATE SODIUM 50 MG/SENNA 8.6 MG TAB PO SCH ×2 (09:36→20:37)
[2017-09-29] MEDS: ACETAMINOPHEN 325 MG TAB PO PRN ×2 (09:43→16:28)
[2017-09-29 10:33] LABS: HEMATOCRIT 36.5 % (39.0-51.0); HEMOGLOBIN 12.2 GM/DL (13.0-17.0); MEAN CELL VOLUME 90.7 FL (80.0-100.0); MEAN CORPUSCULAR HEMOGLOBIN 30.2 PG (27.0-34.0); MEAN CORPUSCULAR HGB CONC 33.4 % (32.0-36.0); MEAN PLATELET VOLUME 8.7 FL (7.0-11.0); PLATELET COUNT 298 TH/MM3 (150-450); RED BLOOD COUNT 4.03 MIL/MM3 (4.50-5.90); RED CELL DISTRIBUTION WIDTH 14.6 % (11.6-17.2); WHITE BLOOD COUNT 8.1 TH/MM3 (4.0-11.0)
--- NOTE | 2017-09-29 13:22 | HHI.GIFU ---
Subjective Remarks Pt resting in bed in NAD. GI consulted for fecal impaction. Pt has had no BM in 1 week. admits lower abd pain. Denies n/v. ([place]) Objective Vitals I&O Vital Signs Date Time Temp Pulse Resp B/P (MAP) Pulse Ox O2 Delivery O2 Flow Rate FiO2 09/29/17 08:06 98.7 84 19 128/65 (86) 97 09/29/17 08:00 84 09/29/17 04:09 Room Air 09/29/17 04:00 75 09/29/17 04:00 97.4 89 19 144/91 (108) 100 09/29/17 00:31 97.7 82 19 118/79 (92) 97 09/29/17 00:00 91 09/28/17 23:45 Room Air 09/28/17 20:36 97.9 79 18 108/73 (85) 99 09/28/17 20:00 97.2 66 18 105/79 (88) 97 09/28/17 20:00 Room Air 09/28/17 16:09 97.2 83 19 116/80 (92) 99 09/28/17 15:07 18 09/28/17 14:00 97 I/O 09/28/17 09/28/17 09/28/17 09/29/17 09/29/17 09/29/17 07:00 15:00 23:00 07:00 15:00 23:00 Intake Total 480 ml 960 ml 1050 ml Output Total 575 ml 525 ml 450 ml Balance -95 ml 435 ml 600 ml Intake Oral 480 ml 960 ml 800 ml IV Total 250 ml Output Urine Total 575 ml 525 ml 450 ml # Voids 2 3 # Bowel Movements 1 0 Laboratory Laboratory Tests Test 09/29/17 09:06 White Blood Count 8.1 Red Blood Count 4.03 Hemoglobin 12.2 Hematocrit 36.5 Mean Corpuscular Volume 90.7 Mean Corpuscular Hemoglobin 30.2 Mean Corpuscular Hemoglobin Concent 33.4 Red Cell Distribution Width 14.6 Platelet Count 298 Mean Platelet Volume 8.7 Activated Partial Thromboplast Time 50.3 Date/Time Source Procedure Growth Status 09/22/17 12:57 Blood Peripheral Aerobic Blood Culture - Final NO GROWTH IN 5 DAYS Complete 09/22/17 12:57 Blood Peripheral Anaerobic Blood Culture - Final NO GROWTH IN 5 DAYS Complete 09/10/17 09:15 Fluid Synovial Fluid Gram Stain - Final Complete 09/10/17 09:15 Body Fluid Culture - Final Escherichia Coli Complete 09/12/17 11:00 Urine Catheterized Urine Urine Culture - Final NO GROWTH IN 48 HOURS. Complete 09/11/17 16:00 Wound Leg Fungal Smear - Final NO FUNGAL ELEMENTS SEEN. Resulted 09/11/17 16:00 Wound Leg Fungal Culture - Preliminary NO GROWTH IN 2 WEEKS Resulted Imaging Last Impressions Abdomen X-Ray 09/28/17 0000 Signed Impressions: Service Date/Time: Thursday, September 28, 2017 21:13 - CONCLUSION: 1. Findings of fecal impaction with constipation. 2. Atelectasis/scarring above the left hemidiaphragm Cyrus Shepherd MD Enema w/Water Soluble 09/27/17 0000 Signed Impressions: Service Date/Time: Wednesday, September 27, 2017 16:00 - CONCLUSION: 1. Stool impaction in the rectum and sigmoid. Incontinence as above. Sal Terrazas MD Brain MRI 09/25/17 0000 Signed Impressions: Service Date/Time: Monday, September 25, 2017 14:52 - CONCLUSION: 1. Degenerative changes in the atlantodens joint with pannus formation. 2. No findings to indicate acute cortical infarction identified. Chvaa Frances MD Chest X-Ray 09/24/17 0600 Signed Impressions: Service Date/Time: Sunday, September 24, 2017 03:30 - CONCLUSION: Mild residual infiltrate within the left base. Chandan Guardado Jr., MD Head CT 09/23/17 0000 Signed Impressions: Service Date/Time: Saturday, September 23, 2017 20:58 - CONCLUSION: No evidence of acute intracranial abnormality. Constantin Chavis MD Carotid Artery Ultrasound 09/17/17 1621 Signed Impressions: Service Date/Time: Sunday, September 17, 2017 08:53 - CONCLUSION: Mild atherosclerotic plaquing at the bifurcation. No focal high grade or hemodynamically significant stenosis. Camden Quintero MD Myocardial Perfusion Scan Nuc Med 09/12/17 0000 Signed Impressions: Service Date/Time: September 13:40 - CONCLUSION: Normal examination. RISK CATEGORY: Low (<1%% Annual Mortality Rate) Reagan Yusuf MD Gall Bladder Ultrasound 09/10/17 0000 Signed Impressions: Service Date/Time: Sunday, September 10, 2017 11:30 - CONCLUSION: 1. Cholelithiasis. However, there are no findings to indicate acute cholecystitis. 2. Small right pleural effusion. Constantin Lopez MD Chest CT 09/10/17 0000 Signed Impressions: Service Date/Time: Sunday, September 10, 2017 21:13 - CONCLUSION: 1. Small to moderate bilateral effusions and bibasilar atelectasis. Silverio Stout MD Abdomen/Pelvis CT 09/09/17 1738 Signed Impressions: Service Date/Time: Saturday, September 09, 2017 20:30 - CONCLUSION: 1. Small bilateral pleural effusions, left greater than right with basilar dependent airspace disease in the lungs. Mild anasarca. No bowel obstruction. No free air. Mild constipation. Bruce catheter in bladder. Sal Terrazas MD Knee X-Ray 09/09/17 0000 Signed Impressions: Service Date/Time: Saturday, September 09, 2017 13:49 - CONCLUSION: 1. Moderate to large joint effusion. No acute osseous abnormality is identified. 2. 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 3. Bridger-Stieda lesion indicating old medial collateral ligament injury. 4. Severe calcification of the popliteal artery. Constantin Lopez MD Hip and Pelvis X-Ray 09/09/17 0000 Signed Impressions: Service Date/Time: Saturday, September 09, 2017 17:02 - CONCLUSION: No acute left hip abnormality is identified. 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 Constantin Lopez MD Physical Exam HEENT: normocephalic; atraumatic; CHEST: CTA CARDIAC: irr HR ABDOMEN: Soft, nondistended, mild TTP lower abd/suprapubic region; no hepatosplenomegaly; bowel sounds are present in all four quadrants. EXTREMITIES: No clubbing, cyanosis, mild edema RLE right knee bandage intact SKIN: no rash; no jaundice. 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 Cardiology does not feel CPis cardiac and wanted GI opinion. Thorazine, and vagal maneuver, Hiccups subsided briefly yesterday but returned, Coumadin on hold, INR today 1.3 09/23/17 pt transferred to [facility] has been hpotensive. ID following, no new infection. His WBC is trending down. not hiccuping during my eval, per RN no recent hiccuping and he is not receiving any meds for that nor for BP. they are giving him something for tachycardia will try again for EGD tomorrow if vitals stable 09/24/17 hiccuping is improving. will hold on EGD. 09/29/17 GI reconsulted for fecal impaction, constipation. had Gastrografin enema showed stool impaction rectum and sigmoid. KUB showed impaction. d/w RN apparently pt is scheduled for medical transport to [place] tomorrow 0900. will try to get his bowels moving today and this evening. if he is stable and not having n/v, tolerating clears he could just have the decompressive colonoscopy when he arrives to [place] PLAN - 2 x SSE now - then manual disimpaction - 1 x mg citrate - suppositories - 2 x SSE this evening if needed - may need decompressive colonoscopy, here or [place] pt seen by myself and Dr Thomas and this note is on his behalf ([place]) Physician Comments Seen and examined, plan as above, will proceed with frequent enemas followed by [facility]. Will consider colonoscopy in the coming few days. (Karolina Thomas MD) [place] Sep 29, 2017 13:22 Karolina Thomas MD Sep 29, 2017 18:53
[2017-09-29] MEDS ORDERED: GLYCERIN ADULT 2 GM SUPP RECTAL ONE (14:30)
[2017-09-29] MEDS ORDERED: MAGNESIUM CITRATE SOLN 300 ML BTL PO ONE (16:00)
[2017-09-29] MEDS: HEPARIN 25,000 UNITS-D5W 250 ML - PREMIX IV PRN (16:26)
[2017-09-29] MEDS: WARFARIN SOD 4 MG TAB PO SCH (16:27)
--- NOTE | 2017-09-29 18:27 | HHI.PR ---
Subjective Remarks c/o diffuse abdominal pain states is passing a little gas Denies nausea or vomiting. Afebrile. Objective Vitals Vital Signs Date Time Temp Pulse Resp B/P (MAP) Pulse Ox O2 Delivery O2 Flow Rate FiO2 09/29/17 18:01 85 09/29/17 12:06 97.7 84 19 112/78 (89) 98 09/29/17 12:00 86 09/29/17 08:06 98.7 84 19 128/65 (86) 97 09/29/17 08:00 84 09/29/17 04:09 Room Air 09/29/17 04:00 75 09/29/17 04:00 97.4 89 19 144/91 (108) 100 09/29/17 00:31 97.7 82 19 118/79 (92) 97 09/29/17 00:00 91 09/28/17 23:45 Room Air 09/28/17 20:36 97.9 79 18 108/73 (85) 99 09/28/17 20:00 97.2 66 18 105/79 (88) 97 09/28/17 20:00 Room Air I/O 09/28/17 09/28/17 09/28/17 09/29/17 09/29/17 09/29/17 07:00 15:00 23:00 07:00 15:00 23:00 Intake Total 480 ml 960 ml 1050 ml Output Total 575 ml 525 ml 450 ml Balance -95 ml 435 ml 600 ml Intake Oral 480 ml 960 ml 800 ml IV Total 250 ml Output Urine Total 575 ml 525 ml 450 ml # Voids 2 3 # Bowel Movements 1 0 Result Diagram: 09/29/17 0906 09/28/17 1000 Objective Remarks AAox3 nad S1S2 RRR, no MRG clear lungs abdomen soft, mildly distended, mild tenderness to palpation no edema in lower extremities Date of Insertion: Sep 23, 2017 Line: Central Venous Catheter Side: Left Location: Internal, Jugular A/P Assessment and Plan Hypotension - Resolved, was likely secondary to adrenal crisis being off of chronic steroids - lowering IV hydrocortisone down to 50mg today, transition to 25 mg q8 Saturday with prednisone 40 mg daily starting Saturday and discharge on Saturday if stable with prednisone taper. Altered mental status -Resolved. Neurology signed off, recheck MRI pending, EEG unremarkable for seizure activity. hiccups -resolved anemia -Chronic, H&H holding stable Systolic heart failure chronic w/ MR -low-dose lisinopril and Lopressor -bmp stable Atrial fibrillation - continue lopressor and cardizem on heparin, Coumadin knee effusion E. coli bacteremia Currently on Levaquin, per ID for fixed regimen. History of COPD Bilateral small pleural effusions Incentive spirometry while awake Albuterol/ipratropium aerosols every 6 hours with albuterol aerosols every 2 hours as needed Chest x-ray in a.m. 09/11 revealed mild to moderate bilateral pulmonary effusions with vascular congestion. CT thorax revealed bilateral pleural effusions Hypoalbuminemia Mild anasarca Cholelithiasis without cholecystitis on ultrasound regular diet Famotidine for GI prophylaxis Laxatives stool softeners as need if constipation Chronic prednisone use -history of rheumatoid arthritis completed course of steroids Sliding scale insulin Novulin R medium regimen with Accu-Cheks maintain euglycemia TSH 2.57 Patient does not know his home prednisone dose. Per PCP pt does have a hx of polymyalgia rheumatica. Tapering steroids, IV at this time, will eventually transition to p.o. Right renal cyst -3 cm Acute on chronic kidney injury - ATN, AIN? Unknown baseline creatinine nephrology recs appreciated. Continue to follow No hydronephrosis on CT abdomen/pelvis Chronic warfarin use Elevated PTT Elevated fibrinogen Okayed for heparin drip bridge by orthopedics Received 1 unit FFP 09/10. Holding warfarin in light of possible EGD, heparin for now Right knee effusion s/p Irrigation and debridement right knee on 09/10/[address] Kai del cid X-ray right knee reveal tricompartment osteophytes with medial space joint narrowing. Coarse ossifications of the supracondylar ridge. Popliteal artery calcification. Bridger Stieda lesion revealing possible old MCL injury Orthopedics weightbearing as tolerated. Range of motion Change dressings daily postop. PT evaluate and treat. PT did recommend rehab but pt refused. Depression -Duloxetine -Thorazine 25 mg o QHS will also help for hiccups. Constipation/Stool impaction Patient status post a water soluble enema which shows stool impaction. I will order abdominal x-ray. Consult GI. Continue Miralax daily - Will Rx mineral oil enema. 09/29 Abdomen KUB shows fecal impaction but no obstruction. GI consulted appreciate recommendations. Patient is to my opinion unable to fly tomorrow. Discussed the case with the material manager. The patient would likely need a decompressive colonoscopy while inpatient prior to be able to fly back to [place]. Continue MiraLAX daily and bowel regimen as instructed by GI. -DVT -SCD/heparin Discharge Planning Patient with fecal impaction. High risk for transfer at this moment. Would likely need decompressive colonoscopy. Dennis Bedolla MD Sep 29, 2017 18:27
[2017-09-29] MEDS: TEMAZEPAM 15 MG CAP PO PRN (20:51)
[2017-09-30] VITALS (8 sets, daily range): BP systolic 97–136; BP diastolic 65–88; PULSE 66–103; RESP 16–18; TEMP 96.1–97.6; O2SAT 95–96
[2017-09-30] MEDS ORDERED: LACTATED RINGER'S 1000 ML IV PRN (02:15)
[2017-09-30] MEDS ORDERED: POVIDONE IODINE 5% (ANTISEPSIS KIT) 4 APPLICATIONS EACH NARE PRN (02:15)
[2017-09-30] MEDS ORDERED: SODIUM CHLORID 0.9% 500 ML IV PRN (02:15)
[2017-09-30] MEDS ORDERED: CHLORHEXIDINE GLUCONATE 2 % 1 PACK (2 CLOTHS) TOPICAL PRN (02:15)
[2017-09-30] MEDS: CHLORHEXIDINE GLUCONATE 2 % 1 PACK (2 CLOTHS) TOP SCH (03:32)
[2017-09-30] MEDS: HYDROCORTISONE SOD SUCCINATE 100 MG VIAL IV PUSH SCH ×3 (05:59→21:07)
[2017-09-30] MEDS: DILTIAZEM HCL 30 MG TAB PO SCH ×3 (06:00→17:10)
[2017-09-30] MEDS: DULoxetine HCl DR 60 MG CAP PO SCH (08:22)
[2017-09-30] MEDS: POLYETHYLENE GLYCOL 17 GM PKG PO SCH (08:22)
[2017-09-30] MEDS: LEVOFLOXACIN 750 MG TAB PO SCH (08:22)
[2017-09-30] MEDS: DOCUSATE SODIUM 50 MG/SENNA 8.6 MG TAB PO SCH ×2 (08:22→21:00)
[2017-09-30] MEDS: FAMOTIDINE 20 MG TAB PO SCH ×2 (08:22→21:06)
[2017-09-30] MEDS: METOPROLOL TARTRATE 25 MG TAB PO SCH ×2 (08:23→21:07)
[2017-09-30] MEDS: SODIUM CHLORIDE 0.9% FLUSH 10 ML FLUSH IV FLUSH SCH ×3 (08:23→21:00)
--- NOTE | 2017-09-30 08:49 | HHI.GIFU ---
Subjective Remarks Still no BM, s/p multiple enemas, mg citrate. Still planning to transfer to facility in [place], anxious he will lose his "spot." (Sabrina BeachP) Objective Vitals I&O Vital Signs Date Time Temp Pulse Resp B/P (MAP) Pulse Ox O2 Delivery O2 Flow Rate FiO2 09/30/17 08:01 Room Air 09/30/17 04:08 Room Air 09/30/17 04:00 97.6 92 18 97/70 (79) 09/30/17 04:00 68 09/30/17 00:52 84 09/30/17 00:01 97.4 98 18 132/82 (99) 09/30/17 00:00 Room Air 09/29/17 20:00 97.8 100 20 134/88 (103) 95 09/29/17 20:00 112 09/29/17 20:00 Room Air 09/29/17 18:01 85 09/29/17 16:06 98.5 96 20 127/75 (92) 96 09/29/17 12:06 97.7 84 19 112/78 (89) 98 09/29/17 12:00 86 I/O 09/29/17 09/29/17 09/29/17 09/30/17 09/30/17 09/30/17 07:00 15:00 23:00 07:00 15:00 23:00 Intake Total 1050 ml 520 ml Output Total 450 ml 800 ml 500 ml Balance 600 ml -280 ml -500 ml Intake Oral 800 ml 520 ml IV Total 250 ml Output Urine Total 450 ml 800 ml 500 ml # Bowel Movements 4 2 Laboratory Laboratory Tests Test 09/29/17 09:06 White Blood Count 8.1 Red Blood Count 4.03 Hemoglobin 12.2 Hematocrit 36.5 Mean Corpuscular Volume 90.7 Mean Corpuscular Hemoglobin 30.2 Mean Corpuscular Hemoglobin Concent 33.4 Red Cell Distribution Width 14.6 Platelet Count 298 Mean Platelet Volume 8.7 Activated Partial Thromboplast Time 50.3 Date/Time Source Procedure Growth Status 09/22/17 12:57 Blood Peripheral Aerobic Blood Culture - Final NO GROWTH IN 5 DAYS Complete 09/22/17 12:57 Blood Peripheral Anaerobic Blood Culture - Final NO GROWTH IN 5 DAYS Complete 09/10/17 09:15 Fluid Synovial Fluid Gram Stain - Final Complete 09/10/17 09:15 Body Fluid Culture - Final Escherichia Coli Complete 09/12/17 11:00 Urine Catheterized Urine Urine Culture - Final NO GROWTH IN 48 HOURS. Complete 09/11/17 16:00 Wound Leg Fungal Smear - Final NO FUNGAL ELEMENTS SEEN. Resulted 09/11/17 16:00 Wound Leg Fungal Culture - Preliminary NO GROWTH IN 2 WEEKS Resulted Imaging Last Impressions Abdomen X-Ray 09/28/17 0000 Signed Impressions: Service Date/Time: Thursday, September 28, 2017 21:13 - CONCLUSION: 1. Findings of fecal impaction with constipation. 2. Atelectasis/scarring above the left hemidiaphragm Cyrus Shepherd MD Enema w/Water Soluble 09/27/17 0000 Signed Impressions: Service Date/Time: Wednesday, September 27, 2017 16:00 - CONCLUSION: 1. Stool impaction in the rectum and sigmoid. Incontinence as above. Sal Terrazas MD Brain MRI 09/25/17 0000 Signed Impressions: Service Date/Time: Monday, September 25, 2017 14:52 - CONCLUSION: 1. Degenerative changes in the atlantodens joint with pannus formation. 2. No findings to indicate acute cortical infarction identified. Chava Frances MD Chest X-Ray 09/24/17 0600 Signed Impressions: Service Date/Time: Sunday, September 24, 2017 03:30 - CONCLUSION: Mild residual infiltrate within the left base. Chandan Guardado Jr., MD Head CT 09/23/17 0000 Signed Impressions: Service Date/Time: Saturday, September 23, 2017 20:58 - CONCLUSION: No evidence of acute intracranial abnormality. Constantin Chavis MD Carotid Artery Ultrasound 09/17/17 1621 Signed Impressions: Service Date/Time: Sunday, September 17, 2017 08:53 - CONCLUSION: Mild atherosclerotic plaquing at the bifurcation. No focal high grade or hemodynamically significant stenosis. Camden Quintero MD Myocardial Perfusion Scan Nuc Med 09/12/17 0000 Signed Impressions: Service Date/Time: September 13:40 - CONCLUSION: Normal examination. RISK CATEGORY: Low (<1%% Annual Mortality Rate) Reagan Yusuf MD Gall Bladder Ultrasound 09/10/17 0000 Signed Impressions: Service Date/Time: Sunday, September 10, 2017 11:30 - CONCLUSION: 1. Cholelithiasis. However, there are no findings to indicate acute cholecystitis. 2. Small right pleural effusion. Constantin Lopez MD Chest CT 09/10/17 0000 Signed Impressions: Service Date/Time: Sunday, September 10, 2017 21:13 - CONCLUSION: 1. Small to moderate bilateral effusions and bibasilar atelectasis. Silverio Stout MD Abdomen/Pelvis CT 09/09/17 1738 Signed Impressions: Service Date/Time: Saturday, September 09, 2017 20:30 - CONCLUSION: 1. Small bilateral pleural effusions, left greater than right with basilar dependent airspace disease in the lungs. Mild anasarca. No bowel obstruction. No free air. Mild constipation. Bruce catheter in bladder. Sal Terrazas MD Knee X-Ray 09/09/17 0000 Signed Impressions: Service Date/Time: Saturday, September 09, 2017 13:49 - CONCLUSION: 1. Moderate to large joint effusion. No acute osseous abnormality is identified. 2. 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 3. Bridger-Stieda lesion indicating old medial collateral ligament injury. 4. Severe calcification of the popliteal artery. Constantin Lopez MD Hip and Pelvis X-Ray 09/09/17 0000 Signed Impressions: Service Date/Time: Saturday, September 09, 2017 17:02 - CONCLUSION: No acute left hip abnormality is identified. 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 Constantin Lopez MD Physical Exam HEENT: normocephalic; atraumatic; CHEST: CTA CARDIAC: irr HR ABDOMEN: Soft, nondistended, mild TTP lower abd/suprapubic region; no hepatosplenomegaly; bowel sounds are present in all four quadrants. EXTREMITIES: No clubbing, cyanosis, mild edema RLE right knee bandage intact SKIN: no rash; no jaundice. BOOKKEEPER ASSISTANT: alert (Sabrina Beach) Assessment and Plan Plan ASSESSMENT - hiccuping - for several days, causing chest discomfort, refractory to tx, . Cardiology does not feel CPis cardiac and wanted GI opinion. Thorazine, and vagal maneuver, Hiccups subsided briefly yesterday but returned, Coumadin on hold, INR today 1.3 09/23/17 pt transferred to [facility] [place] been [place]pot[place]. ID following, no new infection. His WBC is trending down. not hiccuping during my eval, per RN no recent hiccuping and he is not receiving any meds for that nor for BP. they are giving him something for tachycardia will try again for EGD tomorrow if vitals stable 09/24/17 hiccuping is improving. will hold on EGD. 09/29/17 GI reconsulted for fecal impaction, constipation. had Gastrografin enema showed stool impaction rectum and sigmoid. KUB showed impaction. d/w RN apparently pt is scheduled for medical transport to [place] tomorrow 0900. will try to get his bowels moving today and this evening. if he is stable and not having n/v, tolerating clears he could just have the decompressive colonoscopy when he arrives to [place] 09/30/17 no BM after mult interventions. no n/v, mild lower abd pain. plans for transfer to facility in [place] after procedure. PLAN - decompressive colonoscopy - NPO - obtain consent - hold heparin gtt 2h prior to procedure pt seen by myself and Dr Carrasco and myself and this note is on her behalf (Sabrina Beach) Sabrina Beach Sep 30, 2017 08:49 Rosetta Carrasco MD Sep 30, 2017 18:42
[2017-09-30] MEDS: ACETAMINOPHEN 325 MG TAB PO PRN ×2 (09:38→21:18)
[2017-09-30] MEDS ORDERED: SODIUM CHLORID 0.9% 500 ML INJ 500 ML IV ONE (10:00)
[2017-09-30] MEDS ORDERED: LIDOCAINE HCL 1% PF 5 ML SYRINGE OTHER ONE (12:00)
[2017-09-30] MEDS ORDERED: PROPOFOL 200 MG/20 ML AMP IV ONE (12:00)
--- NOTE | 2017-09-30 14:23 | HHI.PR ---
Subjective Remarks Deferred entry, the patient was seen earlier at 10 AM. BP noted to be low. The patient complains of increasing abdominal pain and distention, denies nausea or vomiting. The patient is afebrile. Objective Vitals Vital Signs Date Time Temp Pulse Resp B/P (MAP) Pulse Ox O2 Delivery O2 Flow Rate FiO2 09/30/17 12:00 97.3 66 16 136/83 (100) 96 09/30/17 08:01 Room Air 09/30/17 08:00 95 09/30/17 04:08 Room Air 09/30/17 04:00 97.6 92 18 97/70 (79) 09/30/17 04:00 68 09/30/17 00:52 84 09/30/17 00:01 97.4 98 18 132/82 (99) 09/30/17 00:00 Room Air 09/29/17 20:00 97.8 100 20 134/88 (103) 95 09/29/17 20:00 112 09/29/17 20:00 Room Air 09/29/17 18:01 85 09/29/17 16:06 98.5 96 20 127/75 (92) 96 I/O 09/29/17 09/29/17 09/29/17 09/30/17 09/30/17 09/30/17 06:59 14:59 22:59 06:59 14:59 22:59 Intake Total 1050 ml 520 ml Output Total 450 ml 800 ml 500 ml Balance 600 ml -280 ml -500 ml Intake Oral 800 ml 520 ml IV Total 250 ml Output Urine Total 450 ml 800 ml 500 ml # Bowel Movements 4 2 Result Diagram: 09/29/17 0906 09/28/17 1000 Imaging Last Impressions Abdomen X-Ray 09/28/17 0000 Signed Impressions: Service Date/Time: Thursday, September 28, 2017 21:13 - CONCLUSION: 1. Findings of fecal impaction with constipation. 2. Atelectasis/scarring above the left hemidiaphragm Cyrus Shepherd MD Enema w/Water Soluble 09/27/17 0000 Signed Impressions: Service Date/Time: Wednesday, September 27, 2017 16:00 - CONCLUSION: 1. Stool impaction in the rectum and sigmoid. Incontinence as above. Sal Terrazas MD Brain MRI 09/25/17 0000 Signed Impressions: Service Date/Time: Monday, September 25, 2017 14:52 - CONCLUSION: 1. Degenerative changes in the atlantodens joint with pannus formation. 2. No findings to indicate acute cortical infarction identified. Chava Frances MD Chest X-Ray 09/24/17 0600 Signed Impressions: Service Date/Time: Sunday, September 24, 2017 03:30 - CONCLUSION: Mild residual infiltrate within the left base. Chandan Guardado Jr., MD Head CT 09/23/17 0000 Signed Impressions: Service Date/Time: Saturday, September 23, 2017 20:58 - CONCLUSION: No evidence of acute intracranial abnormality. Constantin Chavis MD Carotid Artery Ultrasound 09/17/17 1621 Signed Impressions: Service Date/Time: Sunday, September 17, 2017 08:53 - CONCLUSION: Mild atherosclerotic plaquing at the bifurcation. No focal high grade or hemodynamically significant stenosis. Camden Quintero MD Myocardial Perfusion Scan Nuc Med 09/12/17 0000 Signed Impressions: Service Date/Time: September 13:40 - CONCLUSION: Normal examination. RISK CATEGORY: Low (<1%% Annual Mortality Rate) Reagan Yusuf MD Gall Bladder Ultrasound 09/10/17 0000 Signed Impressions: Service Date/Time: Sunday, September 10, 2017 11:30 - CONCLUSION: 1. Cholelithiasis. However, there are no findings to indicate acute cholecystitis. 2. Small right pleural effusion. Constantin Lopez MD Chest CT 09/10/17 0000 Signed Impressions: Service Date/Time: Sunday, September 10, 2017 21:13 - CONCLUSION: 1. Small to moderate bilateral effusions and bibasilar atelectasis. Silverio Stout MD Abdomen/Pelvis CT 09/09/17 1738 Signed Impressions: Service Date/Time: Saturday, September 09, 2017 20:30 - CONCLUSION: 1. Small bilateral pleural effusions, left greater than right with basilar dependent airspace disease in the lungs. Mild anasarca. No bowel obstruction. No free air. Mild constipation. Bruce catheter in bladder. Sal Terrazas MD Knee X-Ray 09/09/17 0000 Signed Impressions: Service Date/Time: Saturday, September 09, 2017 13:49 - CONCLUSION: 1. Moderate to large joint effusion. No acute osseous abnormality is identified. 2. 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 3. Bridger-Stieda lesion indicating old medial collateral ligament injury. 4. Severe calcification of the popliteal artery. Constantin Lopez MD Hip and Pelvis X-Ray 09/09/17 0000 Signed Impressions: Service Date/Time: Saturday, September 09, 2017 17:02 - CONCLUSION: No acute left hip abnormality is identified. 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 Constantin Lopez MD Objective Remarks AAox3 nad S1S2 RRR, no MRG clear lungs abdomen soft, mildly distended, mild tenderness to palpation no edema in lower extremities Medications and IVs Current Medications Medications (Trade) Dose Ordered Sig/Jet Route Start Time Stop Time Status Last Admin (NS Flush) 2 ml UNSCH PRN IV FLUSH 09/09/17 18:15 09/27/17 08:14 (NS Flush) 2 ml BID IV FLUSH 09/09/17 21:00 09/30/17 08:23 (Tylenol) 650 mg Q6H PRN PO 09/09/17 18:15 09/29/17 16:28 (Restoril) 15 mg HS PRN PO 09/09/17 18:15 09/29/17 20:51 Miscellaneous Information 1 Q361D XX 09/09/17 18:15 (Chlorhexidine 2% Cloth) 3 pack Taper DAILY@04 TOP 09/10/17 04:00 09/06/18 03:59 09/28/17 04:00 (Chlorhexidine 2% Cloth) 3 pack UNSCH PRN TOP 09/09/17 18:15 (Mar-Colace) 1 tab BID PO 09/09/17 21:00 09/30/17 08:22 (Milk Of Magnesia Liq) 30 ml Q12H PRN PO 09/09/17 18:15 09/27/17 11:19 (Senokot) 17.2 mg Q12H PRN PO 09/09/17 18:15 09/25/17 13:53 (Dulcolax Supp) 10 mg DAILY PRN RECTAL 09/09/17 18:15 09/27/17 13:50 (Lactulose Liq) 30 ml DAILY PRN PO 09/09/17 18:15 09/28/17 20:29 (Zofran Inj) 4 mg Q6H PRN IV PUSH 09/10/17 04:15 (Albuterol Neb) 2.5 mg Q2HR NEB PRN NEB 09/10/17 07:00 (Jefferson 5-325 Mg) 1 tab Q4H PRN PO 09/10/17 08:00 09/26/17 17:33 (Lopressor) 50 mg Q12HR PO 09/13/17 21:00 Future Hold 09/21/17 20:01 (Pill Splitter) 1 ea UNSCH PRN OTHER 09/13/17 15:15 (Cardizem Cd) 120 mg DAILY PO 09/14/17 09:00 Future Hold 09/20/17 09:31 (Cardizem) 30 mg Q6HR PRN PO 09/16/17 12:00 Future Hold (Cymbalta Dr) 60 mg DAILY PO 09/18/17 09:00 09/30/17 08:22 (Levaquin) 750 mg DAILY PO 09/18/17 09:45 10/08/17 23:00 09/30/17 08:22 (Coumadin) 3 mg DAILY@1600 PO 09/18/17 16:00 Future Hold 09/18/17 17:58 (Lopressor) 12.5 mg Q12HR PO 09/23/17 11:00 09/30/17 08:23 (Thorazine) 25 mg Q8H PRN PO 09/23/17 20:00 (NS Flush) DAILY IV FLUSH 09/23/17 20:15 09/28/17 09:00 (NS Flush) UNSCH PRN IV FLUSH 09/23/17 20:15 09/27/17 08:14 (Ativan Inj) 2 mg Q2H PRN IV PUSH 09/23/17 20:15 09/23/17 20:00 Norepinephrine Bitartrate 4 mg/ Sodium Chloride 250 ml @ 7.5 mls/hr TITRATE PRN IV 09/23/17 20:30 09/23/17 21:30 (Brethine Inj) 1 mg UNSCH PRN SQ 09/23/17 20:30 (Cardizem) 30 mg Q6HR PO 09/24/17 18:00 09/30/17 11:57 Heparin Sodium/ Dextrose 250 ml @ 18 mls/hr TITRATE PRN IV 09/26/17 08:15 Future Hold 09/29/17 16:26 (Heparin Inj) 5,000 units UNSCH PRN IV PUSH 09/26/17 08:30 (Heparin Inj) 2,500 units UNSCH PRN IV PUSH 09/26/17 08:30 (Coumadin) 4 mg DAILY@16 PO 09/26/17 16:00 09/29/17 16:27 (SoluCORTEF INJ) 50 mg Q8HR IV PUSH 09/27/17 14:00 09/30/17 05:59 (Pepcid) 20 mg BID PO 09/27/17 21:00 09/30/17 08:22 (Miralax) 17 gm DAILY PO 09/29/17 09:00 09/30/17 08:22 Lactated Ringer's 1,000 ml @ 30 mls/hr Q24H PRN IV 09/30/17 02:15 10/03/17 02:14 Sodium Chloride 500 ml @ 30 mls/hr [id number] PRN IV 09/30/17 02:15 10/03/17 02:14 (Betadine 5% Antisepsis Kit) 1 applic CHICKEN FANCIER PRN EACH NARE 09/30/17 02:15 10/03/17 02:14 (Chlorhexidine 2% Cloth) 3 pack CHICKEN FANCIER PRN TOPICAL 09/30/17 02:15 10/03/17 02:14 (Tylenol) 650 mg Q4H PRN PO 09/30/17 09:30 09/30/17 09:38 Date of Insertion: Sep 23, 2017 Line: Central Venous Catheter Side: Left Location: Internal, Jugular A/P Problem List: (1) Fecal impaction ICD Code: K56.41 - Fecal impaction Status: Acute (2) Encephalopathy ICD Code: G93.40 - Encephalopathy, unspecified Status: Resolved (3) Atrial fibrillation ICD Code: I48.91 - Unspecified atrial fibrillation (4) Septic arthritis of knee ICD Code: M00.9 - Pyogenic arthritis, unspecified Status: Resolved (5) Pleural effusion ICD Code: J90 - Pleural effusion, not elsewhere classified Status: Acute (6) Chronic systolic heart failure ICD Code: I50.22 - Chronic systolic (congestive) heart failure Status: Chronic (7) COPD (chronic obstructive pulmonary disease) ICD Code: J44.9 - Chronic obstructive pulmonary disease, unspecified Status: Chronic (8) Rheumatoid arthritis ICD Code: M06.9 - Rheumatoid arthritis, unspecified Status: Chronic (9) Renal insufficiency ICD Code: N28.9 - Disorder of kidney and ureter, unspecified Status: Resolved Assessment and Plan Hypotension - Resolved, was likely secondary to adrenal crisis being off of chronic steroids - lowering IV hydrocortisone down to 50mg today, transition to 25 mg q8 Saturday with prednisone 40 mg daily starting Saturday and discharge on Saturday if stable with prednisone taper. Altered mental status -Resolved. Neurology signed off, recheck MRI pending, EEG unremarkable for seizure activity. hiccups -resolved anemia -Chronic, H&H holding stable Systolic heart failure chronic w/ MR -low-dose lisinopril and Lopressor -bmp stable Atrial fibrillation - continue lopressor and cardizem on heparin, Coumadin knee effusion E. coli bacteremia Currently on Levaquin, per ID for fixed regimen. History of COPD Bilateral small pleural effusions Incentive spirometry while awake Albuterol/ipratropium aerosols every 6 hours with albuterol aerosols every 2 hours as needed Chest x-ray in a.m. 09/11 revealed mild to moderate bilateral pulmonary effusions with vascular congestion. CT thorax revealed bilateral pleural effusions Hypoalbuminemia Mild anasarca Cholelithiasis without cholecystitis on ultrasound regular diet Famotidine for GI prophylaxis Laxatives stool softeners as need if constipation Chronic prednisone use -history of rheumatoid arthritis completed course of steroids Sliding scale insulin Novulin R medium regimen with Accu-Cheks maintain euglycemia TSH 2.57 Patient does not know his home prednisone dose. Per PCP pt does have a hx of polymyalgia rheumatica. Tapering steroids, IV at this time, will eventually transition to p.o. Right renal cyst -3 cm Acute on chronic kidney injury - ATN, AIN? Unknown baseline creatinine nephrology recs appreciated. Continue to follow No hydronephrosis on CT abdomen/pelvis Chronic warfarin use Elevated PTT Elevated fibrinogen Okayed for heparin drip bridge by orthopedics Received 1 unit FFP 09/10. Holding warfarin in light of possible EGD, heparin for now Right knee effusion s/p Irrigation and debridement right knee on 09/10/[address] Kai del cid X-ray right knee reveal tricompartment osteophytes with medial space joint narrowing. Coarse ossifications of the supracondylar ridge. Popliteal artery calcification. Bridger Stieda lesion revealing possible old MCL injury Orthopedics weightbearing as tolerated. Range of motion Change dressings daily postop. PT evaluate and treat. PT did recommend rehab but pt refused. Depression -Duloxetine -Thorazine 25 mg o QHS will also help for hiccups. Constipation/Stool impaction Patient status post a water soluble enema which shows stool impaction. I will order abdominal x-ray. Consult GI. Continue Miralax daily - Will Rx mineral oil enema. 09/29 Abdomen KUB shows fecal impaction but no obstruction. GI consulted appreciate recommendations. Patient is to my opinion unable to fly tomorrow. Discussed the case with the parts manager. The patient would likely need a decompressive colonoscopy while inpatient prior to be able to fly back to [place]. Continue MiraLAX daily and bowel regimen as instructed by GI. 09/30 for decompressive colonoscopy today. Hypotension Likely due to decreased oral intake. The patient states he has not had food or much to drink due to patient's abdominal pain and discomfort. Ordered normal saline 500 mL's IV bolus. -DVT -SCD/heparin Discharge Planning Patient with fecal impaction. Patient for decompressive colonoscopy. Possible discharge in 1-2 days. The patient will be flown back to [place]. Problem Qualifiers (1) Atrial fibrillation: Qualified Codes: I48.2 - Chronic atrial fibrillation (2) Septic arthritis of knee: (3) COPD (chronic obstructive pulmonary disease): Qualified Codes: J44.9 - Chronic obstructive pulmonary disease, unspecified Dennis Bedolla MD Sep 30, 2017 14:23
--- NOTE | 2017-09-30 15:49 | GIPROC ---
[facility] [address] [facility]. [facility], [address] COLONOSCOPY PROCEDURE REPORT EXAM DATE: 09/30/2017 PATIENT NAME: Vasile Burnett MR #: [id number] BIRTHDATE: 1945 ENDOSCOPIST: Rosetta Carrasco MD ORDER #: [id number] SENIOR CREDIT OFFICER: Carlito Martin and Bindu Steen STATUS: inpatient INDICATIONS: The patient is a 72 yr old male here for a colonoscopy due to fecal impaction, failed other measures PROCEDURE PERFORMED: disimpaction MEDICATIONS: None and Per Anesthesia. PREP QUALITY: poor ESTIMATED BLOOD LOSS: None CONSENT: The patient understands the risks and benefits of the procedure and understands that these risks include, but are not limited to: sedation, allergic reaction, infection, perforation and/or bleeding. Alternative means of evaluation and treatment include, among others: physical exam, x-rays, and/or surgical intervention. The patient elects to proceed with this endoscopic procedure. medical equipment was checked for proper function. Hand hygiene and appropriate measures for infection prevention was taken. After the risks, benefits and alternatives of the procedure were thoroughly explained, Informed consent was verified, confirmed and timeout was successfully executed by the treatment team. A digital exam decreased anal tone, large stool ball , external hemorrhoids,perianal small tears bleeding easily The Pentax [id number] endoscope was introduced through the anus and advanced to the sigmoid colon. The instrument was then slowly withdrawn as the colon was fully examined. COLON FINDINGS: Large amount of solid stool in rectum and sigmoid, manual disimpaction, agressive washing done with large amount of water some bleeding from perinal areas fissures/tears , stopped after pressure and packing applied. The scope was then completely withdrawn from the patient and the procedure terminated. ADVERSE EVENTS: There were no complications. IMPRESSIONS: 1. Large amount of solid stool in rectum and sigmoid, manual disimpaction, agressive washing done with large amount of water some bleeding from perinal areas fissures/tears , stopped after pressure and packing applied 2. Decreased anal tone, large stool ball , external hemorrhoids,perianal small tears bleeding easily RECOMMENDATIONS: Full liquid diet local dressing consult colorectal continue bowel regimen anticoagulation as per medical team-discussed with them about bleeding issue RECALL: Return 3 weeks Colonoscopy Rosetta Carrasco MD eSigned: Rosetta Carrasco MD 09/30/2017 3:48 PM cc:
[2017-09-30 16:44] LABS: INTERNATIONAL NORMALIZED RATIO 2.3 RATIO
[2017-09-30] MEDS: LACTULOSE SYRUP 20 GM/30 ML CUP PO SCH (21:06)
[2017-09-30] MEDS: DOCUSATE SODIUM 100 MG/10 ML UDC PO SCH (21:06)
[2017-09-30] MEDS: TEMAZEPAM 15 MG CAP PO PRN (21:18)
[2017-09-30] MEDS: SILVER SULFADIAZINE/LIDOCAINE CREAM 60 GM JAR RECTAL SCH (21:45)
[2017-10-01] VITALS (8 sets, daily range): BP systolic 113–131; BP diastolic 76–89; PULSE 54–119; RESP 18–20; TEMP 96.7–98; O2SAT 94–98
[2017-10-01] MEDS: DILTIAZEM HCL 30 MG TAB PO SCH ×5 (00:01→23:55)
[2017-10-01] MEDS: CHLORHEXIDINE GLUCONATE 2 % 1 PACK (2 CLOTHS) TOP SCH (04:00)
[2017-10-01] MEDS: HYDROCORTISONE SOD SUCCINATE 100 MG VIAL IV PUSH SCH ×3 (05:57→20:59)
--- NOTE | 2017-10-01 07:24 | MB ---
cc: Venkat Hunter MD, Beatrice S MD DATE OF CONSULT: 09/30/2017 REASON FOR CONSULTATION: Fecal impaction, rectal bleeding, possible perianal ulcerations. HISTORY OF PRESENT ILLNESS: Mr. Burnett is a 72-year-old male in [facility] for vacation who was admitted several weeks ago for difficulty with his knee. He was found to have a significant infection and has been treated with surgery and antibiotics. The patient has been quite sedentary since admission, taking pain medication. He normally has fairly good bowel movements. Denies any significant nausea, vomiting or abdominal distention. He says he has had more trouble since surgery and decreased appetite with decreased ambulation. The patient has also had atrial fibrillation and has required anticoagulation. He has been seen by the GI service for treatment of his hiccups, which have gradually subsided. His appetite has been fair, and recently he has been found to have significant constipation and fecal impaction. Dr. Carrasco has attempted to relieve the impaction with Gastrografin studies showing no obstruction. She has tried laxatives and rectal enemas with little relief. Today, she disimpacted the patient while under IV sedation in an attempt to do a sigmoidoscopy. She noted some perianal ulcerations and was concerned with their progression with his impaction and incontinence of stool. He is interested in getting back to [place] as soon as possible, although he does still feel some pelvic pressure and tenderness. Please see his history and physical and multiple consultations for a more complete past medical and surgical history. PERTINENT PHYSICAL EXAMINATION: GENERAL: Very pleasant, older male. No acute distress. HEENT: Remarkable for somewhat pale, dry membranes. Nonicteric sclerae. NECK: A little stiff without adenopathy. CHEST: Relatively diminished bilaterally. HEART: Irregular rhythm. ABDOMEN: Soft and benign. Very little distention and tenderness. No tympany. GENITOURINARY: Anal inspection does reveal some posterior fissuring and chronic cracking in the posterior midline, does not appear to be a fistula. Digital exam reveals only fair tone with quite a bit of soft stool filling the vault. No mucosal irregularity. Some blood on the finger. With the patient's assistance, a large amount of fecal material is able to be extracted with some discomfort, but no other tearing or fissuring of the anal canal. Lumen size appears more than adequate. EXTREMITIES: No cyanosis or clubbing and 1-2+ pedal edema. LABORATORY DATA: All labs were reviewed. Reviewed the Gastrografin enema and recent flat and upright abdomen films. IMPRESSION: Recent knee infection with decreased motility and pain medicine with fecal impaction and decreased stool production. The patient seems to be doing somewhat better this evening after additional disimpaction. Suggest that we continue stool softeners, either enemas or oral laxatives by mouth, and if he seems to feel better, the chronic fissuring can be handled with conservative treatment. Ordered some cream for his relief, and we will try to get him back to [place] so he can pursue his rehabilitation back at home. MD DARLIN Burton/DL , 09:33 PM , 07:22 AM
[2017-10-01 07:56] LABS: INTERNATIONAL NORMALIZED RATIO 2.2 RATIO
[2017-10-01] MEDS: DOCUSATE SODIUM 100 MG/10 ML UDC PO SCH ×2 (08:35→20:56)
[2017-10-01] MEDS: LACTULOSE SYRUP 20 GM/30 ML CUP PO SCH ×2 (08:35→20:56)
[2017-10-01] MEDS: DULoxetine HCl DR 60 MG CAP PO SCH (08:36)
[2017-10-01] MEDS: DOCUSATE SODIUM 50 MG/SENNA 8.6 MG TAB PO SCH ×2 (08:36→20:57)
[2017-10-01] MEDS: FAMOTIDINE 20 MG TAB PO SCH ×2 (08:36→20:57)
[2017-10-01] MEDS: POLYETHYLENE GLYCOL 17 GM PKG PO SCH (08:36)
[2017-10-01] MEDS: LEVOFLOXACIN 750 MG TAB PO SCH (08:36)
[2017-10-01] MEDS: METOPROLOL TARTRATE 25 MG TAB PO SCH ×2 (08:36→21:00)
[2017-10-01] MEDS: SODIUM CHLORIDE 0.9% FLUSH 10 ML FLUSH IV FLUSH SCH ×3 (08:44→21:00)
[2017-10-01] MEDS ORDERED: POTASSIUM CHLORIDE 10 MEQ CONTROLLED RELEASE TAB PO ONE ×2 (11:45→16:00)
[2017-10-01 13:05] LABS: HEMATOCRIT 37.1 % (39.0-51.0); HEMOGLOBIN 12.3 GM/DL (13.0-17.0); MEAN CELL VOLUME 91.6 FL (80.0-100.0); MEAN CORPUSCULAR HEMOGLOBIN 30.3 PG (27.0-34.0); MEAN CORPUSCULAR HGB CONC 33.1 % (32.0-36.0); MEAN PLATELET VOLUME 8.8 FL (7.0-11.0); PLATELET COUNT 236 TH/MM3 (150-450); RED BLOOD COUNT 4.05 MIL/MM3 (4.50-5.90); RED CELL DISTRIBUTION WIDTH 14.7 % (11.6-17.2)
[2017-10-01 13:21] LABS: ALBUMIN 2.2 GM/DL (3.4-5.0); BICARBONATE 31.2 MEQ/L (21.0-32.0); BLOOD UREA NITROGEN 20 MG/DL (7-18); CALCIUM 8.2 MG/DL (8.5-10.1); CHLORIDE 101 MEQ/L (98-107); CREATININE 1.08 MG/DL (0.60-1.30); GLOMERULAR FILTRATION RATE 67 ML/MIN (>89); GLUCOSE,RANDOM 88 MG/DL (74-106); MAGNESIUM 2.1 MG/DL (1.5-2.5); SODIUM (NA) 139 MEQ/L (136-145)
[2017-10-01 13:25] LABS: ALKALINE PHOSPHATASE 123 U/L (45-117); ALT (GPT) 19 U/L (12-78); AST (GOT) 12 U/L (15-37); TOTAL BILIRUBIN ADULT 1.1 MG/DL (0.2-1.0); TOTAL PROTEIN 4.5 GM/DL (6.4-8.2)
[2017-10-01] MEDS: SILVER SULFADIAZINE/LIDOCAINE CREAM 60 GM JAR RECTAL SCH ×2 (14:00→20:55)
--- NOTE | 2017-10-01 14:08 | HHI.GIFU ---
Subjective Remarks Pt resting in bed. 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 abd pain improved. (Sabrina [place]) Objective Vitals I&O Vital Signs Date Time Temp Pulse Resp B/P (MAP) Pulse Ox O2 Delivery O2 Flow Rate FiO2 10/01/17 12:00 97 10/01/17 11:30 97.6 110 18 113/76 (88) 98 10/01/17 08:00 97.3 54 18 127/87 (100) 96 10/01/17 08:00 87 10/01/17 07:00 Room Air 10/01/17 04:00 82 10/01/17 04:00 97.3 98 20 120/81 (94) 97 10/01/17 04:00 Room Air 10/01/17 00:20 96.7 101 18 131/89 (103) 94 10/01/17 00:00 95 10/01/17 00:00 Room Air 09/30/17 20:19 Nasal Cannula 2.00 09/30/17 20:00 Room Air 09/30/17 20:00 103 09/30/17 20:00 96.1 103 18 125/88 (100) 96 09/30/17 16:16 83 09/30/17 16:00 97.1 101 18 116/65 (82) 95 09/30/17 15:40 97.0 77 20 110/69 (83) 91 I/O 09/30/17 09/30/17 09/30/17 10/01/17 10/01/17 10/01/17 07:00 15:00 23:00 07:00 15:00 23:00 Intake Total 500 ml 500 ml Output Total 500 ml 300 ml 900 ml Balance -500 ml 500 ml 200 ml -900 ml IV Total 500 ml Other 500 ml Output Urine Total 500 ml 300 ml 900 ml Stool Total 0 ml # Bowel Movements 2 1 Laboratory Laboratory Tests Test 10/01/17 06:57 10/01/17 10:29 10/01/17 12:00 Prothrombin Time 22.0 Prothromb Time International Ratio 2.2 Activated Partial Thromboplast Time 33.8 White Blood Count 7.0 Red Blood Count 4.05 Hemoglobin 12.3 Hematocrit 37.1 Mean Corpuscular Volume 91.6 Mean Corpuscular Hemoglobin 30.3 Mean Corpuscular Hemoglobin Concent 33.1 Red Cell Distribution Width 14.7 Platelet Count 236 Mean Platelet Volume 8.8 Blood Urea Nitrogen 20 Creatinine 1.08 Random Glucose 88 Total Protein 4.5 Albumin 2.2 Calcium Level 8.2 Magnesium Level 2.1 Alkaline Phosphatase 123 Aspartate Amino Transf (AST/SGOT) 12 Alanine Aminotransferase (ALT/SGPT) 19 Total Bilirubin 1.1 Sodium Level 139 Potassium Level 3.4 Chloride Level 101 Carbon Dioxide Level 31.2 Anion Gap 7 Estimat Glomerular Filtration Rate 67 Date/Time Source Procedure Growth Status 09/22/17 12:57 Blood Peripheral Aerobic Blood Culture - Final NO GROWTH IN 5 DAYS Complete 09/22/17 12:57 Blood Peripheral Anaerobic Blood Culture - Final NO GROWTH IN 5 DAYS Complete 09/10/17 09:15 Fluid Synovial Fluid Gram Stain - Final Complete 09/10/17 09:15 Body Fluid Culture - Final Escherichia Coli Complete 09/12/17 11:00 Urine Catheterized Urine Urine Culture - Final NO GROWTH IN 48 HOURS. Complete 09/11/17 16:00 Wound Leg Fungal Smear - Final NO FUNGAL ELEMENTS SEEN. Resulted 09/11/17 16:00 Wound Leg Fungal Culture - Preliminary NO GROWTH IN 2 WEEKS Resulted Imaging Last Impressions Abdomen X-Ray 09/28/17 0000 Signed Impressions: Service Date/Time: Thursday, September 28, 2017 21:13 - CONCLUSION: 1. Findings of fecal impaction with constipation. 2. Atelectasis/scarring above the left hemidiaphragm Cyrus Shepherd MD Enema w/Water Soluble 09/27/17 0000 Signed Impressions: Service Date/Time: Wednesday, September 27, 2017 16:00 - CONCLUSION: 1. Stool impaction in the rectum and sigmoid. Incontinence as above. Sal Terrazas MD Brain MRI 09/25/17 0000 Signed Impressions: Service Date/Time: Monday, September 25, 2017 14:52 - CONCLUSION: 1. Degenerative changes in the atlantodens joint with pannus formation. 2. No findings to indicate acute cortical infarction identified. Chava Frances MD Chest X-Ray 09/24/17 0600 Signed Impressions: Service Date/Time: Sunday, September 24, 2017 03:30 - CONCLUSION: Mild residual infiltrate within the left base. Chandan Guardado Jr., MD Head CT 09/23/17 0000 Signed Impressions: Service Date/Time: Saturday, September 23, 2017 20:58 - CONCLUSION: No evidence of acute intracranial abnormality. Constantin Chavis MD Carotid Artery Ultrasound 09/17/17 1621 Signed Impressions: Service Date/Time: Sunday, September 17, 2017 08:53 - CONCLUSION: Mild atherosclerotic plaquing at the bifurcation. No focal high grade or hemodynamically significant stenosis. Camden Quintero MD Myocardial Perfusion Scan [facility] 09/12/17 0000 Signed Impressions: Service Date/Time: September 13:40 - CONCLUSION: Normal examination. RISK CATEGORY: Low (<1%% Annual Mortality Rate) Reagan Yusuf MD Gall Bladder Ultrasound 09/10/17 0000 Signed Impressions: Service Date/Time: Sunday, September 10, 2017 11:30 - CONCLUSION: 1. Cholelithiasis. However, there are no findings to indicate acute cholecystitis. 2. Small right pleural effusion. Constantin Lopez MD Chest CT 09/10/17 0000 Signed Impressions: Service Date/Time: Sunday, September 10, 2017 21:13 - CONCLUSION: 1. Small to moderate bilateral effusions and bibasilar atelectasis. Silverio Stout MD Abdomen/Pelvis CT 09/09/17 1738 Signed Impressions: Service Date/Time: Saturday, September 09, 2017 20:30 - CONCLUSION: 1. Small bilateral pleural effusions, left greater than right with basilar dependent airspace disease in the lungs. Mild anasarca. No bowel obstruction. No free air. Mild constipation. Bruce catheter in bladder. Sal Terrazas MD Knee X-Ray 09/09/17 0000 Signed Impressions: Service Date/Time: Saturday, September 09, 2017 13:49 - CONCLUSION: 1. Moderate to large joint effusion. No acute osseous abnormality is identified. 2. 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 3. Bridger-Stieda lesion indicating old medial collateral ligament injury. 4. Severe calcification of the popliteal artery. Constantin Lopez MD Hip and Pelvis X-Ray 09/09/17 0000 Signed Impressions: Service Date/Time: Saturday, September 09, 2017 17:02 - CONCLUSION: No acute left hip abnormality is identified. 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 Constantin Lopez MD Physical Exam HEENT: normocephalic; atraumatic; CHEST: CTA CARDIAC: irr HR ABDOMEN: Soft, nondistended, nontender; no hepatosplenomegaly; bowel sounds are present in all four quadrants. EXTREMITIES: No clubbing, cyanosis, mild edema RLE right knee bandage intact SKIN: no rash; no jaundice. DIRECTOR UNDERWRITER SALES: alert (Sabrina [place]) Assessment and Plan Plan ASSESSMENT - hiccuping - for several days, causing chest discomfort, refractory to tx, . Cardiology does not feel CPis cardiac and wanted GI opinion. Thorazine, and vagal maneuver, Hiccups subsided briefly yesterday but returned, Coumadin on hold, INR today 1.3 09/23/17 pt transferred to [facility] [place] been [place]pot[place]. ID following, no new infection. His WBC is trending down. not hiccuping during my eval, per RN no recent hiccuping and he is not receiving any meds for that nor for BP. they are giving him something for tachycardia will try again for EGD tomorrow if vitals stable 09/24/17 hiccuping is improving. will hold on EGD. 09/29/17 GI reconsulted for fecal impaction, constipation. had Gastrografin enema showed stool impaction rectum and sigmoid. KUB showed impaction. d/w RN apparently pt is scheduled for medical transport to [place] tomorrow 0900. will try to get his bowels moving today and this evening. if he is stable and not having n/v, tolerating clears he could just have the decompressive colonoscopy when he arrives to [place] 09/30/17 no BM after mult interventions. no n/v, mild lower abd pain. plans for transfer to facility in [place] after procedure. 10/01/17 s/p decompressive colonoscopy, manual disimpaction, stool ball and perianal tears/ fissures bleeding easily were seen. CRS now following. PLAN - mgmt per CRS - anticoag per medical team - supportive care - GI will sign off, please reconsult if needed pt seen by myself and Dr Carrasco and myself and this note is on her behalf (Sabrina Beach) Sabrina Beach Oct 01, 2017 14:08 Rosetta Carrasco MD Oct 01, 2017 16:15
--- NOTE | 2017-10-01 16:52 | HHI.PR ---
Subjective Remarks Deferred entry - patient seen at 3 pm Patient states abdominal pain is better. States pasing a little gas. Objective Vitals Vital Signs Date Time Temp Pulse Resp B/P (MAP) Pulse Ox O2 Delivery O2 Flow Rate FiO2 10/01/17 12:00 97 10/01/17 11:30 97.6 110 18 113/76 (88) 98 10/01/17 08:00 97.3 54 18 127/87 (100) 96 10/01/17 08:00 87 10/01/17 07:00 Room Air 10/01/17 04:00 82 10/01/17 04:00 97.3 98 20 120/81 (94) 97 10/01/17 04:00 Room Air 10/01/17 00:20 96.7 101 18 131/89 (103) 94 10/01/17 00:00 95 10/01/17 00:00 Room Air 09/30/17 20:19 Nasal Cannula 2.00 09/30/17 20:00 Room Air 09/30/17 20:00 103 09/30/17 20:00 96.1 103 18 125/88 (100) 96 I/O 09/30/17 09/30/17 09/30/17 10/01/17 10/01/17 10/01/17 06:59 14:59 22:59 06:59 14:59 22:59 Intake Total 500 ml 500 ml Output Total 500 ml 300 ml 900 ml Balance -500 ml 500 ml 200 ml -900 ml IV Total 500 ml Other 500 ml Output Urine Total 500 ml 300 ml 900 ml Stool Total 0 ml # Bowel Movements 2 1 Result Diagram: 10/01/17 1200 10/01/17 1200 Imaging Last Impressions Abdomen X-Ray 09/28/17 0000 Signed Impressions: Service Date/Time: Thursday, September 28, 2017 21:13 - CONCLUSION: 1. Findings of fecal impaction with constipation. 2. Atelectasis/scarring above the left hemidiaphragm Cyrus Shepherd MD Enema w/Water Soluble 09/27/17 0000 Signed Impressions: Service Date/Time: Wednesday, September 27, 2017 16:00 - CONCLUSION: 1. Stool impaction in the rectum and sigmoid. Incontinence as above. Sal Terrazas MD Brain MRI 09/25/17 0000 Signed Impressions: Service Date/Time: Monday, September 25, 2017 14:52 - CONCLUSION: 1. Degenerative changes in the atlantodens joint with pannus formation. 2. No findings to indicate acute cortical infarction identified. Chava Frances MD Chest X-Ray 09/24/17 0600 Signed Impressions: Service Date/Time: Sunday, September 24, 2017 03:30 - CONCLUSION: Mild residual infiltrate within the left base. Chandan Guardado Jr., MD Head CT 09/23/17 0000 Signed Impressions: Service Date/Time: Saturday, September 23, 2017 20:58 - CONCLUSION: No evidence of acute intracranial abnormality. Constantin Chavis MD Carotid Artery Ultrasound 09/17/17 1621 Signed Impressions: Service Date/Time: Sunday, September 17, 2017 08:53 - CONCLUSION: Mild atherosclerotic plaquing at the bifurcation. No focal high grade or hemodynamically significant stenosis. Camden Quintero MD Myocardial Perfusion Scan Nuc Med 09/12/17 0000 Signed Impressions: Service Date/Time: September 13:40 - CONCLUSION: Normal examination. RISK CATEGORY: Low (<1%% Annual Mortality Rate) Reagan Yusuf MD Gall Bladder Ultrasound 09/10/17 0000 Signed Impressions: Service Date/Time: Sunday, September 10, 2017 11:30 - CONCLUSION: 1. Cholelithiasis. However, there are no findings to indicate acute cholecystitis. 2. Small right pleural effusion. Constantin Lopez MD Chest CT 09/10/17 0000 Signed Impressions: Service Date/Time: Sunday, September 10, 2017 21:13 - CONCLUSION: 1. Small to moderate bilateral effusions and bibasilar atelectasis. Silverio Stout MD Abdomen/Pelvis CT 09/09/17 1738 Signed Impressions: Service Date/Time: Saturday, September 09, 2017 20:30 - CONCLUSION: 1. Small bilateral pleural effusions, left greater than right with basilar dependent airspace disease in the lungs. Mild anasarca. No bowel obstruction. No free air. Mild constipation. Bruce catheter in bladder. Sal Terrazas MD Knee X-Ray 09/09/17 0000 Signed Impressions: Service Date/Time: Saturday, September 09, 2017 13:49 - CONCLUSION: 1. Moderate to large joint effusion. No acute osseous abnormality is identified. 2. 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 3. Bridger-Stieda lesion indicating old medial collateral ligament injury. 4. Severe calcification of the popliteal artery. Constantin Lopez MD Hip and Pelvis X-Ray 09/09/17 0000 Signed Impressions: Service Date/Time: Saturday, September 09, 2017 17:02 - CONCLUSION: No acute left hip abnormality is identified. 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 Constantin Lopez MD Objective Remarks AAox3 nad S1S2 RRR, no MRG clear lungs abdomen soft, mildly distended, mild tenderness to palpation no edema in lower extremities Medications and IVs Current Medications Medications (Trade) Dose Ordered Sig/Jet Route Start Time Stop Time Status Last Admin (NS Flush) 2 ml UNSCH PRN IV FLUSH 09/09/17 18:15 09/27/17 08:14 (NS Flush) 2 ml BID IV FLUSH 09/09/17 21:00 10/01/17 08:44 (Tylenol) 650 mg Q6H PRN PO 09/09/17 18:15 09/29/17 16:28 (Restoril) 15 mg HS PRN PO 09/09/17 18:15 09/30/17 21:18 Miscellaneous Information 1 Q361D XX 09/09/17 18:15 (Chlorhexidine 2% Cloth) 3 pack Taper DAILY@04 TOP 09/10/17 04:00 09/06/18 03:59 09/28/17 04:00 (Chlorhexidine 2% Cloth) 3 pack UNSCH PRN TOP 09/09/17 18:15 (Mar-Colace) 1 tab BID PO 09/09/17 21:00 10/01/17 08:36 (Milk Of Magnesia Liq) 30 ml Q12H PRN PO 09/09/17 18:15 09/27/17 11:19 (Senokot) 17.2 mg Q12H PRN PO 09/09/17 18:15 09/25/17 13:53 (Dulcolax Supp) 10 mg DAILY PRN RECTAL 09/09/17 18:15 09/27/17 13:50 (Lactulose Liq) 30 ml DAILY PRN PO 09/09/17 18:15 09/28/17 20:29 (Zofran Inj) 4 mg Q6H PRN IV PUSH 09/10/17 04:15 (Albuterol Neb) 2.5 mg Q2HR NEB PRN NEB 09/10/17 07:00 ([place]age 5-325 Mg) 1 tab Q4H PRN PO 09/10/17 08:00 09/26/17 17:33 (Lopressor) 50 mg Q12HR PO 09/13/17 21:00 Future Hold 09/21/17 20:01 (Pill Splitter) 1 ea UNSCH PRN OTHER 09/13/17 15:15 (Cardizem) 30 mg Q6HR PRN PO 09/16/17 12:00 Future Hold (Cymbalta Dr) 60 mg DAILY PO 09/18/17 09:00 10/01/17 08:36 (Levaquin) 750 mg DAILY PO 09/18/17 09:45 10/08/17 23:00 10/01/17 08:36 (Coumadin) 3 mg DAILY@1600 PO 09/18/17 16:00 Future Hold 09/18/17 17:58 (Lopressor) 12.5 mg Q12HR PO 09/23/17 11:00 10/01/17 08:36 (Thorazine) 25 mg Q8H PRN PO 09/23/17 20:00 (NS Flush) DAILY IV FLUSH 09/23/17 20:15 09/28/17 09:00 (NS Flush) UNSCH PRN IV FLUSH 09/23/17 20:15 09/27/17 08:14 (Ativan Inj) 2 mg Q2H PRN IV PUSH 09/23/17 20:15 09/23/17 20:00 (Brethine Inj) 1 mg UNSCH PRN SQ 09/23/17 20:30 (Cardizem) 30 mg Q6HR PO 09/24/17 18:00 10/01/17 12:41 Heparin Sodium/ Dextrose 250 ml @ 18 mls/hr TITRATE PRN IV 09/26/17 08:15 Future Hold 09/29/17 16:26 (Heparin Inj) 5,000 units UNSCH PRN IV PUSH 09/26/17 08:30 (Heparin Inj) 2,500 units UNSCH PRN IV PUSH 09/26/17 08:30 (Coumadin) 4 mg DAILY@16 PO 09/26/17 16:00 Future Hold 09/29/17 16:27 (SoluCORTEF INJ) 50 mg Q8HR IV PUSH 09/27/17 14:00 10/01/17 12:42 (Pepcid) 20 mg BID PO 09/27/17 21:00 10/01/17 08:36 (Miralax) 17 gm DAILY PO 09/29/17 09:00 10/01/17 08:36 Lactated Ringer's 1,000 ml @ 30 mls/hr Q24H PRN IV 09/30/17 02:15 10/03/17 02:14 Sodium Chloride 500 ml @ 30 mls/hr [id number] PRN IV 09/30/17 02:15 10/03/17 02:14 (Betadine 5% Antisepsis Kit) 1 applic BUSINESS MANAGEMENT ASSOCIATE PRN EACH NARE 09/30/17 02:15 10/03/17 02:14 (Chlorhexidine 2% Cloth) 3 pack BUSINESS MANAGEMENT ASSOCIATE PRN TOPICAL 09/30/17 02:15 10/03/17 02:14 (Tylenol) 650 mg Q4H PRN PO 09/30/17 09:30 09/30/17 21:18 Pharmacy Profile Note 0 ml @ 0 mls/hr UNSCH OTHER 09/30/17 15:15 (Lactulose Liq) 30 ml BID PO 09/30/17 21:00 10/01/17 08:35 (Colace Liq) 100 mg Q12HR PO 09/30/17 21:00 10/01/17 08:35 (Ritters Cream) 1 applic BID RECTAL 09/30/17 21:45 10/01/17 14:00 Date of Insertion: Sep 23, 2017 Line: Central Venous Catheter Side: Left Location: Internal, Jugular A/P Problem List: (1) Fecal impaction ICD Code: K56.41 - Fecal impaction Status: Acute (2) Encephalopathy ICD Code: G93.40 - Encephalopathy, unspecified Status: Resolved (3) Atrial fibrillation ICD Code: I48.91 - Unspecified atrial fibrillation (4) Septic arthritis of knee ICD Code: M00.9 - Pyogenic arthritis, unspecified Status: Resolved (5) Pleural effusion ICD Code: J90 - Pleural effusion, not elsewhere classified Status: Acute (6) Chronic systolic heart failure ICD Code: I50.22 - Chronic systolic (congestive) heart failure Status: Chronic (7) COPD (chronic obstructive pulmonary disease) ICD Code: J44.9 - Chronic obstructive pulmonary disease, unspecified Status: Chronic (8) Rheumatoid arthritis ICD Code: M06.9 - Rheumatoid arthritis, unspecified Status: Chronic (9) Renal insufficiency ICD Code: N28.9 - Disorder of kidney and ureter, unspecified Status: Resolved Assessment and Plan Hypotension - Resolved, was likely secondary to adrenal crisis being off of chronic steroids - lowering IV hydrocortisone down to 50mg today, transition to 25 mg q8 Saturday with prednisone 40 mg daily starting Saturday and discharge on Saturday if stable with prednisone taper. Altered mental status -Resolved. Neurology signed off, recheck MRI pending, EEG unremarkable for seizure activity. hiccups -resolved anemia -Chronic, H&H holding stable Systolic heart failure chronic w/ MR -low-dose lisinopril and Lopressor -bmp stable Atrial fibrillation - continue lopressor and cardizem on heparin, Coumadin knee effusion E. coli bacteremia Currently on Levaquin, per ID for fixed regimen. History of COPD Bilateral small pleural effusions Incentive spirometry while awake Albuterol/ipratropium aerosols every 6 hours with albuterol aerosols every 2 hours as needed Chest x-ray in a.m. 09/11 revealed mild to moderate bilateral pulmonary effusions with vascular congestion. CT thorax revealed bilateral pleural effusions Hypoalbuminemia Mild anasarca Cholelithiasis without cholecystitis on ultrasound regular diet Famotidine for GI prophylaxis Laxatives stool softeners as need if constipation Chronic prednisone use -history of rheumatoid arthritis completed course of steroids Sliding scale insulin Novulin R medium regimen with Accu-Cheks maintain euglycemia TSH 2.57 Patient does not know his home prednisone dose. Per PCP pt does have a hx of polymyalgia rheumatica. Tapering steroids, IV at this time, will eventually transition to p.o. Right renal cyst -3 cm Acute on chronic kidney injury - ATN, AIN? Unknown baseline creatinine nephrology recs appreciated. Continue to follow No hydronephrosis on CT abdomen/pelvis Chronic warfarin use Elevated PTT Elevated fibrinogen Okayed for heparin drip bridge by orthopedics Received 1 unit FFP 09/10. Holding warfarin in light of possible EGD, heparin for now Right knee effusion s/p Irrigation and debridement right knee on 09/10/[address] Kai del cid X-ray right knee reveal tricompartment osteophytes with medial space joint narrowing. Coarse ossifications of the supracondylar ridge. Popliteal artery calcification. Bridger Stieda lesion revealing possible old MCL injury Orthopedics weightbearing as tolerated. Range of motion Change dressings daily postop. PT evaluate and treat. PT did recommend rehab but pt refused. Depression -Duloxetine -Thorazine 25 mg o QHS will also help for hiccups. Constipation/Stool impaction Patient status post a water soluble enema which shows stool impaction. I will order abdominal x-ray. Consult GI. Continue Miralax daily - Will Rx mineral oil enema. 09/29 Abdomen KUB shows fecal impaction but no obstruction. GI consulted appreciate recommendations. Patient is to my opinion unable to fly tomorrow. Discussed the case with the business information manager. The patient would likely need a decompressive colonoscopy while inpatient prior to be able to fly back to [place]. Continue MiraLAX daily and bowel regimen as instructed by GI. 09/30 for decompressive colonoscopy today. 10/01 sp Decompressive colonoscopy on 09/30. GI signed off. Continue lactulose, Colace. Hypotension Likely due to decreased oral intake. The patient states he has not had food or much to drink due to patient's abdominal pain and discomfort. Ordered normal saline 500 mL's IV bolus. 10/01 status post normal saline IV bolus. Blood pressure much improved. Continue to monitor vital signs. -DVT -SCD/heparin Anal fissure Anesthesia was observed during colonoscopy. As per GI attending Dr. Carrasco, the fissure is deep. Colorectal surgery was consulted. Dr. Moore recommended a combination cream of silver sulfadiazine with lidocaine. Discharge Planning Patient now is ready for discharge. Pending arrangements for flight back to [place]. business change manager to assist in this matter. Problem Qualifiers (1) Atrial fibrillation: Qualified Codes: I48.2 - Chronic atrial fibrillation (2) Septic arthritis of knee: (3) COPD (chronic obstructive pulmonary disease): Qualified Codes: J44.9 - Chronic obstructive pulmonary disease, unspecified Dennis Bedolla MD Oct 01, 2017 16:52
[2017-10-01] MEDS ORDERED: MAGNESIUM CITRATE SOLN 300 ML BTL PO ONE (20:30)
[2017-10-01] MEDS: TEMAZEPAM 15 MG CAP PO PRN (20:57)
[2017-10-01] MEDS: ACETAMINOPHEN 325 MG TAB PO PRN (20:58)
[2017-10-02] VITALS (7 sets, daily range): BP systolic 122–134; BP diastolic 70–92; PULSE 74–118; RESP 16–19; TEMP 97.4–98.6; O2SAT 94–98
[2017-10-02] MEDS: CHLORHEXIDINE GLUCONATE 2 % 1 PACK (2 CLOTHS) TOP SCH (04:00)
[2017-10-02] MEDS: HYDROCORTISONE SOD SUCCINATE 100 MG VIAL IV PUSH SCH ×3 (05:23→21:08)
[2017-10-02] MEDS: DILTIAZEM HCL 30 MG TAB PO SCH ×3 (05:23→17:45)
[2017-10-02 09:50] LABS: HEMATOCRIT 36.3 % (39.0-51.0); HEMOGLOBIN 12.2 GM/DL (13.0-17.0); MEAN CELL VOLUME 90.7 FL (80.0-100.0); MEAN CORPUSCULAR HEMOGLOBIN 30.5 PG (27.0-34.0); MEAN CORPUSCULAR HGB CONC 33.6 % (32.0-36.0); MEAN PLATELET VOLUME 8.8 FL (7.0-11.0); PLATELET COUNT 224 TH/MM3 (150-450); RED CELL DISTRIBUTION WIDTH 14.2 % (11.6-17.2); WHITE BLOOD COUNT 7.5 TH/MM3 (4.0-11.0)
[2017-10-02] MEDS: LACTULOSE SYRUP 20 GM/30 ML CUP PO SCH ×2 (09:53→21:08)
[2017-10-02] MEDS: FAMOTIDINE 20 MG TAB PO SCH ×2 (09:53→21:08)
[2017-10-02] MEDS: DOCUSATE SODIUM 100 MG/10 ML UDC PO SCH ×2 (09:53→21:08)
[2017-10-02] MEDS: LEVOFLOXACIN 750 MG TAB PO SCH (09:53)
[2017-10-02] MEDS: POLYETHYLENE GLYCOL 17 GM PKG PO SCH (09:53)
[2017-10-02] MEDS: DULoxetine HCl DR 60 MG CAP PO SCH (09:53)
[2017-10-02] MEDS: DOCUSATE SODIUM 50 MG/SENNA 8.6 MG TAB PO SCH ×2 (09:53→21:08)
[2017-10-02] MEDS: SODIUM CHLORIDE 0.9% FLUSH 10 ML FLUSH IV FLUSH SCH ×3 (09:54→21:09)
[2017-10-02] MEDS: METOPROLOL TARTRATE 25 MG TAB PO SCH ×2 (09:54→21:08)
[2017-10-02 09:58] LABS: INTERNATIONAL NORMALIZED RATIO 1.8 RATIO; PROTHROMBIN TIME - PATIENT 18.3 SEC (9.8-11.6)
[2017-10-02] MEDS: SILVER SULFADIAZINE/LIDOCAINE CREAM 60 GM JAR RECTAL SCH ×2 (10:06→21:00)
[2017-10-02] MEDS: WARFARIN SOD 4 MG TAB PO SCH (15:47)
--- NOTE | 2017-10-02 18:17 | HHI.PR ---
Subjective Remarks Deferred entry, the patient was seen earlier at 12:15 PM. The patient states that he was able to move his bowels, denies abdominal pain, nausea or vomiting. Pain is controlled. Objective Vitals Vital Signs Date Time Temp Pulse Resp B/P (MAP) Pulse Ox O2 Delivery O2 Flow Rate FiO2 10/02/17 16:00 98.6 74 18 127/90 (102) 97 10/02/17 16:00 118 10/02/17 12:00 105 10/02/17 12:00 97.5 80 18 128/70 (89) 97 10/02/17 10:03 Room Air 10/02/17 08:00 97.4 96 19 134/92 (106) 95 10/02/17 08:00 102 10/02/17 04:00 86 10/02/17 04:00 Room Air 10/02/17 04:00 97.4 92 18 128/79 (95) 97 10/02/17 00:00 Room Air 10/02/17 00:00 106 10/02/17 00:00 98.0 91 18 130/91 (104) 97 10/01/17 20:00 98.0 110 18 116/78 (91) 95 10/01/17 20:00 115 10/01/17 20:00 Room Air I/O 10/01/17 10/01/17 10/01/17 10/02/17 10/02/17 10/02/17 07:00 15:00 23:00 07:00 15:00 23:00 Intake Total 960 ml Output Total 900 ml 700 ml Balance -900 ml 260 ml Intake Oral 960 ml Output Urine Total 900 ml 700 ml Stool Total 0 ml # Voids 3 Result Diagram: 10/02/17 0905 10/01/17 1200 Imaging Last Impressions Abdomen X-Ray 09/28/17 0000 Signed Impressions: Service Date/Time: Thursday, September 28, 2017 21:13 - CONCLUSION: 1. Findings of fecal impaction with constipation. 2. Atelectasis/scarring above the left hemidiaphragm Cyrus Shepherd MD Enema w/Water Soluble 09/27/17 0000 Signed Impressions: Service Date/Time: Wednesday, September 27, 2017 16:00 - CONCLUSION: 1. Stool impaction in the rectum and sigmoid. Incontinence as above. Sal Terrazas MD Brain MRI 09/25/17 0000 Signed Impressions: Service Date/Time: Monday, September 25, 2017 14:52 - CONCLUSION: 1. Degenerative changes in the atlantodens joint with pannus formation. 2. No findings to indicate acute cortical infarction identified. Chava Frances MD Chest X-Ray 09/24/17 0600 Signed Impressions: Service Date/Time: Sunday, September 24, 2017 03:30 - CONCLUSION: Mild residual infiltrate within the left base. Chandan Guardado Jr., MD Head CT 09/23/17 0000 Signed Impressions: Service Date/Time: Saturday, September 23, 2017 20:58 - CONCLUSION: No evidence of acute intracranial abnormality. Constantin Chavis MD Carotid Artery Ultrasound 09/17/17 1621 Signed Impressions: Service Date/Time: Sunday, September 17, 2017 08:53 - CONCLUSION: Mild atherosclerotic plaquing at the bifurcation. No focal high grade or hemodynamically significant stenosis. Camden Quintero MD Myocardial Perfusion Scan Nuc Med 09/12/17 0000 Signed Impressions: Service Date/Time: September 13:40 - CONCLUSION: Normal examination. RISK CATEGORY: Low (<1%% Annual Mortality Rate) Reagan Yusuf MD Gall Bladder Ultrasound 09/10/17 0000 Signed Impressions: Service Date/Time: Sunday, September 10, 2017 11:30 - CONCLUSION: 1. Cholelithiasis. However, there are no findings to indicate acute cholecystitis. 2. Small right pleural effusion. Constantin Lopez MD Chest CT 09/10/17 0000 Signed Impressions: Service Date/Time: Sunday, September 10, 2017 21:13 - CONCLUSION: 1. Small to moderate bilateral effusions and bibasilar atelectasis. Silverio Stout MD Abdomen/Pelvis CT 09/09/17 [id number] Signed Impressions: Service Date/Time: Saturday, September 09, 2017 20:30 - CONCLUSION: 1. Small bilateral pleural effusions, left greater than right with basilar dependent airspace disease in the lungs. Mild anasarca. No bowel obstruction. No free air. Mild constipation. Bruce catheter in bladder. Sal Terrazas MD Knee X-Ray 09/09/17 0000 Signed Impressions: Service Date/Time: Saturday, September 09, 2017 13:49 - CONCLUSION: 1. Moderate to large joint effusion. No acute osseous abnormality is identified. 2. 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 3. Bridger-Stieda lesion indicating old medial collateral ligament injury. 4. Severe calcification of the popliteal artery. Constantin Lopez MD Hip and Pelvis X-Ray 09/09/17 0000 Signed Impressions: Service Date/Time: Saturday, September 09, 2017 17:02 - CONCLUSION: No acute left hip abnormality is identified. 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 Constantin Lopez MD Objective Remarks AAox3 nad S1S2 RRR, no MRG clear lungs abdomen soft, mildly distended, mild tenderness to palpation no edema in lower extremities Medications and IVs Current Medications Medications (Trade) Dose Ordered Sig/Jet Route Start Time Stop Time Status Last Admin (NS Flush) 2 ml UNSCH PRN IV FLUSH 09/09/17 18:15 09/27/17 08:14 (NS Flush) 2 ml BID IV FLUSH 09/09/17 21:00 10/02/17 09:54 (Tylenol) 650 mg Q6H PRN PO 09/09/17 18:15 09/29/17 16:28 (Restoril) 15 mg HS PRN PO 09/09/17 18:15 10/01/17 20:57 Miscellaneous Information 1 Q361D XX 09/09/17 18:15 (Chlorhexidine 2% Cloth) 3 pack Taper DAILY@04 TOP 09/10/17 04:00 09/06/18 03:59 09/28/17 04:00 (Chlorhexidine 2% Cloth) 3 pack UNSCH PRN TOP 09/09/17 18:15 (Mar-Colace) 1 tab BID PO 09/09/17 21:00 10/02/17 09:53 (Milk Of Magnesia Liq) 30 ml Q12H PRN PO 09/09/17 18:15 09/27/17 11:19 (Senokot) 17.2 mg Q12H PRN PO 09/09/17 18:15 09/25/17 13:53 (Dulcolax Supp) 10 mg DAILY PRN RECTAL 09/09/17 18:15 3/16/18 13:50 (Zofran Inj) 4 mg Q6H PRN IV PUSH 09/10/17 04:15 (Albuterol Neb) 2.5 mg Q2HR NEB PRN NEB 09/10/17 07:00 ([place]alia 5-325 Mg) 1 tab Q4H PRN PO 09/10/17 08:00 09/26/17 17:33 (Lopressor) 50 mg Q12HR PO 09/13/17 21:00 Future Hold 09/21/17 20:01 (Pill Splitter) 1 ea UNSCH PRN OTHER 09/13/17 15:15 (Cardizem) 30 mg Q6HR PRN PO 09/16/17 12:00 Future Hold (Cymbalta Dr) 60 mg DAILY PO 09/18/17 09:00 10/02/17 09:53 (Levaquin) 750 mg DAILY PO 09/18/17 09:45 10/08/17 23:00 10/02/17 09:53 (Lopressor) 12.5 mg Q12HR PO 09/23/17 11:00 10/02/17 09:54 (Thorazine) 25 mg Q8H PRN PO 09/23/17 20:00 (NS Flush) DAILY IV FLUSH 09/23/17 20:15 09/28/17 09:00 (NS Flush) UNSCH PRN IV FLUSH 09/23/17 20:15 09/27/17 08:14 (Ativan Inj) 2 mg Q2H PRN IV PUSH 09/23/17 20:15 09/23/17 20:00 (Brethine Inj) 1 mg UNSCH PRN SQ 09/23/17 20:30 (Cardizem) 30 mg Q6HR PO 09/24/17 18:00 10/02/17 17:45 Heparin Sodium/ Dextrose 250 ml @ 18 mls/hr TITRATE PRN IV 09/26/17 08:15 Future Hold 09/29/17 16:26 (Heparin Inj) 5,000 units UNSCH PRN IV PUSH 09/26/17 08:30 (Heparin Inj) 2,500 units UNSCH PRN IV PUSH 09/26/17 08:30 (Coumadin) 4 mg DAILY@16 PO 09/26/17 16:00 Future hold 10/02/17 15:47 (SoluCORTEF INJ) 50 mg Q8HR IV PUSH 09/27/17 14:00 10/02/17 13:48 (Pepcid) 20 mg BID PO 09/27/17 21:00 10/02/17 09:53 (Miralax) 17 gm DAILY PO 09/29/17 09:00 10/02/17 09:53 Lactated Ringer's 1,000 ml @ 30 mls/hr Q24H PRN IV 09/30/17 02:15 10/03/17 02:14 Sodium Chloride 500 ml @ 30 mls/hr [id number] PRN IV 09/30/17 02:15 10/03/17 02:14 (Betadine 5% Antisepsis Kit) 1 applic SHEET LAYER PRN EACH NARE 09/30/17 02:15 10/03/17 02:14 (Chlorhexidine 2% Cloth) 3 pack SHEET LAYER PRN TOPICAL 09/30/17 02:15 10/03/17 02:14 (Tylenol) 650 mg Q4H PRN PO 09/30/17 09:30 10/01/17 20:58 Pharmacy Profile Note 0 ml @ 0 mls/hr UNSCH OTHER 09/30/17 15:15 (Lactulose Liq) 30 ml BID PO 09/30/17 21:00 10/02/17 09:53 (Colace Liq) 100 mg Q12HR PO 09/30/17 21:00 10/02/17 09:53 (Ritters Cream) 1 applic BID RECTAL 09/30/17 21:45 10/02/17 10:06 Date of Insertion: Sep 23, 2017 Line: Central Venous Catheter Side: Left Location: Internal, Jugular A/P Problem List: (1) Fecal impaction ICD Code: K56.41 - Fecal impaction Status: Acute (2) Encephalopathy ICD Code: G93.40 - Encephalopathy, unspecified Status: Resolved (3) Atrial fibrillation ICD Code: I48.91 - Unspecified atrial fibrillation (4) Septic arthritis of knee ICD Code: M00.9 - Pyogenic arthritis, unspecified Status: Resolved (5) Pleural effusion ICD Code: J90 - Pleural effusion, not elsewhere classified Status: Acute (6) Chronic systolic heart failure ICD Code: I50.22 - Chronic systolic (congestive) heart failure Status: Chronic (7) COPD (chronic obstructive pulmonary disease) ICD Code: J44.9 - Chronic obstructive pulmonary disease, unspecified Status: Chronic (8) Rheumatoid arthritis ICD Code: M06.9 - Rheumatoid arthritis, unspecified Status: Chronic (9) Renal insufficiency ICD Code: N28.9 - Disorder of kidney and ureter, unspecified Status: Resolved Assessment and Plan Hypotension - Resolved, was likely secondary to adrenal crisis being off of chronic steroids - lowering IV hydrocortisone down to 50mg today, transition to 25 mg q8 Saturday with prednisone 40 mg daily starting Saturday and discharge on Saturday if stable with prednisone taper. Altered mental status -Resolved. Neurology signed off, recheck MRI pending, EEG unremarkable for seizure activity. hiccups -resolved anemia -Chronic, H&H holding stable Systolic heart failure chronic w/ MR -low-dose lisinopril and Lopressor -bmp stable Atrial fibrillation - continue lopressor and cardizem on heparin, Coumadin knee effusion E. coli bacteremia Currently on Levaquin, per ID for fixed regimen. History of COPD Bilateral small pleural effusions Incentive spirometry while awake Albuterol/ipratropium aerosols every 6 hours with albuterol aerosols every 2 hours as needed Chest x-ray in a.m. 09/11 revealed mild to moderate bilateral pulmonary effusions with vascular congestion. CT thorax revealed bilateral pleural effusions Hypoalbuminemia Mild anasarca Cholelithiasis without cholecystitis on ultrasound regular diet Famotidine for GI prophylaxis Laxatives stool softeners as need if constipation Chronic prednisone use -history of rheumatoid arthritis completed course of steroids Sliding scale insulin Novulin R medium regimen with Accu-Cheks maintain euglycemia TSH 2.57 Patient does not know his home prednisone dose. Per PCP pt does have a hx of polymyalgia rheumatica. Tapering steroids, IV at this time, will eventually transition to p.o. Right renal cyst -3 cm Acute on chronic kidney injury - ATN, AIN? Unknown baseline creatinine nephrology recs appreciated. Continue to follow No hydronephrosis on CT abdomen/pelvis Chronic warfarin use Elevated PTT Elevated fibrinogen Okayed for heparin drip bridge by orthopedics Received 1 unit FFP 09/10. Holding warfarin in light of possible EGD, heparin for now Right knee effusion s/p Irrigation and debridement right knee on 09/10/[address] Lambie otrho X-ray right knee reveal tricompartment osteophytes with medial space joint narrowing. Coarse ossifications of the supracondylar ridge. Popliteal artery calcification. Bridger Stieda lesion revealing possible old MCL injury Orthopedics weightbearing as tolerated. Range of motion Change dressings daily postop. PT evaluate and treat. PT did recommend rehab but pt refused. Depression -Duloxetine -Thorazine 25 mg o QHS will also help for hiccups. Constipation/Stool impaction Patient status post a water soluble enema which shows stool impaction. I will order abdominal x-ray. Consult GI. Continue Miralax daily - Will Rx mineral oil enema. 09/29 Abdomen KUB shows fecal impaction but no obstruction. GI consulted appreciate recommendations. Patient is to my opinion unable to fly tomorrow. Discussed the case with the medical and health services manager. The patient would likely need a decompressive colonoscopy while inpatient prior to be able to fly back to [place]. Continue MiraLAX daily and bowel regimen as instructed by GI. 09/30 for decompressive colonoscopy today. 10/01 sp Decompressive colonoscopy on 09/30. GI signed off. Continue lactulose, Colace. 10/02 constipation and stool impaction completely resolved with successful bowel movements. Hypotension Likely due to decreased oral intake. The patient states he has not had food or much to drink due to patient's abdominal pain and discomfort. Ordered normal saline 500 mL's IV bolus. 10/01 status post normal saline IV bolus. Blood pressure much improved. Continue to monitor vital signs. 10/02 hypotension resolved. -DVT -SCD/heparin Anal fissure Anesthesia was observed during colonoscopy. As per GI attending Dr. Carrasco, the fissure is deep. Colorectal surgery was consulted. Dr. Moore recommended a combination cream of silver sulfadiazine with lidocaine. Discharge Planning Patient now is ready for discharge. Pending arrangements for flight back to [place]. health and wellness manager to assist in this matter. Discharge in a.m. Problem Qualifiers (1) Atrial fibrillation: Qualified Codes: I48.2 - Chronic atrial fibrillation (2) Septic arthritis of knee: (3) COPD (chronic obstructive pulmonary disease): Qualified Codes: J44.9 - Chronic obstructive pulmonary disease, unspecified Dennis Bedolla MD Oct 02, 2017 18:17
[2017-10-02] MEDS: TEMAZEPAM 15 MG CAP PO PRN (21:08)
[2017-10-02] MEDS: ACETAMINOPHEN 325 MG TAB PO PRN (21:09)
--- NOTE | 2017-10-02 22:49 | HHI.PR ---
Subjective Remarks C/R Surg afebrile, VSS +BM karlos PO Objective - Vital Signs Date Time Temp Pulse Resp B/P (MAP) Pulse Ox O2 Delivery O2 Flow Rate FiO2 10/02/17 20:00 98.1 76 16 122/83 (96) 98 10/02/17 10:03 Room Air 09/30/17 20:19 2.00 Result Diagram: 10/02/17 0905 10/01/17 1200 Objective Remarks PE alert Abd - soft , flat A/P Assessment and Plan Imp: overall better waiting for transfer to [place] continue lax prVenkat Royal MD Oct 02, 2017 22:49
[2017-10-03] VITALS: BP 143/89; PULSE 61; PULSE 81; RESP 17; TEMP 97.9; O2SAT 96
[2017-10-03] MEDS: DILTIAZEM HCL 30 MG TAB PO SCH ×2 (00:54→05:16)
[2017-10-03 04:00] VITALS: BP 135/80; PULSE 64; PULSE 83; RESP 16; TEMP 98.1; O2SAT 97
[2017-10-03] MEDS: CHLORHEXIDINE GLUCONATE 2 % 1 PACK (2 CLOTHS) TOP SCH (04:00)
[2017-10-03] MEDS: HYDROCORTISONE SOD SUCCINATE 100 MG VIAL IV PUSH SCH (05:16)
[2017-10-03 07:00] VITALS: BP 138/88; PULSE 70; RESP 16; TEMP 97.5
--- NOTE | 2017-10-03 08:05 | HHI.PR ---
Subjective Remarks C/R Surg afebrile, VSS +BM karlos PO no pain Objective - Vital Signs Date Time Temp Pulse Resp B/P (MAP) Pulse Ox O2 Delivery O2 Flow Rate FiO2 10/03/17 04:00 83 10/03/17 04:00 98.1 16 135/80 (98) 97 10/02/17 20:05 21 10/02/17 19:15 Room Air 09/30/17 20:19 2.00 Result Diagram: 10/02/17 0905 10/01/17 1200 Objective Remarks PE alert Abd - soft , flat, non-tender A/P Assessment and Plan Imp: overall better waiting for transfer to [place] continue lax prn will see Venkat Richardson MD Oct 03, 2017 08:05
--- NOTE | 2017-10-03 08:37 | HHI.DS ---
Discharge Summary Admission Date Sep 09, 2017 at 18:11 Admitting Diagnosis Hypotension. Right knee effusion. (1) Fecal impaction ICD Code: K56.41 - Fecal impaction Status: Acute (2) Encephalopathy ICD Code: G93.40 - Encephalopathy, unspecified Status: Resolved (3) Atrial fibrillation ICD Code: I48.91 - Unspecified atrial fibrillation (4) Septic arthritis of knee ICD Code: M00.9 - Pyogenic arthritis, unspecified Status: Resolved (5) Pleural effusion ICD Code: J90 - Pleural effusion, not elsewhere classified Status: Acute (6) Chronic systolic heart failure ICD Code: I50.22 - Chronic systolic (congestive) heart failure Status: Chronic (7) COPD (chronic obstructive pulmonary disease) ICD Code: J44.9 - Chronic obstructive pulmonary disease, unspecified Status: Chronic (8) Rheumatoid arthritis ICD Code: M06.9 - Rheumatoid arthritis, unspecified Status: Chronic (9) Renal insufficiency ICD Code: N28.9 - Disorder of kidney and ureter, unspecified Status: Resolved Brief History - From Admission 72-year-old male presents for evaluation of right knee pain for the past several days. It started about 4-5 days ago when he "tweaked" his knee while changing his tire. He had mild pain since then but but yesterday the pain became so severe, he could no longer ambulate. Pain is also worse with hyperextension. Patient has minimal pain at rest. He has been taking Tylenol, his friend's muscle relaxant, and previously prescribed oxycodone with moderate relief in symptoms. He cannot localize pain. Denies paresthesias, or fever. No history of knee problems. History of A. fib for which he takes warfarin. Patient stopped taking warfarin 2 days ago because he noted a small bruise to his buttocks. Denies any trauma or injury to buttocks. In the emergency department he was found to have bandemia and was hypotensive despite 3 L of normal saline boluses. CBC/BMP: 10/02/17 0905 10/01/17 1200 Significant Findings Laboratory Tests Test 10/01/17 06:57 10/01/17 10:29 10/01/17 12:00 10/02/17 09:02 Prothrombin Time 22.0 SEC (9.8-11.6) 18.3 SEC (9.8-11.6) Activated Partial Thromboplast Time 33.8 SEC (24.3-30.1) Red Blood Count 4.05 MIL/MM3 (4.50-5.90) Hemoglobin 12.3 GM/DL (13.0-17.0) Hematocrit 37.1 % (39.0-51.0) Blood Urea Nitrogen 20 MG/DL (7-18) Total Protein 4.5 GM/DL (6.4-8.2) Albumin 2.2 GM/DL (3.4-5.0) Calcium Level 8.2 MG/DL (8.5-10.1) Alkaline Phosphatase 123 U/L (45-117) Aspartate Amino Transf (AST/SGOT) 12 U/L (15-37) Total Bilirubin 1.1 MG/DL (0.2-1.0) Potassium Level 3.4 MEQ/L (3.5-5.1) Estimat Glomerular Filtration Rate 67 ML/MIN (>89) Test 10/02/17 09:05 Red Blood Count 4.00 MIL/MM3 (4.50-5.90) Hemoglobin 12.2 GM/DL (13.0-17.0) Hematocrit 36.3 % (39.0-51.0) PE at Discharge PE alert Abd - soft , flat, non-tender Pt Condition on Discharge: Stable Discharge Disposition: Disch w/ Home Health Serv Discharge Instructions DIET: Follow Instructions for: Heart Healthy Diet Activities you can perform: Regular-No Restrictions, See Additionl Instruction Other Activity Instructions: As per PT OOB with assistance only Dennis Bedolla MD Oct 03, 2017 08:37
[2017-10-03] MEDS: DULoxetine HCl DR 60 MG CAP PO SCH (09:00)
[2017-10-03] MEDS: SODIUM CHLORIDE 0.9% FLUSH 10 ML FLUSH IV FLUSH SCH ×2 (09:00)
[2017-10-03] MEDS: LEVOFLOXACIN 750 MG TAB PO SCH (09:02)
[2017-10-03] MEDS: FAMOTIDINE 20 MG TAB PO SCH (09:03)
[2017-10-03] MEDS: METOPROLOL TARTRATE 25 MG TAB PO SCH (09:03)
[2017-10-03] MEDS: DOCUSATE SODIUM 100 MG/10 ML UDC PO SCH (09:03)
[2017-10-03] MEDS: DOCUSATE SODIUM 50 MG/SENNA 8.6 MG TAB PO SCH (09:03)
[2017-10-03] MEDS: POLYETHYLENE GLYCOL 17 GM PKG PO SCH (09:14)
[2017-10-03] MEDS: LACTULOSE SYRUP 20 GM/30 ML CUP PO SCH (09:14)
[2017-10-03 10:01] LABS: INTERNATIONAL NORMALIZED RATIO 2.1 RATIO; PROTHROMBIN TIME - PATIENT 21.2 SEC (9.8-11.6)
[2017-10-03] MEDS: ACETAMINOPHEN 325 MG TAB PO PRN (10:30)
== END 2017-10-03 10:34 | DRG 853 ==
LOC: NEPD 11:43 → NEDA 18:11 → HIMW 20:40 → N04A 09-13 20:52 → HIME 09-22 11:26 → N04A 09-28 16:10
PROVIDERS: ADMIT Internal Medicine Critical Care Medicine; ATTEND Hospitalist
PROC: 06HM33Z Insertion of Infusion Device into Right Femoral Vein, Percutaneous Approach (ICD-10-PCS; 2017-09-09)
PROC: 30233R1 Transfusion of Nonautologous Platelets into Peripheral Vein, Percutaneous Approach (ICD-10-PCS; 2017-09-10)
PROC: 0S9C00Z Drainage of Right Knee Joint with Drainage Device, Open Approach (ICD-10-PCS; principal; 2017-09-10 15:45)
PROC: 02HV33Z Insertion of Infusion Device into Superior Vena Cava, Percutaneous Approach (ICD-10-PCS; 2017-09-23)
PROC: 0DCN8ZZ Extirpation of Matter from Sigmoid Colon, Via Natural or Artificial Opening Endoscopic (ICD-10-PCS; 2017-09-30)
PROC: 0DCP8ZZ Extirpation of Matter from Rectum, Via Natural or Artificial Opening Endoscopic (ICD-10-PCS; 2017-09-30)
PROC: 3E1H88Z Irrigation of Lower GI using Irrigating Substance, Via Natural or Artificial Opening Endoscopic (ICD-10-PCS; 2017-09-30)
DX: A41.51 Sepsis due to Escherichia coli [E. coli] (principal); R65.21 Severe sepsis with septic shock; N17.9 Acute kidney failure, unspecified; I47.2 Ventricular tachycardia; E87.2 Acidosis; I95.9 Hypotension, unspecified; I50.22 Chronic systolic (congestive) heart failure; M00.861 Arthritis due to other bacteria, right knee; E27.2 Addisonian crisis; I48.2 Chronic atrial fibrillation; E88.09 Other disorders of plasma-protein metabolism, not elsewhere classified; K62.5 Hemorrhage of anus and rectum; B96.20 Unspecified Escherichia coli [E. coli] as the cause of diseases classified elsewhere; K56.41 Fecal impaction; R06.6 Hiccough; K64.4 Residual hemorrhoidal skin tags; K60.2 Anal fissure, unspecified; J44.9 Chronic obstructive pulmonary disease, unspecified; M06.9 Rheumatoid arthritis, unspecified; N28.1 Cyst of kidney, acquired; E83.51 Hypocalcemia; M25.461 Effusion, right knee; F41.1 Generalized anxiety disorder; K80.20 Calculus of gallbladder without cholecystitis without obstruction; D64.9 Anemia, unspecified; I34.0 Nonrheumatic mitral (valve) insufficiency; R60.1 Generalized edema; M35.3 Polymyalgia rheumatica; M76.41 Tibial collateral bursitis [Pellegrini-Stieda], right leg; K59.00 Constipation, unspecified; R47.81 Slurred speech; M17.11 Unilateral primary osteoarthritis, right knee; R79.1 Abnormal coagulation profile; Z79.52 Long term (current) use of systemic steroids; Z79.01 Long term (current) use of anticoagulants
CPT/HCPCS: 36430; 36556; 36600; 70450; 70551; 71045; 71250; 73502; 73564; 74018; 74176; 74270; 76705; 76937; 78452; 80048; 80053; 80061; 80076; 80202; 81001; 82533; 82550; 82570; 82805; 82948; 83036; 83605; 83690; 83735; 84100; 84300; 84443; 84484; 85007; 85025; 85027; 85384; 85610; 85652; 85730; 86140; 86900; 86901; 86927; 87015; 87040; 87070; 87077; 87086; 87102; 87116; 87186; 87205; 87206; 87449; 87493; 87641; 93005; 93017; 93306; 93880; 94150; 94618; 94640; 94664; 95819; 96360; 99292; A9502; J0282; J0692; J0696; J1160; J1580; J1644; J1720; J1940; J2060; J2250; J2370; J2543; J2785; J2997; J3010; J3370; J3430; J3475; J7030; J7040; J7050; J7070; J7120; P9017; P9045; P9047; Q9963